=== PATIENT | male | born 1935 | race Caucasian/White ===

== ENCOUNTER 2016-12-16 11:00 | Outpatient (CLI) | payer MEDICARE, OTHER | END 2016-12-16 23:59 | DX: I10 Essential (primary) hypertension (principal); E78.5 Hyperlipidemia, unspecified ==

== ENCOUNTER 2017-01-28 16:15 | Outpatient (CLI) | payer MEDICARE, OTHER | END 2017-01-28 16:16 | disposition home or self-care (01) | DX: R31.0 Gross hematuria (principal) ==

== ENCOUNTER 2017-02-03 15:48 | Outpatient (CLI) | payer MEDICARE, OTHER ==
[2017-02-03] MEDS ORDERED: IOPAMIDOL-300 100 ML VIAL IVP ONE (17:40)
== END 2017-02-03 15:49 | disposition home or self-care (01) ==
DX: N32.89 Other specified disorders of bladder (principal); K80.20 Calculus of gallbladder without cholecystitis without obstruction; N28.89 Other specified disorders of kidney and ureter
CPT/HCPCS: 74178; Q9967

== ENCOUNTER 2017-06-25 10:26 | Outpatient (CLI) | payer MEDICARE, OTHER ==
[2017-06-25 13:28] LABS: BASOPHILS % (AUTO) 0.6 %; EOSINOPHILS # (AUTO) 0.2 10^3/uL (0.0-0.7); EOSINOPHILS % (AUTO) 3.5 %; HCT - HEMATOCRIT 39.6 % (42.0-52.0); HGB - HEMOGLOBIN 13.4 g/dL (14.0-18.0); LYMPHOCYTES # (AUTO) 0.6 10^3/uL (1.5-3.5); LYMPHOCYTES % (AUTO) 10.3 %; MEAN CORPUSCULAR HEMOGLOBIN 32.6 pg (27.0-31.0); MEAN CORPUSCULAR VOLUME 95.9 fL (80.0-94.0); MEAN PLATELET VOLUME 8.5 fL (7.4-11.4); MONOCYTES # (AUTO) 0.6 10^3/uL (0.0-1.0); MONOCYTES % (AUTO) 10.5 %; NEUTROPHILS # (AUTO) 4.3 10^3/uL (1.5-6.6); NEUTROPHILS % (AUTO) 75.1 %; RED BLOOD COUNT 4.13 10^6/uL (4.70-6.10); RED CELL DISTRIBUTION WIDTH 14.7 % (12.0-15.0); UNCORRECTED WHITE BLOOD COUNT 5.7 x10^3/uL; WHITE BLOOD COUNT 5.7 x10^3/uL (4.8-10.8)
[2017-06-25 13:36] LABS: ALBUMIN/GLOBULIN RATIO 1.7 (1.0-2.2); BILIRUBIN,TOTAL 0.6 mg/dL (0.2-1.0); BUN - BLOOD UREA NITROGEN 19 mg/dL (6-20); CALCIUM 8.8 mg/dL (8.5-10.3); CARBON DIOXIDE - CO2 29 mmol/L (21-32); CHLORIDE 104 mmol/L (101-111); CHOL/HDL RATIO 3.3 (<5.0); CHOLESTEROL 156 mg/dL; CREATININE 0.8 mg/dL (0.6-1.2); GFR - MDRD 93 (>89); GLUCOSE 116 mg/dL (70-100); HDL CHOLESTEROL 48 mg/dL; LDL/HDL RATIO 1.8 (<3.6); POTASSIUM 3.8 mmol/L (3.5-5.0); SODIUM 138 mmol/L (135-145); TRIGLYCERIDES 114 mg/dL; VLDL CHOLESTEROL 23 mg/dL
== END 2017-06-25 10:27 ==
LOC: LAB.WCP 10:26
PROVIDERS: ATTEND Family Medicine
DX: R53.83 Other fatigue (principal)
CPT/HCPCS: 36415; 80053; 80061; 84403; 84443; 85025

== ENCOUNTER 2017-08-08 12:49 | Emergency (ER) | payer MEDICARE, OTHER | END 2017-08-08 13:02 | disposition left against medical advice (07) | LOC: ED 12:49 | DX: Z53.21 Procedure and treatment not carried out due to patient leaving prior to being seen by health care provider (principal) ==

== ENCOUNTER 2017-08-08 15:57 | Emergency (ER) | payer MEDICARE, OTHER ==
[2017-08-08 16:03] VITALS: BP 117/66
--- NOTE | 2017-08-08 16:08 | ED Physician Documentation ---
PD HPI HEENT - Stated complaint Stated Complaint: OBJECT IN L EAR - Chief complaint Chief Complaint: Heent - History obtained from History obtained from: Patient - History of Present Illness Timing - onset: Today Timing - duration: Hours Timing - details: Abrupt onset Location: Left ear (he took out his hearing aid and the soft rubber cushion stayed stuck in canal, with it detaching from the spindle it is attached to. He is unable to get at it and take it out) Associated symptoms: No: Fever, Congestion, Swollen nodes, Facial swelling Similar symptoms before: Has not had sx before Recently seen: Not recently seen Review of Systems Constitutional: denies: Fever, Chills Ears: reports: Loss of hearing (feels blocked with the item in the left ear). denies: Ear pain Nose: denies: Rhinorrhea / runny nose, Congestion Throat: denies: Sore throat Respiratory: denies: Cough PD PAST MEDICAL HISTORY - Past Medical History Past Medical History: Yes Cardiovascular: Hypertension, High cholesterol GI: GERD HEENT: Chronic hearing loss (and has hearing aids. ) Psych: Post traumatic stress disorder Derm: Psoriasis - Past Surgical History Past Surgical History: Yes General: Appendectomy HEENT: Tonsil/Adenoidectomy - Present Medications Home Medications: Ambulatory Orders Medication Instructions Recorded Confirmed Hydrochlorothiazide 25 mg PO DAILY 11/05/14 04/27/15 Simvastatin 10 mg PO DAILY 11/05/14 04/27/15 Acetaminophen [Tylenol] 650 mg PO DAILY 04/27/15 04/27/15 Inhaler, Assist Devices [Space 1 each MC Q4HR #1 spacer 04/27/15 Chamber Plus] Methotrexate 6 tab PO 08/08/17 - Allergies Allergies/Adverse Reactions: Allergies Allergy/AdvReac Type Severity Reaction Status Date / Time Penicillins Allergy Unknown Verified 02/03/15 13:57 - Social History Does the pt smoke?: No Smoking Status: Never smoker Does the pt drink ETOH?: Yes Does the pt have substance abuse?: No - Immunizations Immunizations are current?: Yes - POLST Patient has POLST: No PD ED PE NORMAL - Vitals Vital signs reviewed: Yes - General General: Alert and oriented X 3, No acute distress, Well developed/nourished - HEENT HEENT: No: Ears normal (right is normal Left canal with rounded rubber earbud shaped item. It was grabbed easily with alligator forceps and removed. He was able to hear better out of the ear then. ) - Neck Neck: Supple, no meningeal sign, No adenopathy Results - Vitals Vitals: Vital Signs - 24 hr 08/08/17 16:00 Temperature 36.4 C L Heart Rate 96 Respiratory 16 Rate Blood Pressure 117/66 O2 Saturation 97 Oxygen O2 Source Room air Departure - Departure Disposition: 01 Home, Self Care Clinical Impression: Ear foreign body Qualifiers: Encounter type: initial encounter Laterality: left Qualified Code(s): T16.2XXA - Foreign body in left ear, initial encounter Condition: Stable Record reviewed to determine appropriate education?: Yes Instructions: ED Foreign Body Ear Canal Follow-Up: Reinaldo Bangura MD [Primary Care Provider] - Comments: No particular instructions. Follow-up with the hearing aid folks to see if the cup needs a different size or such. Discharge Date/Time: 08/08/17 16:41
== END 2017-08-08 16:41 | disposition home or self-care (01) ==
LOC: ED 15:57
DX: T16.2XXA Foreign body in left ear, initial encounter (principal); X58.XXXA Exposure to other specified factors, initial encounter; I10 Essential (primary) hypertension; E78.00 Pure hypercholesterolemia, unspecified; Z97.4 Presence of external hearing-aid
CPT/HCPCS: 69200; 99282; 99283

== ENCOUNTER 2017-09-02 23:04 | Emergency (ER) | payer MEDICARE, OTHER ==
[2017-09-02 23:12] VITALS: BP 163/75
[2017-09-02] MEDS ORDERED: AMOX/CLAV 875 MG/125 MG TABLET PO STA (23:57)
[2017-09-02] MEDS ORDERED: DEXAMETHASONE 10 MG/ML VIAL PO STA (23:57)
--- NOTE | 2017-09-03 | ED Physician Documentation ---
PD HPI HEENT - Stated complaint Stated Complaint: FACIAL SWELLING - Chief complaint Chief Complaint: Heent - History obtained from History obtained from: Patient, Family - History of Present Illness Timing - onset: Enter time (2199), Today Timing - duration: Minutes Timing - details: Gradual onset, Still present Location: Other (left parotid gland) Improves: Nothing Associated symptoms: Facial swelling. No: Fever, Congestion, Rhinorrhea, Trismus, Unable to swallow, Swollen nodes, Headache, Cough Similar symptoms before: Has not had sx before Recently seen: Not recently seen - Additional information Additional information: 82-year-old male was sitting at home today when he noticed a swelling in the left side of his face. He eventually went to check himself in the mirror and noted that the swelling was significant. he does not have much in the way of pain with this and since he has been here in the emergency department he feels the swelling is reduced slightly. Review of Systems Constitutional: denies: Fever, Chills, Myalgias, Fatigue Eyes: denies: Decreased vision Ears: denies: Ear pain Nose: denies: Rhinorrhea / runny nose, Congestion Throat: denies: Dental pain / toothache, Sore throat, Swollen tonsils Cardiac: denies: Chest pain / pressure, Palpitations Respiratory: denies: Dyspnea GI: denies: Abdominal Pain PD PAST MEDICAL HISTORY - Past Medical History Cardiovascular: Hypertension, High cholesterol GI: GERD HEENT: Chronic hearing loss Psych: Post traumatic stress disorder Derm: Psoriasis - Past Surgical History Past Surgical History: Yes General: Appendectomy HEENT: Tonsil/Adenoidectomy - Present Medications Home Medications: Ambulatory Orders Medication Instructions Recorded Confirmed Simvastatin 10 mg PO DAILY 11/05/14 09/02/17 hydroCHLOROthiazide 25 mg PO DAILY 11/05/14 09/02/17 [Hydrochlorothiazide] Acetaminophen [Tylenol] 650 mg PO DAILY 04/27/15 09/02/17 Methotrexate 6 tab PO OAW 08/08/17 09/02/17 Aspirin 1 tab ORAL DAILY 09/02/17 09/02/17 Amox/Clav 875/125 [Augmentin] 1 each PO Q12H #10 tablet 09/03/17 - Allergies Allergies/Adverse Reactions: Allergies Allergy/AdvReac Type Severity Reaction Status Date / Time Penicillins Allergy Unknown Verified 09/02/17 23:12 - Social History Does the pt smoke?: No Smoking Status: Never smoker Does the pt drink ETOH?: Yes ETOH Use: Wine Does the pt have substance abuse?: No - Immunizations Immunizations are current?: Yes - POLST Patient has POLST: No PD ED PE NORMAL - Vitals Vital signs reviewed: Yes (Hypertensive) - General General: No acute distress, Well developed/nourished - HEENT HEENT: Atraumatic, PERRL, EOMI, Other (There is swelling to the left parotid gland. There is inflammation at the opening of the parotid duct along the buccal mucosa on the left side. With milking of the gland there is secretions running freely. There is no significant pain over the parotid gland. The gland does appear to deflate over time.) - Neck Neck: Supple, no meningeal sign, No bony TTP - Respiratory Respiratory: No respiratory distress Results - Vitals Vitals: Vital Signs - 24 hr 09/02/17 23:09 Temperature 36.7 C Heart Rate 75 Respiratory 20 Rate Blood Pressure 163/75 H O2 Saturation 95 Oxygen O2 Source Room air PD MEDICAL DECISION MAKING - ED course Complexity details: considered differential, d/w patient, d/w family ED course: 82-year-old male with parotid gland swelling and now relieved obstruction of the parotid duct. He does have some swelling around the opening of the duct and he is given 10 mg of dexamethasone and 875 mg of Augmentin. I have asked him to take the antibiotic for 5 days and to follow-up with ENT if he does not have complete resolution of his symptoms. Departure - Departure Disposition: 01 Home, Self Care Clinical Impression: Parotid duct obstruction Condition: Stable Instructions: Stensen Duct Obstruction Tx Follow-Up: Reinaldo Bangura MD [Primary Care Provider] - [facility] [Provider Group] Prescriptions: Amox/Clav 875/125 [Augmentin] 1 each PO Q12H #10 tablet
[2017-09-03] MEDS ORDERED: AMOX/CLAV 875 MG/125 MG TABLET PO ONE (00:11)
[2017-09-03] MEDS ORDERED: DEXAMETHASONE 10 MG/ML VIAL ONE (00:12)
[2017-09-03] MEDS ORDERED: CHERRY SYRUP 10 ML UDC PO ONE (00:12)
== END 2017-09-03 00:14 | disposition home or self-care (01) ==
LOC: ED 23:04
DX: K11.8 Other diseases of salivary glands (principal); I10 Essential (primary) hypertension; E78.00 Pure hypercholesterolemia, unspecified; K21.9 Gastro-esophageal reflux disease without esophagitis; Z79.82 Long term (current) use of aspirin
CPT/HCPCS: 99283; A9270

== ENCOUNTER 2018-04-11 10:10 | Emergency (ER) | payer MEDICARE, OTHER ==
[2018-04-11 10:36] VITALS: BP 138/77
--- NOTE | 2018-04-11 11:22 | ED Physician Documentation ---
PD HPI HEENT - Stated complaint Stated Complaint: F/O IN EAR - Chief complaint Chief Complaint: Heent - History obtained from History obtained from: Patient - History of Present Illness Timing - onset: Today Timing - details: Abrupt onset Location: Right ear (he took out his hearing aid and the cup part that fits into canal broke off and was still in ear. He is unable to get at it at home.) Associated symptoms: No: Fever, Congestion Review of Systems Eyes: reports: Decreased vision (chronically) PD PAST MEDICAL HISTORY - Past Medical History Past Medical History: Yes Cardiovascular: Hypertension, High cholesterol GI: GERD HEENT: Chronic hearing loss Psych: Post traumatic stress disorder Derm: Psoriasis - Past Surgical History Past Surgical History: Yes General: Appendectomy HEENT: Tonsil/Adenoidectomy - Present Medications Home Medications: Ambulatory Orders Medication Instructions Recorded Confirmed Simvastatin 10 mg PO DAILY 11/05/14 04/11/18 hydroCHLOROthiazide 25 mg PO DAILY 11/05/14 04/11/18 [Hydrochlorothiazide] Acetaminophen [Tylenol] 650 mg PO DAILY 04/27/15 04/11/18 Methotrexate 6 tab PO OAW 08/08/17 04/11/18 Aspirin 1 tab ORAL DAILY 09/02/17 04/11/18 Amox/Clav 875/125 [Augmentin] 1 each PO Q12H #10 tablet 09/03/17 04/11/18 - Allergies Allergies/Adverse Reactions: Allergies Allergy/AdvReac Type Severity Reaction Status Date / Time cillins Allergy Itching Uncoded 04/11/18 10:51 - Social History Does the pt smoke?: No Smoking Status: Never smoker Does the pt drink ETOH?: Yes Does the pt have substance abuse?: No - Immunizations Immunizations are current?: Yes - POLST Patient has POLST: No PD ED PE NORMAL - Vitals Vital signs reviewed: Yes - General General: Alert and oriented X 3, No acute distress, Well developed/nourished - HEENT HEENT: Pharynx benign. No: Ears normal (left is good; right has part of hearing aid in it, easily visible. ) - Neuro Neuro: Alert and oriented X 3, No motor deficit, Normal speech Results - Vitals Vitals: Oxygen O2 Source Room air Procedures - FB removal FB location: Ear Removal method: Foreceps FB removal aftercare: No complications, Patient tolerated well, Removed successfully PD MEDICAL DECISION MAKING - ED course Complexity details: considered differential, d/w patient - Sepsis Event Vital Signs: Oxygen O2 Source Room air Departure - Departure Disposition: 01 Home, Self Care Clinical Impression: Ear foreign body Qualifiers: Encounter type: initial encounter Laterality: right Qualified Code(s): T16.1XXA - Foreign body in right ear, initial encounter Condition: Stable Record reviewed to determine appropriate education?: Yes Instructions: ED Foreign Body Ear Canal Comments: The ear canal looks normal after the hearing aid part is out. No signs of irritation or infection. Discharge Date/Time: 04/11/18 11:43
== END 2018-04-11 11:43 | disposition home or self-care (01) ==
LOC: ED 10:10
DX: T16.1XXA Foreign body in right ear, initial encounter (principal); I10 Essential (primary) hypertension; Z79.82 Long term (current) use of aspirin
CPT/HCPCS: 69200; 99282

== ENCOUNTER 2019-07-25 06:14 | Day surgery (SDC) | payer MEDICARE, OTHER ==
[2019-07-25] MEDS ORDERED: MIDAZOLAM 2 MG/2 ML VIAL IVP ONE (06:15)
[2019-07-25] MEDS ORDERED: fentaNYL 100 MCG/2 ML VIAL IVP ONE (06:15)
[2019-07-25] MEDS ORDERED: LACTATED RINGERS 1,000 ML IV ONE (06:34)
[2019-07-25 09:23] VITALS: BP 131/68
== END 2019-07-25 06:15 | disposition home or self-care (01) ==
LOC: SDS 06:14
PROVIDERS: ATTEND Internal Medicine Gastroenterology
PROC: 0DBL8ZZ Excision of Transverse Colon, Via Natural or Artificial Opening Endoscopic (ICD-10-PCS; principal; 2019-07-25 07:30)
DX: D12.3 Benign neoplasm of transverse colon (principal); K51.40 Inflammatory polyps of colon without complications; K57.30 Diverticulosis of large intestine without perforation or abscess without bleeding; I10 Essential (primary) hypertension; Z79.899 Other long term (current) drug therapy; Z79.82 Long term (current) use of aspirin; Z87.891 Personal history of nicotine dependence
CPT/HCPCS: 45380; 45385; J7120

== ENCOUNTER 2020-05-13 18:08 | Outpatient (CLI) | payer MEDICARE, OTHER | END 2020-05-13 23:59 | disposition critical access hospital (66) | LOC: EMS 18:08 | PROVIDERS: ATTEND Surgery | DX: R55 Syncope and collapse (principal); R42 Dizziness and giddiness | CPT/HCPCS: A0425; A0427 ==

== ENCOUNTER 2020-05-13 18:25 | Emergency (ER) | payer MEDICARE, OTHER ==
[2020-05-13] MEDS ORDERED: ONDANSETRON 4 MG/2 ML VIAL ONE (18:29)
[2020-05-13] MEDS ORDERED: SODIUM CHLORIDE 0.9% 1,000 ML IV STA ×2 (18:35→20:37)
[2020-05-13] MEDS ORDERED: ONDANSETRON 4 MG/2 ML VIAL IVP STA (18:38)
--- NOTE | 2020-05-13 18:41 | ED Physician Documentation ---
History of Present Illness - Stated complaint Stated Complaint: SYNCOPE - Chief complaint Chief Complaint: Cardiac - History obtained from History obtained from: Patient - History of Present Illness Timing: Today Pain level max: 0 Pain level now: 0 - Additonal information Additional information: 84-year-old male presents to the emergency department after working all day out in the sun in his garden when he felt lightheaded, dizzy and passed out. Had nausea and vomiting after the event. No head injury. Currently is feeling better after IV fluids with EMS. He states he has not eaten or drank anything since early this morning. No chest pain. No shortness of breath. Nausea resolved with Zofran. No cardiac history. Review of Systems Ten Systems: 10 systems reviewed and negative Constitutional: denies: Fever, Chills Cardiac: denies: Chest pain / pressure Respiratory: denies: Cough GI: denies: Vomiting, Diarrhea Skin: denies: Rash Musculoskeletal: denies: Neck pain, Back pain Neurologic: denies: Headache PD PAST MEDICAL HISTORY - Past Medical History Past Medical History: Yes Cardiovascular: Hypertension, High cholesterol GI: GERD HEENT: Chronic hearing loss Psych: Post traumatic stress disorder Derm: Psoriasis - Past Surgical History Past Surgical History: Yes General: Appendectomy HEENT: Tonsil/Adenoidectomy - Present Medications Home Medications: Ambulatory Orders Medication Instructions Recorded Confirmed Simvastatin 10 mg PO DAILY 11/05/14 07/25/19 hydroCHLOROthiazide 25 mg PO DAILY 11/05/14 07/25/19 [Hydrochlorothiazide] Acetaminophen [Tylenol] 650 mg PO DAILY 04/27/15 07/25/19 Methotrexate 6 tab PO OAW 08/08/17 07/25/19 Aspirin 1 tab ORAL DAILY 09/02/17 07/25/19 Finasteride 5 mg PO DAILY 07/25/19 07/25/19 Losartan Potassium 25 mg PO DAILY 07/25/19 07/25/19 Tamsulosin [Flomax] 0.4 mg PO DAILY 07/25/19 07/25/19 - Allergies Allergies/Adverse Reactions: Allergies Allergy/AdvReac Type Severity Reaction Status Date / Time lisinopril Allergy Unknown Verified 07/25/19 07:01 cillins Allergy Itching Uncoded 07/25/19 06:36 - Social History Does the pt smoke?: No Smoking Status: Never smoker Does the pt drink ETOH?: Yes Does the pt have substance abuse?: No - Immunizations Immunizations are current?: Yes - POLST Patient has POLST: No PD ED PE NORMAL - Vitals Vital signs reviewed: Yes - General General: Alert and oriented X 3, No acute distress, Well developed/nourished - HEENT HEENT: PERRL, Other (Dry lips) - Neck Neck: Supple, no meningeal sign - Cardiac Cardiac: RRR, No murmur, Strong equal pulses - Respiratory Respiratory: No respiratory distress, Clear bilaterally - Abdomen Abdomen: Soft, Non tender, Non distended - Derm Derm: Warm and dry - Extremities Extremities: No edema, No calf tenderness / cord - Neuro Neuro: Alert and oriented X 3 - Psych Psych: Normal mood, Normal affect Results - Vitals Vitals: Vital Signs - 24 hr 05/13/20 05/13/20 05/13/20 18:29 18:36 19:18 Temperature 36.9 C 36.5 C Heart Rate 91 66 72 Respiratory 20 16 11 L Rate Blood Pressure 143/69 H 136/57 H 142/66 H O2 Saturation 99 93 100 05/13/20 20:32 Temperature Heart Rate 71 Respiratory 14 Rate Blood Pressure 143/81 H O2 Saturation 100 Oxygen O2 Source Room air - EKG (time done) 1828 Rate: Rate (enter#) (66) Rhythm: NSR [place]: Normal Intervals: Prolonged [place], Prolonged QT QRS: Normal Ischemia: Normal ST segments Computer interpretation: Agree with computer - Labs Labs: Laboratory Tests 05/13/20 05/13/20 05/13/20 18:41 18:41 18:41 WBC 8.5 RBC 3.85 L Hgb 12.4 L Hct 37.6 L MCV 97.7 H MCH 32.2 H MCHC 33.0 RDW 14.0 Plt Count 126 L MPV 9.7 Neut # (Auto) 7.0 H Lymph # (Auto) 0.7 L [place] # (Auto) 0.6 Eos # (Auto) 0.1 Baso # (Auto) 0.0 Absolute Nucleated RBC 0.00 Nucleated RBC % 0.0 Sodium 135 Potassium 3.3 L Chloride 98 L Carbon Dioxide 25 Anion Gap 12.0 BUN 28 H Creatinine 1.1 Estimated GFR (MDRD) 64 L Glucose 154 H Calcium 8.3 L Total Bilirubin 0.9 AST 30 ALT 28 Alkaline Phosphatase 89 Troponin I High Sens 10.6 Total Protein 6.1 L Albumin 3.9 Globulin 2.2 Albumin/Globulin Ratio 1.8 Lipase 36 Urine Color Urine Clarity Urine pH Ur Specific [place] Urine Protein Urine Glucose (UA) Urine Ketones Urine Occult Blood Urine Nitrite Urine Bilirubin Urine Urobilinogen Ur Leukocyte Esterase Ur Microscopic Review Urine Culture Comments 05/13/20 20:25 WBC RBC Hgb Hct MCV MCH MCHC RDW Plt Count MPV Neut # (Auto) Lymph # (Auto) [place] # (Auto) Eos # (Auto) Baso # (Auto) Absolute Nucleated RBC Nucleated RBC % Sodium Potassium Chloride Carbon Dioxide Anion Gap BUN Creatinine Estimated GFR (MDRD) Glucose Calcium Total Bilirubin AST ALT Alkaline Phosphatase Troponin I High Sens Total Protein Albumin Globulin Albumin/Globulin Ratio Lipase Urine Color YELLOW Urine Clarity CLEAR Urine pH 5.0 Ur Specific [place] 1.025 Urine Protein NEGATIVE Urine Glucose (UA) NEGATIVE Urine Ketones 15 H Urine Occult Blood TRACE-INTA Urine Nitrite NEGATIVE Urine Bilirubin NEGATIVE Urine Urobilinogen 0.2 (NORMAL) Ur Leukocyte Esterase NEGATIVE Ur Microscopic Review NOT INDICATED Urine Culture Comments NOT INDICATED PD MEDICAL DECISION MAKING - ED course Complexity details: reviewed results, re-evaluated patient, considered differential, d/w patient, d/w family ED course: Patient with dehydration and syncope today. Does have a prolonged QT on EKG, he will follow-up with his doctor regarding this. Asymptomatic here. No arrhythmias on telemetry. Symptoms resolved with IV fluids. Tolerating p.o. without difficulty. Patient is well-appearing, nontoxic. Afebrile. Patient counseled regarding signs and symptoms for which I believe and urgent re- evaluation would be necessary. Patient with good understanding of and agreement to plan and is comfortable going home at this time This document was made in part using voice recognition software. While efforts are made to proofread this document, sound alike and grammatical errors may occur. Departure - Departure Disposition: 01 Home, Self Care Clinical Impression: Dehydration, Prolonged QT interval Syncope Qualifiers: Syncope type: unspecified Qualified Code(s): R55 - Syncope and collapse Condition: Good Instructions: ED Dehydration, ED Syncope Vasovagal Follow-Up: Reinaldo Bangura MD [Primary Care Provider] - Within 1 week Comments: Make sure to drink plenty of water at home. Return if you worsen. You need to remember to stop and eat and drink during the day.
[2020-05-13 18:49] LABS: BASOPHILS % (AUTO) 0.5 %; EOSINOPHILS # (AUTO) 0.1 10^3/uL (0.0-0.7); EOSINOPHILS % (AUTO) 1.2 %; HGB - HEMOGLOBIN 12.4 g/dL (14.0-18.0); LYMPHOCYTES # (AUTO) 0.7 10^3/uL (1.5-3.5); LYMPHOCYTES % (AUTO) 8.1 %; MEAN CORPUSCULAR HEMOGLOBIN 32.2 pg (27.0-31.0); MEAN CORPUSCULAR VOLUME 97.7 fL (80.0-94.0); MEAN PLATELET VOLUME 9.7 fL (7.4-11.4); MONOCYTES # (AUTO) 0.6 10^3/uL (0.0-1.0); MONOCYTES % (AUTO) 6.6 %; NEUTROPHILS % (AUTO) 82.9 %; PLT - PLATELET COUNT 126 10^3/uL (130-450); RED BLOOD COUNT 3.85 10^6/uL (4.70-6.10); WHITE BLOOD COUNT 8.5 x10^3/uL (4.8-10.8)
[2020-05-13 19:00] LABS: ALBUMIN 3.9 g/dL (3.2-5.5); ALBUMIN/GLOBULIN RATIO 1.8 (1.0-2.2); BILIRUBIN,TOTAL 0.9 mg/dL (0.2-1.0); CALCIUM 8.3 mg/dL (8.5-10.3); CREATININE 1.1 mg/dL (0.6-1.2); TOTAL PROTEIN 6.1 g/dL (6.7-8.2)
--- NOTE | 2020-05-13 19:11 | XRAY Report ---
PROCEDURE: Chest 1 View X-Ray INDICATIONS: Chest pain TECHNIQUE: One view of the chest was acquired. COMPARISON: Chest x-ray 04/26/2015 FINDINGS: Surgical changes and devices: Thoracolumbar fixation rods are noted. Lungs and pleura: No pleural effusions or pneumothorax. Lungs are clear. Mediastinum: Mediastinal contours appear normal. Heart size is enlarged. Bones and chest wall: No suspicious bony lesions. Overlying soft tissues appear unremarkable. IMPRESSION: No acute pulmonary process. Reviewed by: Mira Montoya MD on 05/13/2020 7:10 PM PDT Approved by: Mira Montoya MD on 05/13/2020 7:10 PM PDT Station ID: [id number]
[2020-05-13 20:34] VITALS: BP 143/81
[2020-05-13 20:34] LABS: BILIRUBIN,URINE NEGATIVE (NEGATIVE); GLUCOSE, URINE (UA) NEGATIVE (NEGATIVE); KETONES,URINE (UA) 15 mg/dL (NEGATIVE); LEUKOCYTE ESTERASE, URINE NEGATIVE (NEGATIVE); NITRITE,URINE NEGATIVE (NEGATIVE); OCCULT BLOOD,URINE TRACE-INTA (NEGATIVE); PROTEIN,URINE NEGATIVE (NEGATIVE); UROBILINOGEN,URINE 0.2 (NORMAL) E.U./dL (NORMAL)
[2020-05-13 20:36] LABS: CLARITY,URINE CLEAR (CLEAR)
== END 2020-05-13 21:30 | disposition home or self-care (01) ==
LOC: EDBD → ED 18:25
DX: E86.0 Dehydration (principal); R55 Syncope and collapse; I45.81 Long QT syndrome; I10 Essential (primary) hypertension; Z79.82 Long term (current) use of aspirin
CPT/HCPCS: 36415; 71045; 80053; 81001; 81003; 83690; 84484; 85025; 87086; 93005; 96361; 96374; 99284

== ENCOUNTER 2020-08-13 18:38 | Inpatient (IN) | payer MEDICARE, OTHER ==
--- NOTE | 2020-08-13 19:33 | ED Physician Documentation ---
History of Present Illness - Stated complaint Stated Complaint: FEVER/COUGH - Chief complaint Chief Complaint: Resp - History obtained from History obtained from: Patient, Family - Additonal information Additional information: 85-year-old gentleman is a couple of months out from a TURP. Had gross hematuria a few days ago, now has fever with nonproductive cough. Also sore throat. His is also sick with similar illness. Review of Systems Ten Systems: 10 systems reviewed and negative Constitutional: reports: Fever, Chills, Myalgias, Fatigue Nose: denies: Rhinorrhea / runny nose Throat: reports: Sore throat Respiratory: reports: Cough. denies: Dyspnea GI: denies: Abdominal Pain, Nausea, Vomiting, Constipation, Diarrhea : denies: Dysuria, Frequency PD PAST MEDICAL HISTORY - Past Medical History Cardiovascular: Hypertension, High cholesterol GI: GERD HEENT: Chronic hearing loss Psych: Post traumatic stress disorder Derm: Psoriasis - Past Surgical History Past Surgical History: Yes General: Appendectomy HEENT: Tonsil/Adenoidectomy - Present Medications Home Medications: Ambulatory Orders Medication Instructions Recorded Confirmed Simvastatin 10 mg PO DAILY 11/05/14 07/25/19 hydroCHLOROthiazide 25 mg PO DAILY 11/05/14 07/25/19 [Hydrochlorothiazide] Acetaminophen [Tylenol] 650 mg PO DAILY 04/27/15 07/25/19 Methotrexate 6 tab PO OAW 08/08/17 07/25/19 Aspirin 1 tab ORAL DAILY 09/02/17 07/25/19 Finasteride 5 mg PO DAILY 07/25/19 07/25/19 Losartan Potassium 25 mg PO DAILY 07/25/19 07/25/19 Tamsulosin [Flomax] 0.4 mg PO DAILY 07/25/19 07/25/19 - Allergies Allergies/Adverse Reactions: Allergies Allergy/AdvReac Type Severity Reaction Status Date / Time lisinopril Allergy Unknown Verified 08/13/20 19:08 cillins Allergy Itching Uncoded 08/13/20 19:08 - Social History Does the pt smoke?: No Smoking Status: Never smoker Does the pt drink ETOH?: Yes Does the pt have substance abuse?: No - Immunizations Immunizations are current?: Yes - POLST Patient has POLST: No PD ED PE NORMAL - Vitals Vital signs reviewed: Yes - General General: Alert and oriented X 3, No acute distress - HEENT HEENT: PERRL, EOMI - Neck Neck: Supple, no meningeal sign, No bony TTP - Cardiac Cardiac: RRR, No murmur - Respiratory Respiratory: No respiratory distress, Clear bilaterally - Abdomen Abdomen: Non tender - Back Back: No CVA TTP, No spinal TTP - Derm Derm: Normal color, Warm and dry, No rash - Extremities Extremities: No edema, No calf tenderness / cord - Neuro Neuro: Alert and oriented X 3, Normal speech Results - Vitals Vitals: Vital Signs - 24 hr 08/13/20 08/13/20 08/13/20 18:48 19:42 20:12 Temperature 38.1 C H Heart Rate 105 H 100 98 Respiratory 35 H 33 H 21 Rate Blood Pressure 149/80 H 132/90 H 136/53 H O2 Saturation 92 94 95 08/13/20 08/13/20 08/13/20 20:30 21:00 21:30 Temperature 37.7 C H Heart Rate 65 88 86 Respiratory 22 30 H 37 H Rate Blood Pressure 114/77 130/57 L 119/55 L O2 Saturation 99 94 Oxygen O2 Source Room air - Labs Labs: Laboratory Tests 08/13/20 08/13/20 08/13/20 19:40 19:40 19:40 WBC 12.7 H RBC 3.66 L Hgb 11.8 L Hct 35.4 L MCV 96.7 H MCH 32.2 H MCHC 33.3 RDW 13.7 Plt Count 169 MPV 9.1 Neut # (Auto) 10.3 H Lymph # (Auto) 0.6 L [place] # (Auto) 1.5 H Eos # (Auto) 0.0 Baso # (Auto) 0.1 Absolute Nucleated RBC 0.00 Nucleated RBC % 0.0 Sodium 134 L Potassium 3.3 L Chloride 96 L Carbon Dioxide 26 Anion Gap 12.0 BUN 31 H Creatinine 1.5 H Estimated GFR (MDRD) 45 L Glucose 148 H Lactic Acid 1.0 Calcium 8.4 L Total Bilirubin 0.6 AST 23 ALT 24 Alkaline Phosphatase 92 Total Protein 7.1 Albumin 3.4 Globulin 3.7 Albumin/Globulin Ratio 0.9 L Urine Color Urine Clarity Urine pH Ur Specific [place] Urine Protein Urine Glucose (UA) Urine Ketones Urine Occult Blood Urine Nitrite Urine Bilirubin Urine Urobilinogen Ur Leukocyte Esterase Urine RBC Urine WBC Ur Squamous Epith Cells Urine Bacteria Urine Culture Comments 08/13/20 21:20 WBC RBC Hgb Hct MCV MCH MCHC RDW Plt Count MPV Neut # (Auto) Lymph # (Auto) [place] # (Auto) Eos # (Auto) Baso # (Auto) Absolute Nucleated RBC Nucleated RBC % Sodium Potassium Chloride Carbon Dioxide Anion Gap BUN Creatinine Estimated GFR (MDRD) Glucose Lactic Acid Calcium Total Bilirubin AST ALT Alkaline Phosphatase Total Protein Albumin Globulin Albumin/Globulin Ratio Urine Color YELLOW Urine Clarity SL. CLOUDY Urine pH 5.0 Ur Specific [place] 1.025 Urine Protein 100 H Urine Glucose (UA) NEGATIVE Urine Ketones NEGATIVE Urine Occult Blood LARGE H Urine Nitrite POSITIVE H Urine Bilirubin NEGATIVE Urine Urobilinogen 0.2 (NORMAL) Ur Leukocyte Esterase MODERATE H Urine RBC 11-25 H Urine WBC >25 H Ur Squamous Epith Cells RARE Squamous Urine Bacteria Moderate H Urine Culture Comments INDICATED PD MEDICAL DECISION MAKING - ED course ED course: 85-year-old gentleman with history of TURP presents with fever, tachycardia, and tachypnea. His vital signs improved significantly with just the administration of Tylenol. Chest x-ray was clear. His is also sick with a similar illness so coronavirus test is pending, he certainly does have some respiratory complaints but also has evidence of UTI with positive urinalysis and a white count of 12. He is not in septic shock, time of onset for sepsis was at the time of source identification which was 2134 with the results of his urinalysis which were delayed because the patient initially wanted to urinate on his own but later required in and out catheterization. Review of prior records shows 1 urine culture on the chart that was 5 years old with pansensitive E. coli. He was administered Rocephin after blood cultures. Spoke with Dr. Lilly for admission at 9:44 PM. - Sepsis Event Current Stage of Sepsis: Sepsis (time of onset 2134 with results of UA) Possible source of Sepsis: Genitourinary Mental/Cognitive Status: Alert/Oriented X3, Normal for patient Reason for not giving 30ml/kg crystalloid fluids: Other (not in septic shock) Capillary refill: Less than 2 seconds Peripheral Pulse Strength: 0+ Absent Peripheral Pulse Location: Radial Bedside ultrasound performed: No Departure - Departure Disposition: 66 [facility] DC/Xfer Clinical Impression: Sepsis secondary to UTI Condition: Stable
[2020-08-13 19:52] LABS: BASOPHILS # (AUTO) 0.1 10^3/uL (0.0-0.1); BASOPHILS % (AUTO) 0.4 %; EOSINOPHILS % (AUTO) 0.3 %; HGB - HEMOGLOBIN 11.8 g/dL (14.0-18.0); LYMPHOCYTES # (AUTO) 0.6 10^3/uL (1.5-3.5); LYMPHOCYTES % (AUTO) 4.9 %; MEAN CORPUSCULAR HEMOGLOBIN 32.2 pg (27.0-31.0); MEAN CORPUSCULAR HGB CONC 33.3 g/dL (32.0-36.0); MEAN CORPUSCULAR VOLUME 96.7 fL (80.0-94.0); MEAN PLATELET VOLUME 9.1 fL (7.4-11.4); MONOCYTES # (AUTO) 1.5 10^3/uL (0.0-1.0); MONOCYTES % (AUTO) 11.6 %; NEUTROPHILS # (AUTO) 10.3 10^3/uL (1.5-6.6); NEUTROPHILS % (AUTO) 81.6 %; PLT - PLATELET COUNT 169 10^3/uL (130-450); RED BLOOD COUNT 3.66 10^6/uL (4.70-6.10); RED CELL DISTRIBUTION WIDTH 13.7 % (12.0-15.0); WHITE BLOOD COUNT 12.7 x10^3/uL (4.8-10.8)
[2020-08-13 20:04] LABS: ALBUMIN 3.4 g/dL (3.2-5.5); ALBUMIN/GLOBULIN RATIO 0.9 (1.0-2.2); BILIRUBIN,TOTAL 0.6 mg/dL (0.2-1.0); CALCIUM 8.4 mg/dL (8.5-10.3); CREATININE 1.5 mg/dL (0.6-1.2); TOTAL PROTEIN 7.1 g/dL (6.7-8.2)
--- NOTE | 2020-08-13 20:10 | XRAY Report ---
PROCEDURE: Chest 1 View X-Ray INDICATIONS: Cough TECHNIQUE: One view of the chest was acquired. COMPARISON: 05/13/2020 FINDINGS: Surgical changes and devices: None. Lungs and pleura: No pleural effusions or pneumothorax. Lungs are clear. Mediastinum: Mediastinal contours appear normal. Heart size is normal. Bones and chest wall: Thoracic fixation hardware noted. No suspicious bony lesions. Overlying soft tissues appear unremarkable. IMPRESSION: No acute cardiopulmonary process demonstrated radiographically. Reviewed by: Asim Meyer MD on 08/13/2020 8:09 PM PDT Approved by: Asim Meyer MD on 08/13/2020 8:09 PM PDT Station ID: [id number]
[2020-08-13] MEDS ORDERED: ACETAMINOPHEN 325 MG TABLET PO STA (20:18)
[2020-08-13 21:25] LABS: BILIRUBIN,URINE NEGATIVE (NEGATIVE); GLUCOSE, URINE (UA) NEGATIVE (NEGATIVE); KETONES,URINE (UA) NEGATIVE (NEGATIVE); LEUKOCYTE ESTERASE, URINE MODERATE (NEGATIVE); NITRITE,URINE POSITIVE (NEGATIVE); OCCULT BLOOD,URINE LARGE (NEGATIVE); PROTEIN,URINE 100 mg/dL (NEGATIVE); UROBILINOGEN,URINE 0.2 (NORMAL) E.U./dL (NORMAL)
[2020-08-13 21:32] LABS: CLARITY,URINE SL. CLOUDY (CLEAR)
[2020-08-13 21:33] LABS: BACTERIA,URINE Moderate /HPF (None Seen); SQUAMOUS EPITHELIAL CELL,UR RARE Squamous (<= Few)
[2020-08-13] MEDS ORDERED: cefTRIAXone 2 GM in SODIUM CHLORIDE 0.9% MINIBAG 100 ML IV STA (21:35)
[2020-08-13] MEDS ORDERED: SODIUM CHLORIDE 0.9% 1,000 ML IV STA (21:41)
[2020-08-13] MEDS ORDERED: ONDANSETRON 4 MG/2 ML VIAL IVP PRN (21:43)
[2020-08-13] MEDS ORDERED: SODIUM CHLORIDE FLUSH 0.9% 10 ML SYRINGE IVP PRN (21:43)
[2020-08-13] MEDS ORDERED: LACTATED RINGERS 1,500 ML IV ONE (21:46)
--- NOTE | 2020-08-13 21:46 | HISTORY & PHYSICAL EXAMINATION ---
Chief Complaint - Chief Complaint Chief Complaint: Fever History of Present Illness - Admitted From Admitted From:: [facility] - History Obtained From Records Reviewed: Yes History obtained from: Patient - History of Present Illness HPI Comment/Other: Patient is an 85-year-old male with history of frequent UTIs who presented to the ED with complaint of weakness and fever. This has been going on for the past 3 days. He reported a T-max of 103.1F. His temperatures have fluctuated between 103F and 101F. He finally came to the hospital today at the behest of his . In the ED he was found to be tachycardic with a heart rate as high as 105. He was also tachypneic and had a white blood cell count of 12.5. Urinalysis showed a urinary tract infection. Consequently the patient was started on IV antibiotics and presented for admission. At bedside he denies chest pain, dyspnea, abdominal pain, nausea or vomiting,. He reports he has had a chronic cough for years. His medical history is significant for BPH, hypertension, hyperlipidemia and psoriasis with arthritis. History - Past Medical History Cardiovascular: reports: Hypertension, High cholesterol Endocrine/Autoimmune: reports: Other (Psoariasis with arthritis) GI: reports: GERD HEENT: reports: Chronic hearing loss Psych: reports: Post traumatic stress disorder Derm: reports: Psoriasis MRSA Hx?: No - Past Surgical History General: reports: Appendectomy HEENT: reports: Tonsil/Adenoidectomy - Family & Social History Family History Comment/Other: Patient's mother at the age of 84 from pancreatic and liver cancer. His father at age 59 of multiple heart attacks. He also had prostate cancer. 1 brother had an acquired hemophilia after being treated for some type of adenoid cancer that was very rare. His 2 blood children are healthy except one has recently had skin cancer. Living arrangement: At home Living Situation: With spouse/s.o. Social History Notes: Patient smoked from the age of 17 until his mid 30s. 1 pack/day. 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 He quit in his 60s. Now only drinks a glass of wine or beer daily. He does not use any recreational substances. - POLST Patient has POLST: No POLST Status: Full Code Meds/Allgy - Home Medications Home Medications: Ambulatory Orders Medication Instructions Recorded Confirmed Simvastatin 10 mg PO DAILY 11/05/14 07/25/19 hydroCHLOROthiazide 25 mg PO DAILY 11/05/14 07/25/19 [Hydrochlorothiazide] Acetaminophen [Tylenol] 650 mg PO DAILY 04/27/15 07/25/19 Methotrexate 6 tab PO OAW 08/08/17 07/25/19 Aspirin 1 tab ORAL DAILY 09/02/17 07/25/19 Finasteride 5 mg PO DAILY 07/25/19 07/25/19 Losartan Potassium 25 mg PO DAILY 07/25/19 07/25/19 Tamsulosin [Flomax] 0.4 mg PO DAILY 07/25/19 07/25/19 - Allergies Allergies/Adverse Reactions: Allergies Allergy/AdvReac Type Severity Reaction Status Date / Time lisinopril Allergy Unknown Verified 08/13/20 19:08 Penicillins Allergy Itching Verified 08/13/20 22:32 Review of Systems - Constitutional Constitutional: reports: Fever - Eyes Eyes: denies: Pain, Dipolpia - Ears, Nose & Throat Ears, Nose & Throat: denies: Ear pain - Cardiovascular Cariovascular: reports: Palpitations. denies: Irregular heart rate, Chest pain, Edema, Lightheadedness, Syncope, Exertional dyspnea, Decr. exercise tolerance - Respiratory Respiratory: reports: Cough. denies: Sputum production, Wheezing, SOB at rest, SOB with exertion - Gastrointestinal Gastrointestinal: denies: Abdominal pain, Abdominal distention, Diarrhea, Nausea, Vomiting - Genitourinary Genitourinary: reports: Flank pain. denies: Dysuria, Frequency, Urgency, Hematuria, Incontinence - Musculoskeletal Musculoskeletal: denies: Muscle pain, Back pain, Muscle aches - Integumentary Integumentary: denies: Rash, Pruritis, Lesions, Dryness - Neurological Neurological: denies: General weakness, Focal weakness, Headache, Dizziness - Psychiatric Psychiatric: denies: Depression, Anxiety - Endocrine Endocrine: denies: Polyuria, Polydypsia - Hematologic/Lymphatic Hematologic/Lymphatic: denies: Anemia, Bruising, Petechiae Prior Level of Functionality: Patient is independent of activities of daily living Exam - Vital Signs Vital Signs: Vital Signs x48h Temp Pulse Resp BP Pulse Ox 08/13/20 21:30 86 37 H 119/55 L 08/13/20 21:00 37.7 C H 88 30 H 130/57 L 94 08/13/20 20:30 65 22 114/77 99 08/13/20 20:12 98 21 136/53 H 95 08/13/20 19:42 100 33 H 132/90 H 94 08/13/20 18:48 38.1 C H 105 H 35 H 149/80 H 92 - Physical Exam General Appearance: positive: No acute distress, Alert Eyes Bilateral: positive: PERRL, EOMI ENT: positive: No signs of dehydration Neck: positive: No JVD, Trachea midline Respiratory: positive: No respiratory distress, Breath sounds nml. negative: Wheezes, Rales, Rhonchi Cardiovascular: positive: Tachycardia Abdomen: positive: Non-tender, No organomegaly, Nml bowel sounds, No distention. negative: Guarding, Rebound Back: positive: Nml inspection Skin: positive: No rash, Warm, Dry Extremities: positive: Non-tender, Full ROM, Nml appearance, No pedal edema Neurologic/Psychiatric: positive: Oriented x3, Mood/affect nml Sepsis Event Note (H) - Evaluation Current Stage of Sepsis: Sepsis Possible source of Sepsis: positive: Genitourinary - Sepsis Criteria Sepsis Criteria: Recorded Heart Rate greater than 90 bpm, Recorded Respiratory Rate greater than 20, WBC count greater than 12,000 or less than 4000 Conclusion/Plan - Problem List (1) Sepsis secondary to UTI Conclusion/Plan: Mild. On Rocephin 1 g IV daily. IV hydration with normal saline at 125 mils per hour. Blood and urine cultures pending. We will hold patient's methotrexate due to septic state. Due to a cough, COVID-19 is being ruled out. Patient's chest x-ray was negative for any cardiopulmonary process. (2) Urinary tract infection Conclusion/Plan: On Rocephin 1 g IV daily. IV hydration with normal saline at 125 mils per hour. Blood and urine cultures pending. We will hold patient's methotrexate due to septic state. (3) Acute kidney injury Conclusion/Plan: Likely related to UTI. Anticipating improvement with treatment of infection. Patient also receiving IV hydration with normal saline. We will recheck labs in the morning. (4) Arthritis with psoriasis Conclusion/Plan: We will hold methotrexate due to septic state from UTI. Tylenol PRN for pain (5) Hypertension Conclusion/Plan: Patient is on losartan and hydrochlorothiazide at home. We will hold for now while actively hydrating patient for sepsis. (6) Hyperlipidemia Conclusion/Plan: On simvastatin 10 mg daily. Will order equivalent on formulary once verified. (7) BPH (benign prostatic hyperplasia) Conclusion/Plan: On finasteride and tamsulosin. Will continue. - Lab Results Fish Bones: 08/13/20 19:40 08/13/20 19:40 Core Measures - Anticipated LOS I expect patient to be DC'd or transferred within 96 hours.: Yes - DVT/VTE - Prophylaxis VTE/DVT Device ordered at admit?: Yes VTE/DVT Prophylaxis med ordered at admit?: Yes
[2020-08-13] MEDS ORDERED: cefTRIAXone 2 GM VIAL ONE (21:52)
[2020-08-13] MEDS ORDERED: POTASSIUM CHLORIDE 20 MEQ TABLET PO ONE (23:09)
[2020-08-14] MEDS: ACETAMINOPHEN 325 MG TABLET PO PRN ×4 (00:35→21:50)
[2020-08-14] MEDS: SODIUM CHLORIDE 0.9% 1,000 ML IV SCH ×3 (01:02→17:58)
[2020-08-14] MEDS: SODIUM CHLORIDE FLUSH 0.9% 10 ML SYRINGE IVP SCH ×4 (01:23→23:51)
[2020-08-14 05:54] LABS: BASOPHILS % (AUTO) 0.3 %; EOSINOPHILS % (AUTO) 0.4 %; HGB - HEMOGLOBIN 10.9 g/dL (14.0-18.0); LYMPHOCYTES # (AUTO) 0.6 10^3/uL (1.5-3.5); LYMPHOCYTES % (AUTO) 5.7 %; MEAN CORPUSCULAR HEMOGLOBIN 32.3 pg (27.0-31.0); MEAN CORPUSCULAR HGB CONC 32.8 g/dL (32.0-36.0); MEAN CORPUSCULAR VOLUME 98.5 fL (80.0-94.0); MEAN PLATELET VOLUME 9.3 fL (7.4-11.4); MONOCYTES # (AUTO) 1.4 10^3/uL (0.0-1.0); NEUTROPHILS # (AUTO) 8.3 10^3/uL (1.5-6.6); NEUTROPHILS % (AUTO) 79.8 %; PLT - PLATELET COUNT 149 10^3/uL (130-450); RED BLOOD COUNT 3.37 10^6/uL (4.70-6.10); RED CELL DISTRIBUTION WIDTH 13.8 % (12.0-15.0); WHITE BLOOD COUNT 10.4 x10^3/uL (4.8-10.8)
[2020-08-14 05:59] LABS: CALCIUM 7.8 mg/dL (8.5-10.3); CREATININE 1.2 mg/dL (0.6-1.2)
[2020-08-14] MEDS: PANTOPRAZOLE 40 MG TABLET PO SCH (06:00)
[2020-08-14] MEDS: ENOXAPARIN 40 MG/0.4 ML SYRINGE SUBQ SCH (08:34)
[2020-08-14] MEDS: polyethylene glycoL 3350 17 GM PACKET PO SCH (08:34)
[2020-08-14] MEDS ORDERED: cefTRIAXone 2 GM in SODIUM CHLORIDE 0.9% MINIBAG 100 ML IV SCH (09:00)
[2020-08-14] MEDS ORDERED: ACETAMINOPHEN 325 MG TABLET PO SCH (09:00)
[2020-08-14] MEDS ORDERED: TAMSULOSIN 0.4 MG CAPSULE PO SCH (09:00)
[2020-08-14] MEDS ORDERED: cefTRIAXone 1 GM in SODIUM CHLORIDE 0.9% MINIBAG 100 ML IV SCH ×2 (09:00→09:30)
--- NOTE | 2020-08-14 09:53 | XRAY Report ---
PROCEDURE: Chest 1 View X-Ray INDICATIONS: sob TECHNIQUE: One view of the chest was acquired. COMPARISON: Chest radiograph 08/13/2020 FINDINGS: Surgical changes and devices: Spinal fusion hardware is noted in the thoracic spine. Lungs and pleura: No pleural effusions or pneumothorax. Lungs are clear. Mediastinum: Mediastinal contours appear normal. Heart size is normal. Bones and chest wall: No suspicious bony lesions. Overlying soft tissues appear unremarkable. IMPRESSION: No acute cardiopulmonary abnormality is identified. There is no significant change when compared to t he radiographs from 08/13/2020. Reviewed by: Crispin Saavedra MD on 08/14/2020 9:51 AM PDT Approved by: Crispin Saaverda MD on 08/14/2020 9:51 AM PDT Station ID: [id number]
--- NOTE | 2020-08-14 10:31 | PHARMACY PROGRESS NOTE ---
- Best Possible Medication History Admit Date and Time: 08/13/20 2141 Processed by: Pharmacy Medication History completed: Yes Patient Interview: Completed Secondary Source(s): Physician records (PATIENT INTERVIEWED BY [employer] TESTER. PATIENT ABLE TO CONFIRM HOME MEDICATIONS. PATIENT REPORTS HE DOES NOT TAKE FLOMAX ANY LONGER. ), Pharmacy records, Insurance records As the person ultimately responsible for medication therapy, providers are able to order a medication from an existing home medication list in [facility] via the "Reconcile Routine" prior to Confirmation of that medication by customer support technician. Such practice is discouraged except when the physician, in their clinical judgment, deems that a medical need exists for a medication without regard to previous use.
[2020-08-14] MEDS: ASPIRIN EC 325 MG TABLET PO SCH (12:54)
[2020-08-14] MEDS: FINASTERIDE 5 MG TABLET PO SCH (12:54)
--- NOTE | 2020-08-14 13:50 | PROVIDER PROGRESS NOTE ---
Assessment/Plan - Problem List (1) Bacteremia Assessment/Plan: Patient's Both tubal blood culture show positive gram negative bacilli.Patient also has low degree fever in this morning. It is likely come from the urinary tract infection. Increase his Rocephin to 2 g daily. Continue intravenous IV fluids. Will repeat blood culture on tomorrow. COVID-19 is pending (2) Sepsis secondary to UTI Patient still had temperature 37.9 degrees, WBC is decreased. Patient has a bacteremia. We will continue intravenous IV fluids, continue Rocephin to groin daily. culture and sensitivities are Pending (3) Urinary tract infection Culture show negative bacilli, We will continue antibiotics Rocephin, will hold patient's methotrexate due to septic state. (4) Acute kidney injury Conclusion/Plan: Improved, creatinine 1.2 reduced from 1.5 at the time admission. 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 Tylenol PRN for pain (6) Hypertension Conclusion/Plan: Patient is on losartan and hydrochlorothiazide at home. We will hold for now while actively hydrating patient for sepsis. (7) Hyperlipidemia Conclusion/Plan: On simvastatin 10 mg daily. Will order equivalent on formulary once verified. (8) BPH (benign prostatic hyperplasia) Conclusion/Plan: On finasteride, Will continue. - Current Meds Current Meds: Current Medications Generic Name Dose Route Start Last Admin Trade Name Freq PRN Reason Stop Dose Admin Acetaminophen 650 mg 08/13/20 21:43 08/14/20 06:00 Tylenol PO 650 mg Q4HR PRN Administration Pain 1 to 4 Aspirin 325 mg 08/14/20 13:00 08/14/20 12:54 Ecotrin PO 325 mg DAILY DOMINIK Administration Enoxaparin Sodium 40 mg 08/14/20 09:00 08/14/20 08:34 Lovenox SUBQ 40 mg DAILY DOMINIK Administration Finasteride 5 mg 08/14/20 13:00 08/14/20 12:54 Proscar PO 5 mg DAILY DOMINIK Administration Sodium Chloride 1,000 mls @ 125 mls/hr 08/13/20 22:00 08/14/20 09:53 Normal Saline 0.9% IV 08/14/20 13:59 125 mls/hr .Q8H DOMINIK Administration Pantoprazole Sodium 40 mg 08/14/20 07:00 08/14/20 06:00 Protonix PO 40 mg QDAC DOMINIK Administration Polyethylene Glycol 17 gm 08/14/20 09:00 08/14/20 08:34 Miralax PO 17 gm DAILY DOMINIK Administration Sodium Chloride 10 ml 08/14/20 01:00 08/14/20 08:52 Normal Saline Flush 0.9% IVP 10 ml 0100,0900,1700 DOMINIK Administration - Lab Result Fish Bone Diagrams: 08/14/20 05:41 08/14/20 05:41 - Additional Planning My Orders: My Active Orders 08/14/20 08:39 Out of bed 3+ hours today [RC] TID 08/14/20 13:00 Aspirin EC [Ecotrin] 325 mg PO DAILY Finasteride [Proscar] 5 mg PO DAILY 08/14/20 17:00 Saccharomyces Boulardii [Florastor] 250 mg PO BIDWM 08/15/20 09:00 Oxybutynin [Ditropan] 5 mg PO DAILY cefTRIAXone [Rocephin] 2 gm Sodium Chloride 0.9% Minibag [Normal Saline 0.9% Minibag] 100 ml IV DAILY Subjective - Subjective Patient Reports: Feeling Better Objective Vital Signs: Vital Signs - 24 hr 08/13/20 08/13/20 08/13/20 18:48 19:42 20:12 Temperature 38.1 C H Heart Rate 105 H 100 98 Heart Rate [ Brachial] Respiratory 35 H 33 H 21 Rate Blood Pressure 149/80 H 132/90 H 136/53 H Blood Pressure [Left Brachial artery] Blood Pressure [Right Brachial artery] O2 Saturation 92 94 95 08/13/20 08/13/20 08/13/20 20:30 21:00 21:30 Temperature 37.7 C H Heart Rate 65 88 86 Heart Rate [ Brachial] Respiratory 22 30 H 37 H Rate Blood Pressure 114/77 130/57 L 119/55 L Blood Pressure [Left Brachial artery] Blood Pressure [Right Brachial artery] O2 Saturation 99 94 08/13/20 08/13/20 08/14/20 22:00 22:58 00:04 Temperature 37.4 C 37.1 C Heart Rate 82 Heart Rate [ 85 79 Brachial] Respiratory 27 H 22 Rate Blood Pressure 118/55 L Blood Pressure 150/55 H 116/67 [Left Brachial artery] Blood Pressure [Right Brachial artery] O2 Saturation 96 97 98 08/14/20 08/14/20 08/14/20 03:37 08:42 12:02 Temperature 37.4 C 37.9 C H 37.4 C Heart Rate Heart Rate [ 86 87 79 Brachial] Respiratory 22 20 22 Rate Blood Pressure Blood Pressure 138/60 H 134/60 H [Left Brachial artery] Blood Pressure 148/66 H [Right Brachial artery] O2 Saturation 100 94 94 08/14/20 12:59 Temperature 37.0 C Heart Rate Heart Rate [ Brachial] Respiratory Rate Blood Pressure Blood Pressure [Left Brachial artery] Blood Pressure [Right Brachial artery] O2 Saturation Oxygen O2 Source Room air I&O (Last 24 Hrs): Intake and Output Totals x24h 08/12/20 08/13/20 08/14/20 23:59 23:59 23:59 Intake Total 2600 1100 Output Total 350 1300 Balance 2250 -200 General: Alert, Oriented x3, No acute distress HEENT: Atraumatic Neck: Supple Lymphatic: no adenopathy Neuro: Alert, Non Focal, Oriented Times 3 Cardiovascular: Regular rate, Normal S1, Normal S2 Respiratory: Chest non-tender Abdomen: Normal bowel sounds, Soft, No tenderness Extremities: Normal pulses - Results Results: Laboratory Results WBC 10.4 x10^3/uL (4.8-10.8) 08/14/20 05:41 RBC 3.37 10^6/uL (4.70-6.10) L 08/14/20 05:41 Hgb 10.9 g/dL (14.0-18.0) L 08/14/20 05:41 Hct 33.2 % (42.0-52.0) L 08/14/20 05:41 MCV 98.5 fL (80.0-94.0) H 08/14/20 05:41 MCH 32.3 pg (27.0-31.0) H 08/14/20 05:41 MCHC 32.8 g/dL (32.0-36.0) 08/14/20 05:41 RDW 13.8 % (12.0-15.0) 08/14/20 05:41 Plt Count 149 10^3/uL (130-450) 08/14/20 05:41 MPV 9.3 fL (7.4-11.4) 08/14/20 05:41 Neut # (Auto) 8.3 10^3/uL (1.5-6.6) H 08/14/20 05:41 Lymph # (Auto) 0.6 10^3/uL (1.5-3.5) L 08/14/20 05:41 Bryan # (Auto) 1.4 10^3/uL (0.0-1.0) H 08/14/20 05:41 Eos # (Auto) 0.0 10^3/uL (0.0-0.7) 08/14/20 05:41 Baso # (Auto) 0.0 10^3/uL (0.0-0.1) 08/14/20 05:41 Absolute Nucleated RBC 0.00 x10^3/uL 08/14/20 05:41 Nucleated RBC % 0.0 /100WBC 08/14/20 05:41 Sodium 134 mmol/L (135-145) L 08/14/20 05:41 Potassium 3.5 mmol/L (3.5-5.0) 08/14/20 05:41 Chloride 100 mmol/L (101-111) L 08/14/20 05:41 Carbon Dioxide 24 mmol/L (21-32) 08/14/20 05:41 Anion Gap 10.0 (6-13) 08/14/20 05:41 BUN 27 mg/dL (6-20) H 08/14/20 05:41 Creatinine 1.2 mg/dL (0.6-1.2) 08/14/20 05:41 Estimated GFR (MDRD) 58 (>89) L 08/14/20 05:41 Glucose 127 mg/dL (70-100) H 08/14/20 05:41 Lactic Acid 1.0 mmol/L (0.5-2.2) 08/13/20 19:40 Calcium 7.8 mg/dL (8.5-10.3) L 08/14/20 05:41 Magnesium 2.0 mg/dL (1.7-2.8) 08/14/20 05:41 Total Bilirubin 0.6 mg/dL (0.2-1.0) 08/13/20 19:40 AST 23 IU/L (10-42) 08/13/20 19:40 ALT 24 IU/L (10-60) 08/13/20 19:40 Alkaline Phosphatase 92 IU/L (42-121) 08/13/20 19:40 Total Protein 7.1 g/dL (6.7-8.2) 08/13/20 19:40 Albumin 3.4 g/dL (3.2-5.5) 08/13/20 19:40 Globulin 3.7 g/dL (2.1-4.2) 08/13/20 19:40 Albumin/Globulin Ratio 0.9 (1.0-2.2) L 08/13/20 19:40 Urine Color YELLOW 08/13/20 21:20 Urine Clarity SL. CLOUDY (CLEAR) 08/13/20 21:20 Urine pH 5.0 PH (5.0-7.5) 08/13/20 21:20 Ur Specific Randolph 1.025 (1.002-1.030) 08/13/20 21:20 Urine Protein 100 mg/dL (NEGATIVE) H 08/13/20 21:20 Urine Glucose (UA) NEGATIVE mg/dL (NEGATIVE) 08/13/20 21:20 Urine Ketones NEGATIVE mg/dL (NEGATIVE) 08/13/20 21:20 Urine Occult Blood LARGE (NEGATIVE) H 08/13/20 21:20 Urine Nitrite POSITIVE (NEGATIVE) H 08/13/20 21:20 Urine Bilirubin NEGATIVE (NEGATIVE) 08/13/20 21:20 Urine Urobilinogen 0.2 (NORMAL) E.U./dL (NORMAL) 08/13/20 21:20 Ur Leukocyte Esterase MODERATE (NEGATIVE) H 08/13/20 21:20 Urine RBC 11-25 /HPF (0-5) H 08/13/20 21:20 Urine WBC >25 /HPF (0-3) H 08/13/20 21:20 Ur Squamous Epith Cells RARE Squamous (<= Few) 08/13/20 21:20 Urine Bacteria Moderate /HPF (None Seen) H 08/13/20 21:20 Urine Culture Comments INDICATED 08/13/20 21:20 - Procedures Procedures: Procedures EXCISION OF TRANSVERSE COLON, ENDO (07/25/19) Sepsis Event Note (H) - Evaluation Current Stage of Sepsis: Sepsis Possible source of Sepsis: positive: Genitourinary - Sepsis Criteria Sepsis Criteria: Recorded Heart Rate greater than 90 bpm, Recorded Respiratory Rate greater than 20, WBC count greater than 12,000 or less than 4000 ABX Reporting Has patient been on IV antibiotics over the past 48 hours?: Yes Current Medications - Current Medications Current Medications: Active Medications Acetaminophen (Tylenol) 650 mg PO Q4HR PRN PRN Reason: Pain 1 to 4 Last Admin: 08/14/20 06:00 Dose: 650 mg Documented by: Aspirin (Ecotrin) 325 mg PO DAILY [facility] Last Admin: 08/14/20 12:54 Dose: 325 mg Documented by: Enoxaparin Sodium (Lovenox) 40 mg SUBQ DAILY [facility] Last Admin: 08/14/20 08:34 Dose: 40 mg Documented by: Finasteride (Proscar) 5 mg PO DAILY [facility] Last Admin: 08/14/20 12:54 Dose: 5 mg Documented by: Ceftriaxone Sodium 2 gm/ (Sodium Chloride) 100 mls @ 200 mls/hr IV DAILY [facility] Oxybutynin Chloride (Ditropan) 5 mg PO DAILY [facility] Pantoprazole Sodium (Protonix) 40 mg PO QDAC [facility] Last Admin: 08/14/20 06:00 Dose: 40 mg Documented by: Polyethylene Glycol (Miralax) 17 gm PO DAILY [facility] Last Admin: 08/14/20 08:34 Dose: 17 gm Documented by: Saccharomyces Boulardii (Florastor) 250 mg PO BIDWM [facility] Sodium Chloride (Normal Saline Flush 0.9%) 10 ml IVP PRN PRN PRN Reason: NEEDED PER PROVIDER ORDERS Sodium Chloride (Normal Saline Flush 0.9%) 10 ml IVP 0100,0900,1700 [facility] Last Admin: 08/14/20 08:52 Dose: 10 ml Documented by: Simvastatin 10 mg PO QPM 11/05/14 hydroCHLOROthiazide [Hydrochlorothiazide] 25 mg PO DAILY 11/05/14 Acetaminophen [Tylenol] 650 mg PO DAILY PRN 04/27/15 Methotrexate 15 mg PO .QWED 08/08/17 Finasteride 5 mg PO DAILY 07/25/19 Losartan Potassium 25 mg PO DAILY 07/25/19 Aspirin EC [Ecotrin] 325 mg PO DAILY 08/14/20 Multivit-Min/Iron/Folic Acid/K [Multi-Day Plus Minerals Tablet] 1 tab PO DAILY 08/14/20 Oxybutynin Chloride [Ditropan Xl] 5 mg PO DAILY 08/14/20 Terbinafine [Lamisil] 250 mg PO DAILY 08/14/20 Vit A/Vit C/Vit E/Zinc/Copper [Preservision Areds Softgel] 1 cap PO BID 08/14/20
[2020-08-14] MEDS: SACCHAROMYCES BOULARDII 250 MG CAPSULE PO SCH (17:02)
[2020-08-14] MEDS: guaiFENesin 600 MG TABLET PO SCH ×2 (17:58→21:50)
[2020-08-14] MEDS ORDERED: MEROPENEM 1 GM in SODIUM CHLORIDE 0.9% MINIBAG 100 ML IV SCH (18:00)
[2020-08-15] MEDS: ACETAMINOPHEN 325 MG TABLET PO PRN ×3 (02:34→20:13)
[2020-08-15] MEDS: SODIUM CHLORIDE 0.9% 1,000 ML IV SCH (03:35)
[2020-08-15 05:50] LABS: MEAN CORPUSCULAR HGB CONC 32.4 g/dL (32.0-36.0); RED BLOOD COUNT 2.98 10^6/uL (4.70-6.10)
[2020-08-15 05:54] LABS: BASOPHILS % (AUTO) 0.4 %; EOSINOPHILS # (AUTO) 0.2 10^3/uL (0.0-0.7); HGB - HEMOGLOBIN 9.6 g/dL (14.0-18.0); LYMPHOCYTES # (AUTO) 0.9 10^3/uL (1.5-3.5); LYMPHOCYTES % (AUTO) 9.6 %; MEAN CORPUSCULAR HEMOGLOBIN 32.2 pg (27.0-31.0); MEAN CORPUSCULAR VOLUME 99.3 fL (80.0-94.0); MEAN PLATELET VOLUME 9.3 fL (7.4-11.4); MONOCYTES % (AUTO) 10.9 %; NEUTROPHILS # (AUTO) 6.8 10^3/uL (1.5-6.6); NEUTROPHILS % (AUTO) 76.1 %; PLT - PLATELET COUNT 140 10^3/uL (130-450); RED CELL DISTRIBUTION WIDTH 14.1 % (12.0-15.0)
[2020-08-15 06:00] LABS: CALCIUM 7.8 mg/dL (8.5-10.3); CREATININE 1.2 mg/dL (0.6-1.2); MAGNESIUM 2.2 mg/dL (1.7-2.8)
[2020-08-15] MEDS: PANTOPRAZOLE 40 MG TABLET PO SCH (06:50)
[2020-08-15 07:56] LABS: ABSOLUTE RETICS # AUTO 0.024 10^6/uL (0.020-0.110); RED BLOOD COUNT 2.94 10^6/uL (4.70-6.10)
[2020-08-15] MEDS ORDERED: POTASSIUM CHLORIDE 20 MEQ TABLET PO ONE (08:00)
[2020-08-15] MEDS: guaiFENesin 600 MG TABLET PO SCH ×2 (08:18→20:07)
[2020-08-15] MEDS: SODIUM CHLORIDE FLUSH 0.9% 10 ML SYRINGE IVP SCH ×2 (08:18→16:55)
[2020-08-15] MEDS: FINASTERIDE 5 MG TABLET PO SCH (08:18)
[2020-08-15] MEDS: SACCHAROMYCES BOULARDII 250 MG CAPSULE PO SCH ×2 (08:18→16:54)
[2020-08-15] MEDS: ENOXAPARIN 40 MG/0.4 ML SYRINGE SUBQ SCH ×2 (08:19→09:18)
[2020-08-15] MEDS: polyethylene glycoL 3350 17 GM PACKET PO SCH (08:19)
[2020-08-15] MEDS: OXYBUTYNIN 5MG TABLET PO SCH (08:19)
[2020-08-15] MEDS: ASPIRIN EC 325 MG TABLET PO SCH (08:19)
[2020-08-15 08:22] LABS: % IRON SATURATION 10 % (20-50); FERRITIN 139.3 ng/mL (23.9-336.2); IRON 21 ug/dL (45-182); TOTAL IRON BINDING CAPACITY 200 ug/dL (250-450); TRANSFERRIN 143 mg/dL (180-329)
[2020-08-15] MEDS ORDERED: cefTRIAXone 2 GM in SODIUM CHLORIDE 0.9% MINIBAG 100 ML IV SCH ×4 (09:00)
[2020-08-15] MEDS: FERROUS SULFATE 325 MG TABLET PO SCH (09:18)
--- NOTE | 2020-08-15 10:15 | PROVIDER PROGRESS NOTE ---
Assessment/Plan - Problem List (1) Bacteremia Assessment/Plan: 1014,Patient reported he feels much better.He has no fever from yesterday afternoon. 2 tubal blood culture show positive for negative bacilli. Sensitivity study is still pending. Urine culture show enterobactor Aerogenes Which sensitivity to Rocephin and Cipro. We will finish intravenous antibiotics today then switch to the p.o. antibiotics while waiting for Sensitivity study.Patient likely need 10-14 days antibiotics for bacteremia. Repeat blood culture on today. Patient's Both tubal blood culture show positive gram negative bacilli.Patient also has low degree fever in this morning. It is likely come from the urinary tract infection. Increase his Rocephin to 2 g daily. Continue intravenous IV fluids. Will repeat blood culture on tomorrow. COVID-19 is pending (2) Sepsis secondary to UTI 1014, resolved. Patient has no fever yesterday afternoon to today, WBC is normal, No tachycardia, And hemodynamic stable. Continue antibiotics, Continue intravenous IV fluids until tomorrow. Patient still had temperature 37.9 degrees, WBC is decreased. Patient has a bacteremia. We will continue intravenous IV fluids, continue Rocephin to groin daily. culture and sensitivities are Pending (3) Urinary tract infection 08/15, Urine culture show enterobactor Aerogenes Which sensitivity to Rocephin and Cipro.We will continue antibiotics Culture show negative bacilli, We will continue antibiotics Rocephin, will hold patient's methotrexate due to septic state. (4) Acute kidney injury Conclusion/Plan: 1014,Improved and stable, creatinine is 1.2. Continue intravenous IV fluids, and cleaner laboratory equipment Improved, creatinine 1.2 reduced from 1.5 at the time admission. Continue intravenous IV fluids, continue cleaner laboratory equipment (5) Arthritis with psoriasis Conclusion/Plan: We will hold methotrexate due to septic state from UTI. Tylenol PRN for pain (6) Hypertension Conclusion/Plan: Patient is on losartan and hydrochlorothiazide at home. We will hold for now while actively hydrating patient for sepsis. (7) Hyperlipidemia Conclusion/Plan: On simvastatin 10 mg daily. Will order equivalent on formulary once verified. (8) BPH (benign prostatic hyperplasia) Conclusion/Plan: On finasteride, Will continue. - Current Meds Current Meds: Current Medications Generic Name Dose Route Start Last Admin Trade Name Freq PRN Reason Stop Dose Admin Acetaminophen 650 mg 10/12/20 21:43 08/15/20 02:34 Tylenol PO 650 mg Q4HR PRN Administration Pain 1 to 4 Aspirin 325 mg 08/14/20 13:00 08/15/20 08:19 Ecotrin PO 325 mg DAILY DOMINIK Administration Enoxaparin Sodium 40 mg 08/14/20 09:00 08/15/20 09:18 Lovenox SUBQ 40 mg DAILY DOMINIK Administration Ferrous Sulfate 325 mg 08/15/20 09:00 08/15/20 09:18 Feosol PO 325 mg DAILYWM DOMINIK Administration Finasteride 5 mg 08/14/20 13:00 08/15/20 08:18 Proscar PO 5 mg DAILY DOMINIK Administration Guaifenesin 600 mg 08/14/20 17:39 08/15/20 08:18 Mucinex PO 600 mg BID DOMINIK Administration Sodium Chloride 1,000 mls @ 100 mls/hr 08/14/20 18:00 08/15/20 08:46 Normal Saline 0.9% IV 100 mls/hr .Q10H DOMINIK Infusion Oxybutynin Chloride 5 mg 08/15/20 09:00 08/15/20 08:19 Ditropan PO 5 mg DAILY DOMINIK Administration Pantoprazole Sodium 40 mg 08/14/20 07:00 08/15/20 06:50 Protonix PO 40 mg QDAC DOMINIK Administration Polyethylene Glycol 17 gm 08/14/20 09:00 08/15/20 08:19 Miralax PO Not Given DAILY DOMINIK Saccharomyces Boulardii 250 mg 08/14/20 17:00 08/15/20 08:18 Florastor PO 250 mg BIDWM DOMINIK Administration Sodium Chloride 10 ml 08/14/20 01:00 08/15/20 08:18 Normal Saline Flush 0.9% IVP 10 ml 0100,0900,1700 DOMINIK Administration - Lab Result Fish Bone Diagrams: 08/15/20 05:40 08/15/20 05:40 - Additional Planning My Orders: My Active Orders 08/14/20 13:00 Aspirin EC [Ecotrin] 325 mg PO DAILY Finasteride [Proscar] 5 mg PO DAILY 08/14/20 17:00 Saccharomyces Boulardii [Florastor] 250 mg PO BIDWM 08/14/20 17:39 guaiFENesin [Mucinex] 600 mg PO BID 08/14/20 18:00 Sodium Chloride 0.9% [Normal Saline 0.9%] 1,000 ml IV 100 mls/hr 08/15/20 09:00 Ferrous Sulfate [Feosol] 325 mg PO DAILYWM Oxybutynin [Ditropan] 5 mg PO DAILY 08/15/20 21:00 Ciprofloxacin [Cipro] 500 mg PO BID Subjective - Subjective Patient Reports: Feeling Better Objective Vital Signs: Vital Signs - 24 hr 08/14/20 08/14/20 08/14/20 12:02 12:59 16:35 Temperature 37.4 C 37.0 C 38.9 C H Heart Rate [ 79 86 Brachial] Respiratory 22 24 Rate Blood Pressure 134/60 H 131/58 H [Left Brachial artery] Blood Pressure [Right Brachial artery] O2 Saturation 94 94 08/14/20 08/14/20 08/14/20 17:13 21:36 23:43 Temperature 37.9 C H 36.8 C 36.5 C Heart Rate [ 78 69 Brachial] Respiratory 20 16 Rate Blood Pressure 118/51 L [Left Brachial artery] Blood Pressure 101/50 L [Right Brachial artery] O2 Saturation 96 96 08/15/20 08/15/20 03:38 08:14 Temperature 36.4 C L 36.9 C Heart Rate [ 61 77 Brachial] Respiratory 18 19 Rate Blood Pressure 110/56 L 145/61 H [Left Brachial artery] Blood Pressure [Right Brachial artery] O2 Saturation 96 96 Oxygen O2 Source Room air I&O (Last 24 Hrs): Intake and Output Totals x24h 08/13/20 08/14/20 08/15/20 23:59 23:59 23:59 Intake Total 2600 2410 1650.000 Output Total 350 1700 325 Balance 2250 710 1325.000 General: Alert, Oriented x3, No acute distress HEENT: Atraumatic Neck: Supple Lymphatic: no adenopathy Neuro: Alert, Non Focal, Oriented Times 3 Cardiovascular: Regular rate, Normal S1, Normal S2 Respiratory: Chest non-tender, No respiratory distress, Breath sounds nml Abdomen: Normal bowel sounds, Soft, No tenderness Extremities: Normal pulses - Results Results: Laboratory Results WBC 9.0 x10^3/uL (4.8-10.8) 08/15/20 05:40 RBC 2.94 10^6/uL (4.70-6.10) L 08/15/20 05:40 RBC 2.98 10^6/uL (4.70-6.10) L 08/15/20 05:40 Hgb 9.6 g/dL (14.0-18.0) L 08/15/20 05:40 Hct 29.6 % (42.0-52.0) L 08/15/20 05:40 MCV 99.3 fL (80.0-94.0) H 08/15/20 05:40 MCH 32.2 pg (27.0-31.0) H 08/15/20 05:40 MCHC 32.4 g/dL (32.0-36.0) 08/15/20 05:40 RDW 14.1 % (12.0-15.0) 08/15/20 05:40 Plt Count 140 10^3/uL (130-450) 08/15/20 05:40 MPV 9.3 fL (7.4-11.4) 08/15/20 05:40 Reticulocyte % (Auto) 0.83 % (0.5-2.3) 08/15/20 05:40 Neut # (Auto) 6.8 10^3/uL (1.5-6.6) H 08/15/20 05:40 Lymph # (Auto) 0.9 10^3/uL (1.5-3.5) L 08/15/20 05:40 [place] # (Auto) 1.0 10^3/uL (0.0-1.0) 08/15/20 05:40 Eos # (Auto) 0.2 10^3/uL (0.0-0.7) 08/15/20 05:40 Baso # (Auto) 0.0 10^3/uL (0.0-0.1) 08/15/20 05:40 Absolute Nucleated RBC 0.00 x10^3/uL 08/15/20 05:40 Nucleated RBC % 0.0 /100WBC 08/15/20 05:40 Absolute Retic 0.024 10^6/uL (0.020-0.110) 08/15/20 05:40 Sodium 137 mmol/L (135-145) 08/15/20 05:40 Potassium 3.2 mmol/L (3.5-5.0) L 08/15/20 05:40 Chloride 105 mmol/L (101-111) 08/15/20 05:40 Carbon Dioxide 25 mmol/L (21-32) 08/15/20 05:40 Anion Gap 7.0 (6-13) 08/15/20 05:40 BUN 29 mg/dL (6-20) H 08/15/20 05:40 Creatinine 1.2 mg/dL (0.6-1.2) 08/15/20 05:40 Estimated GFR (MDRD) 58 (>89) L 08/15/20 05:40 Glucose 103 mg/dL (70-100) H 08/15/20 05:40 Lactic Acid 1.0 mmol/L (0.5-2.2) 08/13/20 19:40 Calcium 7.8 mg/dL (8.5-10.3) L 08/15/20 05:40 Magnesium 2.2 mg/dL (1.7-2.8) 08/15/20 05:40 Iron 21 ug/dL (45-182) L 08/15/20 05:40 TIBC 200 ug/dL (250-450) L 08/15/20 05:40 % Saturation 10 % (20-50) L 08/15/20 05:40 Transferrin 143 mg/dL (180-329) L 08/15/20 05:40 Ferritin 139.3 ng/mL (23.9-336.2) 08/15/20 05:40 Total Bilirubin 0.6 mg/dL (0.2-1.0) 08/13/20 19:40 AST 23 IU/L (10-42) 08/13/20 19:40 ALT 24 IU/L (10-60) 08/13/20 19:40 Alkaline Phosphatase 92 IU/L (42-121) 08/13/20 19:40 Lactate Dehydrogenase 141 IU/L (91-225) 08/15/20 05:40 Total Protein 7.1 g/dL (6.7-8.2) 08/13/20 19:40 Albumin 3.4 g/dL (3.2-5.5) 08/13/20 19:40 Globulin 3.7 g/dL (2.1-4.2) 08/13/20 19:40 Albumin/Globulin Ratio 0.9 (1.0-2.2) L 08/13/20 19:40 Vitamin B12 361 pg/mL (180-914) 08/15/20 05:40 Urine Color YELLOW 08/13/20 21:20 Urine Clarity SL. CLOUDY (CLEAR) 08/13/20 21:20 Urine pH 5.0 PH (5.0-7.5) 08/13/20 21:20 Ur Specific [place] 1.025 (1.002-1.030) 08/13/20 21:20 Urine Protein 100 mg/dL (NEGATIVE) H 08/13/20 21:20 Urine Glucose (UA) NEGATIVE mg/dL (NEGATIVE) 08/13/20 21:20 Urine Ketones NEGATIVE mg/dL (NEGATIVE) 08/13/20 21:20 Urine Occult Blood LARGE (NEGATIVE) H 08/13/20 21:20 Urine Nitrite POSITIVE (NEGATIVE) H 08/13/20 21:20 Urine Bilirubin NEGATIVE (NEGATIVE) 08/13/20 21:20 Urine Urobilinogen 0.2 (NORMAL) E.U./dL (NORMAL) 08/13/20 21:20 Ur Leukocyte Esterase MODERATE (NEGATIVE) H 08/13/20 21:20 Urine RBC 11-25 /HPF (0-5) H 08/13/20 21:20 Urine WBC >25 /HPF (0-3) H 08/13/20 21:20 Ur Squamous Epith Cells RARE Squamous (<= Few) 08/13/20 21:20 Urine Bacteria Moderate /HPF (None Seen) H 08/13/20 21:20 Urine Culture Comments INDICATED 08/13/20 21:20 - Procedures Procedures: Procedures EXCISION OF TRANSVERSE COLON, ENDO (07/25/19) Sepsis Event Note (H) - Evaluation Current Stage of Sepsis: Sepsis Possible source of Sepsis: positive: Genitourinary - Sepsis Criteria Sepsis Criteria: Recorded Heart Rate greater than 90 bpm, Recorded Respiratory Rate greater than 20, WBC count greater than 12,000 or less than 4000 ABX Reporting Has patient been on IV antibiotics over the past 48 hours?: Yes Current Medications - Current Medications Current Medications: Active Medications Acetaminophen (Tylenol) 650 mg PO Q4HR PRN PRN Reason: Pain 1 to 4 Last Admin: 08/15/20 02:34 Dose: 650 mg Documented by: Aspirin (Ecotrin) 325 mg PO DAILY [facility] Last Admin: 08/15/20 08:19 Dose: 325 mg Documented by: Ciprofloxacin (Cipro) 500 mg PO BID [facility] Stop: 08/20/20 17:59 Enoxaparin Sodium (Lovenox) 40 mg SUBQ DAILY [facility] Last Admin: 08/15/20 09:18 Dose: 40 mg Documented by: Ferrous Sulfate (Feosol) 325 mg PO DAILYWM [facility] Last Admin: 08/15/20 09:18 Dose: 325 mg Documented by: Finasteride (Proscar) 5 mg PO DAILY [facility] Last Admin: 08/15/20 08:18 Dose: 5 mg Documented by: Guaifenesin (Mucinex) 600 mg PO BID [facility] Last Admin: 08/15/20 08:18 Dose: 600 mg Documented by: Sodium Chloride (Normal Saline 0.9%) 1,000 mls @ 100 mls/hr IV .Q10H [facility] Stop: 08/15/20 13:59 Last Infusion: 08/15/20 08:46 Dose: 100 mls/hr Documented by: Oxybutynin Chloride (Ditropan) 5 mg PO DAILY [facility] Last Admin: 08/15/20 08:19 Dose: 5 mg Documented by: Pantoprazole Sodium (Protonix) 40 mg PO QDAC [facility] Last Admin: 08/15/20 06:50 Dose: 40 mg Documented by: Polyethylene Glycol (Miralax) 17 gm PO DAILY [facility] Last Admin: 08/15/20 08:19 Dose: Not Given Documented by: Saccharomyces Boulardii (Florastor) 250 mg PO BIDWM [facility] Last Admin: 08/15/20 08:18 Dose: 250 mg Documented by: Sodium Chloride (Normal Saline Flush 0.9%) 10 ml IVP PRN PRN PRN Reason: NEEDED PER PROVIDER ORDERS Sodium Chloride (Normal Saline Flush 0.9%) 10 ml IVP 0100,0900,1700 [facility] Last Admin: 08/15/20 08:18 Dose: 10 ml Documented by: Simvastatin 10 mg PO QPM 11/05/14 hydroCHLOROthiazide [Hydrochlorothiazide] 25 mg PO DAILY 11/05/14 Acetaminophen [Tylenol] 650 mg PO DAILY PRN 04/27/15 Methotrexate 15 mg PO .QWED 08/08/17 Finasteride 5 mg PO DAILY 09/23/19 Losartan Potassium 25 mg PO DAILY 07/25/19 Aspirin EC [Ecotrin] 325 mg PO DAILY 08/14/20 Multivit-Min/Iron/Folic Acid/K [Multi-Day Plus Minerals Tablet] 1 tab PO DAILY 08/14/20 Oxybutynin Chloride [Ditropan Xl] 5 mg PO DAILY 08/14/20 Terbinafine [Lamisil] 250 mg PO DAILY 08/14/20 Vit A/Vit C/Vit E/Zinc/Copper [Preservision Areds Softgel] 1 cap PO BID 08/14/20
[2020-08-15] MEDS: LORATADINE 10 MG TABLET PO SCH (12:04)
[2020-08-15] MEDS ORDERED: CIPROFLOXACIN 250 MG TABLET PO SCH (18:00)
[2020-08-15] MEDS: ALBUTEROL NEB 2.5 MG/3 ML INH PRN (18:03)
[2020-08-15] MEDS: CIPROFLOXACIN 250 MG TABLET PO SCH (18:25)
[2020-08-15] MEDS ORDERED: FAMOTIDINE 20 MG TABLET PO SCH (21:00)
[2020-08-16] MEDS: ACETAMINOPHEN 325 MG TABLET PO PRN ×2 (02:14→08:41)
[2020-08-16] MEDS: SODIUM CHLORIDE FLUSH 0.9% 10 ML SYRINGE IVP SCH ×3 (02:19→16:50)
[2020-08-16 05:20] LABS: BASOPHILS % (AUTO) 0.3 %; EOSINOPHILS # (AUTO) 0.2 10^3/uL (0.0-0.7); EOSINOPHILS % (AUTO) 1.6 %; HGB - HEMOGLOBIN 9.8 g/dL (14.0-18.0); LYMPHOCYTES # (AUTO) 0.9 10^3/uL (1.5-3.5); LYMPHOCYTES % (AUTO) 7.3 %; MEAN CORPUSCULAR HEMOGLOBIN 32.1 pg (27.0-31.0); MEAN CORPUSCULAR HGB CONC 32.6 g/dL (32.0-36.0); MEAN CORPUSCULAR VOLUME 98.7 fL (80.0-94.0); MEAN PLATELET VOLUME 9.6 fL (7.4-11.4); MONOCYTES # (AUTO) 1.2 10^3/uL (0.0-1.0); MONOCYTES % (AUTO) 10.4 %; NEUTROPHILS # (AUTO) 9.3 10^3/uL (1.5-6.6); NEUTROPHILS % (AUTO) 79.2 %; PLT - PLATELET COUNT 179 10^3/uL (130-450); RED BLOOD COUNT 3.05 10^6/uL (4.70-6.10); RED CELL DISTRIBUTION WIDTH 14.4 % (12.0-15.0); WHITE BLOOD COUNT 11.7 x10^3/uL (4.8-10.8)
[2020-08-16 05:31] LABS: CALCIUM 8.1 mg/dL (8.5-10.3); CREATININE 1.1 mg/dL (0.6-1.2)
[2020-08-16] MEDS: CIPROFLOXACIN 250 MG TABLET PO SCH (08:40)
[2020-08-16] MEDS: FINASTERIDE 5 MG TABLET PO SCH (08:40)
[2020-08-16] MEDS: polyethylene glycoL 3350 17 GM PACKET PO SCH ×2 (08:41→08:56)
[2020-08-16] MEDS: FERROUS SULFATE 325 MG TABLET PO SCH (08:42)
[2020-08-16] MEDS: OXYBUTYNIN 5MG TABLET PO SCH (08:42)
[2020-08-16] MEDS: LORATADINE 10 MG TABLET PO SCH (08:42)
[2020-08-16] MEDS: guaiFENesin 600 MG TABLET PO SCH ×2 (08:42→21:01)
[2020-08-16] MEDS: FAMOTIDINE 20 MG TABLET PO SCH (08:42)
[2020-08-16] MEDS: ASPIRIN EC 325 MG TABLET PO SCH (08:43)
[2020-08-16] MEDS: SACCHAROMYCES BOULARDII 250 MG CAPSULE PO SCH ×2 (08:43→16:49)
[2020-08-16] MEDS: ENOXAPARIN 40 MG/0.4 ML SYRINGE SUBQ SCH (08:43)
[2020-08-16] MEDS ORDERED: cefTRIAXone 2 GM in SODIUM CHLORIDE 0.9% MINIBAG 100 ML IV SCH (09:00)
--- NOTE | 2020-08-16 11:40 | PROVIDER PROGRESS NOTE ---
Assessment/Plan - Problem List (1) Shortness of breath Assessment/Plan: Patient present very shortness of breath in the morning when assessed patient. Patient denies history of asthma or COPD. Patient did report he lost 30% of his lung capacity He served in the , He also report chronic cough. Patient has quite stable oxygen saturation on room air now, Expiration mild wheezing bilaterally. Patient had elevated d-dimer, We will order CTA of the chest to rule out PE, will followup the test. We will continue albuterol treatment, add Pulmicort. (2) Bacteremia Assessment/Plan: 10-15Blood culture show enterobacter positive, Sensitivity to the Cipro. Patient has no fever from yesterday to today. But the patient had elevated temperature 37.8 on yesterday afternoon. Today patient had a slight elevated WBC as well. We will continue antibiotics, we will check CRP. Repeated blood culture is pending. 1014,Patient reported he feels much better.He has no fever from yesterday afternoon. 2 tubal blood culture show positive for negative bacilli. Sensitivity study is still pending. Urine culture show enterobactor Aerogenes Which sensitivity to Rocephin and Cipro. We will finish intravenous antibiotics today then switch to the p.o. antibiotics while waiting for Sensitivity study.Patient likely need 10-14 days antibiotics for bacteremia. Repeat blood culture on today. Patient's Both tubal blood culture show positive gram negative bacilli.Patient also has low degree fever in this morning. It is likely come from the urinary tract infection. Increase his Rocephin to 2 g daily. Continue intravenous IV fluids. Will repeat blood culture on tomorrow. COVID-19 is pending (3) Sepsis secondary to UTI 1015, Patient had a slightly elevated WBC on today, patient had a slightly elevated temperature 37.8 on yesterday, But patient has no fever from yesterday afternoon on today. Repeat blood culture is pending. Will continue antibiotics, We will follow-up chest imaging study. 1014, resolved. Patient has no fever yesterday afternoon to today, WBC is normal, No tachycardia, And hemodynamic stable. Continue antibiotics, Continue intravenous IV fluids until tomorrow. Patient still had temperature 37.9 degrees, WBC is decreased. Patient has a bacteremia. We will continue intravenous IV fluids, continue Rocephin to groin daily. culture and sensitivities are Pending (4) Urinary tract infection 1015, will continue antibiotics Cipro 08/15, Urine culture show enterobactor Aerogenes Which sensitivity to Rocephin and Cipro.We will continue antibiotics Culture show negative bacilli, We will continue antibiotics Rocephin, will hold patient's methotrexate due to septic state. (5) Acute kidney injury Conclusion/Plan: 1014,Improved and stable, creatinine is 1.2. 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 Tylenol PRN for pain (7) Hypertension Conclusion/Plan: Patient is on losartan and hydrochlorothiazide at home. We will hold for now while actively hydrating patient for sepsis. (8) Hyperlipidemia Conclusion/Plan: On simvastatin 10 mg daily. Will order equivalent on formulary once verified. (9) BPH (benign prostatic hyperplasia) Conclusion/Plan: On finasteride, Will continue. - Current Meds Current Meds: Current Medications Generic Name Dose Route Start Last Admin Trade Name Freq PRN Reason Stop Dose Admin Acetaminophen 650 mg 08/13/20 21:43 08/16/20 08:41 Tylenol PO 650 mg Q4HR PRN Administration Pain 1 to 4 Albuterol 2.5 mg 08/15/20 17:41 08/15/20 18:03 INH 2.5 mg RTQ4H PRN Administration Wheezing Aspirin 325 mg 08/14/20 13:00 08/16/20 08:43 Ecotrin PO 325 mg DAILY DOMINIK Administration Ciprofloxacin 500 mg 08/15/20 19:00 08/16/20 08:40 Cipro PO 500 mg BID DOMINIK Administration Enoxaparin Sodium 40 mg 08/14/20 09:00 08/16/20 08:43 Lovenox SUBQ 40 mg DAILY DOMINIK Administration Famotidine 20 mg 08/16/20 09:00 08/16/20 08:42 Pepcid PO 20 mg DAILY DOMINIK Administration Ferrous Sulfate 325 mg 08/15/20 09:00 08/16/20 08:42 Feosol PO 325 mg DAILYWM DOMINIK Administration Finasteride 5 mg 08/14/20 13:00 08/16/20 08:40 Proscar PO 5 mg DAILY DOMINIK Administration Guaifenesin 600 mg 08/14/20 17:39 08/16/20 08:42 Mucinex PO 600 mg BID DOMINIK Administration Loratadine 10 mg 08/15/20 12:00 08/16/20 08:42 Claritin PO 10 mg DAILY DOMINIK Administration Oxybutynin Chloride 5 mg 08/15/20 09:00 08/16/20 08:42 Ditropan PO 5 mg DAILY DOMINIK Administration Polyethylene Glycol 17 gm 08/14/20 09:00 08/16/20 08:56 Miralax PO Not Given DAILY DOMINIK Saccharomyces Boulardii 250 mg 08/14/20 17:00 08/16/20 08:43 Florastor PO 250 mg BIDWM DOMINIK Administration Sodium Chloride 10 ml 08/14/20 01:00 08/16/20 02:19 Normal Saline Flush 0.9% IVP 10 ml 0100,0900,1700 DOMINIK Administration - Lab Result Fish Bone Diagrams: 08/16/20 04:23 08/16/20 04:23 - Additional Planning My Orders: My Active Orders 08/15/20 11:20 Blood Culture [CULTURE, BLOOD #1] [RM] Urgent 08/15/20 11:38 Blood Culture [CULTURE, BLOOD #2] [RM] Urgent 08/15/20 12:00 Loratadine [Claritin] 10 mg PO DAILY 08/15/20 19:00 Ciprofloxacin [Cipro] 500 mg PO BID 08/16/20 09:00 Famotidine [Pepcid] 20 mg PO DAILY 08/16/20 11:00 Losartan [Cozaar] 50 mg PO DAILY hydroCHLOROthiazide [Hydrodiuril] 25 mg PO DAILY 08/16/20 Lunch Regular Diet [DIET] 08/16/20 11:22 Nebulizer/MDI Tx. [RC] QID Resp Teach Nebulizer/MDI [RC] .ONCE 08/16/20 11:23 ANGIO CHEST W/WO [CT] Stat 08/16/20 19:00 Budesonide [Pulmicort] 0.5 mg INH RTBID 08/17/20 05:00 CRP - C-REACTIVE PROTEIN [CHEM] DAILYLAB 08/18/20 05:00 CRP - C-REACTIVE PROTEIN [CHEM] DAILYLAB 08/19/20 05:00 CRP - C-REACTIVE PROTEIN [CHEM] DAILYLAB 08/20/20 05:00 CRP - C-REACTIVE PROTEIN [CHEM] DAILYLAB Subjective - Subjective Patient Reports: Shortness of Breath Objective Vital Signs: Vital Signs - 24 hr 08/15/20 08/15/20 08/15/20 11:40 14:12 16:07 Temperature 37.6 C H 37.3 C 37.8 C H Heart Rate Heart Rate [ 75 85 Brachial] Respiratory 20 18 Rate Blood Pressure 128/71 [Left Brachial artery] Blood Pressure 168/72 H [Right Brachial artery] O2 Saturation 95 92 08/15/20 08/15/20 08/15/20 17:35 17:41 20:33 Temperature 37.8 C H 37.3 C Heart Rate 85 85 Heart Rate [ 85 Brachial] Respiratory 22 22 18 Rate Blood Pressure [Left Brachial artery] Blood Pressure 161/67 H [Right Brachial artery] O2 Saturation 94 95 08/15/20 08/16/20 08/16/20 21:00 00:00 02:11 Temperature 37.2 C 37.3 C Heart Rate 85 Heart Rate [ 85 Brachial] Respiratory 18 20 Rate Blood Pressure 140/68 H [Left Brachial artery] Blood Pressure [Right Brachial artery] O2 Saturation 91 L 95 08/16/20 08/16/20 08/16/20 05:00 07:36 09:15 Temperature 37.1 C 37.4 C Heart Rate 72 Heart Rate [ 78 78 Brachial] Respiratory 18 19 16 Rate Blood Pressure 156/72 H [Left Brachial artery] Blood Pressure 162/82 H [Right Brachial artery] O2 Saturation 94 95 Oxygen O2 Source Room air I&O (Last 24 Hrs): Intake and Output Totals x24h 08/14/20 08/15/20 08/16/20 23:59 23:59 23:59 Intake Total 2410 3071.667 240 Output Total 1700 975 525 Balance 710 2096.667 -285 General: Alert, Oriented x3, Mild distress HEENT: Atraumatic Neck: Supple Lymphatic: no adenopathy Neuro: Alert, Non Focal, Oriented Times 3 Cardiovascular: Regular rate, Normal S1, Normal S2 Respiratory: Chest non-tender Abdomen: Normal bowel sounds, Soft, No tenderness Extremities: Normal pulses - Results Results: Laboratory Results WBC 11.7 x10^3/uL (4.8-10.8) H 08/16/20 04:23 RBC 3.05 10^6/uL (4.70-6.10) L 08/16/20 04:23 Hgb 9.8 g/dL (14.0-18.0) L 08/16/20 04:23 Hct 30.1 % (42.0-52.0) L 08/16/20 04:23 MCV 98.7 fL (80.0-94.0) H 08/16/20 04:23 MCH 32.1 pg (27.0-31.0) H 08/16/20 04:23 MCHC 32.6 g/dL (32.0-36.0) 08/16/20 04:23 RDW 14.4 % (12.0-15.0) 08/16/20 04:23 Plt Count 179 10^3/uL (130-450) 08/16/20 04:23 MPV 9.6 fL (7.4-11.4) 08/16/20 04:23 Reticulocyte % (Auto) 0.83 % (0.5-2.3) 08/15/20 05:40 Neut # (Auto) 9.3 10^3/uL (1.5-6.6) H 08/16/20 04:23 Lymph # (Auto) 0.9 10^3/uL (1.5-3.5) L 08/16/20 04:23 [place] # (Auto) 1.2 10^3/uL (0.0-1.0) H 08/16/20 04:23 Eos # (Auto) 0.2 10^3/uL (0.0-0.7) 08/16/20 04:23 Baso # (Auto) 0.0 10^3/uL (0.0-0.1) 08/16/20 04:23 Absolute Nucleated RBC 0.00 x10^3/uL 08/16/20 04:23 Nucleated RBC % 0.0 /100WBC 08/16/20 04:23 Absolute Retic 0.024 10^6/uL (0.020-0.110) 08/15/20 05:40 D-Dimer 524.0 ng/mL (200.0-255.0) H 08/16/20 10:44 Sodium 139 mmol/L (135-145) 08/16/20 04:23 Potassium 3.8 mmol/L (3.5-5.0) 08/16/20 04:23 Chloride 106 mmol/L (101-111) 08/16/20 04:23 Carbon Dioxide 23 mmol/L (21-32) 08/16/20 04:23 Anion Gap 10.0 (6-13) 08/16/20 04:23 BUN 19 mg/dL (6-20) 08/16/20 04:23 Creatinine 1.1 mg/dL (0.6-1.2) 08/16/20 04:23 Estimated GFR (MDRD) 64 (>89) L 08/16/20 04:23 Glucose 123 mg/dL (70-100) H 08/16/20 04:23 Lactic Acid 1.0 mmol/L (0.5-2.2) 08/13/20 19:40 Calcium 8.1 mg/dL (8.5-10.3) L 08/16/20 04:23 Magnesium 2.2 mg/dL (1.7-2.8) 08/15/20 05:40 Iron 21 ug/dL (45-182) L 08/15/20 05:40 TIBC 200 ug/dL (250-450) L 08/15/20 05:40 % Saturation 10 % (20-50) L 08/15/20 05:40 Transferrin 143 mg/dL (180-329) L 08/15/20 05:40 Ferritin 139.3 ng/mL (23.9-336.2) 08/15/20 05:40 Total Bilirubin 0.6 mg/dL (0.2-1.0) 08/13/20 19:40 AST 23 IU/L (10-42) 08/13/20 19:40 ALT 24 IU/L (10-60) 08/13/20 19:40 Alkaline Phosphatase 92 IU/L (42-121) 08/13/20 19:40 Lactate Dehydrogenase 141 IU/L (91-225) 08/15/20 05:40 C-Reactive Protein 11.7 mg/dL (0-1.0) H 08/16/20 04:23 Total Protein 7.1 g/dL (6.7-8.2) 08/13/20 19:40 Albumin 3.4 g/dL (3.2-5.5) 08/13/20 19:40 Globulin 3.7 g/dL (2.1-4.2) 08/13/20 19:40 Albumin/Globulin Ratio 0.9 (1.0-2.2) L 08/13/20 19:40 Vitamin B12 361 pg/mL (180-914) 08/15/20 05:40 Urine Color YELLOW 08/13/20 21:20 Urine Clarity SL. CLOUDY (CLEAR) 08/13/20 21:20 Urine pH 5.0 PH (5.0-7.5) 08/13/20 21:20 Ur Specific [place] 1.025 (1.002-1.030) 08/13/20 21:20 Urine Protein 100 mg/dL (NEGATIVE) H 08/13/20 21:20 Urine Glucose (UA) NEGATIVE mg/dL (NEGATIVE) 08/13/20 21:20 Urine Ketones NEGATIVE mg/dL (NEGATIVE) 08/13/20 21:20 Urine Occult Blood LARGE (NEGATIVE) H 08/13/20 21:20 Urine Nitrite POSITIVE (NEGATIVE) H 08/13/20 21:20 Urine Bilirubin NEGATIVE (NEGATIVE) 08/13/20 21:20 Urine Urobilinogen 0.2 (NORMAL) E.U./dL (NORMAL) 08/13/20 21:20 Ur Leukocyte Esterase MODERATE (NEGATIVE) H 08/13/20 21:20 Urine RBC 11-25 /HPF (0-5) H 08/13/20 21:20 Urine WBC >25 /HPF (0-3) H 08/13/20 21:20 Ur Squamous Epith Cells RARE Squamous (<= Few) 08/13/20 21:20 Urine Bacteria Moderate /HPF (None Seen) H 08/13/20 21:20 Urine Culture Comments INDICATED 08/13/20 21:20 Coronavirus (PCR) NEGATIVE 08/13/20 19:45 - Procedures Procedures: Procedures EXCISION OF TRANSVERSE COLON, ENDO (07/25/19) Sepsis Event Note (H) - Evaluation Current Stage of Sepsis: Sepsis Possible source of Sepsis: positive: Genitourinary - Sepsis Criteria Sepsis Criteria: Recorded Heart Rate greater than 90 bpm, Recorded Respiratory Rate greater than 20, WBC count greater than 12,000 or less than 4000 ABX Reporting Has patient been on IV antibiotics over the past 48 hours?: Yes Current Medications - Current Medications Current Medications: Active Medications Acetaminophen (Tylenol) 650 mg PO Q4HR PRN PRN Reason: Pain 1 to 4 Last Admin: 08/16/20 08:41 Dose: 650 mg Documented by: Albuterol () 2.5 mg INH RTQ4H PRN PRN Reason: Wheezing Last Admin: 08/15/20 18:03 Dose: 2.5 mg Documented by: Aspirin (Ecotrin) 325 mg PO DAILY [facility] Last Admin: 08/16/20 08:43 Dose: 325 mg Documented by: Budesonide (Pulmicort) 0.5 mg INH RTBID [facility] Ciprofloxacin (Cipro) 500 mg PO BID [facility] Last Admin: 08/16/20 08:40 Dose: 500 mg Documented by: Enoxaparin Sodium (Lovenox) 40 mg SUBQ DAILY [facility] Last Admin: 08/16/20 08:43 Dose: 40 mg Documented by: Famotidine (Pepcid) 20 mg PO DAILY [facility] Last Admin: 08/16/20 08:42 Dose: 20 mg Documented by: Ferrous Sulfate (Feosol) 325 mg PO DAILYWM [facility] Last Admin: 08/16/20 08:42 Dose: 325 mg Documented by: Finasteride (Proscar) 5 mg PO DAILY [facility] Last Admin: 08/16/20 08:40 Dose: 5 mg Documented by: Guaifenesin (Mucinex) 600 mg PO BID [facility] Last Admin: 08/16/20 08:42 Dose: 600 mg Documented by: Hydrochlorothiazide (Hydrodiuril) 25 mg PO DAILY [facility] Loratadine (Claritin) 10 mg PO DAILY [facility] Last Admin: 08/16/20 08:42 Dose: 10 mg Documented by: Losartan Potassium (Cozaar) 50 mg PO DAILY [facility] Oxybutynin Chloride (Ditropan) 5 mg PO DAILY [facility] Last Admin: 08/16/20 08:42 Dose: 5 mg Documented by: Polyethylene Glycol (Miralax) 17 gm PO DAILY [facility] Last Admin: 08/16/20 08:56 Dose: Not Given Documented by: Saccharomyces Boulardii (Florastor) 250 mg PO BIDWM [facility] Last Admin: 08/16/20 08:43 Dose: 250 mg Documented by: Sodium Chloride (Normal Saline Flush 0.9%) 10 ml IVP PRN PRN PRN Reason: NEEDED PER PROVIDER ORDERS Sodium Chloride (Normal Saline Flush 0.9%) 10 ml IVP 0100,0900,1700 DOMINIK Last Admin: 08/16/20 02:19 Dose: 10 ml Documented by: Simvastatin 10 mg PO QPM 11/05/14 hydroCHLOROthiazide [Hydrochlorothiazide] 25 mg PO DAILY 11/05/14 Acetaminophen [Tylenol] 650 mg PO DAILY PRN 04/27/15 Methotrexate 15 mg PO .QWED 08/08/17 Finasteride 5 mg PO DAILY 07/25/19 Losartan Potassium 25 mg PO DAILY 07/25/19 Aspirin EC [Ecotrin] 325 mg PO DAILY 08/14/20 Multivit-Min/Iron/Folic Acid/K [Multi-Day Plus Minerals Tablet] 1 tab PO DAILY 08/14/20 Oxybutynin Chloride [Ditropan Xl] 5 mg PO DAILY 08/14/20 Terbinafine [Lamisil] 250 mg PO DAILY 08/14/20 Vit A/Vit C/Vit E/Zinc/Copper [Preservision Areds Softgel] 1 cap PO BID 08/14/20
[2020-08-16] MEDS: hydroCHLOROthiazide 25 MG TABLET PO SCH (11:51)
[2020-08-16] MEDS: LOSARTAN 50 MG TABLET PO SCH (11:51)
[2020-08-16] MEDS ORDERED: IOVERSOL 320 100 ML VIAL IVP ONE ×2 (11:53→17:09)
[2020-08-16] MEDS ORDERED: predniSONE 10 MG TABLET PO SCH (12:00)
[2020-08-16] MEDS ORDERED: predniSONE 20 MG TABLET PO SCH (12:30)
--- NOTE | 2020-08-16 13:09 | CT Report ---
PROCEDURE: ANGIO CHEST W/WO INDICATIONS: shortness of breath CONTRAST: IV CONTRAST: Optiray 320 ml: 80 PO CONTRAST: *NO PO CONTRAST TECHNIQUE: After the administration of intravenous contrast, 2 mm thick sections acquired from the pulmonary api luis to the posterior costophrenic angles. 3-dimensional maximum intensity projection (MIP) coronal a nd sagittal reformats were then acquired through the thorax. For radiation dose reduction, the follow ing was used: automated exposure control, adjustment of mA and/or kV according to patient size. COMPARISON: Chest x-ray 08/14/2020 FINDINGS: Image quality: Excellent. Pulmonary arteries: Pulmonary arteries are normal in size, and demonstrate no intraluminal filling d efects to suggest central pulmonary embolism. Lungs and pleura: Mild bilateral pleural effusions. Scattered area of opacity is noted within the rig ht upper lobe. Mediastinum: Heart size is mildly prominent with pericardial effusion measuring 9 mm in greatest AP dimension. No mediastinal or hilar adenopathy. Thoracic aorta is normal in caliber and enhancement. Esophagus is normal in caliber, without hiatal hernia. Bones and chest wall: No suspicious bony lesions. Ribs and thoracic spine appear intact throughout. The thyroid is normal. No axillary or supraclavicular adenopathy. Abdomen: Left renal cysts as well as nonobstructing left renal cyst is noted. Thickening of the adre nal glands is noted bilaterally, unchanged. Otherwise, visualized upper abdominal solid organs appear normal in the early arterial phase of enhancement. IMPRESSION: 1. Mild bilateral effusions with patchy right upper lobe opacity. This could represent developing are a of airspace disease such as pneumonia versus focal atelectasis and/or edema. 2. Cardiomegaly with pericardial effusion. Reviewed by: Mira Montoya MD on 08/16/2020 1:08 PM PDT Approved by: Mira Montoya MD on 08/16/2020 1:08 PM PDT Station ID: [id number]
[2020-08-16] MEDS ORDERED: FUROSEMIDE 20 MG/2 ML VIAL IVP SCH (15:39)
[2020-08-16] MEDS: ALBUTEROL NEB 2.5 MG/3 ML INH PRN ×2 (16:27→19:29)
[2020-08-16] MEDS: levoFLOXacin 250 MG TABLET PO SCH (16:49)
[2020-08-16] MEDS: BUDESONIDE 0.5 MG/2 ML NEB INH SCH (19:29)
[2020-08-17] MEDS: SODIUM CHLORIDE FLUSH 0.9% 10 ML SYRINGE IVP SCH ×2 (03:12→12:34)
[2020-08-17] MEDS: ACETAMINOPHEN 325 MG TABLET PO PRN (03:16)
[2020-08-17 05:53] LABS: BASOPHILS % (AUTO) 0.2 %; EOSINOPHILS % (AUTO) 0.2 %; HGB - HEMOGLOBIN 9.3 g/dL (14.0-18.0); LYMPHOCYTES # (AUTO) 0.5 10^3/uL (1.5-3.5); LYMPHOCYTES % (AUTO) 5.5 %; MEAN CORPUSCULAR HEMOGLOBIN 31.8 pg (27.0-31.0); MEAN CORPUSCULAR HGB CONC 32.6 g/dL (32.0-36.0); MEAN CORPUSCULAR VOLUME 97.6 fL (80.0-94.0); MEAN PLATELET VOLUME 9.1 fL (7.4-11.4); MONOCYTES # (AUTO) 0.7 10^3/uL (0.0-1.0); MONOCYTES % (AUTO) 7.2 %; NEUTROPHILS # (AUTO) 7.7 10^3/uL (1.5-6.6); NEUTROPHILS % (AUTO) 84.2 %; PLT - PLATELET COUNT 192 10^3/uL (130-450); RED BLOOD COUNT 2.92 10^6/uL (4.70-6.10); RED CELL DISTRIBUTION WIDTH 14.2 % (12.0-15.0); WHITE BLOOD COUNT 9.1 x10^3/uL (4.8-10.8)
[2020-08-17 06:10] LABS: CALCIUM 8.5 mg/dL (8.5-10.3); CREATININE 1.2 mg/dL (0.6-1.2); CRP - C-REACTIVE PROTEIN 11.9 mg/dL (0-1.0)
[2020-08-17] MEDS: ALBUTEROL NEB 2.5 MG/3 ML INH PRN ×2 (07:31→13:39)
[2020-08-17] MEDS: BUDESONIDE 0.5 MG/2 ML NEB INH SCH (07:32)
[2020-08-17] MEDS: SACCHAROMYCES BOULARDII 250 MG CAPSULE PO SCH (08:34)
[2020-08-17] MEDS: FERROUS SULFATE 325 MG TABLET PO SCH (08:34)
[2020-08-17 11:48] VITALS: BP 136/61
[2020-08-17] MEDS: guaiFENesin 600 MG TABLET PO SCH (12:21)
[2020-08-17] MEDS: hydroCHLOROthiazide 25 MG TABLET PO SCH (12:21)
[2020-08-17] MEDS: FAMOTIDINE 20 MG TABLET PO SCH (12:24)
[2020-08-17] MEDS: LOSARTAN 50 MG TABLET PO SCH (12:25)
[2020-08-17] MEDS: ASPIRIN EC 325 MG TABLET PO SCH (12:27)
[2020-08-17] MEDS: OXYBUTYNIN 5MG TABLET PO SCH (12:28)
[2020-08-17] MEDS: levoFLOXacin 250 MG TABLET PO SCH (12:30)
[2020-08-17] MEDS: LORATADINE 10 MG TABLET PO SCH (12:32)
[2020-08-17] MEDS: ENOXAPARIN 40 MG/0.4 ML SYRINGE SUBQ SCH (12:32)
[2020-08-17] MEDS: FINASTERIDE 5 MG TABLET PO SCH (12:33)
[2020-08-17] MEDS: polyethylene glycoL 3350 17 GM PACKET PO SCH (12:34)
--- NOTE | 2020-08-17 14:03 | Discharge Plan ---
Discharge Plan Problem Reviewed?: Yes Disposition: Home, Self Care Condition: Stable Prescriptions: Ferrous Sulfate [Feosol] 325 mg PO DAILYWM #30 tablet Saccharomyces Boulardii [Florastor] 250 mg PO DAILY #10 capsule levoFLOXacin [Levaquin] 500 mg PO DAILY #20 tablet Albuterol Sulfate [Proair Hfa Inhaler] 1 - 2 puffs INH Q4H PRN #1 inhaler PRN Reason: Shortness Of Air/Wheezing Diet: Regular Activity Restrictions: Activity as Tolerated Shower Restrictions: No (fall precaution, caregiver closely monitor) Instruction Topics: Levofloxacin tablets, Albuterol inhalation aerosol, UTI, ED Bacteremia Rule Out [facility] Health Concerns: bacteremia/UTI Plan of Treatment: You were found to have UTI and bacteremia. You have been treated with antibiotics. Repeated blood culture reveals negative for bacteremia. PT/OT evaluated and treated for pt. You walked 200 feet without need of supplement of oxygen. A Walker is prescribed for assistance for you to walk, advise you keep active and exercise safely, keep hydration. Antibiotics is prescribed for you to finish the treatment course. Care Goals: stabilization and improvement of your medical conditions Assessment: discussed the care plan with you, you understood. Additional Instructions or Follow Up instructions: You may followup with your PCP in one to weeks,. should your symptoms return or worsen, you may present ER or call 911 for help. Follow-Up Care: Outpatient Rehab - PT No Smoking: If you smoke, Please STOP! Call for help. Follow-up with: Reinaldo Bangura MD [Primary Care Provider] -
--- NOTE | 2020-08-17 14:33 | DISCHARGE SUMMARY ---
Discharge Summary Admit Date: 08/13/20 Discharge Date: 08/17/20 Discharging Provider: [place] Primary Care Provider: Dr. Bangura Condition at Discharge: Stable Discharge Disposition: 01 Home, Self Care Discharge Facility Name: home - DIAGNOSES Discharge Diagnoses with Status of Each Condition: (1) Sepsis secondary to UTI resolved. Patient present sepsis at the admission with fever, elevated WBC, tachycardia, and tachypnea.After treatment patient has no fever, WBC normal, no tachycardia or tachypnea. pt is prescribed antibiotics Levaquin to finish the treatment course. (2) Bacteremia Resolved. Repeated blood culture is negative for bacteremia. Patient was found to have enterobacter bacteremia, likely from UTI. pt is prescribed antibiotics Levaquin to finish the treatment course. (3) Urinary tract infection Patient was found to have urinary tract infection with enterobacter. pt is prescribed antibiotics Levaquin to finish the treatment course. (4)chronic cough Stable,Patient has 92-94% oxygen sats on room air. Patient walked 200 feet without supplemental oxygen with PT. Proair HFA is prescribed for pt as needed. (5) Acute kidney injury resolved. (6) Arthritis with psoriasis stable, resume home meds (7) Hypertension stable (8) Hyperlipidemia stable (9) BPH (benign prostatic hyperplasia) stable, resume home meds (10)iron Deficiency anemia stable, Patient hemoglobin 9.3. Patient is prescribed iron pill (11)weakness improved. Patient walked 200 feet without supplemental oxygen with PT. pt is prescribed a Walker. out-PT is recommended for pt. - HPI History of Present Illness: refer Dr. Lilly's HPI on 08/13/2020 Patient is an 85-year-old male with history of frequent UTIs who presented to the ED with complaint of weakness and fever. This has been going on for the past 3 days. He reported a T-max of 103.1F. His temperatures have fluctuated between 103F and 101F. He finally came to the hospital today at the behest of his . In the ED he was found to be tachycardic with a heart rate as high as 105. He was also tachypneic and had a white blood cell count of 12.5. Urinalysis showed a urinary tract infection. Consequently the patient was started on IV antibiotics and presented for admission. At bedside he denies chest pain, dyspnea, abdominal pain, nausea or vomiting,. He reports he has had a chronic cough for years. His medical history is significant for BPH, hypertension, hyperlipidemia and psoriasis with arthritis. - HOSPITAL COURSE Hospital Course: Patient was admitted for weakness and fever. Patient was found to have UTI and bacteremia, sepsis, and ERIC. Patient was treated antibiotics And intravenous IV fluids. Repeated blood culture after the treated showed his bacteremia was resolved. After treatment, Patient has no fever, normal WBC, tachycardia and tachypnea were resolved. PT and OT evaluated and treated patient for patient. A Walker is prescription for patient, And recommend outpatient PT. Antibiotics Levaquin was prescribed for patient to finish the treatment course. - ALLERGIES Allergies/Adverse Reactions: Allergies Allergy/AdvReac Type Severity Reaction Status Date / Time lisinopril Allergy Unknown Verified 08/13/20 19:08 Penicillins Allergy Itching Verified 08/13/20 22:32 - MEDICATIONS Home Medications: Ambulatory Orders Medication Instructions Recorded Confirmed Simvastatin 10 mg PO QPM 11/05/14 08/14/20 hydroCHLOROthiazide 25 mg PO DAILY 11/05/14 08/14/20 [Hydrochlorothiazide] Acetaminophen [Tylenol] 650 mg PO DAILY PRN 04/27/15 08/14/20 Methotrexate 15 mg PO .QWED 08/08/17 08/14/20 Finasteride 5 mg PO DAILY 07/25/19 08/14/20 Losartan Potassium 25 mg PO DAILY 07/25/19 08/14/20 Aspirin EC [Ecotrin] 325 mg PO DAILY 08/14/20 08/14/20 Multivit-Min/Iron/Folic Acid/K 1 tab PO DAILY 08/14/20 08/14/20 [Multi-Day Plus Minerals Tablet] Oxybutynin Chloride [Ditropan Xl] 5 mg PO DAILY 08/14/20 08/14/20 Terbinafine [Lamisil] 250 mg PO DAILY 08/14/20 08/15/20 Vit A/Vit C/Vit E/Zinc/Copper 1 cap PO BID 08/14/20 08/14/20 [Preservision Areds Softgel] Albuterol Sulfate [Proair Hfa 1 - 2 puffs INH Q4H PRN #1 inhaler 08/17/20 Inhaler] Ferrous Sulfate [Feosol] 325 mg PO DAILYWM #30 tablet 08/17/20 Saccharomyces Boulardii [Florastor] 250 mg PO DAILY #10 capsule 08/17/20 levoFLOXacin [Levaquin] 500 mg PO DAILY #20 tablet 08/17/20 - PHYSICAL EXAM AT DISCHARGE General Appearance: positive: No acute distress, Alert. negative: Lethargic Eyes Bilateral: positive: Normal inspection, PERRL, No lid inflammation ENT: positive: ENT inspection nml, No signs of dehydration. negative: Purulent nasal drainage Neck: positive: Nml inspection, Thyroid nml, Trachea midline. negative: Thyromegaly, Tracheal deviation Respiratory: positive: Chest non-tender, No respiratory distress. negative: Wheezes, Rales Cardiovascular: positive: Regular rate & rhythm, No murmur. negative: Tachycardia, Bradycardia, Systolic murmur, Diastolic murmur Peripheral Pulses: positive: 2+ Abdomen: positive: Non-tender, Nml bowel sounds, No distention. negative: Ten derness, Guarding, Rebound Back: positive: Nml inspection. negative: CVA tenderness (R), CVA tenderness (L) Skin: positive: Color nml, No rash, Warm, Dry. negative: Cyanosis, Diaphoresis, Pallor Extremities: positive: Non-tender, Full ROM, Nml appearance. negative: Calf tenderness Neurologic/Psychiatric: positive: Oriented x3, Motor nml, Sensation nml, Mood/affect nml. negative: Weakness, Sensory loss, Facial droop, Slurred/abnml speech, Depressed mood/affect - LABS Result Diagrams: 08/17/20 05:45 08/17/20 05:45 - SEPSIS Current Stage of Sepsis: Sepsis Possible source of Sepsis: Genitourinary Sepsis Criteria: Recorded Heart Rate greater than 90 bpm, Recorded Respiratory Rate greater than 20, WBC count greater than 12,000 or less than 4000 - FOLLOW UP Follow Up: You were found to have UTI and bacteremia. You have been treated with antibiotics. Repeated blood culture reveals negative for bacteremia. PT/OT evaluated and treated for pt. You walked 200 feet without need of supplement of oxygen. A Walker is prescribed for assistance for you to walk, advise you keep active and exercise safely, keep hydration. Antibiotics is prescribed for you to finish the treatment course. You may followup with your PCP in one to weeks,. should your symptoms return or worsen, you may present ER or call 911 for help. - TIME SPENT Time Spent in Discharge (Minutes): 30
== END 2020-08-17 14:50 | disposition home or self-care (01) | DRG 872 ==
LOC: ED 18:38 → MS2 21:43
PROVIDERS: ADMIT Internal Medicine; ATTEND Nurse Practitioner Gerontology
DX: A41.9 Sepsis, unspecified organism (principal); A41.89 Other specified sepsis; N39.0 Urinary tract infection, site not specified; E78.00 Pure hypercholesterolemia, unspecified; N17.9 Acute kidney failure, unspecified; R65.20 Severe sepsis without septic shock; L40.50 Arthropathic psoriasis, unspecified; I10 Essential (primary) hypertension; E78.5 Hyperlipidemia, unspecified; N40.0 Benign prostatic hyperplasia without lower urinary tract symptoms; D50.9 Iron deficiency anemia, unspecified; R05 Cough; K21.9 Gastro-esophageal reflux disease without esophagitis; Z74.09 Other reduced mobility; H91.90 Unspecified hearing loss, unspecified ear; F43.10 Post-traumatic stress disorder, unspecified; Z20.828 Contact with and (suspected) exposure to other viral communicable diseases; Z79.82 Long term (current) use of aspirin; Z79.899 Other long term (current) drug therapy; Z87.891 Personal history of nicotine dependence
CPT/HCPCS: 36415; 71045; 71275; 80048; 80053; 81001; 82607; 82728; 83540; 83605; 83615; 83735; 84466; 85025; 85045; 85379; 86140; 87040; 87077; 87086; 87181; 93005; 93306; 94640; 97116; 97161; 97165; 99284; 99285; A9270; J1650; J7120; J7512; J7626; Q9967; U0004

== ENCOUNTER 2020-08-22 13:25 | Emergency (ER) | payer MEDICARE, OTHER ==
--- NOTE | 2020-08-22 14:05 | ED Physician Documentation ---
PD HPI LOWER EXT INJURY - Stated complaint Stated Complaint: L TOE PX - Chief complaint Chief Complaint: Ext Problem - History obtained from History obtained from: Patient - Additional information Additional information: 85-year-old gentleman has fungal infection of his toenails with increasing discoloration over the last month or so. No pain. He is currently on Levaquin for UTI. Review of Systems Constitutional: reports: Reviewed and negative Eyes: reports: Reviewed and negative Ears: reports: Reviewed and negative Nose: reports: Reviewed and negative PD PAST MEDICAL HISTORY - Past Medical History Cardiovascular: Hypertension, High cholesterol Respiratory: Pneumonia Neuro: None Endocrine/Autoimmune: Other GI: GERD : Benign prostate hypertrophy, Incontinence, Kidney stones HEENT: Chronic hearing loss Psych: Post traumatic stress disorder Musculoskeletal: None Derm: Psoriasis - Past Surgical History Past Surgical History: Yes General: Appendectomy HEENT: Tonsil/Adenoidectomy - Present Medications Home Medications: Ambulatory Orders Medication Instructions Recorded Confirmed Simvastatin 10 mg PO QPM 11/05/14 08/14/20 hydroCHLOROthiazide 25 mg PO DAILY 11/05/14 08/14/20 [Hydrochlorothiazide] Acetaminophen [Tylenol] 650 mg PO DAILY PRN 04/27/15 08/14/20 Methotrexate 15 mg PO .QWED 08/08/17 08/14/20 Finasteride 5 mg PO DAILY 07/25/19 08/14/20 Losartan Potassium 25 mg PO DAILY 07/25/19 08/14/20 Aspirin EC [Ecotrin] 325 mg PO DAILY 08/14/20 08/14/20 Multivit-Min/Iron/Folic Acid/K 1 tab PO DAILY 08/14/20 08/14/20 [Multi-Day Plus Minerals Tablet] Oxybutynin Chloride [Ditropan Xl] 5 mg PO DAILY 08/14/20 08/14/20 Terbinafine [Lamisil] 250 mg PO DAILY 08/14/20 08/15/20 Vit A/Vit C/Vit E/Zinc/Copper 1 cap PO BID 08/14/20 08/14/20 [Preservision Areds Softgel] Albuterol Sulfate [Proair Hfa 1 - 2 puffs INH Q4H PRN #1 inhaler 08/17/20 Inhaler] Ferrous Sulfate [Feosol] 325 mg PO DAILYWM #30 tablet 08/17/20 Saccharomyces Boulardii [Florastor] 250 mg PO DAILY #10 capsule 08/17/20 levoFLOXacin [Levaquin] 500 mg PO DAILY #20 tablet 08/17/20 Terbinafine [Lamisil] 250 mg PO DAILY #90 tablet 08/22/20 - Allergies Allergies/Adverse Reactions: Allergies Allergy/AdvReac Type Severity Reaction Status Date / Time lisinopril Allergy Unknown Verified 08/22/20 13:42 Penicillins Allergy Itching Verified 08/22/20 13:42 - Social History Does the pt smoke?: No Smoking Status: Never smoker Does the pt drink ETOH?: Yes Does the pt have substance abuse?: No - Immunizations Immunizations are current?: Yes - POLST Patient has POLST: No POLST Status: Full Code PD ED PE NORMAL - Vitals Vital signs reviewed: Yes - General General: Alert and oriented X 3, No acute distress - Extremities Extremities: Other (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 The left second toe has infected onychomycosis with some purulent drainage under the nailbed and mild cellulitis.) - Neuro Neuro: Alert and oriented X 3, Normal speech Results - Vitals Vitals: Vital Signs - 24 hr 08/22/20 13:33 Temperature 36.4 C L Heart Rate 83 Respiratory 14 Rate Blood Pressure 144/73 H O2 Saturation 95 Oxygen O2 Source Room air Procedures - General procedure General procedure: Left first and second toenails were debrided using a rongeur, down to clean bleeding base. There was some purulent drainage into the nailbed and on the lateral side of the second toe which was cultured. He has bounding pedal pulses and excellent cap refill. 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 The area was debrided during exam, he is already on levofloxacin. We will start terbinafine and arrange for him to follow-up with me in a few days for recheck. Departure - Departure Disposition: 01 Home, Self Care Clinical Impression: Toe infection, Onychomycosis Condition: Good Record reviewed to determine appropriate education?: Yes Instructions: ED Nail Infec Fungal Prescriptions: Terbinafine [Lamisil] 250 mg PO DAILY #90 tablet Comments: Return and see me on Thursday after 12 PM for recheck. Sooner if worse. We are performing a wound culture, the results should be done in 48-72 hours. If antibiotic change is necessary we will call you. Return if worse in the meantime, especially if you develop increased pain, fevers, cannot keep down the medication.
[2020-08-22 14:16] VITALS: BP 140/79
== END 2020-08-22 14:13 | disposition home or self-care (01) ==
LOC: ED 13:25
DX: B35.1 Tinea unguium (principal); L08.9 Local infection of the skin and subcutaneous tissue, unspecified; I10 Essential (primary) hypertension
CPT/HCPCS: 11720; 87070; 87205; 99283

== ENCOUNTER 2020-08-25 12:02 | Emergency (ER) | payer MEDICARE, OTHER ==
[2020-08-25 12:21] VITALS: BP 149/65
--- NOTE | 2020-08-25 12:36 | ED Physician Documentation ---
PD HPI SKIN - Stated complaint Stated Complaint: TOE INFECTION/FOLLOW UP - Chief complaint Chief Complaint: Wound - History obtained from History obtained from: Patient - Additional information Additional information: 85-year-old gentleman returns as directed for scheduled wound check. He has an infection of the tip of the left second toe. He is on Levaquin. The nail and tissue was debrided a few days ago. He denies any pain or fevers. He is also on terbinafine. Review of Systems Constitutional: reports: Reviewed and negative Eyes: reports: Reviewed and negative Ears: reports: Reviewed and negative PD PAST MEDICAL HISTORY - Past Medical History Cardiovascular: Hypertension, High cholesterol Respiratory: Pneumonia Neuro: None Endocrine/Autoimmune: Other GI: GERD : Benign prostate hypertrophy, Incontinence, Kidney stones HEENT: Chronic hearing loss Psych: Post traumatic stress disorder Musculoskeletal: None Derm: Psoriasis - Past Surgical History Past Surgical History: Yes General: Appendectomy HEENT: Tonsil/Adenoidectomy - Present Medications Home Medications: Ambulatory Orders Medication Instructions Recorded Confirmed Simvastatin 10 mg PO QPM 11/05/14 08/14/20 hydroCHLOROthiazide 25 mg PO DAILY 11/05/14 08/14/20 [Hydrochlorothiazide] Acetaminophen [Tylenol] 650 mg PO DAILY PRN 04/27/15 08/14/20 Methotrexate 15 mg PO .QWED 08/08/17 08/14/20 Finasteride 5 mg PO DAILY 07/25/19 08/14/20 Losartan Potassium 25 mg PO DAILY 07/25/19 08/14/20 Aspirin EC [Ecotrin] 325 mg PO DAILY 08/14/20 08/14/20 Multivit-Min/Iron/Folic Acid/K 1 tab PO DAILY 08/14/20 08/14/20 [Multi-Day Plus Minerals Tablet] Oxybutynin Chloride [Ditropan Xl] 5 mg PO DAILY 08/14/20 08/14/20 Terbinafine [Lamisil] 250 mg PO DAILY 08/14/20 08/15/20 Vit A/Vit C/Vit E/Zinc/Copper 1 cap PO BID 08/14/20 08/14/20 [Preservision Areds Softgel] Albuterol Sulfate [Proair Hfa 1 - 2 puffs INH Q4H PRN #1 inhaler 08/17/20 Inhaler] Ferrous Sulfate [Feosol] 325 mg PO DAILYWM #30 tablet 08/17/20 Saccharomyces Boulardii [Florastor] 250 mg PO DAILY #10 capsule 08/17/20 levoFLOXacin [Levaquin] 500 mg PO DAILY #20 tablet 08/17/20 Terbinafine [Lamisil] 250 mg PO DAILY #90 tablet 08/22/20 - Allergies Allergies/Adverse Reactions: Allergies Allergy/AdvReac Type Severity Reaction Status Date / Time lisinopril Allergy Unknown Verified 08/25/20 12:21 Penicillins Allergy Itching Verified 08/25/20 12:21 - Social History Does the pt smoke?: No Smoking Status: Never smoker Does the pt drink ETOH?: Yes Does the pt have substance abuse?: No - Immunizations Immunizations are current?: Yes - POLST Patient has POLST: No POLST Status: Full Code PD ED PE NORMAL - Vitals Vital signs reviewed: Yes - General General: Alert and oriented X 3, No acute distress - Extremities Extremities: Other (Generally stable to improving appearance of ulcer of the tip of the left second toe with mild cellulitis of the toe only. No active drainage.) - Neuro Neuro: Alert and oriented X 3, Normal speech Results - Vitals Vitals: Vital Signs - 24 hr 08/25/20 12:19 Temperature 36.7 C Heart Rate 86 Respiratory 16 Rate Blood Pressure 149/65 H O2 Saturation 97 Oxygen O2 Source Room air Departure - Departure Disposition: 01 Home, Self Care Clinical Impression: Visit for wound check Condition: Good Record reviewed to determine appropriate education?: Yes Instructions: ED Infec Skin Cellulitis Comments: I think it is generally looking better, continue your antibiotics and terbinafine. Okay to wash with soap and water. Return if worsening. 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
== END 2020-08-25 12:47 | disposition home or self-care (01) ==
LOC: ED 12:02
DX: L03.032 Cellulitis of left toe (principal); L97.529 Non-pressure chronic ulcer of other part of left foot with unspecified severity; I10 Essential (primary) hypertension; Z79.82 Long term (current) use of aspirin
CPT/HCPCS: 99281

== ENCOUNTER 2020-08-29 07:00 | Outpatient (CLI) | payer MEDICARE, OTHER | END 2020-08-29 23:59 | disposition home or self-care (01) | LOC: LAB.R 07:00 | PROVIDERS: ATTEND Family Medicine | DX: L97.529 Non-pressure chronic ulcer of other part of left foot with unspecified severity (principal) | CPT/HCPCS: 87070; 87205 ==

== ENCOUNTER 2021-05-27 08:00 | Outpatient (CLI) | payer MEDICARE, OTHER ==
[2021-05-27 12:24] LABS: BASOPHILS % (AUTO) 0.5 %; EOSINOPHILS # (AUTO) 0.3 10^3/uL (0.0-0.7); EOSINOPHILS % (AUTO) 3.5 %; HCT - HEMATOCRIT 39.9 % (42.0-52.0); LYMPHOCYTES # (AUTO) 0.8 10^3/uL (1.5-3.5); LYMPHOCYTES % (AUTO) 8.7 %; MEAN CORPUSCULAR HEMOGLOBIN 32.3 pg (27.0-31.0); MEAN CORPUSCULAR HGB CONC 32.6 g/dL (32.0-36.0); MEAN CORPUSCULAR VOLUME 99.3 fL (80.0-94.0); MEAN PLATELET VOLUME 10.4 fL (7.4-11.4); MONOCYTES # (AUTO) 0.8 10^3/uL (0.0-1.0); MONOCYTES % (AUTO) 8.6 %; NEUTROPHILS # (AUTO) 6.8 10^3/uL (1.5-6.6); NEUTROPHILS % (AUTO) 78.1 %; PLT - PLATELET COUNT 163 10^3/uL (130-450); RED BLOOD COUNT 4.02 10^6/uL (4.70-6.10); RED CELL DISTRIBUTION WIDTH 13.6 % (12.0-15.0); WHITE BLOOD COUNT 8.8 x10^3/uL (4.8-10.8)
[2021-05-27 13:11] LABS: % IRON SATURATION 17 % (20-50); ALBUMIN 4.3 g/dL (3.2-5.5); ALBUMIN/GLOBULIN RATIO 1.6 (1.0-2.2); ALKALINE PHOSPHATASE 91 IU/L (42-121); ALT ALANINE AMINOTRANSFERASE 28 IU/L (10-60); AST ASPARTATE AMINOTRANSFERASE 32 IU/L (10-42); BILIRUBIN,TOTAL 0.6 mg/dL (0.2-1.0); BUN - BLOOD UREA NITROGEN 22 mg/dL (6-20); CALCIUM 9.2 mg/dL (8.5-10.3); CARBON DIOXIDE - CO2 29 mmol/L (21-32); CHLORIDE 102 mmol/L (101-111); CHOL/HDL RATIO 4.5 (<5.0); CHOLESTEROL 210 mg/dL; GFR - MDRD 71 (>89); GLUCOSE 114 mg/dL (70-100); HDL CHOLESTEROL 47 mg/dL; IRON 58 ug/dL (45-182); LDL CHOLESTEROL,CALCULATED 119 mg/dL; LDL/HDL RATIO 2.5 (<3.6); POTASSIUM 3.8 mmol/L (3.5-5.0); SODIUM 140 mmol/L (135-145); TOTAL IRON BINDING CAPACITY 350 ug/dL (250-450); TRANSFERRIN 250 mg/dL (180-329); TRIGLYCERIDES 219 mg/dL; VLDL CHOLESTEROL 44 mg/dL
== END 2021-05-27 23:59 | disposition home or self-care (01) ==
LOC: LAB.WCP 08:00
PROVIDERS: ATTEND Family Medicine
DX: D50.9 Iron deficiency anemia, unspecified (principal); E78.5 Hyperlipidemia, unspecified
CPT/HCPCS: 36415; 80053; 80061; 82728; 83540; 83721; 84466; 85025

== ENCOUNTER 2021-09-04 12:19 | Outpatient (CLI) | payer MEDICARE, OTHER ==
[2021-09-04 17:45] LABS: BASOPHILS % (AUTO) 0.7 %; EOSINOPHILS # (AUTO) 0.3 10^3/uL (0.0-0.7); EOSINOPHILS % (AUTO) 5.6 %; HCT - HEMATOCRIT 40.3 % (42.0-52.0); LYMPHOCYTES # (AUTO) 0.7 10^3/uL (1.5-3.5); LYMPHOCYTES % (AUTO) 11.9 %; MEAN CORPUSCULAR HEMOGLOBIN 32.3 pg (27.0-31.0); MEAN CORPUSCULAR HGB CONC 32.3 g/dL (32.0-36.0); MEAN PLATELET VOLUME 10.7 fL (7.4-11.4); MONOCYTES # (AUTO) 0.6 10^3/uL (0.0-1.0); MONOCYTES % (AUTO) 10.5 %; NEUTROPHILS # (AUTO) 4.3 10^3/uL (1.5-6.6); NEUTROPHILS % (AUTO) 70.6 %; PLT - PLATELET COUNT 171 10^3/uL (130-450); RED BLOOD COUNT 4.03 10^6/uL (4.70-6.10); RED CELL DISTRIBUTION WIDTH 14.2 % (12.0-15.0); WHITE BLOOD COUNT 6.1 x10^3/uL (4.8-10.8)
[2021-09-04 18:50] LABS: % IRON SATURATION 25 % (20-50); IRON 94 ug/dL (45-182); TOTAL IRON BINDING CAPACITY 384 ug/dL (250-450); TRANSFERRIN 274 mg/dL (180-329)
== END 2021-09-04 23:59 | disposition home or self-care (01) ==
LOC: LAB.WCP 12:19
PROVIDERS: ATTEND Family Medicine
DX: D50.9 Iron deficiency anemia, unspecified (principal)
CPT/HCPCS: 36415; 82728; 83540; 84466; 85025

== ENCOUNTER 2021-09-12 15:58 | Outpatient (CLI) | payer MEDICARE, OTHER ==
--- NOTE | 2021-09-13 10:54 | XRAY Report ---
PROCEDURE: Lumbar Spine 2 View INDICATIONS: SPINAL FUSION TECHNIQUE: 3 views of the lumbar spine were acquired. COMPARISON: None. FINDINGS: Bones: 5 [id number] vertebrae are present. There is normal bony alignment. Partial visualizat ion of lower thoracic spine fusion. No vertebral body compression fractures. No suspicious bony lesi ons. There is degenerative disc disease, moderate at 3-L4, L4-L5 and L5-S1, mild at other levels. An terior osteophytes are present lumbar spine. There is moderate facet arthropathy at L3-L4, L4-L5 and L5-S1. Soft tissues: Overlying bowel gas pattern is normal. Vascular calcifications consistent with atheros clerosis. IMPRESSION: Degenerative disc and facet disease in lumbar spine. Reviewed by: Demetrio Diaz MD on 09/13/2021 10:53 AM PST Approved by: Demetrio Diaz MD on 09/13/2021 10:53 AM [facility] Station ID: [id number]
== END 2021-09-12 15:59 | disposition home or self-care (01) ==
LOC: DI.N 15:58
PROVIDERS: ATTEND Family Medicine
DX: M51.36 Other intervertebral disc degeneration, lumbar region (principal); M51.37 Other intervertebral disc degeneration, lumbosacral region; M47.816 Spondylosis without myelopathy or radiculopathy, lumbar region; M47.817 Spondylosis without myelopathy or radiculopathy, lumbosacral region

== ENCOUNTER 2021-12-04 11:50 | Emergency (ER) | payer MEDICARE, OTHER ==
[2021-12-04 12:07] LABS: BASOPHILS % (AUTO) 0.5 %; EOSINOPHILS # (AUTO) 0.3 10^3/uL (0.0-0.7); EOSINOPHILS % (AUTO) 3.2 %; HCT - HEMATOCRIT 39.1 % (42.0-52.0); LYMPHOCYTES # (AUTO) 0.8 10^3/uL (1.5-3.5); LYMPHOCYTES % (AUTO) 9.3 %; MEAN CORPUSCULAR HEMOGLOBIN 32.6 pg (27.0-31.0); MEAN CORPUSCULAR HGB CONC 33.2 g/dL (32.0-36.0); MEAN PLATELET VOLUME 9.7 fL (7.4-11.4); MONOCYTES % (AUTO) 11.9 %; NEUTROPHILS # (AUTO) 6.3 10^3/uL (1.5-6.6); NEUTROPHILS % (AUTO) 74.5 %; PLT - PLATELET COUNT 157 10^3/uL (130-450); RED BLOOD COUNT 3.99 10^6/uL (4.70-6.10); RED CELL DISTRIBUTION WIDTH 13.9 % (12.0-15.0); WHITE BLOOD COUNT 8.5 x10^3/uL (4.8-10.8)
[2021-12-04 12:14] VITALS: BP 144/80
[2021-12-04 12:20] LABS: ALBUMIN 4.2 g/dL (3.2-5.5); ALBUMIN/GLOBULIN RATIO 1.4 (1.0-2.2); BILIRUBIN,TOTAL 0.8 mg/dL (0.2-1.0); CALCIUM 8.9 mg/dL (8.5-10.3); CREATININE 1.2 mg/dL (0.6-1.2); POTASSIUM 3.4 mmol/L (3.5-5.0); TOTAL PROTEIN 7.2 g/dL (6.7-8.2)
--- NOTE | 2021-12-04 12:31 | ED Physician Documentation ---
History of Present Illness - Stated complaint Stated Complaint: SYMPTOMS OF DIVERTICULITIS - Chief complaint Chief Complaint: Abd Pain - Additonal information Additional information: 86-year-old male presents the emergency department for evaluation of 2 days focal left lower quadrant abdominal pain. Reports a history of sigmoid diverticulosis. No history of perforation or rupture. Patient reports a normal bowel movement this morning without blood or urine. However given the persistent tenderness which has ranged up to an 8 out of 10 he presented to a local walk-in clinic. There Dr. Smith felt he had a peritoneal on exam and thus referred him to the ER. No fevers, no vomiting. No chest pain or shortness of air. Patient did take a 325 aspirin this morning which he reports is a daily routine for him. Review of Systems Constitutional: denies: Fever, Chills Nose: reports: Reviewed and negative Throat: reports: Reviewed and negative Cardiac: reports: Reviewed and negative Respiratory: reports: Reviewed and negative GI: reports: Abdominal Pain. denies: Nausea, Vomiting : reports: Reviewed and negative Skin: reports: Reviewed and negative Musculoskeletal: reports: Reviewed and negative PD PAST MEDICAL HISTORY - Past Medical History Cardiovascular: Hypertension, High cholesterol Respiratory: Pneumonia Neuro: None Endocrine/Autoimmune: Other GI: GERD : Benign prostate hypertrophy, Incontinence, Kidney stones HEENT: Chronic hearing loss Psych: Post traumatic stress disorder Musculoskeletal: None Derm: Psoriasis - Past Surgical History Past Surgical History: Yes General: Appendectomy HEENT: Tonsil/Adenoidectomy - Present Medications Home Medications: Ambulatory Orders Medication Instructions Recorded Confirmed Simvastatin 10 mg PO QPM 11/05/14 08/14/20 hydroCHLOROthiazide 25 mg PO DAILY 11/05/14 08/14/20 [Hydrochlorothiazide] Acetaminophen [Tylenol] 650 mg PO DAILY PRN 04/27/15 08/14/20 Methotrexate [Methotrexate Sodium] 15 mg PO .QWED 08/08/17 08/14/20 Finasteride 5 mg PO DAILY 07/25/19 08/14/20 Losartan Potassium 25 mg PO DAILY 07/25/19 08/14/20 Aspirin EC [Ecotrin] 325 mg PO DAILY 08/14/20 08/14/20 Multivit-Min/Iron/Folic Acid/K 1 tab PO DAILY 08/14/20 08/14/20 [Multi-Day Plus Minerals Tablet] Oxybutynin Chloride [Ditropan Xl] 5 mg PO DAILY 08/14/20 08/14/20 Terbinafine [Lamisil] 250 mg PO DAILY 08/14/20 08/15/20 Vit A/Vit C/Vit E/Zinc/Copper 1 cap PO BID 08/14/20 08/14/20 [Preservision Areds Softgel] Albuterol Sulfate [Proair Hfa 1 - 2 puffs INH Q4H PRN #1 inhaler 08/17/20 Inhaler] Ferrous Sulfate [Feosol] 325 mg PO DAILYWM #30 tablet 08/17/20 Saccharomyces Boulardii [Florastor] 250 mg PO DAILY #10 capsule 08/17/20 levoFLOXacin [Levaquin] 500 mg PO DAILY #20 tablet 08/17/20 Terbinafine [Lamisil] 250 mg PO DAILY #90 tablet 08/22/20 oxyCODONE [Roxicodone] 5 mg PO BID #5 tablet 12/04/21 - Allergies Allergies/Adverse Reactions: Allergies Allergy/AdvReac Type Severity Reaction Status Date / Time lisinopril Allergy Unknown Verified 12/04/21 12:08 Penicillins Allergy Itching Verified 12/04/21 12:08 - Social History Does the pt smoke?: No Smoking Status: Never smoker Does the pt drink ETOH?: Yes Does the pt have substance abuse?: No - Immunizations Immunizations are current?: Yes - POLST Patient has POLST: No POLST Status: Full Code PD ED PE NORMAL - General General: Alert and oriented X 3, No acute distress - HEENT HEENT: PERRL - Neck Neck: Supple, no meningeal sign, No adenopathy - Cardiac Cardiac: RRR, No murmur - Respiratory Respiratory: No respiratory distress - Abdomen Abdomen: Normal bowel sounds, Soft. No: Non tender (Mildly distended abdomen. 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 Eye Opening: Spontaneous Motor: Obeys Commands Verbal: Oriented GCS Score: 15 - Psych Psych: Normal mood Results - Vitals Vitals: Vital Signs - 24 hr 12/04/21 12:08 Temperature 36.7 C Heart Rate 88 Respiratory 18 Rate Blood Pressure 144/80 H O2 Saturation 96 Oxygen O2 Source Room air - Labs Labs: Laboratory Tests 12/04/21 12/04/21 12:03 12:03 WBC 8.5 RBC 3.99 L Hgb 13.0 L Hct 39.1 L MCV 98.0 H MCH 32.6 H MCHC 33.2 RDW 13.9 Plt Count 157 MPV 9.7 Neut # (Auto) 6.3 Lymph # (Auto) 0.8 L Bland # (Auto) 1.0 Eos # (Auto) 0.3 Baso # (Auto) 0.0 Absolute Nucleated RBC 0.00 Nucleated RBC % 0.0 Sodium 136 Potassium 3.4 L Chloride 98 L Carbon Dioxide 27 Anion Gap 11.0 BUN 23 H Creatinine 1.2 Estimated GFR (MDRD) 58 L Glucose 106 H Calcium 8.9 Total Bilirubin 0.8 AST 30 ALT 28 Alkaline Phosphatase 97 Total Protein 7.2 Albumin 4.2 Globulin 3.0 Albumin/Globulin Ratio 1.4 Lipase 37 - Rads (name of study) CT abd Radiology: Final report received (No acute abnormality is identified. No diverticulitis. No free fluid. Nonobstructing kidney stones. Gallstones. Small mildly complicated right renal cyst is unchanged in size compared to 2017.) PD MEDICAL DECISION MAKING - ED course Complexity details: reviewed results, re-evaluated patient, considered differential, d/w patient ED course: 86-year-old male presents emergency department for evaluation of 2 days left lower quadrant abdominal pain. He is quite tender on exam. He does have a history of sigmoid diverticulosis but no history of-itis. Screening labs were unrevealing. No significant leukocytosis or electrolyte derangement. We did proceed to do a CT of the abdomen that showed diverticulosis but no findings of- itis or inflammation. He does have a seen nonobstructing kidney stones. The cause of the left lower quadrant abdominal pain is not clear. Pt denied any dysuria urgency or frequency. No findings of obstruction on CT. He is requesting a limited amountI discussed with the patient the possibility that was simply too soon to see diverticulitis on CAT scan of oxycodone for pain control at home which I feel is reasonable. He would like to defer any antibiotics until we can confirm actual infection/inflammation thus if his symptoms or not markedly improved in 24 to 48 hours, he develops fevers or has bloody stools then he will return immediately to the ER. I am prescribing a short course of short-acting opioid pain medication for this patient. 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 I have discussed that the opioids are for short term therapy only, and will not be refilled from the ED. Departure - Departure Disposition: 01 Home, Self Care Clinical Impression: Left lower quadrant abdominal pain Condition: Stable Record reviewed to determine appropriate education?: Yes Follow-Up: Chuckie Bone DO [Primary Care Provider] - Prescriptions: oxyCODONE [Roxicodone] 5 mg PO BID #5 tablet Comments: Gee you were seen in the emergency department today for 2 days of left lower quadrant abdominal pain. We were concerned that you could have diverticulitis or inflammation of the lower colon/intestine. Your screening labs today did not show any worrisome findings. The CT scan of your abdomen also did not show diverticulitis. We do see the sigmoid di verticula but again this did not appear inflamed. Sometimes patients present to the emergency department too soon before the CT can show obvious findings. At this time we would like to discharge you home. We are prescribing a limited amount of oxycodone for severe pain only. If you find that despite this you are having worsening pain, develop any fevers, have black or bloody stools then you are to return immediately to the ER for a second evaluation. It is okay to continue the Tylenol or ibuprofen at home that you have been taking. I am prescribing a short course of narcotic pain medication for you. These are potentially dangerous and addictive medications that should be used carefully. These medications may constipate you. Take an kpka-mxh-fqtfzqe stool softener (docusate) twice daily with plenty of water while taking these medications. If you go 24 hours without a bowel movement, take atrh-byo-qryceje miralax, per package instructions. Do not drink or drive while taking these medications. If you received narcotic or sedating medications while in the emergency department, do not drive for 24 hours. Store this medication in a safe, secure place and out of reach of children. It is a violation of federal law to give or sell this medication to another person or to use in a manner other than prescribed. The ED will not refill narcotic prescriptions, including prescriptions lost or stolen. To dispose of unwanted medications: 1. [facility] at [address] in [place] has a medication drop box. They accept prescription medications (in pill form) Thursday through Thursday 9:00 a.m. to 5:00 p.m. 2. The [facility] accepts prescription medications (in pill form only) for disposal year round. Call for more information. 3. Contact the [facility] for the next [facility] sponsored prescription drug collection event. , [phone], or [phone]; Note that many narcotic pain relievers also contain Tylenol/acetaminophen. Please ensure that your total dose of acetaminophen from all sources does not exceed 3 g (3000 mg) per day.
[2021-12-04] MEDS ORDERED: IOVERSOL 320 100 ML VIAL IVP ONE (13:07)
--- NOTE | 2021-12-04 13:51 | CT Report ---
PROCEDURE: Abdomen/Pelvis W INDICATIONS: LLQ abd pain; ? Diverticulitis CONTRAST: IV CONTRAST: Optiray 320 ml: 100 PO CONTRAST: *NO PO CONTRAST TECHNIQUE: After the administration of intravenous contrast, 5 mm thick sections acquired from the diaphragms to the symphysis. 5 mm thick coronal and sagittal reformats were acquired. For radiation dose reducti on, the following was used: automated exposure control, adjustment of mA and/or kV according to nova ent size. COMPARISON: CT IVP 02/03/2017. FINDINGS: Image quality: Excellent. ABDOMEN: Lung bases: Minimal bibasilar atelectasis. No pleural effusion. Heart size is normal. Trace pericardi al fluid. Solid organs: Liver and spleen are normal in size and enhancement. Gallbladder is not significantly distended. No pericholecystic fluid. Small gallstones. Biliary system is non dilated. Pancreas enh ances normally. Thickening of the left adrenal gland is unchanged compared to 2017. No hydronephrosis . There are several nonobstructing kidney stones bilaterally. Several simple renal cysts bilaterally are similar to before. There are a few cortical hypodensities which are too small to further characte rize. Right mid/inferior posterior exophytic cyst measuring 28 Hounsfield units and 0.7 cm, (3/35). N o enhancement demonstrated on the prior CT. This likely represents a corticated cyst. Peritoneum and bowel: No diverticulitis. No small bowel obstruction. Small duodenal diverticulum is suspected. The appendix is not seen. No free fluid or air. Nodes and vessels: No retroperitoneal or mesenteric adenopathy by size criteria. No aortic aneurysm. Normal ectasia. Moderate calcified plaque. Miscellaneous: Tiny umbilical hernia. PELVIS: Genitourinary: Bladder wall thickness is normal. No stones. Miscellaneous: No inguinal hernias or adenopathy. Bones: No suspicious bony lesions. No vertebral body compression fractures. Lower thoracic spine fi xation partially visualized. Right femur intramedullary cristhian and screw fixation. 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 IMPRESSION: No acute abnormality is identified. No diverticulitis. No free fluid. Nonobstructing kidney stones. Gallstones. Small mildly complicated right renal cyst is unchanged in s ize compared to 2017. Reviewed by: Miguel Angel Orta MD on 12/04/2021 1:50 PM PST Approved by: Miguel Angel Orta MD on 12/04/2021 1:50 PM [facility] Station ID: [id number]
[2021-12-04] MEDS: IOVERSOL 320 100 ML VIAL IVP ONE (17:27)
== END 2021-12-04 15:14 | disposition home or self-care (01) ==
LOC: ED 11:50
DX: R10.32 Left lower quadrant pain (principal); K57.30 Diverticulosis of large intestine without perforation or abscess without bleeding; K80.20 Calculus of gallbladder without cholecystitis without obstruction; N20.0 Calculus of kidney; N28.1 Cyst of kidney, acquired; I10 Essential (primary) hypertension; Z79.82 Long term (current) use of aspirin
CPT/HCPCS: 36415; 74177; 80053; 83690; 85025; 99282; 99284; Q9967

== ENCOUNTER 2022-03-10 11:27 | Outpatient (CLI) | payer MEDICARE, OTHER ==
[2022-03-10 17:50] LABS: BASOPHILS # (AUTO) 0.1 10^3/uL (0.0-0.1); BASOPHILS % (AUTO) 0.7 %; EOSINOPHILS # (AUTO) 0.2 10^3/uL (0.0-0.7); EOSINOPHILS % (AUTO) 2.9 %; HCT - HEMATOCRIT 35.4 % (42.0-52.0); HGB - HEMOGLOBIN 11.6 g/dL (14.0-18.0); LYMPHOCYTES # (AUTO) 0.8 10^3/uL (1.5-3.5); LYMPHOCYTES % (AUTO) 11.7 %; MEAN CORPUSCULAR HGB CONC 32.8 g/dL (32.0-36.0); MEAN CORPUSCULAR VOLUME 97.5 fL (80.0-94.0); MEAN PLATELET VOLUME 10.4 fL (7.4-11.4); MONOCYTES # (AUTO) 0.7 10^3/uL (0.0-1.0); MONOCYTES % (AUTO) 10.5 %; NEUTROPHILS % (AUTO) 73.8 %; PLT - PLATELET COUNT 181 10^3/uL (130-450); RED BLOOD COUNT 3.63 10^6/uL (4.70-6.10); RED CELL DISTRIBUTION WIDTH 14.6 % (12.0-15.0); WHITE BLOOD COUNT 6.8 x10^3/uL (4.8-10.8)
[2022-03-10 18:31] LABS: % IRON SATURATION 10 % (20-50); ALBUMIN/GLOBULIN RATIO 1.4 (1.0-2.2); ALKALINE PHOSPHATASE 90 IU/L (42-121); ALT ALANINE AMINOTRANSFERASE 26 IU/L (10-60); AST ASPARTATE AMINOTRANSFERASE 29 IU/L (10-42); BILIRUBIN,TOTAL 0.4 mg/dL (0.2-1.0); BUN - BLOOD UREA NITROGEN 24 mg/dL (6-20); CALCIUM 9.1 mg/dL (8.5-10.3); CARBON DIOXIDE - CO2 28 mmol/L (21-32); CHLORIDE 101 mmol/L (101-111); CHOL/HDL RATIO 3.2 (<5.0); CHOLESTEROL 159 mg/dL; CREATININE 1.1 mg/dL (0.6-1.2); GFR - MDRD 64 (>89); GLUCOSE 111 mg/dL (70-100); HDL CHOLESTEROL 49 mg/dL; IRON 41 ug/dL (45-182); LDL CHOLESTEROL,CALCULATED 91 mg/dL; LDL/HDL RATIO 1.9 (<3.6); POTASSIUM 3.6 mmol/L (3.5-5.0); SODIUM 140 mmol/L (135-145); TOTAL IRON BINDING CAPACITY 391 ug/dL (250-450); TOTAL PROTEIN 6.8 g/dL (6.7-8.2); TRANSFERRIN 279 mg/dL (180-329); TRIGLYCERIDES 93 mg/dL; VLDL CHOLESTEROL 19 mg/dL
[2022-03-10 20:22] LABS: ESTIMATED AVERAGE GLUCOSE 117 mg/dL (70-100); HEMOGLOBIN A1c% 5.7 % (4.27-6.07)
== END 2022-03-10 11:28 | disposition home or self-care (01) ==
LOC: LAB.N 11:27
PROVIDERS: ATTEND Family Medicine
DX: R73.01 Impaired fasting glucose (principal); E78.5 Hyperlipidemia, unspecified; D50.9 Iron deficiency anemia, unspecified
CPT/HCPCS: 36415; 80053; 80061; 82728; 83036; 83540; 83721; 84466; 85025

== ENCOUNTER 2022-03-20 09:35 | Outpatient (CLI) | payer MEDICARE, OTHER | END 2022-03-20 09:36 | disposition home or self-care (01) | LOC: RT 09:35 | PROVIDERS: ATTEND Family Medicine | DX: J84.10 Pulmonary fibrosis, unspecified (principal); Z79.899 Other long term (current) drug therapy | CPT/HCPCS: 94010; 94729 ==

== ENCOUNTER 2022-05-03 13:43 | Emergency (ER) | payer MEDICARE, OTHER ==
[2022-05-03] MEDS ORDERED: SODIUM CHLORIDE 0.9% 1,000 ML IV STA (14:15)
[2022-05-03] MEDS ORDERED: HYDROmorphone 1 MG/ML CARPUJECT IVP STA (14:15)
[2022-05-03] MEDS ORDERED: ONDANSETRON 4 MG/2 ML VIAL IVP STA (14:15)
--- NOTE | 2022-05-03 14:17 | ED Physician Documentation ---
History of Present Illness - Stated complaint Stated Complaint: ABD PX - Chief complaint Chief Complaint: Abd Pain - Additonal information Additional information: 86-year-old male presents emergency department for evaluation of acute left low er quadrant abdominal pain that began this AM. Reports 2 days of constipation. Has been told in the past he has diverticulosis. He denies any recent bloody bowel movements. No fevers. No vomiting. Last colonoscopy in 2019 showed polyps as well as diverticulosis. Patient has past medical history most significant for hypertension, hyperlipidemia and psoriasis. He is on methotrexate for control of such. Also takes 325 of aspirin daily. Review of Systems Constitutional: denies: Fever, Chills Nose: reports: Reviewed and negative Throat: reports: Reviewed and negative Cardiac: reports: Reviewed and negative GI: reports: Abdominal Pain, Nausea. denies: Vomiting, Diarrhea, Hematemesis, Bloody / black stool : reports: Reviewed and negative Skin: reports: Reviewed and negative PD PAST MEDICAL HISTORY - Past Medical History Cardiovascular: Hypertension, High cholesterol Respiratory: Pneumonia Neuro: None Endocrine/Autoimmune: Other GI: GERD : Benign prostate hypertrophy, Incontinence, Kidney stones HEENT: Chronic hearing loss Psych: Post traumatic stress disorder Musculoskeletal: None Derm: Psoriasis - Past Surgical History Past Surgical History: Yes General: Appendectomy HEENT: Tonsil/Adenoidectomy - Present Medications Home Medications: Ambulatory Orders Medication Instructions Recorded Confirmed Simvastatin 10 mg PO QPM 11/05/14 05/03/22 hydroCHLOROthiazide 25 mg PO DAILY 11/05/14 05/03/22 [Hydrochlorothiazide] Acetaminophen [Tylenol] 650 mg PO DAILY PRN 04/27/15 05/03/22 Methotrexate [Methotrexate Sodium] 15 mg PO .QWED 08/08/17 05/03/22 Losartan Potassium 25 mg PO DAILY 07/25/19 05/03/22 Aspirin EC [Ecotrin] 325 mg PO DAILY 08/14/20 05/03/22 Multivit-Min/Iron/Folic Acid/K 1 tab PO DAILY 08/14/20 05/03/22 [Multi-Day Plus Minerals Tablet] Vit A/Vit C/Vit E/Zinc/Copper 1 cap PO BID 08/14/20 05/03/22 [Preservision Areds Softgel] Terbinafine [Lamisil] 250 mg PO DAILY #90 tablet 08/22/20 05/03/22 Cefpodoxime Proxetil [Vantin] 100 mg PO Q12H #14 tablet 05/03/22 Tamsulosin HCl [Flomax] 0.4 mg PO DAILY #30 cap 05/03/22 oxyCODONE [Roxicodone] 5 mg PO BID PRN 10 Days #20 tablet 05/03/22 - Allergies Allergies/Adverse Reactions: Allergies Allergy/AdvReac Type Severity Reaction Status Date / Time lisinopril Allergy Unknown Verified 05/03/22 13:46 Penicillins Allergy Itching Verified 05/03/22 13:46 - Social History Does the pt smoke?: No Smoking Status: Never smoker Does the pt drink ETOH?: Yes Does the pt have substance abuse?: No - Immunizations Immunizations are current?: Yes - POLST Patient has POLST: No POLST Status: Full Code PD ED PE NORMAL - General General: Alert and oriented X 3. No: No acute distress (Appears to be uncomfortable) - HEENT HEENT: Atraumatic, Moist mucous membranes - Neck Neck: Supple, no meningeal sign, No adenopathy - Cardiac Cardiac: RRR, No murmur - Respiratory Respiratory: No respiratory distress - Abdomen Abdomen: Normal bowel sounds, Soft. No: Non tender (Focal tenderness left lower quadrant without guarding or rebound.) - Back Back: No CVA TTP, No spinal TTP - Derm Derm: Normal color, Warm and dry - Extremities Extremities: No deformity - Neuro Neuro: Alert and oriented X 3, feed in worker 2-12 intact Eye Opening: Spontaneous Motor: Obeys Commands Verbal: Oriented GCS Score: 15 Results - Vitals Vitals: Vital Signs - 24 hr 05/03/22 05/03/22 05/03/22 13:46 14:52 16:13 Temperature 36.7 C Heart Rate 95 92 91 Respiratory 18 16 16 Rate Blood Pressure 139/67 H 127/76 146/73 H O2 Saturation 96 90 L 93 Oxygen O2 Source Room air - Labs Labs: Laboratory Tests 05/03/22 05/03/22 05/03/22 14:50 14:50 16:00 WBC 13.8 H RBC 3.61 L Hgb 11.0 L Hct 34.5 L MCV 95.6 H MCH 30.5 MCHC 31.9 L RDW 15.3 H Plt Count 269 MPV 9.8 Neut # (Auto) 12.1 H Lymph # (Auto) 0.6 L [place] # (Auto) 0.8 Eos # (Auto) 0.1 Baso # (Auto) 0.1 Absolute Nucleated RBC 0.00 Nucleated RBC % 0.0 Sodium 139 Potassium 4.0 Chloride 99 L Carbon Dioxide 29 Anion Gap 11.0 BUN 25 H Creatinine 1.2 Estimated GFR (MDRD) 58 L Glucose 125 H Calcium 9.4 Total Bilirubin 0.3 AST 27 ALT 25 Alkaline Phosphatase 96 Total Protein 7.2 Albumin 3.7 Globulin 3.5 Albumin/Globulin Ratio 1.1 Lipase 44 Urine Color DARK YELLOW Urine Clarity HAZY Urine pH 5.0 Ur Specific [place] >=1.030 H Urine Protein 30 H Urine Glucose (UA) NEGATIVE Urine Ketones NEGATIVE Urine Occult Blood LARGE H Urine Nitrite NEGATIVE Urine Bilirubin NEGATIVE Urine Urobilinogen 0.2 (NORMAL) Ur Leukocyte Esterase NEGATIVE Urine RBC TNTC H Urine WBC 0-3 Ur Squamous Epith Cells FEW Squamous Urine Bacteria Many H Urine Casts 6-10 Fine Granular Ur Microscopic Review INDICATED Urine Culture Comments NOT INDICATED - Rads (name of study) CT abd Radiology: Final report received (Obstructing 5 mm left distal ureter stone with mild left [place] ureter nephrosis. Bibasilar atelectasis) PD MEDICAL DECISION MAKING - ED course Complexity details: reviewed old records, reviewed results, re-evaluated patient, considered differential, d/w patient, d/w payroll consultant (Willam) ED course: 86-year-old male presents to the emergency department for sudden onset left lower quadrant abdominal pain. He does have a remote history of renal colic. Has been seen by Dr. Brown at [facility]. Screening labs show a mild leukocytosis white count of 13,000. BUN is 25 creatinine is 1.2. An In-N-Out catheterization shows a UA with moderate bacteria but no secondary findings of infection or inflammation such as LE or nitrites. Subsequent CT imaging of the abdomen did show left distal ureter 5 mm obstructing stone with mild hydro ureter and hydronephrosis. The UA findings were discussed with Dr. Watts urologist on-call at [facility]. He would agree with the initial [place] of Flomax as well as antibiotics. Reassuring patient has preserved renal function and no stranding on CT scan. Patient will be started on Vantin close follow-up with Dr. Brown. If symptoms are worsening over the weekend patient develops fevers or vomiting they will present to [facility] emergency department. Patient and were updated of plan. I am prescribing a short course of short-acting opioid pain medication for this patient. 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 I have discussed that the opioids are for short term therapy only, and will not be refilled from the ED. Departure - Departure Disposition: 01 Home, Self Care Clinical Impression: Left ureteral calculus, Hydroureter, left, Bacteria in urine Hydronephrosis Qualifiers: Hydronephrosis type: with ureteral calculous obstruction Qualified Code(s): N13.2 - Hydronephrosis with renal and ureteral calculous obstruction Condition: Stable Record reviewed to determine appropriate education?: Yes Instructions: ED Stone Renal W Colic Follow-Up: Shandra Brown MD [Physician No Access] - Prescriptions: Tamsulosin HCl [Flomax] 0.4 mg PO DAILY #30 cap oxyCODONE [Roxicodone] 5 mg PO BID PRN 10 Days #20 tablet PRN Reason: Pain Cefpodoxime Proxetil [Vantin] 100 mg PO Q12H #14 tablet Comments: Butch you are seen today in the emergency department for pain in the left lower quadrant of your abdomen. The CT of your Abdomen did show that you have a left ureter stone that is causing some mild swelling into your kidney. This is 5 mm and could past though in order to help that I am starting on medication called Flomax. There is also some bacteria in your urine but we are starting you on some antibiotics. However the CT scan does not suggest that you have infection around your ureters or kidney. It is important that you discuss this ED visit with your urologist. I would like you to Return immediately to the emergency department should you develop fevers, have uncontrolled vomiting pain or are unable to urinate. I am sending a limited prescription for oxycodone to the pharmacy. In general you can take Tylenol for pain. Use the oxycodone cautiously it can make you dizzy unsafe to drive or walk. I am prescribing a short course of narcotic pain medication for you. These are potentially dangerous and addictive medications that should be used carefully. These medications may constipate you. Take an pgud-cqj-rmrxzvk stool softener (docusate) twice daily with plenty of water while taking these medications. If you go 24 hours without a bowel movement, take iwsv-clb-rkubeur miralax, per package instructions. Do not drink or drive while taking these medications. If you received narcotic or sedating medications while in the emergency department, do not drive for 24 hours. Store this medication in a safe, secure place and out of reach of children. It is a violation of federal law to give or sell this medication to another person or to use in a manner other than prescribed. The ED will not refill narcotic prescriptions, including prescriptions lost or stolen. To dispose of unwanted medications: 1. [facility] [address] in [place] has a medication drop box. They accept prescription medications (in pill form) Thursday through Thursday 9:00 a.m. to 5:00 p.m. 2. The [facility] Police Department accepts prescription medications (in pill form only) for disposal year round. Call for more information. 3. Contact the [facility] for the next [facility] sponsored prescription drug collection event. , [phone], or [phone]; Note that many narcotic pain relievers also contain Tylenol/acetaminophen. Please ensure that your total dose of acetaminophen from all sources does not exceed 3 g (3000 mg) per day.
[2022-05-03 14:58] LABS: BASOPHILS # (AUTO) 0.1 10^3/uL (0.0-0.1); BASOPHILS % (AUTO) 0.5 %; EOSINOPHILS # (AUTO) 0.1 10^3/uL (0.0-0.7); EOSINOPHILS % (AUTO) 0.7 %; HCT - HEMATOCRIT 34.5 % (42.0-52.0); LYMPHOCYTES # (AUTO) 0.6 10^3/uL (1.5-3.5); LYMPHOCYTES % (AUTO) 4.4 %; MEAN CORPUSCULAR HEMOGLOBIN 30.5 pg (27.0-31.0); MEAN CORPUSCULAR HGB CONC 31.9 g/dL (32.0-36.0); MEAN CORPUSCULAR VOLUME 95.6 fL (80.0-94.0); MEAN PLATELET VOLUME 9.8 fL (7.4-11.4); MONOCYTES # (AUTO) 0.8 10^3/uL (0.0-1.0); MONOCYTES % (AUTO) 5.7 %; NEUTROPHILS # (AUTO) 12.1 10^3/uL (1.5-6.6); PLT - PLATELET COUNT 269 10^3/uL (130-450); RED BLOOD COUNT 3.61 10^6/uL (4.70-6.10); RED CELL DISTRIBUTION WIDTH 15.3 % (12.0-15.0); WHITE BLOOD COUNT 13.8 x10^3/uL (4.8-10.8)
--- NOTE | 2022-05-03 15:03 | CT Report ---
PROCEDURE: Abdomen/Pelvis WO INDICATIONS: LLQ and pain; ? divertic TECHNIQUE: Noncontrast 5 mm thick sections acquired from the diaphragms to the symphysis. 5 mm coronal and sagi ttal reformats were then performed. For radiation dose reduction, the following was used: automated exposure control, adjustment of mA and/or kV according to patient size. COMPARISON: 12/04/2021 FINDINGS: Image quality: Excellent. ABDOMEN: Lung bases: There is bibasilar atelectasis. Heart size is normal. Solid organs: Liver and spleen are normal in size. Gallbladder demonstrates punctate calcifications . Pancreas is normal in contours. No adrenal nodules. There are several bilateral nonobstructing ki dney stones, the largest in the left lower renal pelvis measuring 1.6 x 1.0 cm. There is a 5 mm stone in the left distal ureter with mild hydroureteronephrosis on the left. Peritoneum and bowel: Unenhanced bowel loops demonstrate normal wall thickness and caliber. No free fluid or air. Nodes and vessels: No retroperitoneal or mesenteric adenopathy by size criteria. Aorta and inferior vena cava are normal in caliber. Miscellaneous: No ventral hernias. PELVIS: Genitourinary: Bladder wall thickness is normal. Miscellaneous: No inguinal hernias or adenopathy. Bones: No suspicious bony lesions. No vertebral body compression fractures. IMPRESSION: 1. Obstructing 5 mm left distal ureteral stone with mild left hydroureteronephrosis. 2. Bibasilar atelectasis. Reviewed by: Darrion Duran on 05/03/2022 2:02 PM VANDANA Approved by: Darrion Duran on 05/03/2022 2:02 PM [facility] Station ID: [id number]
[2022-05-03 15:09] LABS: ALBUMIN 3.7 g/dL (3.2-5.5); ALBUMIN/GLOBULIN RATIO 1.1 (1.0-2.2); BILIRUBIN,TOTAL 0.3 mg/dL (0.2-1.0); CALCIUM 9.4 mg/dL (8.5-10.3); CREATININE 1.2 mg/dL (0.6-1.2); TOTAL PROTEIN 7.2 g/dL (6.7-8.2)
[2022-05-03 16:07] LABS: BILIRUBIN,URINE NEGATIVE (NEGATIVE); GLUCOSE, URINE (UA) NEGATIVE (NEGATIVE); KETONES,URINE (UA) NEGATIVE (NEGATIVE); LEUKOCYTE ESTERASE, URINE NEGATIVE (NEGATIVE); NITRITE,URINE NEGATIVE (NEGATIVE); OCCULT BLOOD,URINE LARGE (NEGATIVE); PROTEIN,URINE 30 mg/dL (NEGATIVE); UROBILINOGEN,URINE 0.2 (NORMAL) E.U./dL (NORMAL)
[2022-05-03 16:10] LABS: CLARITY,URINE HAZY (CLEAR)
[2022-05-03 16:14] VITALS: BP 146/73
[2022-05-03 16:19] LABS: RBC,URINE TNTC /HPF (0-5); WBC,URINE 0-3 /HPF (0-3)
[2022-05-03 16:20] LABS: BACTERIA,URINE Many /HPF (None Seen); CASTS, URINE 6-10 Fine Granular /LPF; SQUAMOUS EPITHELIAL CELL,UR FEW Squamous (<= Few)
[2022-05-03] MEDS ORDERED: cefTRIAXone 1 GM VIAL IVP STA (16:24)
== END 2022-05-03 17:06 | disposition home or self-care (01) ==
LOC: ED 13:43
DX: N13.2 Hydronephrosis with renal and ureteral calculous obstruction (principal); I10 Essential (primary) hypertension
CPT/HCPCS: 36415; 74176; 80053; 81001; 83690; 85025; 96374; 96375; 99283; 99284; J1170; 81003; 87086

== ENCOUNTER 2022-09-12 10:15 | Outpatient (CLI) | payer MEDICARE, OTHER ==
[2022-09-12 18:33] LABS: BASOPHILS % (AUTO) 0.8 %; EOSINOPHILS # (AUTO) 0.2 10^3/uL (0.0-0.7); EOSINOPHILS % (AUTO) 3.6 %; HCT - HEMATOCRIT 34.9 % (42.0-52.0); HGB - HEMOGLOBIN 10.7 g/dL (14.0-18.0); LYMPHOCYTES # (AUTO) 0.7 10^3/uL (1.5-3.5); LYMPHOCYTES % (AUTO) 13.3 %; MEAN CORPUSCULAR HEMOGLOBIN 28.5 pg (27.0-31.0); MEAN CORPUSCULAR HGB CONC 30.7 g/dL (32.0-36.0); MEAN CORPUSCULAR VOLUME 93.1 fL (80.0-94.0); MEAN PLATELET VOLUME 10.7 fL (7.4-11.4); MONOCYTES # (AUTO) 0.5 10^3/uL (0.0-1.0); MONOCYTES % (AUTO) 10.6 %; NEUTROPHILS # (AUTO) 3.6 10^3/uL (1.5-6.6); NEUTROPHILS % (AUTO) 71.3 %; PLT - PLATELET COUNT 204 10^3/uL (130-450); RED BLOOD COUNT 3.75 10^6/uL (4.70-6.10); RED CELL DISTRIBUTION WIDTH 17.2 % (12.0-15.0)
[2022-09-12 18:45] LABS: ALBUMIN 3.8 g/dL (3.2-5.5); ALBUMIN/GLOBULIN RATIO 1.3 (1.0-2.2); ALKALINE PHOSPHATASE 90 IU/L (42-121); ALT ALANINE AMINOTRANSFERASE 26 IU/L (10-60); AST ASPARTATE AMINOTRANSFERASE 29 IU/L (10-42); BILIRUBIN,TOTAL 0.5 mg/dL (0.2-1.0); BUN - BLOOD UREA NITROGEN 28 mg/dL (6-20); CALCIUM 8.6 mg/dL (8.5-10.3); CARBON DIOXIDE - CO2 28 mmol/L (21-32); CHLORIDE 100 mmol/L (101-111); CHOL/HDL RATIO 3.6 (<5.0); CHOLESTEROL 187 mg/dL; GFR - MDRD 71 (>89); GLUCOSE 109 mg/dL (70-100); HDL CHOLESTEROL 52 mg/dL; LDL CHOLESTEROL,CALCULATED 108 mg/dL; LDL/HDL RATIO 2.1 (<3.6); SODIUM 137 mmol/L (135-145); TOTAL PROTEIN 6.8 g/dL (6.7-8.2); TRIGLYCERIDES 133 mg/dL; VLDL CHOLESTEROL 27 mg/dL
[2022-09-12 18:49] LABS: CREATININE,URINE 162.7 mg/dL; MICROALBUM/CREATININE RATIO,UR 67.6 ug/mg (<30.0)
[2022-09-12 18:51] LABS: THYROID STIMULATING HORMONE 0.84 uIU/mL (0.34-5.60)
[2022-09-12 21:30] LABS: ESTIMATED AVERAGE GLUCOSE 131 mg/dL (70-100); HEMOGLOBIN A1c% 6.2 % (4.27-6.07)
== END 2022-09-12 10:16 | disposition home or self-care (01) ==
LOC: LAB.N 10:15
PROVIDERS: ATTEND Internal Medicine
DX: I10 Essential (primary) hypertension (principal); E78.5 Hyperlipidemia, unspecified; R73.01 Impaired fasting glucose; Z13.29 Encounter for screening for other suspected endocrine disorder
CPT/HCPCS: 36415; 80053; 80061; 82043; 82570; 83036; 83721; 84443; 85025

== ENCOUNTER 2022-10-12 07:00 | Outpatient (CLI) | payer MEDICARE, OTHER ==
[2022-10-13 12:09] LABS: FECAL OCCULT BLOOD (FIT) NEGATIVE (NEGATIVE)
== END 2022-10-12 23:59 | disposition home or self-care (01) ==
LOC: LAB.R 07:00
PROVIDERS: ATTEND Internal Medicine
DX: D50.9 Iron deficiency anemia, unspecified (principal)
CPT/HCPCS: 82274

== ENCOUNTER 2023-06-02 08:05 | Outpatient (CLI) | payer MEDICARE, OTHER ==
[2023-06-02 12:29] LABS: ALBUMIN 4.3 g/dL (3.2-5.5); ALBUMIN/GLOBULIN RATIO 1.6 (1.0-2.2); BILIRUBIN,TOTAL 0.4 mg/dL (0.2-1.0); CALCIUM 9.2 mg/dL (8.5-10.3); CREATININE 1.1 mg/dL (0.6-1.3); POTASSIUM 3.7 mmol/L (3.5-4.5)
[2023-06-02 12:33] LABS: ESTIMATED AVERAGE GLUCOSE 126 mg/dL (70-100)
== END 2023-06-02 08:06 | disposition home or self-care (01) ==
LOC: LAB.N 08:05
PROVIDERS: ATTEND Internal Medicine
DX: R73.01 Impaired fasting glucose (principal)
CPT/HCPCS: 36415; 80053; 83036

== ENCOUNTER 2023-10-05 07:19 | Outpatient (CLI) | payer MEDICARE, OTHER ==
[2023-10-05 11:49] LABS: BASOPHILS # (AUTO) 0.1 10^3/uL (0.0-0.1); BASOPHILS % (AUTO) 0.8 %; EOSINOPHILS # (AUTO) 0.2 10^3/uL (0.0-0.7); EOSINOPHILS % (AUTO) 3.6 %; HCT - HEMATOCRIT 34.9 % (42.0-52.0); HGB - HEMOGLOBIN 11.3 g/dL (14.0-18.0); LYMPHOCYTES # (AUTO) 0.7 10^3/uL (1.5-3.5); LYMPHOCYTES % (AUTO) 11.7 %; MEAN CORPUSCULAR HEMOGLOBIN 33.1 pg (27.0-31.0); MEAN CORPUSCULAR HGB CONC 32.4 g/dL (32.0-36.0); MEAN CORPUSCULAR VOLUME 102.3 fL (80.0-94.0); MEAN PLATELET VOLUME 10.6 fL (7.4-11.4); MONOCYTES # (AUTO) 0.4 10^3/uL (0.0-1.0); MONOCYTES % (AUTO) 7.1 %; NEUTROPHILS # (AUTO) 4.5 10^3/uL (1.5-6.6); NEUTROPHILS % (AUTO) 76.3 %; PLT - PLATELET COUNT 161 10^3/uL (130-450); RED BLOOD COUNT 3.41 10^6/uL (4.70-6.10); RED CELL DISTRIBUTION WIDTH 14.4 % (12.0-15.0); WHITE BLOOD COUNT 5.9 x10^3/uL (4.8-10.8)
[2023-10-05 12:12] LABS: MICROALBUM/CREATININE RATIO,UR 121.3 ug/mg (<30.0); MICROALBUMIN,URINE 22.2 mg/dL
[2023-10-05 12:47] LABS: ALBUMIN 4.3 g/dL (3.2-5.5); ALBUMIN/GLOBULIN RATIO 2.3 (1.0-2.2); ALKALINE PHOSPHATASE 100 IU/L (42-121); ALT ALANINE AMINOTRANSFERASE 22 IU/L (10-60); AST ASPARTATE AMINOTRANSFERASE 22 IU/L (10-42); BILIRUBIN,TOTAL 0.4 mg/dL (0.2-1.0); BUN - BLOOD UREA NITROGEN 28 mg/dL (6-20); CALCIUM 9.1 mg/dL (8.5-10.3); CARBON DIOXIDE - CO2 31 mmol/L (21-32); CHLORIDE 103 mmol/L (101-111); CHOL/HDL RATIO 3.3 (<5.0); CHOLESTEROL 160 mg/dL; CREATININE 1.2 mg/dL (0.6-1.3); GFR - MDRD 57 (>89); GLUCOSE 116 mg/dL (74-104); HDL CHOLESTEROL 48 mg/dL; LDL CHOLESTEROL,CALCULATED 84 mg/dL; LDL/HDL RATIO 1.8 (<3.6); POTASSIUM 3.9 mmol/L (3.5-4.5); SODIUM 140 mmol/L (135-145); TOTAL PROTEIN 6.2 g/dL (6.4-8.9); TRIGLYCERIDES 138 mg/dL (48-352); VLDL CHOLESTEROL 28 mg/dL
[2023-10-05 13:02] LABS: ESTIMATED AVERAGE GLUCOSE 97 mg/dL (70-100)
== END 2023-10-05 07:20 | disposition home or self-care (01) ==
LOC: LAB.N 07:19
PROVIDERS: ATTEND Internal Medicine
DX: L40.9 Psoriasis, unspecified (principal); E78.5 Hyperlipidemia, unspecified; R73.01 Impaired fasting glucose
CPT/HCPCS: 36415; 80053; 80061; 82043; 82570; 83036; 83721; 85025

== ENCOUNTER 2023-11-29 08:37 | Outpatient (CLI) | payer MEDICARE, OTHER | END 2023-11-29 23:59 | disposition critical access hospital (66) | LOC: EMS 08:37 | DX: R07.9 Chest pain, unspecified (principal) | CPT/HCPCS: A0425; A0429 ==

== ENCOUNTER 2023-11-29 08:53 | Emergency (ER) | payer MEDICARE, OTHER ==
[2023-11-29 09:11] VITALS: BP 198/81
--- NOTE | 2023-11-29 09:23 | XRAY Report ---
PROCEDURE: Chest 1V INDICATIONS: Chest pain TECHNIQUE: One view of the chest was acquired. COMPARISON: 08/14/2020 FINDINGS: Surgical changes and devices: Thoracic fixation hardware is seen. Lungs and pleura: There is blunting of left costophrenic angle. No pneumothorax is seen. No focal in filtrates are seen. Low lung volumes can be seen, causing a crowded appearance to the lung markings . Mediastinum: Mediastinal contours appear normal. Heart size is normal. Bones and chest wall: No suspicious bony lesions. Age-appropriate degenerative changes are seen. Overlying soft tissues appear unremarkable. IMPRESSION: Small left-sided pleural effusion. Low lung volumes. Postoperative and degenerative changes are seen. Reviewed by: Roman Mcdaniels MD on 11/29/2023 8:22 AM [facility] Approved by: Roman Mcdaniels MD on 11/29/2023 8:22 AM [facility] Station ID: [id number]
[2023-11-29 09:31] VITALS: O2SAT 98
[2023-11-29 09:47] LABS: BASOPHILS % (AUTO) 0.5 %; EOSINOPHILS # (AUTO) 0.3 10^3/uL (0.0-0.7); EOSINOPHILS % (AUTO) 4.2 %; HCT - HEMATOCRIT 37.1 % (42.0-52.0); HGB - HEMOGLOBIN 11.7 g/dL (14.0-18.0); LYMPHOCYTES # (AUTO) 0.6 10^3/uL (1.5-3.5); LYMPHOCYTES % (AUTO) 9.6 %; MEAN CORPUSCULAR HEMOGLOBIN 31.2 pg (27.0-31.0); MEAN CORPUSCULAR HGB CONC 31.5 g/dL (32.0-36.0); MEAN CORPUSCULAR VOLUME 98.9 fL (80.0-94.0); MONOCYTES # (AUTO) 0.6 10^3/uL (0.0-1.0); MONOCYTES % (AUTO) 8.6 %; NEUTROPHILS % (AUTO) 76.8 %; PLT - PLATELET COUNT 154 10^3/uL (130-450); RED BLOOD COUNT 3.75 10^6/uL (4.70-6.10); WHITE BLOOD COUNT 6.5 x10^3/uL (4.8-10.8)
[2023-11-29 10:00] LABS: ALBUMIN 4.1 g/dL (3.2-5.5); ALBUMIN/GLOBULIN RATIO 1.6 (1.0-2.2); BILIRUBIN,TOTAL 0.3 mg/dL (0.2-1.0); CALCIUM 9.1 mg/dL (8.5-10.3); POTASSIUM 3.9 mmol/L (3.5-4.5); TOTAL PROTEIN 6.6 g/dL (6.4-8.9)
[2023-11-29 10:11] LABS: TROPONIN I HIGH SENSITIVITY 17.2 ng/L (2.3-19.7)
[2023-11-29] MEDS ORDERED: LOSARTAN 50 MG TABLET PO STA (10:20)
--- NOTE | 2023-11-29 10:20 | ED Physician Documentation ---
PD HPI CHEST PAIN - Stated complaint Stated Complaint: CP - Chief complaint Chief Complaint: Cardiac - History obtained from History obtained from: Patient - Additional information Additional information: The patient comes to the emergency department chief complaint of right-sided chest pain that started around 6:00 this morning. He states that it is involving the nickel size area just to the right of his sternal border, and that for the most part, it is about a 1 or 2 out of 10 in intensity. He states that every minute initially, he would get a couple of stabs of pain in the same area, lasting about 5 seconds each. The patient states that pain comes on randomly when he gets the stabs and nothing makes it better or worse. He states that he took aspirin around 0730 and that over the past hour, he has not had any further stabbing pain in his discomfort has been sitting right at about a 1. The patient denies any cough or shortness of breath. No other associated symptoms like nausea or diaphoresis. No lightheadedness. No swelling in his lower extremities or calf pain. He states that he had COVID around [place] time and over the last few weeks, he is just felt generally weak. He has not been falling but states he just has not had a lot of energy. He also states that while normally he would drink about 8 cups of water per day, he has probably been drinking 2/day in recent weeks. No fevers or chills. No other symptoms of illness. No history of coronary artery disease but does have a history of hypertension and hyperlipidemia. He is also on methotrexate. No other comp laints at this time. PD PAST MEDICAL HISTORY - Past Medical History Cardiovascular: Hypertension, High cholesterol Respiratory: Pneumonia, Other Neuro: None Endocrine/Autoimmune: None, Other GI: GERD : Benign prostate hypertrophy, Incontinence, Kidney stones HEENT: Chronic hearing loss Psych: Post traumatic stress disorder Musculoskeletal: None Derm: Psoriasis - Past Surgical History Past Surgical History: Yes General: Appendectomy Ortho: Spine surgery HEENT: Tonsil/Adenoidectomy - Present Medications Home Medications: Ambulatory Orders Medication Instructions Recorded Confirmed Simvastatin 10 mg PO QPM 11/05/14 11/29/23 Acetaminophen [Tylenol] 650 mg PO DAILY PRN 04/27/15 11/29/23 Methotrexate [Methotrexate Sodium] 12.5 mg PO .QWED 08/08/17 11/29/23 Losartan Potassium 25 mg PO DAILY 07/25/19 11/29/23 Aspirin EC [Ecotrin] 325 mg PO DAILY 08/14/20 11/29/23 Multivit-Min/Iron/Folic Acid/K 1 tab PO DAILY 08/14/20 11/29/23 [Multi-Day Plus Minerals Tablet] Vit A/Vit C/Vit E/Zinc/Copper 1 cap PO BID 08/14/20 11/29/23 [Preservision Areds Softgel] Terbinafine [Lamisil] 250 mg PO DAILY #90 tablet 08/22/20 11/29/23 Tamsulosin HCl [Flomax] 0.4 mg PO DAILY #30 cap 05/03/22 11/29/23 Ferrous Sulfate [Feosol] 325 mg PO DAILY 11/29/23 11/29/23 Magnesium Oxide [Mag Ox] 400 mg PO DAILY 11/29/23 11/29/23 - Allergies Allergies/Adverse Reactions: Allergies Allergy/AdvReac Type Severity Reaction Status Date / Time lisinopril Allergy Unknown Verified 11/29/23 09:00 Penicillins Allergy Itching Verified 11/29/23 09:00 - Social History Does the pt smoke?: No Smoking Status: Former smoker Does the pt drink ETOH?: Yes Does the pt have substance abuse?: No - Immunizations Immunizations are current?: Yes - POLST Patient has POLST: No POLST Status: Full Code PD ED PE NORMAL - Vitals Vital signs reviewed: Yes - General General: Alert and oriented X 3, No acute distress, Well developed/nourished - HEENT HEENT: Atraumatic, PERRL, EOMI, Moist mucous membranes - Neck Neck: Supple, no meningeal sign - Cardiac Cardiac: RRR, No murmur - Respiratory Respiratory: No respiratory distress, Clear bilaterally - Abdomen Abdomen: Soft, Non tender, Non distended - Derm Derm: Normal color, Warm and dry, No rash - Extremities Extremities: No deformity, No edema, No calf tenderness / cord - Neuro Neuro: Alert and oriented X 3, Other (Grossly intact) - Psych Psych: Normal mood, Normal affect - Free text exam Free text exam: No chest wall tenderness Results - Vitals Vitals: Oxygen O2 Source Room air - EKG (time done) 0916 EKG releavant findings:: EKG personally interpreted by author of this note. Relevant findings are: Rate: Rate (enter#) (66) Rhythm: NSR [place]: Normal Intervals: Prolonged [place] QRS: Normal Ischemia: Normal ST segments Compare to prior EKG: Old EKG unavailable Computer interpretation: Agree with computer - Labs Labs: Laboratory Tests 11/29/23 11/29/23 11/29/23 09:42 09:42 11:38 WBC 6.5 RBC 3.75 L Hgb 11.7 L Hct 37.1 L MCV 98.9 H MCH 31.2 H MCHC 31.5 L RDW 14.0 Plt Count 154 MPV 10.0 Neut # (Auto) 5.0 Lymph # (Auto) 0.6 L [place] # (Auto) 0.6 Eos # (Auto) 0.3 Baso # (Auto) 0.0 Absolute Nucleated RBC 0.00 Nucleated RBC % 0.0 Sodium 141 Potassium 3.9 Chloride 106 Carbon Dioxide 29 Anion Gap 6.0 BUN 21 H Creatinine 1.0 Estimated GFR (MDRD) 71 L Glucose 109 H Calcium 9.1 Total Bilirubin 0.3 AST 18 ALT 15 Alkaline Phosphatase 94 Troponin I High Sens 17.2 15.1 Total Protein 6.6 Albumin 4.1 Globulin 2.5 Albumin/Globulin Ratio 1.6 Lipase 205 H PD Medical Decision Making - ED course Complexity details: reviewed old records, reviewed results, re-evaluated patient, considered differential, d/w patient, d/w family ED course: The patient overall looked quite good, but given his age and risk factors, I did work him up for his chest pain. He was worked up with labs, EKG, and chest x- ray, and given a liter of 0.9 normal saline. His blood pressure was also a bit high in the ED, so I gave him a dose of his normal losartan. The pt was well- appearing in the ED, and work-up was unremarkable. I felt he was stable for d/c home. We have discussed home management of sx, as well as the usual indications for return. Departure - Departure Disposition: Home, Self Care Clinical Impression: Chest pain Qualifiers: Chest pain type: unspecified Qualified Code(s): R07.9 - Chest pain, unspecified Condition: Stable Instructions: ED Chest Pain Atypical Unkn Cause Comments: Your pain is very focused and additionally, is on the right side of your chest. The factors above, along with your EKG and cardiac enzymes being reassuring, make the likelihood of a cardiac source of pain unlikely. There is no evidence of heart attack today. Is important that you follow-up with your primary doctor for further concerns. This could very well be pleurisy, and inflammation of the lining of the chest cavity that commonly follows viral illness. This is usually self-limited and goes away on its own. As far as the feeling of generalized weakness and just being rundown that you have experienced since being sick with COVID a few weeks ago, this may be left over from that and is expected to ultimately go away on its own. We have hydrated you today and it is important that you get 8 to 10 cups of water every day to stay adequately hydrated. Dehydration can certainly amplify feelings of fatigue or weakness, as well. Please schedule the next available appointment with your primary doctor to follow-up on concerns from today's visit. Forms: PCP List Discharge Date/Time: 11/29/23 13:04
[2023-11-29] MEDS ORDERED: SODIUM CHLORIDE 0.9% 1,000 ML IV STA (10:42)
== END 2023-11-29 13:04 | disposition home or self-care (01) ==
LOC: EDUNIT# → ED 08:53
DX: R07.9 Chest pain, unspecified (principal); I10 Essential (primary) hypertension; E78.00 Pure hypercholesterolemia, unspecified; Z87.891 Personal history of nicotine dependence
CPT/HCPCS: 36415; 71045; 80053; 83690; 84484; 85025; 93005; 99283; 99284; A9270

== ENCOUNTER 2023-12-13 12:01 | Outpatient (CLI) | payer MEDICARE | END 2023-12-13 12:02 | disposition critical access hospital (66) | LOC: EMS 12:01 | DX: R55 Syncope and collapse (principal); R53.1 Weakness; R53.83 Other fatigue | CPT/HCPCS: A0425; A0427 ==

== ENCOUNTER 2023-12-13 12:21 | Emergency (ER) | payer MEDICARE ==
--- NOTE | 2023-12-13 12:28 | ED Physician Documentation ---
PD HPI SYNCOPE - Stated complaint Stated Complaint: SYNCOPE - History obtained from History obtained from: Patient, EMS - Additional information Additional information: 88-year-old gent with history of hypertension, hyperlipidemia, multiple orthopedic surgeries and a chronic lung condition was in his usual state of health in christianity today when he passed out. He says he had no premonition that he was going to pass out and just woke up with people around him. Paramedics report that he may have been pulseless per bystanders and CPR was given for a couple of minutes and an AED on scene advised and no shock. He then awoke and at this point just feels tired. Denies chest pain or trouble breathing even in light of the CPR. PD PAST MEDICAL HISTORY - Past Medical History Cardiovascular: Hypertension, High cholesterol Respiratory: Pneumonia, Other Neuro: None Endocrine/Autoimmune: None, Other GI: GERD : Benign prostate hypertrophy, Incontinence, Kidney stones HEENT: Chronic hearing loss Psych: Post traumatic stress disorder Musculoskeletal: None Derm: Psoriasis - Past Surgical History Past Surgical History: Yes General: Appendectomy Ortho: Spine surgery HEENT: Tonsil/Adenoidectomy - Present Medications Home Medications: Ambulatory Orders Medication Instructions Recorded Confirmed Simvastatin 10 mg PO QPM 11/05/14 11/29/23 Acetaminophen [Tylenol] 650 mg PO DAILY PRN 04/27/15 11/29/23 Methotrexate [Methotrexate Sodium] 12.5 mg PO .QWED 08/08/17 11/29/23 Losartan Potassium 25 mg PO DAILY 07/25/19 11/29/23 Aspirin EC [Ecotrin] 325 mg PO DAILY 08/14/20 11/29/23 Multivit-Min/Iron/Folic Acid/K 1 tab PO DAILY 08/14/20 11/29/23 [Multi-Day Plus Minerals Tablet] Vit A/Vit C/Vit E/Zinc/Copper 1 cap PO BID 08/14/20 11/29/23 [Preservision Areds Softgel] Terbinafine [Lamisil] 250 mg PO DAILY #90 tablet 08/22/20 11/29/23 Tamsulosin HCl [Flomax] 0.4 mg PO DAILY #30 cap 05/03/22 11/29/23 Ferrous Sulfate [Feosol] 325 mg PO DAILY 11/29/23 11/29/23 Magnesium Oxide [Mag Ox] 400 mg PO DAILY 11/29/23 11/29/23 - Allergies Allergies/Adverse Reactions: Allergies Allergy/AdvReac Type Severity Reaction Status Date / Time lisinopril Allergy Unknown Verified 11/29/23 09:00 Penicillins Allergy Itching Verified 11/29/23 09:00 - Social History Does the pt smoke?: No Smoking Status: Former smoker Does the pt drink ETOH?: Yes Does the pt have substance abuse?: No - Immunizations Immunizations are current?: Yes - POLST Patient has POLST: No POLST Status: Full Code PD ED PE NORMAL - Vitals Vital signs reviewed: Yes - General General: Alert and oriented X 3, No acute distress - HEENT HEENT: PERRL, EOMI - Neck Neck: Supple, no meningeal sign, No bony TTP - Cardiac Cardiac: RRR, No murmur - Respiratory Respiratory: No respiratory distress, Clear bilaterally - Abdomen Abdomen: Non tender - Derm Derm: Normal color, Warm and dry - Extremities Extremities: No edema, No calf tenderness / cord - Neuro Neuro: Alert and oriented X 3, Normal speech Results - Vitals Vitals: Vital Signs - 24 hr 12/13/23 12/13/23 12/13/23 12:25 12:35 14:01 Temperature 35.9 C L Heart Rate 59 L Heart Rate [ 75 Sitting] Heart Rate [ 80 Standing] Heart Rate [ 72 Supine] Respiratory 23 Rate Blood Pressure 134/66 H Blood Pressure 171/76 H [Sitting] Blood Pressure 164/76 H [Standing] Blood Pressure 165/76 H [Supine] O2 Saturation 86 L 95 If not protocol 1 : Oxygen Flow, liters/minute 12/13/23 12/13/23 14:35 16:00 Temperature Heart Rate 78 80 Heart Rate [ Sitting] Heart Rate [ Standing] Heart Rate [ Supine] Respiratory 14 24 Rate Blood Pressure 161/84 H 150/74 H Blood Pressure [Sitting] Blood Pressure [Standing] Blood Pressure [Supine] O2 Saturation 98 99 If not protocol 1 1 : Oxygen Flow, liters/minute Oxygen O2 Source Nasal cannula Oxygen Flow Rate 1 - EKG (time done) 1319 EKG releavant findings:: EKG personally interpreted by author of this note. Relevant findings are: Rate: Rate (enter#) (74) Rhythm: NSR [place]: Normal Intervals: Prolonged [place], Prolonged QT (borderline qtc 496) QRS: Normal Ischemia: Normal ST segments 1525 EKG releavant findings:: EKG personally interpreted by author of this note. Relevant findings are: Rate: Rate (enter#) (79) Rhythm: NSR Intervals: Prolonged [place], Prolonged QT QRS: Normal Ischemia: Normal ST segments - Labs Labs: Laboratory Tests 12/13/23 12/13/23 12/13/23 12:45 12:45 15:28 WBC 6.3 RBC 3.30 L Hgb 10.3 L Hct 32.7 L MCV 99.1 H MCH 31.2 H MCHC 31.5 L RDW 14.6 Plt Count 154 MPV 10.0 Neut # (Auto) 4.8 Lymph # (Auto) 0.7 L [place] # (Auto) 0.6 Eos # (Auto) 0.2 Baso # (Auto) 0.0 Absolute Nucleated RBC 0.00 Nucleated RBC % 0.0 Sodium 138 Potassium 3.5 Chloride 105 Carbon Dioxide 29 Anion Gap 4.0 L BUN 26 H Creatinine 1.0 Estimated GFR (MDRD) 71 L Glucose 126 H Calcium 8.3 L Magnesium 2.0 Total Bilirubin 0.3 AST 17 ALT 15 Alkaline Phosphatase 84 Troponin I High Sens 11.1 15.7 B-Natriuretic Peptide Total Protein 5.5 L Albumin 3.6 Globulin 1.9 L Albumin/Globulin Ratio 1.9 12/13/23 15:28 WBC RBC Hgb Hct MCV MCH MCHC RDW Plt Count MPV Neut # (Auto) Lymph # (Auto) [place] # (Auto) Eos # (Auto) Baso # (Auto) Absolute Nucleated RBC Nucleated RBC % Sodium Potassium Chloride Carbon Dioxide Anion Gap BUN Creatinine Estimated GFR (MDRD) Glucose Calcium Magnesium Total Bilirubin AST ALT Alkaline Phosphatase Troponin I High Sens B-Natriuretic Peptide 62 Total Protein Albumin Globulin Albumin/Globulin Ratio - Rads (name of study) 1v cxr Relevant Findings:: Final report received, EMP independent interpretation of test PD Medical Decision Making - ED course ED course: 88-year-old gentleman presents with syncope. He is at high risk given age and nonnormal EKG. Also there was no premonition. Workup in the emergency department was notable for CBC with fairly stable macrocytic anemia, CMP with mild chronic prerenal azotemia, mild hypocalcemia, chest x-ray showing left pleural effusion. He was hypoxic for the triage nurse and required just a bit of supplemental oxygen which of course raises the specter of possibly painless PE and went over for an angiogram to look for that. Orthostatic vital signs were done and negative without significant orthostasis. He did have his antihypertensive increased a week ago, but he is not hypotensive so that is less likely the cause. On the [place] syncope risk score he scores 4 points. [place] syncope he scores "not" low risk He scores 3 points on the EGSYS score Given the above I think it would best if he was observed on cardiac telemetry overnight and call to the hospitalist for admission at [address]. [address] Elaine for observation at 3:20 PM and recommends we consider transfer as we do not have echo for the next [address] Lyndsay Jay at [facility], agrees with transfer, defers To hospitalist for admission. Would like the potassium supplemented at 3.5. He was having some more chest pressure while in the department here, presumably from of the CPR but repeat EKG and troponin were ordered. EKG done at 1525 hrs. was without significant change compared to the first. Excepted by Dr. Sangita Ramirez to [facility] at 1620. While reviewing the chart during presentation she asked if he had had a prior echo. 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 Departure - Departure Disposition: 02 Transfer Acute Care Hosp Clinical Impression: Syncope, Prolonged QT interval Condition: Stable Forms: PCP List
[2023-12-13 12:51] LABS: BASOPHILS % (AUTO) 0.5 %; EOSINOPHILS # (AUTO) 0.2 10^3/uL (0.0-0.7); EOSINOPHILS % (AUTO) 2.4 %; HCT - HEMATOCRIT 32.7 % (42.0-52.0); HGB - HEMOGLOBIN 10.3 g/dL (14.0-18.0); LYMPHOCYTES # (AUTO) 0.7 10^3/uL (1.5-3.5); LYMPHOCYTES % (AUTO) 10.5 %; MEAN CORPUSCULAR HEMOGLOBIN 31.2 pg (27.0-31.0); MEAN CORPUSCULAR HGB CONC 31.5 g/dL (32.0-36.0); MEAN CORPUSCULAR VOLUME 99.1 fL (80.0-94.0); MONOCYTES # (AUTO) 0.6 10^3/uL (0.0-1.0); NEUTROPHILS # (AUTO) 4.8 10^3/uL (1.5-6.6); PLT - PLATELET COUNT 154 10^3/uL (130-450); RED CELL DISTRIBUTION WIDTH 14.6 % (12.0-15.0); WHITE BLOOD COUNT 6.3 x10^3/uL (4.8-10.8)
[2023-12-13 13:05] LABS: ALBUMIN 3.6 g/dL (3.2-5.5); ALBUMIN/GLOBULIN RATIO 1.9 (1.0-2.2); BILIRUBIN,TOTAL 0.3 mg/dL (0.2-1.0); CALCIUM 8.3 mg/dL (8.5-10.3); POTASSIUM 3.5 mmol/L (3.5-4.5); TOTAL PROTEIN 5.5 g/dL (6.4-8.9)
[2023-12-13 13:11] LABS: TROPONIN I HIGH SENSITIVITY 11.1 ng/L (2.3-19.7)
[2023-12-13] MEDS ORDERED: iohexoL-300 100 ML VIAL ONE (13:29)
--- NOTE | 2023-12-13 13:45 | XRAY Report ---
PROCEDURE: Chest 1V INDICATIONS: syncope TECHNIQUE: One view of the chest was acquired. COMPARISON: None FINDINGS: Surgical changes and devices: [Thoracic cristhian and screw instrumentation. Lungs and pleura: Moderate left pleural effusion. Right lung and pleural space clear Mediastinum: Mediastinal contours appear normal. Heart size is normal. Bones and chest wall: No suspicious bony lesions. Overlying soft tissues appear unremarkable. IMPRESSION: Moderate left pleural effusion. No pneumothorax Reviewed by: Marcin Amin MD on 12/13/2023 12:43 PM [facility] Approved by: Marcin Amin MD on 12/13/2023 12:43 PM [facility] Station ID: [id number]
[2023-12-13] MEDS: iohexoL-300 100 ML VIAL IVP ONE (14:01)
--- NOTE | 2023-12-13 14:49 | CT Report ---
PROCEDURE: Angio Chest INDICATIONS: syncope hypoxemia TECHNIQUE: Helical axial CT of the chest was obtained during the angiographic phase of an intravenou s contrast injection. Multiplanar and MIP reformats utilized. Radiation dose reduction was achieved u tilizing automated exposure control or adjustment of mA and/or kV according to patient size. COMPARISON: None FINDINGS: Vasculature: No evidence of pulmonary embolism, aortic dissection or aneurysm. Lungs and pleura: Moderate left pleural effusion associated compressive atelectasis present. Right luther ng clear. Small right pleural effusion Mediastinum: Heart size is normal. No pericardial effusion. No large vessel abnormality. No mediastin al adenopathy by size criteria. Chest wall and lower neck: Thyroid is unremarkable. No axillary or supraclavicular adenopathy by size . Bones: No aggressive osseous abnormality. Lower thoracic spine posterior cristhian and screw instrumentatio n with lateral fusion Upper Abdomen: Simple left renal 5.5 cm cyst IMPRESSION: No pulmonary embolism, aortic dissection or aneurysm Moderate left pleural effusion Reviewed by: Marcin Amin MD on 12/13/2023 1:48 PM [facility] Approved by: Marcin Amin MD on 12/13/2023 1:48 PM [facility] Station ID: [id number]
[2023-12-13] MEDS: POTASSIUM BICARB 25 MEQ TABLET PO STA (16:12)
[2023-12-13] MEDS: POTASSIUM CHLOR 10 MEQ/100 ML 10 MEQ/100 ML BAG IV STA (16:13)
[2023-12-13 16:28] VITALS: BP 150/74; O2SAT 99
== END 2023-12-13 18:05 | disposition short-term general hospital (02) ==
LOC: ED 12:21
DX: R55 Syncope and collapse (principal); R94.31 Abnormal electrocardiogram [ECG] [EKG]; R09.02 Hypoxemia; R07.89 Other chest pain; I10 Essential (primary) hypertension; Z87.891 Personal history of nicotine dependence
CPT/HCPCS: 36415; 71045; 71275; 80053; 83735; 83880; 84484; 85025; 93005; 99285; A9270; Q9967

== ENCOUNTER 2023-12-13 18:02 | Outpatient (CLI) | payer MEDICARE | END 2023-12-13 18:03 | disposition short-term general hospital (02) | LOC: EMS 18:02 | PROVIDERS: ATTEND Emergency Medicine | DX: R55 Syncope and collapse (principal) | CPT/HCPCS: A0425; A0428 ==

== ENCOUNTER 2023-12-18 10:30 | Outpatient (CLI) | payer MEDICARE ==
[2023-12-18 18:14] LABS: BASOPHILS % (AUTO) 0.5 %; EOSINOPHILS # (AUTO) 0.3 10^3/uL (0.0-0.7); EOSINOPHILS % (AUTO) 4.2 %; HCT - HEMATOCRIT 37.9 % (42.0-52.0); HGB - HEMOGLOBIN 11.7 g/dL (14.0-18.0); LYMPHOCYTES # (AUTO) 0.5 10^3/uL (1.5-3.5); LYMPHOCYTES % (AUTO) 8.7 %; MEAN CORPUSCULAR HGB CONC 30.9 g/dL (32.0-36.0); MEAN CORPUSCULAR VOLUME 100.3 fL (80.0-94.0); MEAN PLATELET VOLUME 10.8 fL (7.4-11.4); MONOCYTES # (AUTO) 0.8 10^3/uL (0.0-1.0); NEUTROPHILS # (AUTO) 4.4 10^3/uL (1.5-6.6); NEUTROPHILS % (AUTO) 73.3 %; PLT - PLATELET COUNT 202 10^3/uL (130-450); RED BLOOD COUNT 3.78 10^6/uL (4.70-6.10); RED CELL DISTRIBUTION WIDTH 14.6 % (12.0-15.0)
[2023-12-18 18:37] LABS: ALBUMIN 4.2 g/dL (3.2-5.5); ALBUMIN/GLOBULIN RATIO 1.6 (1.0-2.2); BILIRUBIN,TOTAL 0.3 mg/dL (0.2-1.0); CALCIUM 9.3 mg/dL (8.5-10.3); CREATININE 0.9 mg/dL (0.6-1.3); POTASSIUM 4.4 mmol/L (3.5-4.5); TOTAL PROTEIN 6.8 g/dL (6.4-8.9)
[2023-12-18 19:04] LABS: THYROID STIMULATING HORMONE 2.92 uIU/mL (0.34-5.60)
[2023-12-18 19:07] LABS: FERRITIN 28.6 ng/mL (23.9-336.2)
== END 2023-12-18 10:45 | disposition home or self-care (01) ==
LOC: LAB.N 10:30
PROVIDERS: ATTEND Family Medicine
DX: R07.9 Chest pain, unspecified (principal); R55 Syncope and collapse; D63.8 Anemia in other chronic diseases classified elsewhere
CPT/HCPCS: 36415; 80053; 82728; 83540; 84443; 84466; 85025

== ENCOUNTER 2024-01-09 15:25 | Outpatient (CLI) | payer MEDICARE | END 2024-01-09 15:26 | disposition critical access hospital (66) | LOC: EMS 15:25 | DX: R42 Dizziness and giddiness (principal); R11.2 Nausea with vomiting, unspecified; R40.4 Transient alteration of awareness | CPT/HCPCS: A0425; A0429 ==

== ENCOUNTER 2024-01-09 15:42 | Inpatient (IN) | payer MEDICARE ==
[2024-01-09 16:15] LABS: BASOPHILS % (AUTO) 0.3 %; EOSINOPHILS # (AUTO) 0.2 10^3/uL (0.0-0.7); EOSINOPHILS % (AUTO) 1.8 %; HCT - HEMATOCRIT 28.2 % (42.0-52.0); HGB - HEMOGLOBIN 9.2 g/dL (14.0-18.0); LYMPHOCYTES # (AUTO) 0.5 10^3/uL (1.5-3.5); MEAN CORPUSCULAR HEMOGLOBIN 31.6 pg (27.0-31.0); MEAN CORPUSCULAR HGB CONC 32.6 g/dL (32.0-36.0); MEAN CORPUSCULAR VOLUME 96.9 fL (80.0-94.0); MEAN PLATELET VOLUME 9.8 fL (7.4-11.4); MONOCYTES # (AUTO) 0.4 10^3/uL (0.0-1.0); MONOCYTES % (AUTO) 4.9 %; NEUTROPHILS # (AUTO) 7.9 10^3/uL (1.5-6.6); NEUTROPHILS % (AUTO) 87.6 %; PLT - PLATELET COUNT 182 10^3/uL (130-450); RED BLOOD COUNT 2.91 10^6/uL (4.70-6.10); RED CELL DISTRIBUTION WIDTH 14.9 % (12.0-15.0)
[2024-01-09 16:24] LABS: INR 1.1 (0.8-1.2); PT - PROTHROMBIN TIME 11.8 secs (9.9-12.6)
--- NOTE | 2024-01-09 16:27 | ED Physician Documentation ---
History of Present Illness - Stated complaint Stated Complaint: DIZZY/SYNCOPE - Chief complaint Chief Complaint: Neuro - Additonal information Additional information: Patient 88-year-old male presenting the emergency department with syncope and convulsive episode. Past medical significant for hypertension, dyslipidemia, multiple orthopedic surgeries. Additionally she is seen at this facility 12/13 for a somewhat similar presentation. At that time he had syncopized at [facility], bystander CPR was initiated he was initially evaluated at this facility before transfer to [facility]. Today at home family reports that he was otherwise doing well however they found him sitting in his recliner. He stated that he felt "dizzy" and then had approximately 1 minute tonic-clonic seizure activity. Family reports that he wa s "mumbling" for several minutes after the event but it is unclear from their history that they are able to provide how long this can continued. They deny any history of seizure disorder. Currently the patient reports feeling tired. Denies any headache, chest pain, shortness of breath, abdominal pain. Review of Systems Constitutional: denies: Fever Eyes: denies: Loss of vision Ears: denies: Loss of hearing Nose: denies: Rhinorrhea / runny nose Throat: denies: Dental pain / toothache Cardiac: denies: Chest pain / pressure Respiratory: denies: Dyspnea GI: denies: Abdominal Pain : denies: Dysuria Skin: denies: Rash Musculoskeletal: denies: Neck pain Neurologic: reports: Seizure. denies: Generalized weakness PD PAST MEDICAL HISTORY - Past Medical History Cardiovascular: Hypertension, High cholesterol Respiratory: Pneumonia, Other Neuro: None Endocrine/Autoimmune: None, Other GI: GERD : Benign prostate hypertrophy, Incontinence, Kidney stones HEENT: Chronic hearing loss Psych: Post traumatic stress disorder Musculoskeletal: None Derm: Psoriasis - Past Surgical History Past Surgical History: Yes General: Appendectomy Ortho: Spine surgery HEENT: Tonsil/Adenoidectomy - Present Medications Home Medications: Ambulatory Orders Medication Instructions Recorded Confirmed Simvastatin 10 mg PO QPM 11/05/14 01/09/24 Acetaminophen [Tylenol] 650 mg PO DAILY PRN 04/27/15 01/09/24 Methotrexate [Methotrexate Sodium] 12.5 mg PO .QWED 08/08/17 01/09/24 Losartan Potassium 25 mg PO DAILY 07/25/19 01/09/24 Aspirin EC [Ecotrin] 325 mg PO DAILY 08/14/20 01/09/24 Multivit-Min/Iron/Folic Acid/K 1 tab PO DAILY 08/14/20 01/09/24 [Multi-Day Plus Minerals Tablet] Vit A/Vit C/Vit E/Zinc/Copper 1 cap PO BID 08/14/20 01/09/24 [Preservision Areds Softgel] Terbinafine [Lamisil] 250 mg PO DAILY #90 tablet 08/22/20 01/09/24 Tamsulosin HCl [Flomax] 0.4 mg PO DAILY #30 cap 05/03/22 01/09/24 Ferrous Sulfate [Feosol] 325 mg PO DAILY 11/29/23 01/09/24 Magnesium Oxide [Mag Ox] 400 mg PO DAILY 11/29/23 01/09/24 - Allergies Allergies/Adverse Reactions: Allergies Allergy/AdvReac Type Severity Reaction Status Date / Time lisinopril Allergy Unknown Verified 01/09/24 17:09 Penicillins Allergy Itching Verified 01/09/24 17:09 - Social History Does the pt smoke?: No Smoking Status: Never smoker Does the pt drink ETOH?: Yes Does the pt have substance abuse?: No - Immunizations Immunizations are current?: Yes - POLST Patient has POLST: No POLST Status: Full Code PD ED PE NORMAL - General General: Alert and oriented X 3, No acute distress, Well developed/nourished, Other - HEENT HEENT: Atraumatic, PERRL, EOMI, Ears normal, Moist mucous membranes, Pharynx benign, Dentition benign - Neck Neck: Supple, no meningeal sign - Cardiac Cardiac: No murmur, No gallop, Strong equal pulses - Respiratory Respiratory: No respiratory distress, Clear bilaterally - Abdomen Abdomen: Normal bowel sounds - Male Male : Deferred - Rectal Rectal: Deferred - Derm Derm: Normal color - Extremities Extremities: No deformity - Neuro Neuro: Alert and oriented X 3, 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 Relevant findings are: Sinus rhythm with rate 67 bpm. Normal axis. IL interval prolonged at 227 ms. Normal QRS and QTc intervals. No ST segment elevations or T wave inversions. Overall low voltage study. - Labs Labs: Laboratory Tests 01/09/24 01/09/24 01/09/24 16:09 16:09 16:09 WBC 9.0 RBC 2.91 L Hgb 9.2 L Hct 28.2 L MCV 96.9 H MCH 31.6 H MCHC 32.6 RDW 14.9 Plt Count 182 MPV 9.8 Neut # (Auto) 7.9 H Lymph # (Auto) 0.5 L [place] # (Auto) 0.4 Eos # (Auto) 0.2 Baso # (Auto) 0.0 Absolute Nucleated RBC 0.00 Nucleated RBC % 0.0 PT 11.8 INR 1.1 Sodium 140 Potassium 3.7 Chloride 105 Carbon Dioxide 27 Anion Gap 8.0 BUN 31 H Creatinine 1.1 Estimated GFR (MDRD) 63 L Glucose 115 H Calcium 8.9 Magnesium 1.9 Total Bilirubin 0.3 AST 18 ALT 18 Alkaline Phosphatase 105 Troponin I High Sens 14.2 Total Protein 5.9 L Albumin 3.7 Globulin 2.2 Albumin/Globulin Ratio 1.7 Lipase 21 PD Medical Decision Making - ED course Complexity details: reviewed results, re-evaluated patient, considered differential, d/w patient, d/w family, d/w [employer] consultant ED course: Patient is an 88-year-old male who presents to the emergency department after acute loss of consciousness. Per family report he had an episode of dizziness followed by approximate 1 minute of shaking behavior that family reported "looked like a seizure". This ended however and patient returned to baseline mentation within only a few minutes with no reported prolonged period of confusion or postictal. On arrival to the emergency department he endorsed for feeling generally tired. His chart review was significant for a recent hospitalization 12/13/2023 for similar event in which he lost consciousness or possibly went into cardiac arrest with bystander CPR performed. He was transferred from our facility to [facility] on this occasion and underwent echocardiogram. He subsequently underwent a diode patch monitoring which family reported that they dropped off yesterday for evaluation. Today his EKG is nonacute. He is troponin is negative. He does have a low-leve l anemia but this is not significantly changed from his baseline. I did obtain a head CT which was similarly negative. He was monitored on telemetry for several hours and no indication of acute cardiac ischemia or dysrhythmia. His care was discussed with Dr. Yang, cardiology at [facility]. With Dr. Yang reviewed his recent echocardiogram which did not show structural heart abnormalities. The results of the Diopatch however unfortunately are unavailable at this time. as they will need to be processed. At this time the recommendation of cardiology is to have the patient monitor on telemetry for approximately [address] Yang did inform me that they would reach out to Dr. Quesada, the patient's varnish mixer to inform them of the event. There are no further recommendations at this time. I did attempt to discuss this with our hospitalist physician at approximately 1808 hrs. however they declined to review the admission at that time stating that they do not take admissions after 1800 hrs. Given that the next telemetry hospital service is not available until 1900 hrs. I will be signing the patient out to the oncoming physician with expected disposition to be hospitalization for further evaluation and treatment. Departure - Departure Disposition: ED Place in Observation Clinical Impression: Syncope Condition: Stable Forms: PCP List
[2024-01-09 16:33] LABS: ALBUMIN 3.7 g/dL (3.2-5.5); ALBUMIN/GLOBULIN RATIO 1.7 (1.0-2.2); BILIRUBIN,TOTAL 0.3 mg/dL (0.2-1.0); CALCIUM 8.9 mg/dL (8.5-10.3); CREATININE 1.1 mg/dL (0.6-1.3); MAGNESIUM 1.9 mg/dL (1.7-2.3); POTASSIUM 3.7 mmol/L (3.5-4.5); TOTAL PROTEIN 5.9 g/dL (6.4-8.9)
[2024-01-09 16:35] LABS: TROPONIN I HIGH SENSITIVITY 14.2 ng/L (2.3-19.7)
--- NOTE | 2024-01-09 17:41 | CT Report ---
PROCEDURE: Head WO INDICATIONS: syncope, seizure like activity TECHNIQUE: Noncontrast 4.5 mm thick angled axial sections acquired from the foramen magnum to the vertex. For r adiation dose reduction, the following was used: automated exposure control, adjustment of mA and/or kV according to patient size. COMPARISON: None. FINDINGS: Image quality: Excellent. CSF spaces: Basal cisterns are patent. A broad arachnoid cyst can be seen involving the posterior as pect of the posterior fossa. Ventricles are normal in size and shape. Brain: No midline shift. No intracranial masses or hemorrhage. Whitaker-white matter interface is norm al. Skull and face: Calvarium and visualized facial bones are intact, without suspicious lesions. Sinuses: Mild mucosal thickening can be seen involving the posterior aspect of the ethmoid air cells . Visualized sinuses and mastoids are otherwise clear. IMPRESSION: No imaging explanation is found for the patient's presenting symptoms. Additional findings: Focal ethmoid sinus disease Broad posterior fossa arachnoid cyst Reviewed by: Roman Mcdaniels MD on 01/09/2024 4:39 PM [facility] Approved by: Roman Mcdaniels MD on 01/09/2024 4:39 PM [facility] Station ID: [id number]
[2024-01-09] MEDS: iohexoL-300 100 ML VIAL IVP ONE (18:29)
--- NOTE | 2024-01-09 20:33 | ED Physician Documentation ---
ED Addendum - Addendum Addendum: 01/09/24 20:31 Patient is an 88-year-old male signed out to me by Dr. Dyer, please see his not for full H&P on this patient. Briefly he is a 89-year-old male with a history of hypertension, interstitial lung disease. He had an episode of syncope in December 2023 that led to bystander CPR. Unclear if he actually lost pulses or not. He was sent to [facility] had a negative workup there. He was placed on a patch to monitor for arrhythmias, this was sent back via mail yesterday. He had another syncopal event today. 1 minute loss of consciousness. No postictal state. Has chronic anemia. No significant findings on EKG or head CT. Otherwise labs do not show any significant abnormalities. Orthostatic vital signs were negative. Dr. Yang, cardiology at [facility] recommends observation in the hospital on telemetry for 24 hours. I discussed the case with the nighttime hospitalist who accepts. This document was made in part using voice recognition software. While efforts are made to proofread this document, sound alike and grammatical errors may occur. Departure - Departure Disposition: ED Place in Observation Clinical Impression: Syncope Condition: Stable Forms: PCP List
[2024-01-09] MEDS ORDERED: SODIUM CHLORIDE FLUSH 0.9% 10 ML SYRINGE IVP PRN (20:57)
--- NOTE | 2024-01-09 21:25 | HISTORY & PHYSICAL EXAMINATION ---
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 Patient grew up in [place] and now is retired on [place], lives with his , has been healthy most of his life except for few surgeries and some lung disease, mild hyperlipidemia, present today with calling 911 this am, he had an hour of dizziness and then sitting in chair lost consciousn ess for less than 30 second. no b/b incontinence had similar episode while in [place] last month but at that time he passed out with no prodomal symptoms bystander gave CPR not sure if pulse ever lost, ended up seeing Dr Yang at [facility],. had monitor placed which he mailed back yesterday. feels little dehydrated but no other evidence of concerns like infection. chest pain,he did throw up x 2 times today prior to passing out is allergic to pcn and similar products. When seen by me looking good AOA x 3 no active complaints requesting water and food, we discussed code status and he want everything done unless in a vegetative state with no recovery expected then he should be allowed to go back to his creator History - Past Medical History Cardiovascular: reports: Hypertension, High cholesterol Respiratory: reports: Pneumonia, Other Neuro: reports: None Endocrine/Autoimmune: reports: None, Other GI: reports: GERD : reports: Benign prostate hypertrophy, Incontinence, Kidney stones HEENT: reports: Chronic hearing loss Psych: reports: Post traumatic stress disorder Musculoskeletal: reports: None Derm: reports: Psoriasis MRSA Hx?: No - Past Surgical History General: reports: Appendectomy Ortho: reports: Spine surgery HEENT: reports: Tonsil/Adenoidectomy - Family & Social History Family History Comment/Other: Patient's mother at the age of 84 from pancreatic and liver cancer. His father at age 59 of multiple heart attacks. He also had prostate cancer. 1 brother had an acquired hemophilia after being treated for some type of adenoid cancer that was very rare. His 2 blood children are healthy except one has recently had skin cancer. Living Situation: With spouse/s.o. Social History Notes: Patient smoked from the age of 17 until his mid 30s. 1 pack/day. 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 He quit in his 60s. Now only drinks a glass of wine or beer daily. He does not use any recreational substances. - POLST Patient has POLST: No POLST Status: Full Code Meds/Allgy - Home Medications Home Medications: Ambulatory Orders Medication Instructions Recorded Confirmed Simvastatin 10 mg PO QPM 11/05/14 01/09/24 Acetaminophen [Tylenol] 650 mg PO DAILY PRN 04/27/15 01/09/24 Methotrexate [Methotrexate Sodium] 12.5 mg PO .QWED 08/08/17 01/09/24 Losartan Potassium 25 mg PO DAILY 07/25/19 01/09/24 Aspirin EC [Ecotrin] 325 mg PO DAILY 08/14/20 01/09/24 Multivit-Min/Iron/Folic Acid/K 1 tab PO DAILY 08/14/20 01/09/24 [Multi-Day Plus Minerals Tablet] Vit A/Vit C/Vit E/Zinc/Copper 1 cap PO BID 08/14/20 01/09/24 [Preservision Areds Softgel] Terbinafine [Lamisil] 250 mg PO DAILY #90 tablet 08/22/20 01/09/24 Tamsulosin HCl [Flomax] 0.4 mg PO DAILY #30 cap 05/03/22 01/09/24 Ferrous Sulfate [Feosol] 325 mg PO DAILY 11/29/23 01/09/24 Magnesium Oxide [Mag Ox] 400 mg PO DAILY 11/29/23 01/09/24 - Allergies Allergies/Adverse Reactions: Allergies Allergy/AdvReac Type Severity Reaction Status Date / Time lisinopril Allergy Unknown Verified 01/09/24 17:09 Penicillins Allergy Itching Verified 01/09/24 17:09 Review of Systems - Other Findings Other Findings: 14 sytem review done and negative Prior Level of Functionality: Independent with ADL's Exam - Vital Signs Vital Signs: Vital Signs x48h Temp Pulse Pulse Pulse Pulse Resp BP 01/09/24 21:00 98 16 154/83 H 01/09/24 18:54 75 16 133/73 H 01/09/24 18:00 84 89 78 01/09/24 15:45 36.3 C L 70 12 113/53 L BP BP BP Pulse Ox 01/09/24 21:00 98 01/09/24 18:54 100 01/09/24 18:00 145/72 H 139/70 H 131/66 H 01/09/24 15:45 91 L - Physical Exam General Appearance: positive: No acute distress, Alert Eyes Bilateral: positive: Normal inspection, PERRL ENT: positive: ENT inspection nml, Pharynx nml Neck: positive: Nml inspection, Thyroid nml Cardiovascular: positive: Regular rate & rhythm Abdomen: positive: Non-tender, No organomegaly Skin: positive: Color nml Extremities: positive: Non-tender Neurologic/Psychiatric: positive: Oriented x3, CN's nml (2-12) Sepsis Event Note (H) - Evaluation Current Stage of Sepsis: Ruled out Conclusion/Plan - Problem List (1) Syncope Conclusion/Plan: Admit to observation IVF avoid nephrotoxins telemetry follow up with cards recently had echo and lifescreenign everything negative as per patient I feel his BP normally has been 170's at home today in ER 113 may need to consider changing losartan DVt prophylaxis Full code - Lab Results Fish Bones: 01/09/24 16:09 01/09/24 16:09 - EKG Results EKG Interpreted Independently: Yes EKG Comparison: Unchanged from prior EKG
[2024-01-09] MEDS: SODIUM CHLORIDE 0.9% 1,000 ML IV SCH (21:58)
[2024-01-09] MEDS: ATORVASTATIN 10 MG TABLET PO STA (21:58)
[2024-01-09] MEDS: ONDANSETRON 4 MG/2 ML VIAL IVP PRN (22:05)
[2024-01-09] MEDS: SODIUM CHLORIDE FLUSH 0.9% 10 ML SYRINGE IVP SCH (23:31)
[2024-01-10] MEDS: ACETAMINOPHEN 325 MG TABLET PO PRN (00:26)
--- NOTE | 2024-01-10 08:40 | PROVIDER PROGRESS NOTE ---
Assessment/Plan - Problem List (1) Syncope Assessment/Plan: Recurrent syncope episode, etiology unknown Cardiac versus neurogenic versus OrthostaticVersus vasovagal CT head negative Check carotid artery Check echo Continue telemetry Orthostatic vital signs (2) Anemia Qualifiers: Anemia type: unspecified type Qualified Code(s): D64.9 - Anemia, unspecified Assessment/Plan: Hemoglobin hemoglobin 9 Anemia workup including iron panel, B12 folate, reticulocyte count Patient has 20 pounds of weight loss in the past 3-month, also reports patient abdomen girth increased Check FOBT CT abdomen chest with contrast to check if any occult malignancy Check PSA (3) Shortness of breath Assessment/Plan: Shortness breath, dyspnea on exertion, worsening in the past 3-month, noted at rest now Anemia can contribute to shortness breath, workup on cardiac obtaining echo Patient reports he followed cardiology, had echo done in the 3-month ago, although he does not know the report He had Holter monitor, which was mailed back to his doctor's office on the day before admission Continue telemetry Echo PT OT (4) Weight loss Assessment/Plan: Per patient that patient lost 20 pounds forThe past 3-month along with increased abdominal girth With anemia, occult malignancy need to be ruled out CT chest abdomen pelvis ordered FOBT - Current Meds Current Meds: Current Medications Generic Name Dose Route Start Last Admin Trade Name Freq PRN Reason Stop Dose Admin Acetaminophen 650 mg 01/09/24 20:57 01/10/24 00:26 Acetaminophen 325 Mg Tablet PO 650 mg Q4HR PRN Administration Pain 1 to 4, or Fever Sodium Chloride 1,000 mls @ 100 mls/hr 01/09/24 21:00 01/09/24 21:58 Normal Saline 0.9% IV 100 mls/hr .Q10H DOMINIK Administration Ondansetron HCl 4 mg 01/09/24 20:57 01/09/24 22:05 Ondansetron 4 Mg/2 Ml Vial IVP 4 mg Q6HR PRN Administration Nausea / Vomiting Sodium Chloride 10 ml 01/10/24 01:00 01/09/24 23:31 Sodium Chloride Flush 0.9% 10 Ml Syringe IVP Not Given 0100,0900,1700 DOMINIK - Lab Result Fish Bone Diagrams: 01/10/24 09:53 01/10/24 09:53 - EKG Results EKG Interpreted Independently: Yes EKG Comparison: Other (Sinus tachycardia) - Additional Planning Condition/Complexity: Improved Plan Discussed with:: Patient Time Spent: 31-60 minutes Additional Planning Notes: Patient is not medically stable for discharge, changed his observation status to inpatient care Workup on syncope and anemia Subjective - Subjective Patient Reports: Other (Admitted after a syncope episode, he had an hour of dizziness and then sitting in chair lost consciousness for less than 30 second. Similiar episode last month at [facility], follows Dr Yang at [facility]. He had Holter monitor placed which he mailed back the day before admission) Objective Vital Signs: Vital Signs - 24 hr 01/09/24 01/09/24 01/09/24 15:45 18:00 18:54 Temperature 36.3 C L Heart Rate 70 75 Heart Rate [ Brachial] Heart Rate [ 84 Sitting] Heart Rate [ 89 Standing] Heart Rate [ 78 Supine] Respiratory 12 16 Rate Blood Pressure 113/53 L 133/73 H Blood Pressure [Right Brachial artery] Blood Pressure 145/72 H [Sitting] Blood Pressure 139/70 H [Standing] Blood Pressure 131/66 H [Supine] O2 Saturation 91 L 100 01/09/24 01/09/24 01/10/24 21:00 21:40 00:03 Temperature 37.2 C 38.1 C H Heart Rate 98 Heart Rate [ 111 H 111 H Brachial] Heart Rate [ Sitting] Heart Rate [ Standing] Heart Rate [ Supine] Respiratory 16 22 18 Rate Blood Pressure 154/83 H Blood Pressure 126/83 H 147/75 H [Right Brachial artery] Blood Pressure [Sitting] Blood Pressure [Standing] Blood Pressure [Supine] O2 Saturation 98 95 94 01/10/24 01/10/24 01/10/24 01:33 04:23 07:42 Temperature 37.6 C 37.5 C 37.5 C Heart Rate Heart Rate [ 106 H 98 Brachial] Heart Rate [ Sitting] Heart Rate [ Standing] Heart Rate [ Supine] Respiratory 20 18 Rate Blood Pressure Blood Pressure 104/53 L 120/63 [Right Brachial artery] Blood Pressure [Sitting] Blood Pressure [Standing] Blood Pressure [Supine] O2 Saturation 94 94 Oxygen O2 Source Room air I&O (Last 24 Hrs): Intake and Output Totals x24h 01/08/24 01/09/24 01/11/24 23:59 23:59 00:59 Intake Total 490 Output Total 475 Balance 15 General: Alert, Oriented x3 HEENT: PERRLA, EOMI Neck: Supple, No JVD Neuro: Alert, Non Focal, CN 2-12 Grossly Intact Cardiovascular: Other (Skipped beats) Respiratory: No respiratory distress Abdomen: Soft, No tenderness Extremities: No clubbing, No edema - Results Results: Laboratory Results WBC 9.0 x10^3/uL (4.8-10.8) 01/09/24 16:09 RBC 2.91 10^6/uL (4.70-6.10) L 01/09/24 16:09 Hgb 9.2 g/dL (14.0-18.0) L 01/09/24 16:09 Hct 28.2 % (42.0-52.0) L 01/09/24 16:09 MCV 96.9 fL (80.0-94.0) H 01/09/24 16:09 MCH 31.6 pg (27.0-31.0) H 01/09/24 16:09 MCHC 32.6 g/dL (32.0-36.0) 01/09/24 16:09 RDW 14.9 % (12.0-15.0) 01/09/24 16:09 Plt Count 182 10^3/uL (130-450) 01/09/24 16:09 MPV 9.8 fL (7.4-11.4) 01/09/24 16:09 Neut # (Auto) 7.9 10^3/uL (1.5-6.6) H 01/09/24 16:09 Lymph # (Auto) 0.5 10^3/uL (1.5-3.5) L 01/09/24 16:09 [place] # (Auto) 0.4 10^3/uL (0.0-1.0) 01/09/24 16:09 Eos # (Auto) 0.2 10^3/uL (0.0-0.7) 01/09/24 16:09 Baso # (Auto) 0.0 10^3/uL (0.0-0.1) 01/09/24 16:09 Absolute Nucleated RBC 0.00 x10^3/uL 01/09/24 16:09 Nucleated RBC % 0.0 /100WBC 01/09/24 16:09 PT 11.8 secs (9.9-12.6) 01/09/24 16:09 INR 1.1 (0.8-1.2) 01/09/24 16:09 Sodium 140 mmol/L (135-145) 01/09/24 16:09 Potassium 3.7 mmol/L (3.5-4.5) 01/09/24 16:09 Chloride 105 mmol/L (101-111) 01/09/24 16:09 Carbon Dioxide 27 mmol/L (21-32) 01/09/24 16:09 Anion Gap 8.0 (6-13) 01/09/24 16:09 BUN 31 mg/dL (6-20) H 01/09/24 16:09 Creatinine 1.1 mg/dL (0.6-1.3) 01/09/24 16:09 Estimated GFR (MDRD) 63 (>89) L 01/09/24 16:09 Glucose 115 mg/dL (74-104) H 01/09/24 16:09 Calcium 8.9 mg/dL (8.5-10.3) 01/09/24 16:09 Magnesium 1.9 mg/dL (1.7-2.3) 01/09/24 16:09 Total Bilirubin 0.3 mg/dL (0.2-1.0) 01/09/24 16:09 AST 18 IU/L (10-42) 01/09/24 16:09 ALT 18 IU/L (10-60) 01/09/24 16:09 Alkaline Phosphatase 105 IU/L (42-121) 01/09/24 16:09 Troponin I High Sens 14.2 ng/L (2.3-19.7) 01/09/24 16:09 Total Protein 5.9 g/dL (6.4-8.9) L 01/09/24 16:09 Albumin 3.7 g/dL (3.2-5.5) 01/09/24 16:09 Globulin 2.2 g/dL (2.1-4.2) 01/09/24 16:09 Albumin/Globulin Ratio 1.7 (1.0-2.2) 01/09/24 16:09 Lipase 21 U/L (11-82) 01/09/24 16:09 - Procedures Procedures: Procedures EXCISION OF TRANSVERSE COLON, ENDO (07/25/19) Sepsis Event Note (H) - Evaluation Current Stage of Sepsis: Ruled out ABX Reporting Has patient been on IV antibiotics over the past 48 hours?: No Current Medications - Current Medications Current Medications: Active Medications Acetaminophen (Acetaminophen 325 Mg Tablet) 650 mg PO Q4HR PRN PRN Reason: Pain 1 to 4, or Fever Last Admin: 01/10/24 17:30 Dose: 650 mg Aspirin (Aspirin Ec 81 Mg Tablet) 81 mg PO DAILY [facility] Last Admin: 01/10/24 08:58 Dose: 81 mg Sodium Chloride (Normal Saline 0.9%) 1,000 mls @ 100 mls/hr IV .Q10H [facility] Last Infusion: 01/10/24 17:58 Dose: 0 mls/hr Ondansetron HCl (Ondansetron 4 Mg/2 Ml Vial) 4 mg IVP Q6HR PRN PRN Reason: Nausea / Vomiting Last Admin: 01/09/24 22:05 Dose: 4 mg Sodium Chloride (Sodium Chloride Flush 0.9% 10 Ml Syringe) 10 ml IVP PRN PRN PRN Reason: NEEDED PER PROVIDER ORDERS Sodium Chloride (Sodium Chloride Flush 0.9% 10 Ml Syringe) 10 ml IVP 0100,0900,1700 [facility] Last Admin: 01/10/24 15:31 Dose: Not Given Simvastatin 10 mg PO QPM 11/05/14 Acetaminophen [Tylenol] 650 mg PO DAILY PRN 04/27/15 Aspirin EC [Ecotrin] 325 mg PO DAILY 08/14/20 Multivit-Min/Iron/Folic Acid/K [Multi-Day Plus Minerals Tablet] 1 tab PO DAILY 08/14/20 Vit A/Vit C/Vit E/Zinc/Copper [Preservision Areds Softgel] 1 cap PO BID 08/14/20 Ferrous Sulfate [Feosol] 325 mg PO DAILY 11/29/23 Magnesium Oxide [Mag Ox] 400 mg PO DAILY 11/29/23 Losartan/Hydrochlorothiazide [Hyzaar 100-25 Tablet] 1 tab PO DAILY 01/10/24 Methotrexate [Methotrexate Sodium] 15 mg PO FR 01/10/24 Tamsulosin [Flomax] 0.8 mg PO QPM 01/10/24
[2024-01-10] MEDS: ASPIRIN EC 81 MG TABLET PO SCH (08:58)
[2024-01-10 10:07] LABS: ABSOLUTE RETICS # AUTO 0.036 10^6/uL (0.020-0.110); RED BLOOD COUNT 2.87 10^6/uL (4.70-6.10); RETICULOCYTE COUNT % (AUTO) 1.24 % (0.5-2.3)
[2024-01-10 10:10] LABS: BASOPHILS % (AUTO) 0.2 %; EOSINOPHILS # (AUTO) 0.1 10^3/uL (0.0-0.7); EOSINOPHILS % (AUTO) 0.4 %; HCT - HEMATOCRIT 27.9 % (42.0-52.0); LYMPHOCYTES # (AUTO) 0.4 10^3/uL (1.5-3.5); LYMPHOCYTES % (AUTO) 3.5 %; MEAN CORPUSCULAR HEMOGLOBIN 31.3 pg (27.0-31.0); MEAN CORPUSCULAR HGB CONC 32.3 g/dL (32.0-36.0); MEAN CORPUSCULAR VOLUME 96.9 fL (80.0-94.0); MEAN PLATELET VOLUME 9.7 fL (7.4-11.4); MONOCYTES # (AUTO) 0.6 10^3/uL (0.0-1.0); MONOCYTES % (AUTO) 5.5 %; NEUTROPHILS % (AUTO) 89.8 %; PLT - PLATELET COUNT 172 10^3/uL (130-450); RED BLOOD COUNT 2.88 10^6/uL (4.70-6.10); WHITE BLOOD COUNT 11.1 x10^3/uL (4.8-10.8)
[2024-01-10 10:40] LABS: ALBUMIN 3.4 g/dL (3.2-5.5); ALBUMIN/GLOBULIN RATIO 1.5 (1.0-2.2); BILIRUBIN,TOTAL 0.4 mg/dL (0.2-1.0); CALCIUM 8.3 mg/dL (8.5-10.3); CREATININE 1.1 mg/dL (0.6-1.3); POTASSIUM 3.5 mmol/L (3.5-4.5); TOTAL PROTEIN 5.6 g/dL (6.4-8.9)
[2024-01-10 12:05] LABS: BILIRUBIN,URINE NEGATIVE (NEGATIVE); GLUCOSE, URINE (UA) NEGATIVE (NEGATIVE); KETONES,URINE (UA) NEGATIVE (NEGATIVE); LEUKOCYTE ESTERASE, URINE NEGATIVE (NEGATIVE); NITRITE,URINE NEGATIVE (NEGATIVE); OCCULT BLOOD,URINE NEGATIVE (NEGATIVE); PH,URINE 5.5 PH (5.0-7.5); PROTEIN,URINE NEGATIVE (NEGATIVE); UROBILINOGEN,URINE 0.2 (NORMAL) E.U./dL (NORMAL)
[2024-01-10 12:08] LABS: CLARITY,URINE CLEAR (CLEAR)
[2024-01-10 12:15] LABS: BACTERIA,URINE Rare /HPF (None Seen); RBC,URINE 3 /HPF (0-5); SQUAMOUS EPITHELIAL CELL,UR FEW Squamous (<= Few)
--- NOTE | 2024-01-10 12:45 | PHARMACY PROGRESS NOTE ---
- Best Possible Medication History Admit Date and Time: 01/10/24 1013 Processed by: Nursing Medications reviewed in ED?: Yes Medication History completed: Yes Secondary Source(s): Physician records, Insurance records As the person ultimately responsible for medication therapy, providers are able to order a medication from an existing home medication list in [facility] via the "Reconcile Routine" prior to Confirmation of that medication by lab support tech. Such practice is discouraged except when the physician, in their clinical judgment, deems that a medical need exists for a medication without regard to previous use.
[2024-01-10 15:45] LABS: B. PARAPERTUSSIS- RESP PCR PAN NOT DETECTED; B. PERTUSSIS- RESP PCR PANEL NOT DETECTED; C. PNEUMONIAE- RESP PCR PANEL NOT DETECTED; CORONAVIRUS 229E-RESP PCR NOT DETECTED; CORONAVIRUS HKU1-RESP PCR NOT DETECTED; CORONAVIRUS NL63-RESP PCR NOT DETECTED; CORONAVIRUS OC43-RESP PCR NOT DETECTED; HUMAN METAPNEUMOVIRUS NOT DETECTED; INFLUENZA A- RESP PCR PANEL NOT DETECTED; INFLUENZA B - RESP PCR PANEL NOT DETECTED; M. PNEUMONIAE- RESP PCR PANEL NOT DETECTED; PARAINFLUENZA VIRUS 1 NOT DETECTED; PARAINFLUENZA VIRUS 2 NOT DETECTED; PARAINFLUENZA VIRUS 3 NOT DETECTED; PARAINFLUENZA VIRUS 4 NOT DETECTED; RHINOVIRUS/ENTEROVIRUS NOT DETECTED; RSV- RESP PCR PANEL NOT DETECTED; SARS-CoV-2 -RESP PCR PANEL NOT DETECTED
[2024-01-10] MEDS ORDERED: iohexoL-300 100 ML VIAL ONE (17:49)
--- NOTE | 2024-01-10 18:29 | CT Report ---
PROCEDURE: Abdomen/Pelvis W INDICATIONS: Weight lose 20lbs, increased abdominal girth CONTRAST: 100ml omni 300 TECHNIQUE: After the administration of intravenous contrast, a CT scan of the abdomen and pelvis was performed. Images were recorded and evaluated at appropriate window settings. Reformats: coronal and sagittal. F or radiation dose reduction, the following was used: automated exposure control, adjustment of mA and /or kV according to patient size. COMPARISON: 05/03/2022 FINDINGS: Image quality: There is artifact associated with the metallic hardware. Lower chest: There is a small left-sided pleural effusion and a trace right-sided pleural effusion. T here is a small pericardial effusion. Liver: No solid mass. Gallbladder and biliary tree: Layering gallstones are seen. No additional CT findings of cholecystiti s are seen. Spleen: No splenomegaly. Pancreas: No pancreatic ductal dilation. Adrenals: No adrenal nodule. Kidneys and ureters: No hydronephrosis. No renal cystic lesion which requires follow up. No solid mas s. The previously seen distal left ureteral stone has resolved. Stomach, bowel and peritoneum: No bowel distension. No pathologic free fluid. Lymph nodes: No central or retroperitoneal adenopathy. Vessels: No infrarenal aortic aneurysm. PELVIS Reproductive organs: Unremarkable. Bladder: No abnormal wall thickening, accounting for underdistention. Pelvic lymph nodes: No pelvic adenopathy by size criteria. Bones: No aggressive osseous abnormality. Lower thoracic spine postoperative change is seen. Focal L4 -L5 degenerative change is seen. Proximal right femur hardware is present. Other: A mild fat-containing periumbilical hernia is seen. IMPRESSION: Bilateral pleural effusions are seen, left larger than right. There is a small pericardial effusion. No masses are identified. Negative for ascites. Additional findings: Lower thoracic spine postoperative hardware Layering gallstones Mild fat-containing periumbilical hernia Focal L4-L5 degenerative change Right proximal femur hardware Reviewed by: Roman Mcdaniels MD on 01/10/2024 5:27 PM VANDANA Approved by: Roman Mcdaniels MD on 01/10/2024 5:27 PM VANDANA Station ID: [id number]
--- NOTE | 2024-01-10 18:46 | CT Report ---
PROCEDURE: Chest W INDICATIONS: Shortness of breath, Weight loss, unknown etiology CONTRAST: 100ml omni 300 TECHNIQUE: After the administration of intravenous contrast, a CT scan of the chest was performed. Images were recorded and evaluated at appropriate window settings. Reformats: axial MIP of the chest, coronal and sagittal. For radiation dose reduction, the following was used: automated exposure control, adjustme nt of mA and/or kV according to patient size. COMPARISON: 12/13/2023. Correlation is made with the accompanying imaging. FINDINGS: Image quality: There is artifact associated with the metallic hardware. Chest wall and lower neck: No thyroid nodule which requires sonographic follow up. No axillary or sup raclavicular adenopathy by size. There is a likely sebaceous cyst seen involving the left upper chest laterally, as on series 2 image 29, measuring 1.6 cm. Lungs and pleura: Small bilateral pleural effusions are seen, left larger than right. Overlying atele ctasis can be seen. No pneumothorax is seen. No suspicious infiltrates are seen. No suspicious pulmon yanet nodules are seen. Mediastinum: Heart size is normal. There is a small pericardial effusion. No large vessel abnormality . No mediastinal adenopathy by size criteria. Bones: No aggressive osseous abnormality. Thoracic spine fixation hardware can be seen, without compl ication observed. There is associated streak artifact. Upper Abdomen: Unremarkable. IMPRESSION: Bilateral pleural effusions are seen, left larger than right. Small pericardial effusion. Additional findings: Likely left upper chest sebaceous cyst Thoracic spine fixation hardware Reviewed by: Roman Mcdaniels MD on 01/10/2024 5:45 PM AKDT Approved by: Roman Mcdaniels MD on 01/10/2024 5:45 PM AKDT Station ID: [id number]
--- NOTE | 2024-01-10 20:51 | Ultrasound Report ---
PROCEDURE: Carotid Doppler Complete INDICATIONS: syncope TECHNIQUE: Color and pulse Doppler interrogation was performed of both carotid systems, with image documentation and velocity measurements. COMPARISON: CTA chest dated December 13, 2023. FINDINGS: Right side: Brachial blood pressure: 104 mm Hg. Common carotid artery peak systolic velocity: 82 cm/sec. Internal carotid artery peak systolic velocity: 83 cm/sec. Internal carotid artery end diastolic velocity: 19 cm/sec. External carotid artery peak systolic velocity: 121 cm/sec. ICA/CCA peak systolic ratio: 1 . Whitaker scale imaging description: Mild atherosclerotic plaque. Percent internal carotid artery stenosis: Less than 50 percent stenosis. Vertebral artery: Not visualized. Left side: Brachial blood pressure: 110 mm Hg. Common carotid artery peak systolic velocity: 80 cm/sec. Internal carotid artery peak systolic velocity: 103 cm/sec. Internal carotid artery end diastolic velocity: 21 cm/sec. External carotid artery peak systolic velocity: 113 cm/sec. ICA/CCA peak systolic ratio: 1.1 . Whitaker scale imaging description: Mild atherosclerotic plaque. Percent internal carotid artery stenosis: Less than 50 percent stenosis. Vertebral artery: Flow direction is antegrade. IMPRESSION: 1. In the right internal carotid artery, there is less than 50 percent stenosis based on peak systoli c velocity criteria. 2. In the left internal carotid artery, there is less than 50 percent stenosis based on peak systolic velocity criteria. 3. Right vertebral artery is not visualized. The proximal segment appears patent on CTA chest dated F [id number]. 4. Antegrade blood flow within the left vertebral artery. The estimate of stenosis included in the report of the imaging study was calculated using the [facility]-end orsed standards of carotid artery stenosis. Reviewed by: Raul Hernandez MD on 01/10/2024 8:49 PM PDT Approved by: Raul Hernandez MD on 01/10/2024 8:49 PM PDT Station ID: [id number]
[2024-01-11 06:41] LABS: BASOPHILS % (AUTO) 0.5 %; EOSINOPHILS # (AUTO) 0.3 10^3/uL (0.0-0.7); EOSINOPHILS % (AUTO) 3.8 %; HCT - HEMATOCRIT 28.5 % (42.0-52.0); HGB - HEMOGLOBIN 8.9 g/dL (14.0-18.0); LYMPHOCYTES # (AUTO) 0.6 10^3/uL (1.5-3.5); LYMPHOCYTES % (AUTO) 7.2 %; MEAN CORPUSCULAR HEMOGLOBIN 30.7 pg (27.0-31.0); MEAN CORPUSCULAR HGB CONC 31.2 g/dL (32.0-36.0); MEAN CORPUSCULAR VOLUME 98.3 fL (80.0-94.0); MEAN PLATELET VOLUME 10.6 fL (7.4-11.4); MONOCYTES # (AUTO) 0.7 10^3/uL (0.0-1.0); MONOCYTES % (AUTO) 8.5 %; NEUTROPHILS # (AUTO) 6.7 10^3/uL (1.5-6.6); NEUTROPHILS % (AUTO) 79.6 %; PLT - PLATELET COUNT 163 10^3/uL (130-450); RED CELL DISTRIBUTION WIDTH 15.2 % (12.0-15.0); WHITE BLOOD COUNT 8.5 x10^3/uL (4.8-10.8)
[2024-01-11 06:55] LABS: BUN - BLOOD UREA NITROGEN 21 mg/dL (6-20); CALCIUM 8.4 mg/dL (8.5-10.3); CARBON DIOXIDE - CO2 27 mmol/L (21-32); CHLORIDE 105 mmol/L (101-111); CHOL/HDL RATIO 3.1 (<5.0); CHOLESTEROL 141 mg/dL; CREATININE 0.9 mg/dL (0.6-1.3); GFR - MDRD 80 (>89); GLUCOSE 98 mg/dL (74-104); HDL CHOLESTEROL 46 mg/dL; LDL CHOLESTEROL,CALCULATED 76 mg/dL; LDL/HDL RATIO 1.7 (<3.6); POTASSIUM 3.4 mmol/L (3.5-4.5); SODIUM 138 mmol/L (135-145); TRIGLYCERIDES 95 mg/dL (48-352); VLDL CHOLESTEROL 19 mg/dL
[2024-01-11] MEDS: POTASSIUM CHLORIDE 20 MEQ TABLET PO SCH (08:28)
[2024-01-11 09:09] LABS: ESTIMATED AVERAGE GLUCOSE 108 mg/dL (70-100); HEMOGLOBIN A1c% 5.4 % (4.27-6.07)
[2024-01-11] MEDS: IRON DEXTRAN 200 MG in SODIUM CHLORIDE 0.9% 100ML 100 ML IV ONE (09:24)
[2024-01-11] MEDS: oxyCODONE 5 MG TABLET PO PRN (10:56)
--- NOTE | 2024-01-11 12:41 | ADVANCE CARE PLANNING NOTE ---
Advance Care Planning - Planning Encounter Date: 01/11/24 Time: 12:00 Purpose: Discuss with patient and his regarding patient medical condition, and CODE STATUS and advanced care plan Parties in Attendance: Patient and , they have been over 20 years Decisional Capacity of the Patient: Patient has capacity for medical decision making - Diagnosis for Encounter (1) Syncope Summary: Syncope ruled out carotid stenos, ruled out stroke, ruled out vasovagal, less likely cardiogenic. It can be related to orthostatic hypotension (2) Anemia Qualifiers: Anemia type: iron deficiency Summary: With reported weight loss of 20 pounds in 3 months, further workup including CT test and PSA test IV iron was given CT chest, abdomen and pelvis performed no sign of occult malignancy, PSA minimal elevated, appears to be consistent with BPH (3) Shortness of breath Summary: Multifactorial, anemia and advanced age may be the main role (4) Weight loss Summary: No sign of occult malignancy - Encounter Subjective/Patient's Story: Patient and the measured over 20 years, both have children and grandchildren and great-grandchildren. Patient would like to continue driving, will patient is very concerned about his safety. also reports the first syncope episode sounds like cardiac arrest, also has some suspicious shaking and jerking seizure-like activities. Does not feel comfortable for him driving. Discussed with patient regarding his safety and safety on the road, recommend patient avoid driving in the next 6-month, then evaluate by his PCP Objective/Medical Story: With recurrent syncope and generalized weakness shortness of breath, patient is recommended to continue with PT OT as tolerated, avoid strenuous activity. Follow-up with cardiology to review his Holter monitor reports and optimize cardiac function. Goals of Care: Continue full treatment Plan: Full code Excepted does not want to be in vegetative status Code Status: Attempt Resuscitation Time spent on advance care plannin min
--- NOTE | 2024-01-11 14:10 | Discharge Plan ---
Discharge Plan Problem Reviewed?: Yes Disposition: Home Health Service Condition: Stable Prescriptions: oxyCODONE [Roxicodone] 5 mg PO Q4HR PRN 7 Days #5 tab PRN Reason: Moderate Pain (Level 4-6) Potassium Chloride [K-Dur] 20 meq PO BID 3 Days #6 tab Diet: Regular Activity Restrictions: Activity as Tolerated Shower Restrictions: No Driving Restrictions: Yes (Does not recommend driving for your safty) Weight Bearing: Full Weight Instruction Topics: Oxycodone tablets or capsules, ED Hypotension Orthostatic Health Concerns: Your syncope work up: ruled out stroke, ruled out severe carotid stenosis, No occult malignancy on CT chest/abdomen, pelvis. You do not have arrthymia on Telemetry, you does have orthostatic hypotension. You are advised to keep your SBP 120-160 range, your may want to check your blood pressure often before you take your Bp meds, if it is lower than 120, you may want to hold a dose. Please follow up with your PCP, make an appointment with cardiology. Plan of Treatment: Continue home PT/OT Take oxycodone only when your pain is >7/10, follow PCP for further management of your chronic pain. Care Goals: maintain indepented ADLs Assessment: You are medically stable for discharge from hospital Additional Instructions or Follow Up instructions: You can take midodrine if you have lightheaded when getting up, and your SBP<100 Follow-Up Care: Home Health - PT, Home Health - OT No Smoking: If you smoke, Please STOP! Call for help.
--- NOTE | 2024-01-11 14:23 | DISCHARGE SUMMARY ---
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 Was admitted 01/09/2024 with calling 9 1 1 in the morning since he had an hour of dizziness and then sitting in the chair lost consciousness for less than 30 seconds, no incontinent. Patient had a similar episode well in worship last month but at that time he passed out with no prodromal symptoms, bystander gave see MS, not sure if pulse is ever lost, ended up seeing Dr. Yang at, had Holter monitor placed which he mailed back the day before admission. He feels little dehydrated but no other evidence of concerns like infection, chest pain. He did vomited twice before passing out. - HOSPITAL COURSE Hospital Course: During hospital stay patient had syncope workup including carotic artery ultrasound Doppler, head CT, echocardiogram and telemetry. Ruled out stroke, carotid stenosis, no evidence of cardiogenic syncope at this point. However orthostatic hypotension noted, even though patient was not reported dizziness or lightheaded while standing up. Anemia anemia workup showed low iron level 11, patient was given 1 dose of IV iron. Recommend patient continue iron supplement at home. Patient report 20 pounds of weight loss in the past 3-month, CT chest abdomen and pelvis performed no sign of malignancy reported. PSA 2.9 which is consistent with BPH. PT OT eval recommend patient home with home health. Patient is recommended for cardiology follow-up - ALLERGIES Allergies/Adverse Reactions: Allergies Allergy/AdvReac Type Severity Reaction Status Date / Time lisinopril Allergy Unknown Verified 01/09/24 17:09 Penicillins Allergy Itching Verified 01/09/24 17:09 - MEDICATIONS Home Medications: Ambulatory Orders Medication Instructions Recorded Confirmed Simvastatin 10 mg PO QPM 11/05/14 01/09/24 Acetaminophen [Tylenol] 650 mg PO DAILY PRN 04/27/15 01/09/24 Aspirin EC [Ecotrin] 325 mg PO DAILY 08/14/20 01/09/24 Multivit-Min/Iron/Folic Acid/K 1 tab PO DAILY 08/14/20 01/09/24 [Multi-Day Plus Minerals Tablet] Vit A/Vit C/Vit E/Zinc/Copper 1 cap PO BID 08/14/20 01/09/24 [Preservision Areds Softgel] Terbinafine [Lamisil] 250 mg PO DAILY #90 tablet 08/22/20 01/09/24 Ferrous Sulfate [Feosol] 325 mg PO DAILY 11/29/23 01/09/24 Magnesium Oxide [Mag Ox] 400 mg PO DAILY 11/29/23 01/09/24 Losartan/Hydrochlorothiazide 1 tab PO DAILY 01/10/24 01/10/24 [Hyzaar 100-25 Tablet] Methotrexate [Methotrexate Sodium] 15 mg PO FR 01/10/24 01/10/24 Tamsulosin [Flomax] 0.8 mg PO QPM 01/10/24 01/10/24 Midodrine [ProAmatine] 2.5 mg PO DAILY PRN 14 Days #14 01/11/24 tablet Potassium Chloride [K-Dur] 20 meq PO BID 3 Days #6 tab 01/11/24 oxyCODONE [Roxicodone] 5 mg PO Q4HR PRN 7 Days #5 tab 01/11/24 - PHYSICAL EXAM AT DISCHARGE General Appearance: positive: No acute distress, Alert Eyes Bilateral: positive: PERRL, EOMI ENT: positive: ENT inspection nml Neck: positive: Nml inspection Respiratory: positive: Chest non-tender, No respiratory distress Cardiovascular: positive: Regular rate & rhythm Peripheral Pulses: positive: 2+ Abdomen: positive: Non-tender Skin: positive: Color nml, Warm, Dry Extremities: positive: Non-tender, Full ROM, No pedal edema - LABS Result Diagrams: 01/11/24 05:54 01/11/24 05:54 - SEPSIS Current Stage of Sepsis: Ruled out - TIME SPENT Time Spent in Discharge (Minutes): 60
[2024-01-11 17:11] VITALS: BP 153/70; O2SAT 95
== END 2024-01-11 14:58 | disposition home health service (06) | DRG 312 ==
LOC: EDSEX → EDUNIT# → EDBD → ED 15:42 → UNDOADMOB 20:57 → MS2 20:57 → OBSVTOIN 01-10 10:13
PROVIDERS: ADMIT Internal Medicine; ATTEND Internal Medicine
DX: R55 Syncope and collapse (principal); R42 Dizziness and giddiness; R56.9 Unspecified convulsions; D64.9 Anemia, unspecified; R63.4 Abnormal weight loss; Z11.2 Encounter for screening for other bacterial diseases; Z11.52 Encounter for screening for COVID-19; Z11.59 Encounter for screening for other viral diseases; I95.1 Orthostatic hypotension; E61.1 Iron deficiency; E78.00 Pure hypercholesterolemia, unspecified; I10 Essential (primary) hypertension; N40.1 Benign prostatic hyperplasia with lower urinary tract symptoms; N39.498 Other specified urinary incontinence; H54.7 Unspecified visual loss; I35.1 Nonrheumatic aortic (valve) insufficiency; R06.00 Dyspnea, unspecified; R06.02 Shortness of breath; Z79.82 Long term (current) use of aspirin; Z79.899 Other long term (current) drug therapy; Z80.0 Family history of malignant neoplasm of digestive organs; Z80.8 Family history of malignant neoplasm of other organs or systems; Z82.49 Family history of ischemic heart disease and other diseases of the circulatory system; Z87.891 Personal history of nicotine dependence; Z88.0 Allergy status to penicillin; Z88.8 Allergy status to other drugs, medicaments and biological substances; Z90.49 Acquired absence of other specified parts of digestive tract
CPT/HCPCS: 36415; 70450; 71260; 74177; 80048; 80053; 80061; 81001; 82607; 82746; 83036; 83540; 83690; 83735; 84466; 84484; 85025; 85045; 85610; 86140; 87633; 93005; 93307; 93880; 96374; 97162; 97166; 99285; A9270; G0103; G0378; J1750; Q9967; 82272; 83721; 84153

== ENCOUNTER 2024-01-23 21:28 | Outpatient (CLI) | payer MEDICARE | END 2024-01-23 23:59 | disposition short-term general hospital (02) | LOC: EMS 21:28 | DX: R55 Syncope and collapse (principal); R11.10 Vomiting, unspecified; R19.7 Diarrhea, unspecified; R53.83 Other fatigue; R26.9 Unspecified abnormalities of gait and mobility | CPT/HCPCS: A0425; A0427; A0888 ==

== ENCOUNTER 2024-02-12 11:17 | Outpatient (CLI) | payer MEDICARE ==
[2024-02-12 11:30] LABS: FECAL OCCULT BLOOD (FIT) POSITIVE (NEGATIVE)
== END 2024-02-12 11:18 | disposition home or self-care (01) ==
LOC: LAB.R 11:17
PROVIDERS: ATTEND Physician Assistant Medical
DX: D50.9 Iron deficiency anemia, unspecified (principal)
CPT/HCPCS: 82274

== ENCOUNTER 2024-02-18 16:21 | Outpatient (CLI) | payer MEDICARE ==
[2024-02-18 19:49] LABS: BASOPHILS % (AUTO) 0.5 %; EOSINOPHILS # (AUTO) 0.2 10^3/uL (0.0-0.7); EOSINOPHILS % (AUTO) 2.7 %; HCT - HEMATOCRIT 34.1 % (42.0-52.0); HGB - HEMOGLOBIN 10.3 g/dL (14.0-18.0); LYMPHOCYTES # (AUTO) 0.6 10^3/uL (1.5-3.5); LYMPHOCYTES % (AUTO) 7.5 %; MEAN CORPUSCULAR HEMOGLOBIN 29.8 pg (27.0-31.0); MEAN CORPUSCULAR HGB CONC 30.2 g/dL (32.0-36.0); MEAN CORPUSCULAR VOLUME 98.6 fL (80.0-94.0); MEAN PLATELET VOLUME 10.9 fL (7.4-11.4); MONOCYTES # (AUTO) 0.9 10^3/uL (0.0-1.0); MONOCYTES % (AUTO) 12.7 %; NEUTROPHILS # (AUTO) 5.7 10^3/uL (1.5-6.6); NEUTROPHILS % (AUTO) 76.3 %; PLT - PLATELET COUNT 177 10^3/uL (130-450); RED BLOOD COUNT 3.46 10^6/uL (4.70-6.10); RED CELL DISTRIBUTION WIDTH 15.5 % (12.0-15.0); WHITE BLOOD COUNT 7.4 x10^3/uL (4.8-10.8)
[2024-02-18 20:10] LABS: ALBUMIN 3.8 g/dL (3.2-5.5); ALBUMIN/GLOBULIN RATIO 1.4 (1.0-2.2); BILIRUBIN,TOTAL 0.2 mg/dL (0.2-1.0); CALCIUM 9.1 mg/dL (8.5-10.3); CREATININE 0.9 mg/dL (0.6-1.3); POTASSIUM 4.2 mmol/L (3.5-4.5); TOTAL PROTEIN 6.6 g/dL (6.4-8.9)
== END 2024-02-18 16:22 | disposition home or self-care (01) ==
LOC: LAB.N 16:21
PROVIDERS: ATTEND Physician Assistant Medical
DX: I10 Essential (primary) hypertension (principal); D50.9 Iron deficiency anemia, unspecified
CPT/HCPCS: 36415; 80053; 82728; 83540; 84466; 85025

== ENCOUNTER 2024-03-14 09:55 | Outpatient (CLI) | payer MEDICARE, OTHER ==
[2024-03-14 10:20] LABS: BASOPHILS # (AUTO) 0.1 10^3/uL (0.0-0.1); BASOPHILS % (AUTO) 0.7 %; EOSINOPHILS # (AUTO) 0.2 10^3/uL (0.0-0.7); EOSINOPHILS % (AUTO) 1.9 %; HCT - HEMATOCRIT 34.2 % (42.0-52.0); HGB - HEMOGLOBIN 10.4 g/dL (14.0-18.0); LYMPHOCYTES # (AUTO) 0.6 10^3/uL (1.5-3.5); LYMPHOCYTES % (AUTO) 7.5 %; MEAN CORPUSCULAR HEMOGLOBIN 30.4 pg (27.0-31.0); MEAN CORPUSCULAR HGB CONC 30.4 g/dL (32.0-36.0); MEAN PLATELET VOLUME 9.1 fL (7.4-11.4); MONOCYTES # (AUTO) 0.8 10^3/uL (0.0-1.0); MONOCYTES % (AUTO) 8.8 %; NEUTROPHILS # (AUTO) 6.9 10^3/uL (1.5-6.6); NEUTROPHILS % (AUTO) 80.6 %; PLT - PLATELET COUNT 217 10^3/uL (130-450); RED BLOOD COUNT 3.42 10^6/uL (4.70-6.10); RED CELL DISTRIBUTION WIDTH 15.5 % (12.0-15.0); WHITE BLOOD COUNT 8.6 x10^3/uL (4.8-10.8)
[2024-03-14 10:38] LABS: ALBUMIN/GLOBULIN RATIO 1.2 (1.0-2.2); BILIRUBIN,TOTAL 0.3 mg/dL (0.2-1.0); CALCIUM 9.8 mg/dL (8.5-10.3); POTASSIUM 4.5 mmol/L (3.5-4.5); TOTAL PROTEIN 7.3 g/dL (6.4-8.9)
[2024-03-14 10:46] LABS: ESTIMATED AVERAGE GLUCOSE 85 mg/dL (70-100); HEMOGLOBIN A1c% 4.6 % (4.27-6.07)
[2024-03-14 10:58] LABS: FERRITIN 191.2 ng/mL (23.9-336.2)
--- NOTE | 2024-03-14 21:12 | XRAY Report ---
PROCEDURE: Chest 2V INDICATIONS: SHORTNESS OF BREATH TECHNIQUE: 2 views of the chest were acquired. COMPARISON: CT of chest dated 01/10/2024. Chest radiograph dated 12/13/2023.. FINDINGS: Surgical changes and devices: Spine fixation hardware is again seen. External pacing device is also noted. Lungs and pleura: There is moderate left pleural effusion with atelectasis of left lower lobe. Right basilar atelectasis is seen. No pneumothorax. Mediastinum: Mediastinal contours appear normal. Heart size is normal. Bones and chest wall: No suspicious bony lesions. Overlying soft tissues appear unremarkable. IMPRESSION: Moderate left pleural effusion and trace right pleural effusion increased compared to previous study. No pneumothorax. Underlying bibasilar infiltrates cannot be excluded. Reviewed by: Weston Cheema MD on 03/14/2024 9:10 PM PDT Approved by: Weston Cheema MD on 03/14/2024 9:10 PM PDT Station ID: [id number]
== END 2024-03-14 09:56 | disposition home or self-care (01) ==
LOC: LAB 09:55
PROVIDERS: ATTEND Internal Medicine
DX: I10 Essential (primary) hypertension (principal); D50.9 Iron deficiency anemia, unspecified; R73.01 Impaired fasting glucose; J90 Pleural effusion, not elsewhere classified
CPT/HCPCS: 36415; 80053; 82607; 82728; 83036; 83540; 84466; 85025

== ENCOUNTER 2024-03-16 20:50 | Outpatient (CLI) | payer MEDICARE | END 2024-03-16 23:59 | disposition critical access hospital (66) | LOC: EMS 20:50 | DX: R07.89 Other chest pain (principal); R10.11 Right upper quadrant pain; R06.00 Dyspnea, unspecified; R60.0 Localized edema; R14.0 Abdominal distension (gaseous) | CPT/HCPCS: A0425; A0429 ==

== ENCOUNTER 2024-03-16 21:06 | Inpatient (IN) | payer MEDICARE ==
[2024-03-16] MEDS: MORPHINE 2 MG/ML CARPUJECT IVP STA (21:31)
[2024-03-16] MEDS: ONDANSETRON 4 MG/2 ML VIAL IVP STA (21:31)
[2024-03-16 21:46] LABS: BASOPHILS # (AUTO) 0.1 10^3/uL (0.0-0.1); BASOPHILS % (AUTO) 0.5 %; EOSINOPHILS # (AUTO) 0.2 10^3/uL (0.0-0.7); EOSINOPHILS % (AUTO) 1.4 %; HCT - HEMATOCRIT 25.5 % (42.0-52.0); HGB - HEMOGLOBIN 7.9 g/dL (14.0-18.0); LYMPHOCYTES # (AUTO) 0.7 10^3/uL (1.5-3.5); MEAN CORPUSCULAR HEMOGLOBIN 31.3 pg (27.0-31.0); MEAN CORPUSCULAR VOLUME 101.2 fL (80.0-94.0); MEAN PLATELET VOLUME 9.7 fL (7.4-11.4); MONOCYTES % (AUTO) 6.9 %; NEUTROPHILS # (AUTO) 12.4 10^3/uL (1.5-6.6); NEUTROPHILS % (AUTO) 85.5 %; PLT - PLATELET COUNT 231 10^3/uL (130-450); RED BLOOD COUNT 2.52 10^6/uL (4.70-6.10); RED CELL DISTRIBUTION WIDTH 15.9 % (12.0-15.0); WHITE BLOOD COUNT 14.5 x10^3/uL (4.8-10.8)
[2024-03-16 21:49] LABS: INR 1.1 (0.8-1.2); PT - PROTHROMBIN TIME 12.1 secs (9.9-12.6)
[2024-03-16] MEDS ORDERED: iohexoL-300 100 ML VIAL ONE (21:49)
[2024-03-16] MEDS: HYDROmorphone 1 MG/ML CARPUJECT IVP STA ×2 (21:55→22:39)
[2024-03-16 22:01] LABS: ALBUMIN 3.6 g/dL (3.2-5.5); ALBUMIN/GLOBULIN RATIO 1.2 (1.0-2.2); BILIRUBIN,TOTAL 0.2 mg/dL (0.2-1.0); CALCIUM 8.9 mg/dL (8.5-10.3); CREATININE 1.1 mg/dL (0.6-1.3); POTASSIUM 4.3 mmol/L (3.5-4.5); TOTAL PROTEIN 6.6 g/dL (6.4-8.9)
[2024-03-16 22:03] LABS: TROPONIN I HIGH SENSITIVITY 13.2 ng/L (2.3-19.7)
[2024-03-16] MEDS: iohexoL-300 100 ML VIAL IVP ONE (22:38)
--- NOTE | 2024-03-16 23:07 | XRAY Report ---
PROCEDURE: Chest 1V INDICATIONS: R sided CP TECHNIQUE: One view of the chest was acquired. COMPARISON: CXR 03/14/2024. FINDINGS: Surgical changes and devices: The lumbar spine hardware. Cardiac monitoring device.. Lungs and pleura: Bilateral pleural effusions, left greater than right. Prominent pulmonary vasculat ure markings. No pneumothorax. Mediastinum: Mediastinal contours appear unchanged. Heart size is prominent. Bones and chest wall: No suspicious bony lesions. Overlying soft tissues appear unremarkable. IMPRESSION: Bilateral pleural effusions. Suspect fluid overload/CHF. Reviewed by: Miguel Angel Orta MD on 03/16/2024 11:06 PM PDT Approved by: Miguel Angel Orta MD on 03/16/2024 11:06 PM PDT Station ID: [id number]
--- NOTE | 2024-03-16 23:23 | CT Report ---
PROCEDURE: Angio Abdomen/Pelvis INDICATIONS: CP to abdomen CONTRAST: Omni 300, 100mls TECHNIQUE: After the administration of intravenous contrast, 2.5 mm thick sections acquired from the diaphragm t o the symphysis. 10 mm maximum-intensity projection (MIP) reformats were then acquired. For radiati on dose reduction, the following was used: automated exposure control, adjustment of mA and/or kV ac cording to patient size. COMPARISON: CT abdomen pelvis 01/10/2024. CT abdomen pelvis without contrast 05/03/2022. CT abdomen pel vis with contrast 02/08/2015. FINDINGS: Image quality: Excellent. Aorta: Minimal ectasia of the infrarenal abdominal aorta. No dissection. Moderate calcified plaque. Mesenteric arteries: Celiac trunk, superior and inferior mesenteric arteries appear patent. Right pelvic arteries: No aneurysm. External iliac artery is patent. Internal iliac artery demonstra chelsea a short segment dissection or atherosclerotic plaque plaque, (/), unchanged. Left pelvic arteries: No aneurysm. No dissection. Extravascular soft tissues: Bilateral pleural effusions. Please see separately dictated same day CT c hest angiogram. Liver and spleen are normal in size and enhancement. Gallbladder demonstrates small layering gallsto dmitry.. Biliary system is non dilated. Pancreas enhances normally. Thickening of the left adrenal gla nd is unchanged. Kidneys are normal in size and enhancement, without hydronephrosis. Bilateral nonob structing kidney stones appear unchanged. Bilateral renal cysts are unchanged since 2021. Non opacified bowel loops are normal in wall thickness and caliber. No free fluid or air. No retrop eritoneal or mesenteric adenopathy. Tiny umbilical hernia. No suspicious bony lesions. No vertebral body compression fractures. Right hip intramedullary cristhian w ith screw fixation. Prior fracture. Lower thoracic spine hardware. IMPRESSION: 1. No aortic dissection. No aneurysm. 2. Right internal iliac artery short segment dissection or atherosclerotic plaque is unchanged. Reviewed by: Miguel Angel Orta MD on 03/16/2024 11:22 PM PDT Approved by: Miguel Angel Orta MD on 03/16/2024 11:22 PM PDT Station ID: [id number]
--- NOTE | 2024-03-16 23:30 | CT Report ---
PROCEDURE: Angio Chest INDICATIONS: R sided CP into abdomen CONTRAST: Omni 300, 100mls TECHNIQUE: After the administration of intravenous contrast, 2 mm axial images were acquired from the pulmonary apices to the posterior costophrenic angles during the arterial phase. In addition, 1 mm lung kernel and 5 mm soft tissue kernel reconstructions were performed. 3-dimensional coronal oblique maximum int ensity projection (MIP) reformats, 8 mm axial MIP, and 5 mm coronal and sagittal MPR reformats were t hen performed through the thorax. For radiation dose reduction, the following was used: automated exp osure control, adjustment of mA and/or kV according to patient size. COMPARISON: CT chest with contrast 01/10/2024. FINDINGS: Image quality: Excellent. Large vessels: No filling defects within the opacified pulmonary arteries, accounting for motion and contrast timing. No evidence of acute aortic syndrome. No aortic dissection. Ascending aorta measures 3.1 cm, (4/58). Lungs and pleura: Moderate right and large left pleural effusions. Increase. No pneumothorax. Depende nt atelectasis. Central airways are clear. Mediastinum: Heart size is normal. Aortic valve calcified plaque. Trace pericardial fluid. No large v essel abnormality. No mediastinal adenopathy by size criteria. Chest wall and lower neck: Thyroid is unremarkable. No axillary or supraclavicular adenopathy by size . Left axillary subcutaneous nodule measuring 1.9 cm, (14/155), unchanged. Most likely a sebaceous cy st. Bones: No aggressive osseous abnormality. T7-T11 pedicle screw fixation. Bridging vertebral body oste ophytes or syndesmophytes consistent with DISH. Upper Abdomen: Please see separately dictated same day CT abdomen and pelvis.. IMPRESSION: 1. No aortic dissection. No pulmonary embolism. 2. Large left and moderate right pleural effusions are increased. Reviewed by: Miguel Angel Orta MD on 03/16/2024 11:29 PM PDT Approved by: Miguel Angel Orta MD on 03/16/2024 11:29 PM PDT Station ID: [id number]
[2024-03-17] MEDS: PANTOPRAZOLE 40 MG VIAL IV STA (00:15)
[2024-03-17] MEDS: oxyCODONE 5 MG TABLET PO STA (00:25)
--- NOTE | 2024-03-17 00:32 | ED Physician Documentation ---
History of Present Illness - Stated complaint Stated Complaint: CP, RUQ, BLOODY STOOLS - Chief complaint Chief Complaint: Cardiac - History obtained from History obtained from: Patient, EMS - Additonal information Additional information: Patient is an 88-year-old male with history of hypertension, syncope, chronic anemia presenting for evaluation of right-sided chest pain that started this evening and radiates to the shoulder. Patient states that he has been having this pain on and off for the past 4 days but that it worsened tonight. Patient states the pain is sharp. Nothing makes the pain better or worse. The pain was shooting to the upper abdomen. Patient dates he has been having episodes of chest pain intermittently for the past few months. When he was hospitalized here in December she was given a prescription for oxycodone. He states that he tries not to use the oxycodone if he does not need to and tries to manage his symptoms with acetaminophen as it does not seem that the oxycodone helps any better than the acetaminophen does. No fever, cough, difficulty breathing, nausea, vomiting or diarrhea. Patient has recently been evaluated for anemia and reports taking iron as well as receiving iron infusions. Denies bloody stools. Does take a baby aspirin but no blood thinners.Was also recently told about fluid in the left lung And is awaiting to schedule a thoracentesis. Has a lso been recently evaluated for episodes of syncope. Review of Systems Constitutional: denies: Fever Cardiac: reports: Chest pain / pressure Respiratory: denies: Dyspnea GI: denies: Abdominal Pain, Vomiting Musculoskeletal: denies: Back pain PD PAST MEDICAL HISTORY - Past Medical History Cardiovascular: Hypertension, High cholesterol Respiratory: Pneumonia, Other Neuro: None Endocrine/Autoimmune: None, Other GI: GERD : Benign prostate hypertrophy, Incontinence, Kidney stones HEENT: Chronic hearing loss Psych: Post traumatic stress disorder Musculoskeletal: None Derm: Psoriasis - Past Surgical History Past Surgical History: Yes General: Appendectomy Ortho: Spine surgery HEENT: Tonsil/Adenoidectomy - Present Medications Home Medications: Ambulatory Orders Medication Instructions Recorded Confirmed Simvastatin 10 mg PO QPM 11/05/14 03/16/24 Acetaminophen [Tylenol] 650 mg PO DAILY PRN 04/27/15 03/16/24 Aspirin EC [Ecotrin] 325 mg PO DAILY 08/14/20 03/16/24 Multivit-Min/Iron/Folic Acid/K 1 tab PO DAILY 08/14/20 03/16/24 [Multi-Day Plus Minerals Tablet] Vit A/Vit C/Vit E/Zinc/Copper 1 cap PO BID 08/14/20 03/16/24 [Preservision Areds Softgel] Ferrous Sulfate [Feosol] 325 mg PO DAILY 11/29/23 03/16/24 Magnesium Oxide [Mag Ox] 400 mg PO DAILY 11/29/23 03/16/24 oxyCODONE [Roxicodone] 5 mg PO Q4HR PRN 7 Days #5 tab 01/11/24 03/16/24 - Allergies Allergies/Adverse Reactions: Allergies Allergy/AdvReac Type Severity Reaction Status Date / Time lisinopril Allergy Unknown Verified 03/16/24 21:14 Penicillins Allergy Itching Verified 03/16/24 21:14 - Social History Does the pt smoke?: No Smoking Status: Never smoker Does the pt drink ETOH?: Yes Does the pt have substance abuse?: No - Immunizations Immunizations are current?: Yes - POLST Patient has POLST: No POLST Status: Full Code PD ED PE NORMAL - General General: Alert and oriented X 3, Well developed/nourished, Other (Mild distress holding chest) - HEENT HEENT: Atraumatic, Moist mucous membranes, Pharynx benign - Neck Neck: Supple, no meningeal sign - Cardiac Cardiac: RRR, Strong equal pulses - Respiratory Respiratory: No respiratory distress, Other (Diminished at the bases) - Abdomen Abdomen: Normal bowel sounds, Soft, Non tender, Other (Distended but patient states that this is his normal abdominal size) - Rectal Rectal: Other (Chaperoned by Anabella, black stools (patient is on iron), sent for Hemoccult testing) - Derm Derm: Warm and dry - Extremities Extremities: No calf tenderness / cord - Neuro Neuro: Alert and oriented X 3, No motor deficit, Normal speech Results - Vitals Vitals: Vital Signs - 24 hr 03/16/24 03/16/24 03/17/24 21:15 23:25 00:49 Temperature 36.6 C Heart Rate 94 106 H 108 H Respiratory 22 16 Rate Blood Pressure 155/77 H 153/77 H 175/79 H O2 Saturation 95 95 96 If not protocol 3 : Oxygen Flow, liters/minute 03/17/24 03/17/24 02:57 04:00 Temperature Heart Rate 100 107 H Respiratory 18 18 Rate Blood Pressure 114/68 126/78 O2 Saturation 96 95 If not protocol 2 2 : Oxygen Flow, liters/minute Oxygen O2 Source Nasal cannula - EKG (time done) 2109 EKG releavant findings:: EKG personally interpreted by author of this note. Relevant findings are: Rate 92, normal sinus rhythm, no STEMI, QTc 456 - Labs Labs: Microbiology 03/16/24 22:27 Occult Blood - Final Stool Laboratory Tests 03/16/24 03/16/24 03/16/24 21:37 21:37 21:37 WBC 14.5 H RBC 2.52 L Hgb 7.9 L Hct 25.5 L MCV 101.2 H MCH 31.3 H MCHC 31.0 L RDW 15.9 H Plt Count 231 MPV 9.7 Neut # (Auto) 12.4 H Lymph # (Auto) 0.7 L [place] # (Auto) 1.0 Eos # (Auto) 0.2 Baso # (Auto) 0.1 Absolute Nucleated RBC 0.00 Nucleated RBC % 0.0 PT 12.1 INR 1.1 Sodium 137 Potassium 4.3 Chloride 105 Carbon Dioxide 26 Anion Gap 6.0 BUN 41 H Creatinine 1.1 Estimated GFR (MDRD) 63 L Glucose 117 H Calcium 8.9 Total Bilirubin 0.2 AST 12 ALT 11 Alkaline Phosphatase 121 Troponin I High Sens 13.2 B-Natriuretic Peptide Total Protein 6.6 Albumin 3.6 Globulin 3.0 Albumin/Globulin Ratio 1.2 Lipase 03/16/24 03/17/24 03/17/24 21:37 00:44 00:44 WBC RBC Hgb 7.8 L Hct 26.1 L MCV MCH MCHC RDW Plt Count MPV Neut # (Auto) Lymph # (Auto) [place] # (Auto) Eos # (Auto) Baso # (Auto) Absolute Nucleated RBC Nucleated RBC % PT INR Sodium Potassium Chloride Carbon Dioxide Anion Gap BUN Creatinine Estimated GFR (MDRD) Glucose Calcium Total Bilirubin AST ALT Alkaline Phosphatase Troponin I High Sens 12.8 B-Natriuretic Peptide 30 Total Protein Albumin Globulin Albumin/Globulin Ratio Lipase PD Medical Decision Making - ED course Complexity details: reviewed results, re-evaluated patient, d/w patient ED course: Patient is an 88-year-old male presenting for evaluation of right-sided chest pain that has been on and off for the past several days but worsening tonight. It radiates towards the collarbone. Nothing makes it better or worse. EKG is reviewed and without signs of acute ischemia. CBC, chemistry, troponin, BNP were reviewed. Labs are significant for worsening anemia with a hemoglobin of 7.9. Labs that were done as an outpatient from 2 days ago demonstrated hemoglobin of 10.4. Patient did require repeated doses of IV narcotics for pain control. He does have abdominal distention but states that this is normal for him. CT angio of the chest abdomen pelvis was ordered as a dissection protocol. There is no signs of dissection. There are bilateral pleural effusions, left greater than right. Patient quickly required oxygen after initial presentation. Given the drop in his hemoglobin I did perform a rectal exam and there is black stool. However the patient is on iron pills. This was heme positive. I did discuss the case with Dr. Ruiz, on-call general surgery. He recommends starting the patient on a proton pump inhibitor.If the patient is on NSAIDs or aspirin would recommend holding that if able. Would recommend rechecking the hemoglobin. If stable then would have patient continue on a PPI and can schedule for an upper endoscopy as an outpatient.If there is worsening anemia then would request medicine to consult him and he would plan to take the patient for an EGD. 3-hour hemoglobin and troponin were obtained and without significant change.Patient has not had any bowel movements here. Patient Still requiring oxygen even when awoken and encouraged to take some deep breaths.Patient may benefit from IR thoracentesis For diagnostic and therapeutic purposes as well as further evaluation of his sudden drop in hemoglobin. Delay in admission as there were no beds available on [facility]. After some time a bed did become available.Discussed with admitting hospitalist, Dr. Garcia who will place admission orders. Departure - Departure Disposition: 66 [facility] DC/Xfer Clinical Impression: Chest pain, Pleural effusion, Heme + stool, Acute on chronic anemia Discharge Date/Time: 03/17/24 05:01
[2024-03-17 00:47] LABS: HCT - HEMATOCRIT 26.1 % (42.0-52.0); HGB - HEMOGLOBIN 7.8 g/dL (14.0-18.0)
[2024-03-17] MEDS: HYDROmorphone 0.5 MG/0.5 ML SYRINGE IVP STA (01:36)
[2024-03-17] MEDS ORDERED: ONDANSETRON 4 MG/2 ML VIAL IVP PRN (04:01)
[2024-03-17] MEDS ORDERED: MORPHINE 10 MG/ML VIAL IVP PRN (04:22)
--- NOTE | 2024-03-17 04:22 | HISTORY & PHYSICAL EXAMINATION ---
Chief Complaint - Chief Complaint Chief Complaint: sob, fatigue, dark stools History of Present Illness - History of Present Illness HPI Comment/Other: pt with worsening R sided chest pain over the past week. he does report some occasional sob but is otherwise able to function, until today, when the pain became so bad that he came to hospital. denies any known trauma. no fevers or chills. he has been prescribed oxycodone but was trying to avoid taking it and tried to manage his symptoms with tylenol only. reports dark colored stools but feels this is because of his iron supplementation. he has been developing fluid in his lungs and is waiting for outpatient thoracentesis to be done. takes asa daily but no other blood thinners. no falls. no ams. denies brbpr. no hematuria. History - Past Medical History Cardiovascular: reports: Hypertension, High cholesterol Respiratory: reports: Pneumonia, Other Neuro: reports: None Endocrine/Autoimmune: reports: None, Other GI: reports: GERD : reports: Benign prostate hypertrophy, Incontinence, Kidney stones HEENT: reports: Chronic hearing loss Psych: reports: Post traumatic stress disorder Musculoskeletal: reports: None Derm: reports: Psoriasis MRSA Hx?: No - Past Surgical History General: reports: Appendectomy Ortho: reports: Spine surgery HEENT: reports: Tonsil/Adenoidectomy - Family & Social History Family History Comment/Other: Patient's mother at the age of 84 from pancreatic and liver cancer. His father at age 59 of multiple heart attacks. He also had prostate cancer. 1 brother had an acquired hemophilia after being treated for some type of adenoid cancer that was very rare. His 2 blood children are healthy except one has recently had skin cancer. Living Situation: With spouse/s.o. Social History Notes: Patient smoked from the age of 17 until his mid 30s. 1 pack/day. 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 He quit in his 60s. Now only drinks a glass of wine or beer daily. He does not use any recreational substances. - POLST Patient has POLST: No POLST Status: Full Code Meds/Allgy - Home Medications Home Medications: Ambulatory Orders Medication Instructions Recorded Confirmed Simvastatin 10 mg PO QPM 11/05/14 03/16/24 Acetaminophen [Tylenol] 650 mg PO DAILY PRN 04/27/15 03/16/24 Aspirin EC [Ecotrin] 325 mg PO DAILY 08/14/20 03/16/24 Multivit-Min/Iron/Folic Acid/K 1 tab PO DAILY 08/14/20 03/16/24 [Multi-Day Plus Minerals Tablet] Vit A/Vit C/Vit E/Zinc/Copper 1 cap PO BID 08/14/20 03/16/24 [Preservision Areds Softgel] Ferrous Sulfate [Feosol] 325 mg PO DAILY 11/29/23 03/16/24 Magnesium Oxide [Mag Ox] 400 mg PO DAILY 11/29/23 03/16/24 oxyCODONE [Roxicodone] 5 mg PO Q4HR PRN 7 Days #5 tab 01/11/24 03/16/24 - Allergies Allergies/Adverse Reactions: Allergies Allergy/AdvReac Type Severity Reaction Status Date / Time lisinopril Allergy Unknown Verified 03/16/24 21:14 Penicillins Allergy Itching Verified 03/16/24 21:14 Review of Systems - Other Findings Other Findings: 14 pt review done with positives per hpi; all others reviewed as negative Exam - Vital Signs Vital Signs: Vital Signs x48h Temp Pulse Resp BP Pulse Ox O2 Flow Rate 03/17/24 02:57 100 18 114/68 96 2 03/17/24 00:49 108 H 175/79 H 96 03/16/24 23:25 106 H 16 153/77 H 95 3 03/16/24 21:15 36.6 C 94 22 155/77 H 95 - Physical Exam Comments/Other: gen - aaox3, uncomfortable (pain) but cooperative with questions heent - eom, nc/at heart - per ed charting lungs - per ed charting abd - distended msk - no acute trauma noted Conclusion/Plan - Lab Results Fish Bones: 03/17/24 00:44 03/16/24 21:37 - Other Other Results/Comments: pt with - - acute, hypoxemic resp failure in setting of pleural effusions + blood loss on O2 via NC CTA chest NEG for PE or dissection will need thoracentesis (below) - pleural effusions uncertain etiology contributory to above IR consulted for thoracentesis - chest wall pain trop negative d/t effusions tylenol, oxycodone, morphine - acute, blood loss anemia likely contributory to resp failure (above) on top of iron deficiency anemia gi blood loss --> stool POS heme hgb >7, but continue trending gen surg on case on ppi, continue iron, mvi, vitamin c - uremia pre-renal, blood loss gfr wnl at this time f/u labs, h/h, replete electrolytes further orders per clinical course
[2024-03-17] MEDS: MORPHINE 2 MG/ML CARPUJECT IVP PRN (05:04)
[2024-03-17 05:30] LABS: BASOPHILS # (AUTO) 0.1 10^3/uL (0.0-0.1); BASOPHILS % (AUTO) 0.4 %; EOSINOPHILS % (AUTO) 0.1 %; HCT - HEMATOCRIT 26.4 % (42.0-52.0); HGB - HEMOGLOBIN 7.9 g/dL (14.0-18.0); LYMPHOCYTES % (AUTO) 6.4 %; MEAN CORPUSCULAR HEMOGLOBIN 30.5 pg (27.0-31.0); MEAN CORPUSCULAR HGB CONC 29.9 g/dL (32.0-36.0); MEAN CORPUSCULAR VOLUME 101.9 fL (80.0-94.0); MEAN PLATELET VOLUME 10.2 fL (7.4-11.4); MONOCYTES # (AUTO) 1.3 10^3/uL (0.0-1.0); MONOCYTES % (AUTO) 8.2 %; NEUTROPHILS # (AUTO) 13.6 10^3/uL (1.5-6.6); NEUTROPHILS % (AUTO) 84.3 %; PLT - PLATELET COUNT 256 10^3/uL (130-450); RED BLOOD COUNT 2.59 10^6/uL (4.70-6.10); WHITE BLOOD COUNT 16.2 x10^3/uL (4.8-10.8)
[2024-03-17 05:51] LABS: ALBUMIN 3.8 g/dL (3.2-5.5); ALBUMIN/GLOBULIN RATIO 1.2 (1.0-2.2); BILIRUBIN,TOTAL 0.2 mg/dL (0.2-1.0); CALCIUM 9.1 mg/dL (8.5-10.3); CREATININE 1.1 mg/dL (0.6-1.3); MAGNESIUM 2.1 mg/dL (1.7-2.3); POTASSIUM 5.2 mmol/L (3.5-4.5); TOTAL PROTEIN 6.9 g/dL (6.4-8.9)
[2024-03-17 05:52] LABS: CHOL/HDL RATIO 2.9 (<5.0); CHOLESTEROL 142 mg/dL; HDL CHOLESTEROL 49 mg/dL; LDL CHOLESTEROL,CALCULATED 80 mg/dL; LDL/HDL RATIO 1.6 (<3.6); TRIGLYCERIDES 64 mg/dL (48-352); VLDL CHOLESTEROL 13 mg/dL
[2024-03-17 06:05] LABS: THYROID STIMULATING HORMONE 1.61 uIU/mL (0.34-5.60)
--- NOTE | 2024-03-17 07:59 | PROVIDER PROGRESS NOTE ---
Subjective - Prog Note Date Prog Note Date: 03/17/24 Prog Note Time: 13:00 - Subjective Pt reports feeling: Worse (Worsened Hb to 6.7, needs blood transfusion) Subjective: pt with worsening R sided chest pain over the past week, with intermittent sob, worsened for one day, which promoted his ER visit. He also reports dark colored stools might from his iron supplementation. he has been developing fluid in his lungs and is waiting for outpatient thoracentesis to be done. He takes Asiprin daily Current Medications - Current Medications Current Medications: Active Medications Acetaminophen (Acetaminophen 325 Mg Tablet) 650 mg PO Q6H PRN PRN Reason: Pain 1 to 4, or Fever Ascorbic Acid (Ascorbic Acid 500 Mg Tablet) 500 mg PO DAILY [facility] Last Admin: 03/17/24 08:30 Dose: 500 mg Atorvastatin Calcium (Atorvastatin 10 Mg Tablet) 5 mg PO QPM [facility] Ferrous Sulfate (Ferrous Sulfate 325 Mg Tablet) 325 mg PO DAILY [facility] Last Admin: 03/17/24 08:30 Dose: 325 mg Ketorolac Tromethamine (Ketorolac 30 Mg/Ml Vial) 30 mg IVP Q6HR [facility] Stop: 03/19/24 08:59 Last Admin: 03/17/24 11:42 Dose: 30 mg Lactobacillus Rhamnosus (Lactobacillus Rhamnosus Gg Capsule) 1 cap PO DAILY [facility] Last Admin: 03/17/24 08:30 Dose: 1 cap Magnesium Oxide (Magnesium Oxide 400 Mg Tablet) 400 mg PO DAILY [facility] Last Admin: 03/17/24 08:30 Dose: 400 mg Morphine Sulfate (Morphine 2 Mg/Ml Carpuject) 1 mg IVP Q2HR PRN PRN Reason: Severe Pain (Level 7-10) Last Admin: 03/17/24 08:29 Dose: 1 mg Multivitamins/Minerals (Multivitamin W/Minerals Tablet) 1 tab PO DAILYWM [facility] Last Admin: 03/17/24 08:30 Dose: 1 tab Ondansetron HCl (Ondansetron 4 Mg/2 Ml Vial) 4 mg IVP Q6HR PRN PRN Reason: Nausea / Vomiting Oxycodone HCl (Oxycodone 5 Mg Tablet) 5 mg PO Q4HR PRN PRN Reason: Moderate Pain (Level 4-6) Last Admin: 03/17/24 11:42 Dose: 5 mg Pantoprazole Sodium (Pantoprazole 40 Mg Vial) 40 mg IVP BID [facility] Last Admin: 03/17/24 08:58 Dose: Not Given Sodium Chloride (Sodium Chloride Flush 0.9% 10 Ml Syringe) 10 ml IVP PRN PRN PRN Reason: NEEDED PER PROVIDER ORDERS Sodium Chloride (Sodium Chloride Flush 0.9% 10 Ml Syringe) 10 ml IVP 0100,0900,1700 [facility] Last Admin: 03/17/24 08:29 Dose: 10 ml Simvastatin 10 mg PO QPM 11/05/14 Acetaminophen [Tylenol] 650 mg PO DAILY PRN 04/27/15 Aspirin EC [Ecotrin] 325 mg PO DAILY 08/14/20 Multivit-Min/Iron/Folic Acid/K [Multi-Day Plus Minerals Tablet] 1 tab PO DAILY 08/14/20 Vit A/Vit C/Vit E/Zinc/Copper [Preservision Areds Softgel] 1 cap PO BID 08/14/20 Ferrous Sulfate [Feosol] 325 mg PO DAILY 11/29/23 Magnesium Oxide [Mag Ox] 400 mg PO DAILY 11/29/23 Objective - Vital Signs/Intake & Output Reviewed Vital Signs: Yes Vital Signs: Vital Signs Temp Pulse Pulse Resp BP BP Pulse Ox 03/17/24 05:00 36.9 C 102 H 17 120/64 93 03/17/24 04:00 107 H 18 126/78 95 O2 Flow Rate 03/17/24 05:00 2 03/17/24 04:00 2 Intake & Output: Intake & Output 03/14/24 03/15/24 03/16/24 03/17/24 23:59 23:59 23:59 23:59 Output Total 250 Balance -250 - Objective General Appearance: positive: Moderate distress (due to pain and dyspnea) Eyes Bilateral: positive: PERRL, EOMI ENT: positive: ENT inspection nml Neck: positive: Nml inspection Respiratory: positive: Other (right side tenderness, severe, worsen with deep breath, cough and palpation. distant lung sound on right) Cardiovascular: positive: Regular rate & rhythm Abdomen: positive: Non-tender Skin: positive: Dry. negative: Diaphoresis Extremities: positive: No pedal edema Neurologic/Psychiatric: positive: Oriented x3, CN's nml (2-12) - Lab Results Fish Bones: 03/17/24 12:12 03/17/24 05:05 Other Labs: Lab Results x24hrs 03/17/24 03/17/24 03/17/24 Range/Units 05:05 05:05 05:05 WBC 16.2 H (4.8-10.8) x10^3/uL RBC 2.59 L (4.70-6.10) 10^6/uL Hgb 7.9 L (14.0-18.0) g/dL Hct 26.4 L (42.0-52.0) % MCV 101.9 H (80.0-94.0) fL MCH 30.5 (27.0-31.0) pg MCHC 29.9 L (32.0-36.0) g/dL RDW 16.0 H (12.0-15.0) % Plt Count 256 (130-450) 10^3/uL MPV 10.2 (7.4-11.4) fL Neut # (Auto) 13.6 H (1.5-6.6) 10^3/uL Lymph # (Auto) 1.0 L (1.5-3.5) 10^3/uL [place] # (Auto) 1.3 H (0.0-1.0) 10^3/uL Eos # (Auto) 0.0 (0.0-0.7) 10^3/uL Baso # (Auto) 0.1 (0.0-0.1) 10^3/uL Absolute Nucleated RBC 0.00 x10^3/uL Nucleated RBC % 0.0 /100WBC PT (9.9-12.6) secs INR (0.8-1.2) Sodium 138 (135-145) mmol/L Potassium 5.2 H (3.5-4.5) mmol/L Chloride 105 (101-111) mmol/L Carbon Dioxide 27 (21-32) mmol/L Anion Gap 6.0 (6-13) BUN 42 H (6-20) mg/dL Creatinine 1.1 (0.6-1.3) mg/dL Estimated GFR (MDRD) 63 L (>89) Glucose 153 H (74-104) mg/dL Calcium 9.1 (8.5-10.3) mg/dL Magnesium 2.1 (1.7-2.3) mg/dL Total Bilirubin 0.2 (0.2-1.0) mg/dL AST 11 (10-42) IU/L ALT 11 (10-60) IU/L Alkaline Phosphatase 120 (42-121) IU/L Troponin I High Sens (2.3-19.7) ng/L B-Natriuretic Peptide (5-100) pg/mL Total Protein 6.9 (6.4-8.9) g/dL Albumin 3.8 (3.2-5.5) g/dL Globulin 3.1 (2.1-4.2) g/dL Albumin/Globulin Ratio 1.2 (1.0-2.2) Triglycerides 64 (48-352) mg/dL Cholesterol 142 ( - 200) mg/dL LDL Cholesterol, Calc 80 ( - 129) mg/dL VLDL Cholesterol 13 mg/dL HDL Cholesterol 49 L (60 - ) mg/dL LDL/HDL Ratio 1.6 (<3.6) Cholesterol/HDL Ratio 2.9 (<5.0) Lipase (11-82) U/L TSH 1.61 (0.34-5.60) uIU/mL 03/17/24 03/17/24 03/16/24 Range/Units 00:44 00:44 21:37 WBC (4.8-10.8) x10^3/uL RBC (4.70-6.10) 10^6/uL Hgb 7.8 L (14.0-18.0) g/dL Hct 26.1 L (42.0-52.0) % MCV (80.0-94.0) fL MCH (27.0-31.0) pg MCHC (32.0-36.0) g/dL RDW (12.0-15.0) % Plt Count (130-450) 10^3/uL MPV (7.4-11.4) fL Neut # (Auto) (1.5-6.6) 10^3/uL Lymph # (Auto) (1.5-3.5) 10^3/uL [place] # (Auto) (0.0-1.0) 10^3/uL Eos # (Auto) (0.0-0.7) 10^3/uL Baso # (Auto) (0.0-0.1) 10^3/uL Absolute Nucleated RBC x10^3/uL Nucleated RBC % /100WBC PT (9.9-12.6) secs INR (0.8-1.2) Sodium (135-145) mmol/L Potassium (3.5-4.5) mmol/L Chloride (101-111) mmol/L Carbon Dioxide (21-32) mmol/L Anion Gap (6-13) BUN (6-20) mg/dL Creatinine (0.6-1.3) mg/dL Estimated GFR (MDRD) (>89) Glucose (74-104) mg/dL Calcium (8.5-10.3) mg/dL Magnesium (1.7-2.3) mg/dL Total Bilirubin (0.2-1.0) mg/dL AST (10-42) IU/L ALT (10-60) IU/L Alkaline Phosphatase (42-121) IU/L Troponin I High Sens 12.8 (2.3-19.7) ng/L B-Natriuretic Peptide 30 (5-100) pg/mL Total Protein (6.4-8.9) g/dL Albumin (3.2-5.5) g/dL Globulin (2.1-4.2) g/dL Albumin/Globulin Ratio (1.0-2.2) Triglycerides (48-352) mg/dL Cholesterol ( - 200) mg/dL LDL Cholesterol, Calc ( - 129) mg/dL VLDL Cholesterol mg/dL HDL Cholesterol (60 - ) mg/dL LDL/HDL Ratio (<3.6) Cholesterol/HDL Ratio (<5.0) Lipase (11-82) U/L TSH (0.34-5.60) uIU/mL 03/16/24 03/16/24 03/16/24 Range/Units 21:37 21:37 21:37 WBC 14.5 H (4.8-10.8) x10^3/uL RBC 2.52 L (4.70-6.10) 10^6/uL Hgb 7.9 L (14.0-18.0) g/dL Hct 25.5 L (42.0-52.0) % MCV 101.2 H (80.0-94.0) fL MCH 31.3 H (27.0-31.0) pg MCHC 31.0 L (32.0-36.0) g/dL RDW 15.9 H (12.0-15.0) % Plt Count 231 (130-450) 10^3/uL MPV 9.7 (7.4-11.4) fL Neut # (Auto) 12.4 H (1.5-6.6) 10^3/uL Lymph # (Auto) 0.7 L (1.5-3.5) 10^3/uL [place] # (Auto) 1.0 (0.0-1.0) 10^3/uL Eos # (Auto) 0.2 (0.0-0.7) 10^3/uL Baso # (Auto) 0.1 (0.0-0.1) 10^3/uL Absolute Nucleated RBC 0.00 x10^3/uL Nucleated RBC % 0.0 /100WBC PT 12.1 (9.9-12.6) secs INR 1.1 (0.8-1.2) Sodium 137 (135-145) mmol/L Potassium 4.3 (3.5-4.5) mmol/L Chloride 105 (101-111) mmol/L Carbon Dioxide 26 (21-32) mmol/L Anion Gap 6.0 (6-13) BUN 41 H (6-20) mg/dL Creatinine 1.1 (0.6-1.3) mg/dL Estimated GFR (MDRD) 63 L (>89) Glucose 117 H (74-104) mg/dL Calcium 8.9 (8.5-10.3) mg/dL Magnesium (1.7-2.3) mg/dL Total Bilirubin 0.2 (0.2-1.0) mg/dL AST 12 (10-42) IU/L ALT 11 (10-60) IU/L Alkaline Phosphatase 121 (42-121) IU/L Troponin I High Sens 13.2 (2.3-19.7) ng/L B-Natriuretic Peptide (5-100) pg/mL Total Protein 6.6 (6.4-8.9) g/dL Albumin 3.6 (3.2-5.5) g/dL Globulin 3.0 (2.1-4.2) g/dL Albumin/Globulin Ratio 1.2 (1.0-2.2) Triglycerides (48-352) mg/dL Cholesterol ( - 200) mg/dL LDL Cholesterol, Calc ( - 129) mg/dL VLDL Cholesterol mg/dL HDL Cholesterol (60 - ) mg/dL LDL/HDL Ratio (<3.6) Cholesterol/HDL Ratio (<5.0) Lipase 24 (11-82) U/L TSH (0.34-5.60) uIU/mL - Diagnostic Imaging Diagnostic Imaging Results: positive: Final report reviewed Sepsis Event Note (H) - Evaluation Current Stage of Sepsis: Ruled out Assessment/Plan - Problem List (1) Acute on chronic anemia Impression: Hb 11.7-->8.9-->10.4-->7.9-->6.7 FOBT pos likely GI blood lose vs pleural blood lose Not stable for EGD -give 2 untis of PRBC -Thorocentisis merry -NPO, give iv protonix 40mg bid (2) Pleural effusion Impression: bilateral pleural effusion, with respiratory failure -weight lose reported by patient 8lbs over a months, 20lbs over a year. Hx of smoking -thorocentisis merry, check cell differential, gram stain, cytology, LDH, protein -pain managment -supportive care (3) Chest pain Impression: pleuratic pain, less likely cardaic reson -continue Tele -pain meds Qualifiers: Chest pain type: chest pain on breathing Qualified Code(s): R07.1 - Chest pain on breathing; R07.81 - Pleurodynia (4) Respiratory failure with hypoxia Impression: likely due to bilateral pleural effusion and acute anemia -correct the causes -oxygen treatment Qualifiers: Chronicity: acute Qualified Code(s): J96.01 - Acute respiratory failure with hypoxia
[2024-03-17] MEDS ORDERED: MULTIVITAMIN W/MINERALS TABLET PO SCH (08:00)
[2024-03-17 08:09] LABS: HCT - HEMATOCRIT 25.4 % (42.0-52.0); HGB - HEMOGLOBIN 7.6 g/dL (14.0-18.0)
[2024-03-17] MEDS: PANTOPRAZOLE 40 MG VIAL IVP SCH ×2 (08:29→08:58)
[2024-03-17] MEDS: SODIUM CHLORIDE FLUSH 0.9% 10 ML SYRINGE IVP SCH (08:29)
[2024-03-17] MEDS: ASCORBIC ACID 500 MG TABLET PO SCH (08:30)
[2024-03-17] MEDS: MAGNESIUM OXIDE 400 MG TABLET PO SCH (08:30)
[2024-03-17] MEDS: LACTOBACILLUS RHAMNOSUS GG CAPSULE PO SCH (08:30)
[2024-03-17] MEDS: MULTIVITAMIN W/MINERALS TABLET PO SCH (08:30)
[2024-03-17] MEDS: FERROUS SULFATE 325 MG TABLET PO SCH (08:30)
[2024-03-17] MEDS ORDERED: ZINC PO SCH (09:00)
[2024-03-17] MEDS ORDERED: VIT A PO SCH (09:00)
[2024-03-17] MEDS ORDERED: MULTIVIT MIN PO SCH (09:00)
[2024-03-17] MEDS ORDERED: [UNRECOGNIZED DRUG - OTHER] PO SCH (09:00)
[2024-03-17] MEDS ORDERED: FOLIC ACID PO SCH (09:00)
[2024-03-17] MEDS ORDERED: COPPER PO SCH (09:00)
[2024-03-17] MEDS ORDERED: IRON PO SCH (09:00)
[2024-03-17] MEDS ORDERED: [UNRECOGNIZED DRUG - OTHER] PO SCH (09:00)
[2024-03-17] MEDS ORDERED: VIT C PO SCH (09:00)
[2024-03-17] MEDS ORDERED: VIT E PO SCH (09:00)
[2024-03-17] MEDS: SODIUM ZIRCONIUM CYCLOSILICATE 5 GM PACKET PO ONE (09:05)
[2024-03-17] MEDS: KETOROLAC 30 MG/ML VIAL IVP SCH (09:05)
[2024-03-17 10:59] LABS: ESTIMATED AVERAGE GLUCOSE 88 mg/dL (70-100); HEMOGLOBIN A1c% 4.7 % (4.27-6.07)
[2024-03-17] MEDS: oxyCODONE 5 MG TABLET PO PRN (11:42)
[2024-03-17 12:29] LABS: HCT - HEMATOCRIT 22.2 % (42.0-52.0)
[2024-03-17 12:32] LABS: HGB - HEMOGLOBIN 6.7 g/dL (14.0-18.0)
--- NOTE | 2024-03-17 13:38 | ADVANCE CARE PLANNING NOTE ---
Advance Care Planning - Planning Encounter Date: 03/17/24 Time: 13:00 Purpose: Goal of care, code status Parties in Attendance: Patient, charge account identification clerk and hospitalist - Diagnosis for Encounter (1) Acute on chronic anemia Summary: worsening (2) Pleural effusion Summary: moderate to large amount of fluid, further work up for etiology, pending fluid analysis (3) Chest pain Qualifiers: Chest pain type: chest pain on breathing Qualified Code(s): R07.1 - Chest pain on breathing; R07.81 - Pleurodynia Summary: severe, pleural like pain (4) Respiratory failure with hypoxia Qualifiers: Chronicity: acute Qualified Code(s): J96.01 - Acute respiratory failure with hypoxia Summary: in need of Oxygen treatment - Encounter Subjective/Patient's Story: patient has been in different hospitals in the past 6 months since October, then December, still does not know a confirmed diagnosis he feels very weak and a lot of pain, can not sit up even for 30 min, very miserable Objective/Medical Story: Overall deconditioning, lives with elderly , has four children, and grandchildren Goals of Care: Getting better, resume baseline function Plan: Full code, would like to have any possible life prolong treatments Code Status: Attempt Resuscitation Time spent on advance care plannin min
--- NOTE | 2024-03-17 16:18 | PHARMACY PROGRESS NOTE ---
- Best Possible Medication History Admit Date and Time: 03/17/24 0401 Processed by: Pharmacy Medications reviewed in ED?: Yes Medication History completed: Yes Patient Interview: Completed Secondary Source(s): Insurance records (NO LONGER TAKING: TAMSULOSIN, METHOTREXATE, MIDODRINE PER PATIENT) As the person ultimately responsible for medication therapy, providers are able to order a medication from an existing home medication list in [facility] via the "Reconcile Routine" prior to Confirmation of that medication by office support clerk. Such practice is discouraged except when the physician, in their clinical judgment, deems that a medical need exists for a medication without regard to previous use.
[2024-03-17] MEDS: ATORVASTATIN 10 MG TABLET PO SCH (20:07)
[2024-03-17] MEDS: ACETAMINOPHEN 325 MG TABLET PO PRN (20:07)
[2024-03-17] MEDS ORDERED: SIMVASTATIN 20 MG PO SCH (21:00)
[2024-03-17 22:21] LABS: HGB - HEMOGLOBIN 9.7 g/dL (14.0-18.0)
[2024-03-18 04:42] LABS: BASOPHILS % (AUTO) 0.2 %; EOSINOPHILS # (AUTO) 0.1 10^3/uL (0.0-0.7); EOSINOPHILS % (AUTO) 0.9 %; HCT - HEMATOCRIT 32.9 % (42.0-52.0); HGB - HEMOGLOBIN 10.4 g/dL (14.0-18.0); LYMPHOCYTES # (AUTO) 0.4 10^3/uL (1.5-3.5); LYMPHOCYTES % (AUTO) 2.8 %; MEAN CORPUSCULAR HEMOGLOBIN 30.8 pg (27.0-31.0); MEAN CORPUSCULAR HGB CONC 31.6 g/dL (32.0-36.0); MEAN CORPUSCULAR VOLUME 97.3 fL (80.0-94.0); MEAN PLATELET VOLUME 9.8 fL (7.4-11.4); MONOCYTES # (AUTO) 1.1 10^3/uL (0.0-1.0); MONOCYTES % (AUTO) 7.7 %; NEUTROPHILS # (AUTO) 12.9 10^3/uL (1.5-6.6); NEUTROPHILS % (AUTO) 87.9 %; PLT - PLATELET COUNT 186 10^3/uL (130-450); RED BLOOD COUNT 3.38 10^6/uL (4.70-6.10); RED CELL DISTRIBUTION WIDTH 17.4 % (12.0-15.0); WHITE BLOOD COUNT 14.6 x10^3/uL (4.8-10.8)
[2024-03-18 04:50] LABS: CALCIUM 8.7 mg/dL (8.5-10.3); CREATININE 1.4 mg/dL (0.6-1.3); POTASSIUM 4.4 mmol/L (3.5-4.5)
--- NOTE | 2024-03-18 07:34 | PROVIDER PROGRESS NOTE ---
Subjective - Prog Note Date Prog Note Date: 03/18/24 Prog Note Time: 15:00 - Subjective Pt reports feeling: Improved Subjective: patient reports some improvement after the blood transfusion and paracentisis. He feels hungry would like to try some food Current Medications - Current Medications Current Medications: Active Medications Acetaminophen (Acetaminophen 325 Mg Tablet) 650 mg PO Q6H PRN PRN Reason: Pain 1 to 4, or Fever Last Admin: 03/18/24 15:06 Dose: 650 mg Albuterol (Albuterol Neb 2.5 Mg/3 Ml) 2.5 mg INH RTQ4H PRN PRN Reason: Wheezing Ascorbic Acid (Ascorbic Acid 500 Mg Tablet) 500 mg PO DAILY [facility] Last Admin: 03/18/24 08:30 Dose: 500 mg Atorvastatin Calcium (Atorvastatin 10 Mg Tablet) 5 mg PO QPM [facility] Last Admin: 03/17/24 20:07 Dose: 5 mg Ferrous Sulfate (Ferrous Sulfate 325 Mg Tablet) 325 mg PO DAILY [facility] Last Admin: 03/18/24 08:31 Dose: 325 mg Hydromorphone HCl (Hydromorphone 2 Mg/Ml Vial) 2 mg IVP Q2H PRN PRN Reason: Severe Pain (Level 7-10) Ipratropium [place] (Ipratropium 0.2 Mg/Ml Neb) 0.5 mg INH RTQ6H [facility] Last Admin: 03/18/24 13:01 Dose: 0.5 mg Ketorolac Tromethamine (Ketorolac 30 Mg/Ml Vial) 30 mg IVP Q6HR [facility] Stop: 03/19/24 08:59 Last Admin: 03/18/24 12:01 Dose: 30 mg Lactobacillus Rhamnosus (Lactobacillus Rhamnosus Gg Capsule) 1 cap PO DAILY [facility] Last Admin: 03/18/24 08:31 Dose: 1 cap Magnesium Oxide (Magnesium Oxide 400 Mg Tablet) 400 mg PO DAILY [facility] Last Admin: 03/18/24 08:31 Dose: 400 mg Multivitamins/Minerals (Multivitamin W/Minerals Tablet) 1 tab PO DAILYWM [facility] Last Admin: 03/18/24 08:30 Dose: 1 tab Ondansetron HCl (Ondansetron 4 Mg/2 Ml Vial) 4 mg IVP Q6HR PRN PRN Reason: Nausea / Vomiting Oxycodone HCl (Oxycodone 5 Mg Tablet) 5 mg PO Q4HR PRN PRN Reason: Moderate Pain (Level 4-6) Last Admin: 03/18/24 08:30 Dose: 5 mg Pantoprazole Sodium (Pantoprazole 40 Mg Vial) 40 mg IVP BID [facility] Last Admin: 03/18/24 08:31 Dose: 40 mg Sodium Chloride (Sodium Chloride Flush 0.9% 10 Ml Syringe) 10 ml IVP PRN PRN PRN Reason: NEEDED PER PROVIDER ORDERS Last Admin: 03/18/24 08:31 Dose: 10 ml Sodium Chloride (Sodium Chloride Flush 0.9% 10 Ml Syringe) 10 ml IVP 0100,0900,1700 [facility] Last Admin: 03/18/24 08:31 Dose: 20 ml Simvastatin 10 mg PO QPM 11/05/14 Acetaminophen [Tylenol] 650 mg PO Q8H PRN 04/27/15 Multivit-Min/Iron/Folic Acid/K [Multi-Day Plus Minerals Tablet] 1 tab PO DAILY 08/14/20 Vit A/Vit C/Vit E/Zinc/Copper [Preservision Areds Softgel] 1 cap PO BID 08/14/20 Ferrous Sulfate [Feosol] 325 mg PO DAILY 11/29/23 Magnesium Oxide [Mag Ox] 400 mg PO DAILY 11/29/23 Albuterol Sulfate [Proair Respiclick] 2 puffs INH Q6H PRN 03/17/24 Aspirin Chewable [[place] Aspirin] 81 mg PO DAILY 03/17/24 Losartan/Hydrochlorothiazide [Hyzaar 100-25 Tablet] 1 tab PO DAILY 03/17/24 Spironolactone [Aldactone] 25 mg PO DAILY 03/17/24 Tiotropium [place] [Spiriva Respimat] 1 inh INH DAILY 03/17/24 Torsemide 10 mg PO DAILY 03/17/24 Objective - Vital Signs/Intake & Output Reviewed Vital Signs: Yes Vital Signs: Vital Signs Temp Pulse Resp BP Pulse Ox O2 Flow Rate 03/18/24 04:00 37.2 C 90 20 128/75 96 2.5 Intake & Output: Intake & Output 03/15/24 03/16/24 03/17/24 03/18/24 23:59 23:59 23:59 23:59 Intake Total 1290 1100 Output Total 830 250 Balance 460 850 - Objective General Appearance: positive: Mild distress (mild respiratory distress) Eyes Bilateral: positive: PERRL, EOMI ENT: positive: ENT inspection nml, Other Neck: positive: No JVD Respiratory: positive: Other (coarse breath sounds, both lung sounds with Rhonchi. Right side pleural chest pain appears having some improvement) Cardiovascular: positive: Regular rate & rhythm Abdomen: positive: Non-tender Skin: positive: Pallor Extremities: positive: No pedal edema Neurologic/Psychiatric: positive: Oriented x3, CN's nml (2-12) - Lab Results Fish Bones: 03/18/24 11:55 03/18/24 04:28 Other Labs: Lab Results x24hrs 03/18/24 03/18/24 03/17/24 Range/Units 04:28 04:28 22:11 WBC 14.6 H (4.8-10.8) x10^3/uL RBC 3.38 L (4.70-6.10) 10^6/uL Hgb 10.4 L 9.7 L (14.0-18.0) g/dL Hct 32.9 L 31.0 L (42.0-52.0) % MCV 97.3 H (80.0-94.0) fL MCH 30.8 (27.0-31.0) pg MCHC 31.6 L (32.0-36.0) g/dL RDW 17.4 H (12.0-15.0) % Plt Count 186 (130-450) 10^3/uL MPV 9.8 (7.4-11.4) fL Neut # (Auto) 12.9 H (1.5-6.6) 10^3/uL Lymph # (Auto) 0.4 L (1.5-3.5) 10^3/uL [place] # (Auto) 1.1 H (0.0-1.0) 10^3/uL Eos # (Auto) 0.1 (0.0-0.7) 10^3/uL Baso # (Auto) 0.0 (0.0-0.1) 10^3/uL Absolute Nucleated RBC 0.00 x10^3/uL Nucleated RBC % 0.0 /100WBC Sodium 136 (135-145) mmol/L Potassium 4.4 (3.5-4.5) mmol/L Chloride 103 (101-111) mmol/L Carbon Dioxide 26 (21-32) mmol/L Anion Gap 7.0 (6-13) BUN 41 H (6-20) mg/dL Creatinine 1.4 H (0.6-1.3) mg/dL Estimated GFR (MDRD) 48 L (>89) Glucose 126 H (74-104) mg/dL Estimat Average Glucose (70-100) mg/dL Hemoglobin A1c % (4.27-6.07) % Calcium 8.7 (8.5-10.3) mg/dL Lactate Dehydrogenase (140-271) IU/L C-Reactive Protein (<0.5) mg/dL Blood Type Antibody Screen Crossmatch IS Only 03/17/24 03/17/24 03/17/24 Range/Units 13:45 12:12 08:04 WBC (4.8-10.8) x10^3/uL RBC (4.70-6.10) 10^6/uL Hgb 6.7 L* (14.0-18.0) g/dL Hct 22.2 L (42.0-52.0) % MCV (80.0-94.0) fL MCH (27.0-31.0) pg MCHC (32.0-36.0) g/dL RDW (12.0-15.0) % Plt Count (130-450) 10^3/uL MPV (7.4-11.4) fL Neut # (Auto) (1.5-6.6) 10^3/uL Lymph # (Auto) (1.5-3.5) 10^3/uL [place] # (Auto) (0.0-1.0) 10^3/uL Eos # (Auto) (0.0-0.7) 10^3/uL Baso # (Auto) (0.0-0.1) 10^3/uL Absolute Nucleated RBC x10^3/uL Nucleated RBC % /100WBC Sodium (135-145) mmol/L Potassium (3.5-4.5) mmol/L Chloride (101-111) mmol/L Carbon Dioxide (21-32) mmol/L Anion Gap (6-13) BUN (6-20) mg/dL Creatinine (0.6-1.3) mg/dL Estimated GFR (MDRD) (>89) Glucose (74-104) mg/dL Estimat Average Glucose (70-100) mg/dL Hemoglobin A1c % (4.27-6.07) % Calcium (8.5-10.3) mg/dL Lactate Dehydrogenase (140-271) IU/L C-Reactive Protein 5.3 H (<0.5) mg/dL Blood Type O POSITIVE Antibody Screen NEGATIVE Crossmatch IS Only See Detail 03/17/24 03/17/24 03/17/24 Range/Units 08:04 08:04 05:05 WBC (4.8-10.8) x10^3/uL RBC (4.70-6.10) 10^6/uL Hgb 7.6 L (14.0-18.0) g/dL Hct 25.4 L (42.0-52.0) % MCV (80.0-94.0) fL MCH (27.0-31.0) pg MCHC (32.0-36.0) g/dL RDW (12.0-15.0) % Plt Count (130-450) 10^3/uL MPV (7.4-11.4) fL Neut # (Auto) (1.5-6.6) 10^3/uL Lymph # (Auto) (1.5-3.5) 10^3/uL [place] # (Auto) (0.0-1.0) 10^3/uL Eos # (Auto) (0.0-0.7) 10^3/uL Baso # (Auto) (0.0-0.1) 10^3/uL Absolute Nucleated RBC x10^3/uL Nucleated RBC % /100WBC Sodium (135-145) mmol/L Potassium (3.5-4.5) mmol/L Chloride (101-111) mmol/L Carbon Dioxide (21-32) mmol/L Anion Gap (6-13) BUN (6-20) mg/dL Creatinine (0.6-1.3) mg/dL Estimated GFR (MDRD) (>89) Glucose (74-104) mg/dL Estimat Average Glucose 88 (70-100) mg/dL Hemoglobin A1c % 4.7 (4.27-6.07) % Calcium (8.5-10.3) mg/dL Lactate Dehydrogenase 98 L (140-271) IU/L C-Reactive Protein (<0.5) mg/dL Blood Type Antibody Screen Crossmatch IS Only - Diagnostic Imaging Diagnostic Imaging Results: positive: Final report reviewed Sepsis Event Note (H) - Evaluation Current Stage of Sepsis: Ruled out Assessment/Plan - Problem List (1) Acute on chronic anemia Impression: Improved after blood transfusion Hb 6.7-->10.4 continue monitoring, trend H&H -give clear liquid diet -observe sign of GI bleed -not stable for EGD or invasive GI work up -continue protonix 40mg bid iv (2) Pleural effusion Impression: s/p thorocentisis, 1L cloudy yellow fluid drained CXR: no complications, still has pleural fluid on both sides Await for fluid test reports (3) Chest pain Qualifiers: Chest pain type: chest pain on breathing Qualified Code(s): R07.1 - Chest pain on breathing; R07.81 - Pleurodynia (4) Respiratory failure with hypoxia Impression: Multifactorial: pleural effusion and acute anemia, overall deconditioning slightly improved, Dyspnea improved, RR 30s-->20s, on oxygen via nasal cannula -await for pleural effusion fluid test report -continue nebulizer treatment, oxygen treatment -correct anemia Qualifiers: Chronicity: acute Qualified Code(s): J96.01 - Acute respiratory failure with hypoxia (5) Acute kidney injury Impression: Cr 1.1-->1.4 strict I & O gentle iv fluid 500cc today, with concerns of bilateral pleural effusion monitoring renal function
[2024-03-18] MEDS: SODIUM CHLORIDE FLUSH 0.9% 10 ML SYRINGE IVP PRN (08:31)
[2024-03-18 12:11] LABS: HCT - HEMATOCRIT 31.8 % (42.0-52.0); HGB - HEMOGLOBIN 10.1 g/dL (14.0-18.0)
[2024-03-18] MEDS: IPRATROPIUM 0.2 MG/ML NEB INH SCH (13:01)
--- NOTE | 2024-03-18 14:54 | XRAY Report ---
PROCEDURE: Post Thoracentesis 1V CXR INDICATIONS: thorocentisis TECHNIQUE: One view of the chest was acquired. COMPARISON: Chest x-ray 01/15/2024, CT chest 01/15/2024 FINDINGS: Surgical changes and devices: Cervical fixation rods as well as cine loop recorder are unchanged. Lungs and pleura: Interval increased right effusion with interval decreased left effusion. Patchy zhang perimposed opacities remain present although slightly less so on the left and slightly more prominent on the right. Mediastinum: Mediastinal contours appear normal. Heart size is normal. Bones and chest wall: No suspicious bony lesions. Overlying soft tissues appear unremarkable. IMPRESSION: Persistent appearance of bilateral pleural effusions and superimposed opacities with mixed interval i mprovement/progression compared to prior exam as above. Reviewed by: Mira Montoya MD on 03/18/2024 2:52 PM PDT Approved by: Mira Montoya MD on 03/18/2024 2:52 PM PDT Station ID: [id number]
[2024-03-18 16:10] LABS: CC,BF RBC 5000 /mm^3; CC,BF WBC 742 /mm^3
[2024-03-18 16:11] LABS: BF CLARITY HAZY; BF COLOR YELLOW; BF SOURCE PLEURAL; LYMPHOCYTES %,BODY FLUID 54 %; MACROPHAGES %,BODY FLUID 35 %; MESOTHELIAL %, BF 4 %; NEUTROPHILS %, BF 7 %
--- NOTE | 2024-03-18 16:30 | Ultrasound Report ---
PROCEDURE: Thoracentesis Puncture INDICATIONS: pleural effusions, sob, chest pain (chest wall) TECHNIQUE: The indications, alternatives, benefits, risks, and complications of the procedure were explained to the patient. Written informed consent was obtained and placed in the chart. The chest was examined sonographically, and an appropriate site was chosen for thoracentesis. The skin was prepared and devante ped in the usual sterile fashion, and 1% lidocaine was infiltrated from the skin down through the ple ural surface. A 19-gauge catheter-covered needle was then introduced into the pleural space, the cat heter was advanced and the needle was withdrawn, and thereafter pleural fluid was aspirated. The cat heter was then removed and a dressing was applied. COMPARISON: None. Correlation made to angiogram chest 03/16/2024 FINDINGS: Access site: Left posterior hemithorax. Needle: One-Step centesis catheter with introducer needle. Fluid volume and description: 1 L edita Fluid sent for diagnostic testing: Yes Medications: 1% lidocaine for local anaesthesia. Complications: None; post-procedural chest radiograph is pending to assess for pneumothorax. IMPRESSION: Successful ultrasound-guided thoracentesis. Reviewed by: Yin Modi MD on 03/18/2024 4:29 PM PDT Approved by: Yin Modi MD on 03/18/2024 4:29 PM PDT Station ID: [id number]
[2024-03-19] MEDS: HYDROmorphone 2 MG/ML VIAL IVP PRN (04:38)
[2024-03-19 05:44] LABS: BASOPHILS # (AUTO) 0.1 10^3/uL (0.0-0.1); BASOPHILS % (AUTO) 0.3 %; EOSINOPHILS # (AUTO) 0.2 10^3/uL (0.0-0.7); EOSINOPHILS % (AUTO) 1.2 %; LYMPHOCYTES # (AUTO) 0.5 10^3/uL (1.5-3.5); LYMPHOCYTES % (AUTO) 2.6 %; MEAN CORPUSCULAR HEMOGLOBIN 30.1 pg (27.0-31.0); MEAN CORPUSCULAR HGB CONC 31.4 g/dL (32.0-36.0); MEAN CORPUSCULAR VOLUME 95.6 fL (80.0-94.0); MEAN PLATELET VOLUME 9.9 fL (7.4-11.4); MONOCYTES # (AUTO) 1.5 10^3/uL (0.0-1.0); MONOCYTES % (AUTO) 8.1 %; NEUTROPHILS # (AUTO) 15.5 10^3/uL (1.5-6.6); NEUTROPHILS % (AUTO) 87.2 %; PLT - PLATELET COUNT 231 10^3/uL (130-450); RED BLOOD COUNT 3.66 10^6/uL (4.70-6.10); RED CELL DISTRIBUTION WIDTH 15.9 % (12.0-15.0); WHITE BLOOD COUNT 17.8 x10^3/uL (4.8-10.8)
[2024-03-19 05:57] LABS: CALCIUM 8.8 mg/dL (8.5-10.3); CREATININE 1.3 mg/dL (0.6-1.3); POTASSIUM 5.1 mmol/L (3.5-4.5)
[2024-03-19 06:11] LABS: pH BODY FLUID 7.6 (Not Estab.)
[2024-03-19 07:09] LABS: PROTEIN BODY FLUID 4.6 g/dL (.)
--- NOTE | 2024-03-19 08:19 | XRAY Report ---
PROCEDURE: Chest 1V INDICATIONS: Worsening dyspnea, recent thoracentesis TECHNIQUE: One view of the chest was acquired. COMPARISON: 03/16/2024, 03/14/[address] or angiogram of the chest dated 03/16/2024. FINDINGS: Surgical changes and devices: Post fusion changes are noted in thoracic spine. External pacing devic e is also seen. Lungs and pleura: There is interval improvement in left lung aeration with decreased amount of left- sided pleural effusion. Small left pleural effusion with left basilar infiltrate/atelectasis is seen. There is interval increase in the amount of right-sided pleural effusion with atelectasis of right l hailey. No pneumothorax. Mediastinum: Mediastinal contours appear normal. Heart size is enlarged. Bones and chest wall: No suspicious bony lesions. Overlying soft tissues appear unremarkable. IMPRESSION: 1. Interval worsening of right lung aeration with significant increase in right-sided pleural effusio n with right lung atelectasis. 2. Small residual left pleural effusion with left basilar infiltrate/ectasis. 3. No pneumothorax. Reviewed by: Weston Pepper MD on 03/19/2024 8:18 AM PDT Approved by: Weston Pepper MD on 03/19/2024 8:18 AM PDT Station ID: [id number]
[2024-03-19] MEDS: cefTRIAXone 2 GM in SODIUM CHLORIDE 0.9% MINIBAG 100 ML IV SCH (13:03)
[2024-03-19] MEDS: FUROSEMIDE 20 MG/2 ML VIAL IVP SCH (13:03)
[2024-03-19] MEDS: AZITHROMYCIN INJ 500 MG in SODIUM CHLORIDE 0.9% 250 ML IV SCH (13:47)
--- NOTE | 2024-03-19 14:22 | PROVIDER PROGRESS NOTE ---
Subjective - Prog Note Date Prog Note Date: 03/19/24 Prog Note Time: 14:20 - Subjective Subjective: Overnight the patient had worsening hypoxia, requiring up to 12 L nasal cannula. He also had increased work of breathing and his white blood cell count was noted to be elevated today though he was afebrile. He denies having any chest pain during my evaluation though he does report feeling some shortness of breath. Denies peripheral edema, calf tenderness, nausea, vomiting, diarrhea. Underwent left-sided thoracentesis yesterday with 1 L of fluid removed. Current Medications - Current Medications Current Medications: Current Medications Generic Name Dose Route Start Last Admin Trade Name Freq PRN Reason Stop Dose Admin Acetaminophen 650 mg 03/17/24 04:01 03/18/24 21:48 Acetaminophen 325 Mg Tablet PO 650 mg Q6H PRN Administration Pain 1 to 4, or Fever Ascorbic Acid 500 mg 03/17/24 09:00 03/19/24 07:50 Ascorbic Acid 500 Mg Tablet PO 500 mg DAILY DOMINIK Administration Atorvastatin Calcium 5 mg 03/17/24 21:00 03/18/24 21:48 Atorvastatin 10 Mg Tablet PO 5 mg QPM DOMINIK Administration Ferrous Sulfate 325 mg 03/17/24 09:00 03/19/24 07:50 Ferrous Sulfate 325 Mg Tablet PO 325 mg DAILY DOMINIK Administration Furosemide 20 mg 03/19/24 13:00 03/19/24 13:03 Furosemide 20 Mg/2 Ml Vial IVP 20 mg DAILY DOMINIK Administration Hydromorphone HCl 2 mg 03/18/24 07:29 03/19/24 14:17 Hydromorphone 2 Mg/Ml Vial IVP 2 mg Q2H PRN Administration Severe Pain (Level 7-10) Ceftriaxone Sodium 2 gm/ 100 mls @ 200 mls/hr 03/19/24 13:00 03/19/24 13:47 Sodium Chloride IV 03/23/24 09:29 Infused DAILY DOMINIK Infusion Azithromycin 500 mg/ Sodium 250 mls @ 250 mls/hr 03/19/24 13:00 03/19/24 13:47 Chloride IV 03/21/24 09:59 250 mls/hr DAILY DOMINIK Administration Ipratropium [place] 0.5 mg 03/18/24 13:00 03/19/24 13:18 Ipratropium 0.2 Mg/Ml Neb INH 0.5 mg RTQ6H DOMINIK Administration Lactobacillus Rhamnosus 1 cap 03/17/24 09:00 03/19/24 07:50 Lactobacillus Rhamnosus Gg Capsule PO 1 cap DAILY DOMINIK Administration Magnesium Oxide 400 mg 03/17/24 09:00 03/19/24 07:50 Magnesium Oxide 400 Mg Tablet PO 400 mg DAILY DOMINIK Administration Multivitamins/Minerals 1 tab 03/17/24 08:00 03/19/24 07:50 Multivitamin W/Minerals Tablet PO 1 tab DAILYWM DOMINIK Administration Oxycodone HCl 5 mg 03/17/24 04:00 03/18/24 08:30 Oxycodone 5 Mg Tablet PO 5 mg Q4HR PRN Administration Moderate Pain (Level 4-6) Pantoprazole Sodium 40 mg 03/17/24 09:00 03/19/24 07:50 Pantoprazole 40 Mg Vial IVP 40 mg BID DOMINIK Administration Sodium Chloride 10 ml 03/17/24 04:01 03/19/24 13:06 Sodium Chloride Flush 0.9% 10 Ml Syringe IVP 10 ml PRN PRN Administration NEEDED PER PROVIDER ORDERS Sodium Chloride 10 ml 03/17/24 09:00 03/19/24 14:18 Sodium Chloride Flush 0.9% 10 Ml Syringe IVP 10 ml 0100,0900,1700 DOMINIK Administration Objective - Vital Signs/Intake & Output Reviewed Vital Signs: Yes Vital Signs: Vital Signs x48h Temp Pulse Pulse Pulse Resp BP BP 03/19/24 14:00 36.5 C 100 30 H 128/67 03/19/24 13:18 104 H 22 03/19/24 12:25 37.3 C 108 H 24 155/77 H 03/19/24 09:20 24 03/19/24 09:15 24 03/19/24 07:43 112 H 18 03/19/24 07:24 36.9 C 117 H 116 H 16 140/86 H Pulse Ox O2 Flow Rate 03/19/24 14:00 92 4 03/19/24 13:18 4 03/19/24 12:25 93 4 03/19/24 09:20 93 4 03/19/24 09:15 80 L 03/19/24 07:43 4 03/19/24 07:24 92 5 Intake & Output: Intake & Output 03/16/24 03/17/24 03/18/24 03/19/24 23:59 23:59 23:59 23:59 Intake Total 1290 3300 740 Output Total 830 1350 825 Balance 460 1950 -85 - Objective General Appearance: positive: Alert, Moderate distress (Breathing around 20/min and using accessory muscles) Eyes Bilateral: positive: Normal inspection, PERRL, EOMI ENT: positive: ENT inspection nml Neck: positive: Nml inspection, Thyroid nml Respiratory: positive: Other (He is in mild to moderate respiratory distress using accessory muscles. Diminished air movement on the right with bronchial breath sounds noted on the right. Left chest with inspiratory crackles in the lower lobe posteriorly. No wheezing or rhonchi noted.) Cardiovascular: positive: Tachycardia, JVD present (Mild JVD noted at 30 degree inclination), Systolic murmur (2/6 systolic murmur at RUSB and LLSB) Peripheral Pulses: 1+ Dorsalis pedis (R), 1+ Dorsalis pedis (L) Abdomen: positive: Non-tender, No organomegaly, Nml bowel sounds, No distention Skin: positive: No rash, Warm, Dry, Pallor Extremities: positive: Non-tender, Full ROM, Nml appearance, No pedal edema Neurologic/Psychiatric: positive: Oriented x3, CN's nml (2-12), Motor nml - Lab Results Fish Bones: 03/19/24 05:16 03/19/24 14:14 Other Labs: Lab Results x24hrs 03/19/24 03/19/24 03/19/24 Range/Units 12:45 07:58 07:58 WBC (4.8-10.8) x10^3/uL RBC (4.70-6.10) 10^6/uL Hgb (14.0-18.0) g/dL Hct (42.0-52.0) % MCV (80.0-94.0) fL MCH (27.0-31.0) pg MCHC (32.0-36.0) g/dL RDW (12.0-15.0) % Plt Count (130-450) 10^3/uL MPV (7.4-11.4) fL Neut # (Auto) (1.5-6.6) 10^3/uL Lymph # (Auto) (1.5-3.5) 10^3/uL [place] # (Auto) (0.0-1.0) 10^3/uL Eos # (Auto) (0.0-0.7) 10^3/uL Baso # (Auto) (0.0-0.1) 10^3/uL Absolute Nucleated RBC x10^3/uL Nucleated RBC % /100WBC Sodium (135-145) mmol/L Potassium (3.5-4.5) mmol/L Chloride (101-111) mmol/L Carbon Dioxide (21-32) mmol/L Anion Gap (6-13) BUN (6-20) mg/dL Creatinine (0.6-1.3) mg/dL Estimated GFR (MDRD) (>89) Glucose (74-104) mg/dL Calcium (8.5-10.3) mg/dL Troponin I High Sens 27.1 H* (2.3-19.7) ng/L B-Natriuretic Peptide 147 H (5-100) pg/mL Fluid Source Fluid Color Fluid Clarity Fluid pH (Not Estab.) Fluid WBC /mm^3 Fluid RBC /mm^3 Fluid Neutrophils % % Fluid Lymphocytes % % Fluid Macrophages % % Fld Mesothelial Cell % % Fluid Total Protein (.) g/dL Fluid LDH (.) IU/L Nasal Screen MRSA (PCR) (NEGATIVE) SARS-CoV-2 (PCR) NOT DETECTED 03/19/24 03/19/24 03/18/24 Range/Units 05:16 05:16 14:35 WBC 17.8 H (4.8-10.8) x10^3/uL RBC 3.66 L (4.70-6.10) 10^6/uL Hgb 11.0 L (14.0-18.0) g/dL Hct 35.0 L (42.0-52.0) % MCV 95.6 H (80.0-94.0) fL MCH 30.1 (27.0-31.0) pg MCHC 31.4 L (32.0-36.0) g/dL RDW 15.9 H (12.0-15.0) % Plt Count 231 (130-450) 10^3/uL MPV 9.9 (7.4-11.4) fL Neut # (Auto) 15.5 H (1.5-6.6) 10^3/uL Lymph # (Auto) 0.5 L (1.5-3.5) 10^3/uL [place] # (Auto) 1.5 H (0.0-1.0) 10^3/uL Eos # (Auto) 0.2 (0.0-0.7) 10^3/uL Baso # (Auto) 0.1 (0.0-0.1) 10^3/uL Absolute Nucleated RBC 0.00 x10^3/uL Nucleated RBC % 0.0 /100WBC Sodium 133 L (135-145) mmol/L Potassium 5.1 H (3.5-4.5) mmol/L Chloride 101 (101-111) mmol/L Carbon Dioxide 23 (21-32) mmol/L Anion Gap 9.0 (6-13) BUN 40 H (6-20) mg/dL Creatinine 1.3 (0.6-1.3) mg/dL Estimated GFR (MDRD) 52 L (>89) Glucose 136 H (74-104) mg/dL Calcium 8.8 (8.5-10.3) mg/dL Troponin I High Sens (2.3-19.7) ng/L B-Natriuretic Peptide (5-100) pg/mL Fluid Source Fluid Color Fluid Clarity Fluid pH 7.6 (Not Estab.) Fluid WBC /mm^3 Fluid RBC /mm^3 Fluid Neutrophils % % Fluid Lymphocytes % % Fluid Macrophages % % Fld Mesothelial Cell % % Fluid Total Protein 4.6 (.) g/dL Fluid LDH 111 (.) IU/L Nasal Screen MRSA (PCR) (NEGATIVE) SARS-CoV-2 (PCR) 03/18/24 03/18/24 Range/Units 14:35 11:55 WBC (4.8-10.8) x10^3/uL RBC (4.70-6.10) 10^6/uL Hgb (14.0-18.0) g/dL Hct (42.0-52.0) % MCV (80.0-94.0) fL MCH (27.0-31.0) pg MCHC (32.0-36.0) g/dL RDW (12.0-15.0) % Plt Count (130-450) 10^3/uL MPV (7.4-11.4) fL Neut # (Auto) (1.5-6.6) 10^3/uL Lymph # (Auto) (1.5-3.5) 10^3/uL [place] # (Auto) (0.0-1.0) 10^3/uL Eos # (Auto) (0.0-0.7) 10^3/uL Baso # (Auto) (0.0-0.1) 10^3/uL Absolute Nucleated RBC x10^3/uL Nucleated RBC % /100WBC Sodium (135-145) mmol/L Potassium (3.5-4.5) mmol/L Chloride (101-111) mmol/L Carbon Dioxide (21-32) mmol/L Anion Gap (6-13) BUN (6-20) mg/dL Creatinine (0.6-1.3) mg/dL Estimated GFR (MDRD) (>89) Glucose (74-104) mg/dL Calcium (8.5-10.3) mg/dL Troponin I High Sens (2.3-19.7) ng/L B-Natriuretic Peptide (5-100) pg/mL Fluid Source PLEURAL Fluid Color YELLOW Fluid Clarity HAZY Fluid pH (Not Estab.) Fluid WBC 742 /mm^3 Fluid RBC 5000 /mm^3 Fluid Neutrophils % 7 % Fluid Lymphocytes % 54 % Fluid Macrophages % 35 % Fld Mesothelial Cell % 4 % Fluid Total Protein (.) g/dL Fluid LDH (.) IU/L Nasal Screen MRSA (PCR) NEGATIVE (NEGATIVE) SARS-CoV-2 (PCR) - Diagnostic Imaging Diagnostic Imaging Results: positive: Final report reviewed, Read independently (Per my read on chest x-ray this morning: increasing right sided pleural effusion. Left pleural effusion mostly resolved, no pneumothorax. Bilateral opacities noted, worse on left (new).) ABX Reporting Has patient been on IV antibiotics over the past 48 hours?: No Sepsis Event Note (H) - Evaluation Current Stage of Sepsis: Ruled out Assessment/Plan - Problem List (1) Respiratory failure with hypoxia Impression: Is worsening overnight is likely due to a combination of pneumonia as well as worsening right pleural effusion. -Treat his pneumonia and pleural effusions as noted below. -Continue supplemental oxygen and maintain saturations greater than 90% -Obtain EKG, BMP, troponin. Qualifiers: Chronicity: acute Qualified Code(s): J96.01 - Acute respiratory failure with hypoxia (2) Bilateral pleural effusion Impression: Unclear etiology though could be CHF related. Preliminary fluid studies on the left pleural fluid shows fluid protein 4.6 and fluid LDH 111. -S/p thoracentesis on 03/18/2024 with 1 L removed from the left chest. -His chest x-ray today shows increased right pleural effusion, thus will likely need right-sided thoracentesis. -Start IV Lasix 40 mg twice daily -If no improvement, can consider right thoracentesis (3) Acute on chronic anemia Impression: Currently has a macrocytic anemia and he presented with a hemoglobin of 6.7. He underwent PRBC transfusion with improvement in his hemoglobin. No evidence of GI bleeding while hospitalized thus far. -Continue IV Protonix 40 mg twice daily -Not stable for EGD at this time, can refer as outpatient -Check iron studies, TSH, B12, folate and fecal occult blood test. -Daily CBC for now (4) Chest pain Impression: Appears to be consistent with pleurodynia from his pleural effusions and p neumonia. -EKG shows no evidence of pericarditis -Repeat chest x-ray today showed no evidence of pneumothorax or other complication -CTA chest on presentation was negative for pulmonary embolism -Slight elevation in troponin this morning to 27 is likely due to demand ischemia from his hypoxia. Will repeat troponin this afternoon and trend if still increasing. Qualifiers: Chest pain type: chest pain on breathing Qualified Code(s): R07.1 - Chest pain on breathing; R07.81 - Pleurodynia (5) Community acquired pneumonia Impression: His repeat chest x-ray this morning appeared to have bilateral hazy opacities consistent with pneumonia. He has been afebrile but has had an increase in white blood cell count. -Will check blood cultures and sputum cultures along with COVID test. -Start IV ceftriaxone and azithromycin. (6) Acute kidney injury Impression: He had evidence of mild acute kidney injury on presentation with a baseline creatinine 1.9 and his presenting creatinine was 1.4. -Creatinine has improved after receiving gentle IV fluids and PRBC transfusion on admission. -Given that he appears to have excess fluid at this time we will be diuresing as noted above. -Avoid unnecessary nephrotoxins and monitor creatinine closely while diuresing.
[2024-03-19 14:31] LABS: MAGNESIUM 2.1 mg/dL (1.7-2.3); POTASSIUM 4.8 mmol/L (3.5-4.5)
[2024-03-20] MEDS: guaiFENesin 600 MG TABLET PO SCH ×2 (04:04→10:22)
[2024-03-20 06:01] LABS: BASOPHILS % (AUTO) 0.1 %; EOSINOPHILS % (AUTO) 0.3 %; HCT - HEMATOCRIT 31.6 % (42.0-52.0); HGB - HEMOGLOBIN 9.7 g/dL (14.0-18.0); LYMPHOCYTES # (AUTO) 0.3 10^3/uL (1.5-3.5); LYMPHOCYTES % (AUTO) 2.3 %; MEAN CORPUSCULAR HEMOGLOBIN 29.4 pg (27.0-31.0); MEAN CORPUSCULAR HGB CONC 30.7 g/dL (32.0-36.0); MEAN CORPUSCULAR VOLUME 95.8 fL (80.0-94.0); MEAN PLATELET VOLUME 9.9 fL (7.4-11.4); MONOCYTES # (AUTO) 1.5 10^3/uL (0.0-1.0); MONOCYTES % (AUTO) 10.7 %; NEUTROPHILS # (AUTO) 12.1 10^3/uL (1.5-6.6); PLT - PLATELET COUNT 242 10^3/uL (130-450); WHITE BLOOD COUNT 14.1 x10^3/uL (4.8-10.8)
[2024-03-20 06:20] LABS: BUN - BLOOD UREA NITROGEN 34 mg/dL (6-20); CALCIUM 8.9 mg/dL (8.5-10.3); CARBON DIOXIDE - CO2 26 mmol/L (21-32); CHLORIDE 99 mmol/L (101-111); CREATININE 1.3 mg/dL (0.6-1.3); GFR - MDRD 52 (>89); GLUCOSE 177 mg/dL (74-104); IRON < 10 ug/dL (50-212); POTASSIUM 4.6 mmol/L (3.5-4.5); SODIUM 132 mmol/L (135-145); TOTAL IRON BINDING CAPACITY 132 ug/dL (250-450); TRANSFERRIN 94 mg/dL (203-362)
[2024-03-20 06:59] LABS: THYROID STIMULATING HORMONE 0.91 uIU/mL (0.34-5.60)
--- NOTE | 2024-03-20 07:55 | PROVIDER PROGRESS NOTE ---
Subjective - Prog Note Date Prog Note Date: 03/20/24 Prog Note Time: 07:54 - Subjective Subjective: No acute events overnight though the patient continues to be hypoxic and complaining of right-sided pleuritic chest pain. He has also been coughing and bringing up phlegm though he denies any hemoptysis. Remains afebrile and denies any vomiting, abdominal pain. Does report feeling diaphoretic and unwell in general. Current Medications - Current Medications Current Medications: Acetaminophen (Acetaminophen 325 Mg Tablet) 650 mg PO Q6H PRN PRN Reason: Pain 1 to 4, or Fever Last Admin: 03/18/24 21:48 Dose: 650 mg Albuterol (Albuterol Neb 2.5 Mg/3 Ml) 2.5 mg INH RTQ4H PRN PRN Reason: Wheezing Ascorbic Acid (Ascorbic Acid 500 Mg Tablet) 500 mg PO DAILY [facility] Last Admin: 03/19/24 07:50 Dose: 500 mg Atorvastatin Calcium (Atorvastatin 10 Mg Tablet) 5 mg PO QPM [facility] Last Admin: 03/19/24 20:18 Dose: 5 mg Ferrous Sulfate (Ferrous Sulfate 325 Mg Tablet) 325 mg PO DAILY [facility] Last Admin: 03/19/24 07:50 Dose: 325 mg Furosemide (Furosemide 20 Mg/2 Ml Vial) 40 mg IVP DAILY [facility] Guaifenesin (Guaifenesin 600 Mg Tablet) 600 mg PO BID [facility] Last Admin: 03/20/24 04:04 Dose: 600 mg Hydromorphone HCl (Hydromorphone 2 Mg/Ml Vial) 1 mg IVP Q4HR PRN PRN Reason: Severe Pain (Level 7-10) Ceftriaxone Sodium 2 gm/ (Sodium Chloride) 100 mls @ 200 mls/hr IV DAILY [facility] Stop: 03/23/24 09:29 Last Infusion: 03/19/24 13:47 Dose: Infused Azithromycin 500 mg/ Sodium (Chloride) 250 mls @ 250 mls/hr IV DAILY [facility] Stop: 03/21/24 09:59 Last Infusion: 03/19/24 15:12 Dose: Infused Ipratropium [place] (Ipratropium 0.2 Mg/Ml Neb) 0.5 mg INH RTQ6H [facility] Last Admin: 03/20/24 07:22 Dose: 0.5 mg Lactobacillus Rhamnosus (Lactobacillus Rhamnosus Gg Capsule) 1 cap PO DAILY [facility] Last Admin: 03/19/24 07:50 Dose: 1 cap Magnesium Oxide (Magnesium Oxide 400 Mg Tablet) 400 mg PO DAILY [facility] Last Admin: 03/19/24 07:50 Dose: 400 mg Multivitamins/Minerals (Multivitamin W/Minerals Tablet) 1 tab PO DAILYWM [facility] Last Admin: 03/19/24 07:50 Dose: 1 tab Ondansetron HCl (Ondansetron 4 Mg/2 Ml Vial) 4 mg IVP Q6HR PRN PRN Reason: Nausea / Vomiting Oxycodone HCl (Oxycodone 5 Mg Tablet) 5 mg PO Q4HR PRN PRN Reason: Moderate Pain (Level 4-6) Last Admin: 03/18/24 08:30 Dose: 5 mg Pantoprazole Sodium (Pantoprazole 40 Mg Vial) 40 mg IVP BID [facility] Last Admin: 03/19/24 20:19 Dose: 40 mg Polyethylene Glycol (Polyethylene Glycol 3350 17 Gm Packet) 17 gm PO DAILY [facility] Sodium Chloride (Sodium Chloride Flush 0.9% 10 Ml Syringe) 10 ml IVP PRN PRN PRN Reason: NEEDED PER PROVIDER ORDERS Last Admin: 03/19/24 13:06 Dose: 10 ml Sodium Chloride (Sodium Chloride Flush 0.9% 10 Ml Syringe) 10 ml IVP 0100,0900,1700 [facility] Last Admin: 03/20/24 00:46 Dose: 10 ml Objective - Vital Signs/Intake & Output Reviewed Vital Signs: Yes Vital Signs: Vital Signs x48h Temp Pulse Pulse Resp BP Pulse Ox O2 Flow Rate 03/20/24 07:23 105 H 18 3.5 03/20/24 05:09 37.2 C 115 H 22 182/83 H 91 L 5 Intake & Output: Intake & Output 03/17/24 03/18/24 03/19/24 03/20/24 23:59 23:59 23:59 23:59 Intake Total 1290 3300 1240 920 Output Total 830 1350 1050 225 Balance 460 1950 190 695 - Objective General Appearance: positive: Other (Alert and in mild to moderate respiratory distress. Appears acutely ill.) Eyes Bilateral: positive: Normal inspection, PERRL, EOMI ENT: positive: ENT inspection nml, No signs of dehydration Neck: positive: Nml inspection, Thyroid nml, Trachea midline Respiratory: positive: Other (Mild to moderate respiratory distress. Diminished air movement on right side with inspiratory crackles. Left lung with better air movement and occasional basilar crackles.) Cardiovascular: positive: No gallop, Tachycardia, JVD present, Systolic murmur (soft 2/6 systolic murmur at RUSB) Abdomen: positive: Non-tender, No organomegaly, Nml bowel sounds, No distention Skin: positive: Color nml, Warm, Diaphoresis Extremities: positive: Pedal edema (1+ edema) Neurologic/Psychiatric: positive: Oriented x3, CN's nml (2-12), Motor nml - Lab Results Fish Bones: 03/20/24 05:39 03/20/24 05:39 Other Labs: Lab Results x24hrs 03/20/24 03/20/24 03/19/24 Range/Units 05:39 05:39 14:14 WBC 14.1 H (4.8-10.8) x10^3/uL RBC 3.30 L (4.70-6.10) 10^6/uL Hgb 9.7 L (14.0-18.0) g/dL Hct 31.6 L (42.0-52.0) % MCV 95.8 H (80.0-94.0) fL MCH 29.4 (27.0-31.0) pg MCHC 30.7 L (32.0-36.0) g/dL RDW 15.0 (12.0-15.0) % Plt Count 242 (130-450) 10^3/uL MPV 9.9 (7.4-11.4) fL Neut # (Auto) 12.1 H (1.5-6.6) 10^3/uL Lymph # (Auto) 0.3 L (1.5-3.5) 10^3/uL [place] # (Auto) 1.5 H (0.0-1.0) 10^3/uL Eos # (Auto) 0.0 (0.0-0.7) 10^3/uL Baso # (Auto) 0.0 (0.0-0.1) 10^3/uL Absolute Nucleated RBC 0.00 x10^3/uL Nucleated RBC % 0.0 /100WBC Sodium 132 L (135-145) mmol/L Potassium 4.6 H (3.5-4.5) mmol/L Chloride 99 L (101-111) mmol/L Carbon Dioxide 26 (21-32) mmol/L Anion Gap 7.0 (6-13) BUN 34 H (6-20) mg/dL Creatinine 1.3 (0.6-1.3) mg/dL Estimated GFR (MDRD) 52 L (>89) Glucose 177 H (74-104) mg/dL Calcium 8.9 (8.5-10.3) mg/dL Magnesium (1.7-2.3) mg/dL Iron < 10 L (50-212) ug/dL TIBC 132 L (250-450) ug/dL % Saturation TNP Transferrin 94 L (203-362) mg/dL Troponin I High Sens 25.9 H* (2.3-19.7) ng/L B-Natriuretic Peptide (5-100) pg/mL Vitamin B12 552 (180-914) pg/mL Folate 10.4 (5.90 - >24.8) ng/mL TSH 0.91 (0.34-5.60) uIU/mL SARS-CoV-2 (PCR) 03/19/24 03/19/24 03/19/24 Range/Units 14:14 12:45 07:58 WBC (4.8-10.8) x10^3/uL RBC (4.70-6.10) 10^6/uL Hgb (14.0-18.0) g/dL Hct (42.0-52.0) % MCV (80.0-94.0) fL MCH (27.0-31.0) pg MCHC (32.0-36.0) g/dL RDW (12.0-15.0) % Plt Count (130-450) 10^3/uL MPV (7.4-11.4) fL Neut # (Auto) (1.5-6.6) 10^3/uL Lymph # (Auto) (1.5-3.5) 10^3/uL [place] # (Auto) (0.0-1.0) 10^3/uL Eos # (Auto) (0.0-0.7) 10^3/uL Baso # (Auto) (0.0-0.1) 10^3/uL Absolute Nucleated RBC x10^3/uL Nucleated RBC % /100WBC Sodium (135-145) mmol/L Potassium 4.8 H (3.5-4.5) mmol/L Chloride (101-111) mmol/L Carbon Dioxide (21-32) mmol/L Anion Gap (6-13) BUN (6-20) mg/dL Creatinine (0.6-1.3) mg/dL Estimated GFR (MDRD) (>89) Glucose (74-104) mg/dL Calcium (8.5-10.3) mg/dL Magnesium 2.1 (1.7-2.3) mg/dL Iron (50-212) ug/dL TIBC (250-450) ug/dL % Saturation Transferrin (203-362) mg/dL Troponin I High Sens (2.3-19.7) ng/L B-Natriuretic Peptide 147 H (5-100) pg/mL Vitamin B12 (180-914) pg/mL Folate (5.90 - >24.8) ng/mL TSH (0.34-5.60) uIU/mL SARS-CoV-2 (PCR) NOT DETECTED 03/19/24 Range/Units 07:58 WBC (4.8-10.8) x10^3/uL RBC (4.70-6.10) 10^6/uL Hgb (14.0-18.0) g/dL Hct (42.0-52.0) % MCV (80.0-94.0) fL MCH (27.0-31.0) pg MCHC (32.0-36.0) g/dL RDW (12.0-15.0) % Plt Count (130-450) 10^3/uL MPV (7.4-11.4) fL Neut # (Auto) (1.5-6.6) 10^3/uL Lymph # (Auto) (1.5-3.5) 10^3/uL [place] # (Auto) (0.0-1.0) 10^3/uL Eos # (Auto) (0.0-0.7) 10^3/uL Baso # (Auto) (0.0-0.1) 10^3/uL Absolute Nucleated RBC x10^3/uL Nucleated RBC % /100WBC Sodium (135-145) mmol/L Potassium (3.5-4.5) mmol/L Chloride (101-111) mmol/L Carbon Dioxide (21-32) mmol/L Anion Gap (6-13) BUN (6-20) mg/dL Creatinine (0.6-1.3) mg/dL Estimated GFR (MDRD) (>89) Glucose (74-104) mg/dL Calcium (8.5-10.3) mg/dL Magnesium (1.7-2.3) mg/dL Iron (50-212) ug/dL TIBC (250-450) ug/dL % Saturation Transferrin (203-362) mg/dL Troponin I High Sens 27.1 H* (2.3-19.7) ng/L B-Natriuretic Peptide (5-100) pg/mL Vitamin B12 (180-914) pg/mL Folate (5.90 - >24.8) ng/mL TSH (0.34-5.60) uIU/mL SARS-CoV-2 (PCR) - Diagnostic Imaging Diagnostic Imaging Results: positive: Final report reviewed Diagnostic Imaging Comments: Chest CTA (03/16/24): - No aortic dissection. No pulmonary embolism. - Large left and moderate right pleural effusions are increased. CXR (03/19/24): - Interval worsening of right lung aeration with significant increase in right- sided pleural effusion with right lung atelectasis. - Small residual left pleural effusion with left basilar infiltrate/atelectasis. - No pneumothorax. ABX Reporting Has patient been on IV antibiotics over the past 48 hours?: Yes Sepsis Event Note (H) - Evaluation Current Stage of Sepsis: Ruled out Assessment/Plan - Problem List (1) Respiratory failure with hypoxia Impression: His acute respiratory failure with hypoxia is likely secondary to bilateral pleural effusions as well as community-acquired pneumonia. He remains hypoxic which is likely due to his pneumonia and worsening right-sided effusion. -Treat his pneumonia and pleural effusions as noted below. -Continue supplemental oxygen to maintain saturations greater than 90%. -Placed on 40 mg IV Lasix given concerns of some fluid overload component. Qualifiers: Chronicity: acute Qualified Code(s): J96.01 - Acute respiratory failure with hypoxia (2) Bilateral pleural effusion Impression: Unclear etiology though could be parapneumonic versus CHF related though his recent echocardiogram was relatively unremarkable. Preliminary fluid studies from his left pleural fluid shows pleural fluid protein 4.6 and fluid LDH of 111, with a pH of 7.6. -s/p thoracentesis on 03/18/2024 with 1 L removed from the left chest. -Given ongoing hypoxia and large right-sided effusion noted on chest x-ray, will plan for right-sided thoracentesis tomorrow with IR. -Continue IV Lasix 40 mg daily. (3) Acute on chronic anemia Impression: Currently he has a macrocytic anemia and he presented with a hemoglobin of 6.7. He underwent PRBC transfusion with 1 unit and had improvement in his hemoglobin which has remained stable. -His FOBT was positive and his iron studies indicate iron deficiency. He likely has a slow GI process causing iron deficiency anemia though he is not acutely bleeding at this time. -Continue daily CBC. -Will place on IV Protonix 40 mg twice daily. -Start iron supplements. -He is currently not stable for EGD however he should have this performed as an outpatient, with consideration for colonoscopy as well. (4) Chest pain Impression: Appears to be consistent with pleurodynia from his pleural effusions and likely underlying pneumonia. -EKG shows no evidence of pericarditis. -Repeat chest x-ray yesterday showed no evidence of pneumothorax or other complication from left-sided thoracentesis. -CTA chest on admission was negative for pulmonary embolism or aortic pathology. -Troponins have been minimally elevated around 27 which is likely demand ischemia with due to his other medical issues and not indicative of a primary acute coronary syndrome. Qualifiers: Chest pain type: chest pain on breathing Qualified Code(s): R07.1 - Chest pain on breathing; R07.81 - Pleurodynia (5) Community acquired pneumonia Impression: His initial imaging appeared more consistent with pleural effusion and atelectasis however repeat imaging after thoracentesis appeared to show bilateral infiltrates consistent with pneumonia which coincided with an increase in his white blood cell count 18. -Initiated on IV ceftriaxone and azithromycin on 03/19/2024. -Blood and sputum cultures pending. (6) Acute kidney injury Impression: He had evidence of mild acute kidney injury on presentation with creatinine 1.4. -Creatinine is currently stable but will need to monitor closely in the setting of IV diuresis and acute illness. -Avoid unnecessary nephrotoxins.
[2024-03-20] MEDS: polyethylene glycoL 3350 17 GM PACKET PO SCH (08:17)
[2024-03-20] MEDS: FUROSEMIDE 20 MG/2 ML VIAL IVP SCH (08:17)
[2024-03-20] MEDS: SENNA 8.6 MG TABLET PO SCH (16:22)
[2024-03-20] MEDS: amLODIPine 5 MG TABLET PO SCH (16:22)
[2024-03-20] MEDS: DOCUSATE SODIUM 250 MG CAPSULE PO SCH (16:23)
[2024-03-21] MEDS: ZINC OXIDE 12% OINT 57 GM TUBE TOP PRN (03:05)
[2024-03-21 05:39] LABS: BASOPHILS % (AUTO) 0.1 %; EOSINOPHILS % (AUTO) 0.9 %; HGB - HEMOGLOBIN 9.3 g/dL (14.0-18.0); LYMPHOCYTES % (AUTO) 1.6 %; MEAN CORPUSCULAR HEMOGLOBIN 30.6 pg (27.0-31.0); MEAN CORPUSCULAR HGB CONC 32.1 g/dL (32.0-36.0); MEAN CORPUSCULAR VOLUME 95.4 fL (80.0-94.0); MEAN PLATELET VOLUME 9.3 fL (7.4-11.4); NEUTROPHILS % (AUTO) 85.9 %; PLT - PLATELET COUNT 250 10^3/uL (130-450); RED BLOOD COUNT 3.04 10^6/uL (4.70-6.10); WHITE BLOOD COUNT 14.8 x10^3/uL (4.8-10.8)
[2024-03-21 05:59] LABS: CREATININE 1.1 mg/dL (0.6-1.3); PHOSPHORUS 3.2 mg/dL (2.5-5.0); POTASSIUM 4.4 mmol/L (3.5-4.5)
[2024-03-21 06:16] LABS: INR 1.4 (0.8-1.2); PT - PROTHROMBIN TIME 14.7 secs (9.9-12.6)
[2024-03-21 06:48] LABS: ABNORMAL LYMPHS % (MANUAL) 0 %; BAND NEUTROPHILS % (MANUAL) 0 %
[2024-03-21 07:13] LABS: LYMPHOCYTES # (MANUAL) 0.4 10^3/uL (1.5-3.5); LYMPHOCYTES % (MANUAL) 3 %; MONOCYTES # (MANUAL) 1.2 10^3/uL (0.0-1.0); NEUTROPHILS # (MANUAL) 13.2 10^3/uL (1.5-6.6)
[2024-03-21 07:14] LABS: DIFFERENTIAL COMMENT MANUAL DIFFERENTIAL; PLATELET ESTIMATE, MANUAL NORMAL (130-450,000) (NORMAL); PLATELET MORPHOLOGY NORMAL APPEARANCE (NORMAL); RBC MORPHOLOGY (MULTIPLE) NORMAL APPEARANCE (NORMAL); WBC MORPHOLOGY (MULTIPLE) NORMAL APPEARANCE (NORMAL)
--- NOTE | 2024-03-21 07:20 | PROVIDER PROGRESS NOTE ---
Subjective - Prog Note Date Prog Note Date: 03/21/24 Prog Note Time: 07:20 - Subjective Subjective: No acute worsening overnight however the patient does continue to complain of generalized body pain and right-sided pleuritic chest pain. He also intermit tently has respiratory rates into the 20-25 range. Remains on 4 to 5 L of oxygen to maintain appropriate saturations. Has been afebrile. The patient denies any vomiting, diarrhea, hemoptysis. Still bringing up phlegm however not quite as much as the past couple days. Current Medications - Current Medications Current Medications: Acetaminophen (Acetaminophen 325 Mg Tablet) 650 mg PO Q6H PRN PRN Reason: Pain 1 to 4, or Fever Last Admin: 03/18/24 21:48 Dose: 650 mg Albuterol (Albuterol Neb 2.5 Mg/3 Ml) 2.5 mg INH RTQ4H PRN PRN Reason: Wheezing Amlodipine Besylate (Amlodipine 5 Mg Tablet) 5 mg PO DAILY PENDING SALE TO [facility] Last Admin: 03/20/24 16:22 Dose: 5 mg Ascorbic Acid (Ascorbic Acid 500 Mg Tablet) 500 mg PO DAILY PENDING SALE TO [facility] Last Admin: 03/20/24 08:06 Dose: 500 mg Atorvastatin Calcium (Atorvastatin 10 Mg Tablet) 5 mg PO QPM PENDING SALE TO [facility] Last Admin: 03/20/24 21:37 Dose: 5 mg Benzonatate (Benzonatate 100 Mg Capsule) 200 mg PO TID PRN PRN Reason: Cough Docusate Sodium (Docusate Sodium 250 Mg Capsule) 250 - 500 mg PO DAILY PENDING SALE TO [facility] Last Admin: 03/20/24 16:23 Dose: 500 mg Ferrous Sulfate (Ferrous Sulfate 325 Mg Tablet) 325 mg PO DAILY PENDING SALE TO [facility] Last Admin: 03/20/24 08:05 Dose: 325 mg Furosemide (Furosemide 20 Mg/2 Ml Vial) 40 mg IVP DAILY PENDING SALE TO [facility] Last Admin: 03/20/24 08:17 Dose: 40 mg Guaifenesin (Guaifenesin 600 Mg Tablet) 600 mg PO BID PENDING SALE TO [facility] Last Admin: 03/20/24 21:37 Dose: 600 mg Hydromorphone HCl (Hydromorphone 2 Mg/Ml Vial) 1 mg IVP Q4HR PRN PRN Reason: Severe Pain (Level 7-10) Ceftriaxone Sodium 2 gm/ (Sodium Chloride) 100 mls @ 200 mls/hr IV DAILY PENDING SALE TO [facility] Stop: 03/23/24 09:29 Last Infusion: 03/20/24 09:00 Dose: Infused Azithromycin 500 mg/ Sodium (Chloride) 250 mls @ 250 mls/hr IV DAILY PENDING SALE TO [facility] Stop: 03/21/24 09:59 Last Infusion: 03/20/24 10:23 Dose: Infused Ipratropium Shedd (Ipratropium 0.2 Mg/Ml Neb) 0.5 mg INH RTQ6H PENDING SALE TO [facility] Last Admin: 03/21/24 03:27 Dose: 0.5 mg Lactobacillus Rhamnosus (Lactobacillus Rhamnosus Gg Capsule) 1 cap PO DAILY PENDING SALE TO [facility] Last Admin: 03/20/24 08:04 Dose: 1 cap Magnesium Oxide (Magnesium Oxide 400 Mg Tablet) 400 mg PO DAILY PENDING SALE TO [facility] Last Admin: 03/20/24 08:05 Dose: 400 mg Multi-Ingredient Ointment (Zinc Oxide 12% Oint 57 Gm Tube) 1 applic TOP PRN PRN PRN Reason: Skin Care Last Admin: 03/21/24 03:05 Dose: 1 applic Multivitamins/Minerals (Multivitamin W/Minerals Tablet) 1 tab PO DAILYWM PENDING SALE TO [facility] Last Admin: 03/20/24 08:06 Dose: 1 tab Ondansetron HCl (Ondansetron 4 Mg/2 Ml Vial) 4 mg IVP Q6HR PRN PRN Reason: Nausea / Vomiting Oxycodone HCl (Oxycodone 5 Mg Tablet) 5 mg PO Q4HR PRN PRN Reason: Moderate Pain (Level 4-6) Last Admin: 03/21/24 03:15 Dose: 5 mg Pantoprazole Sodium (Pantoprazole 40 Mg Vial) 40 mg IVP BID PENDING SALE TO [facility] Last Admin: 03/20/24 21:37 Dose: 40 mg Polyethylene Glycol (Polyethylene Glycol 3350 17 Gm Packet) 17 gm PO DAILY PENDING SALE TO [facility] Last Admin: 03/20/24 08:17 Dose: 17 gm Senna (Senna 8.6 Mg Tablet) 8.6 - 17.2 mg PO DAILY PENDING SALE TO [facility] Last Admin: 03/20/24 16:22 Dose: 17.2 mg Sodium Chloride (Sodium Chloride Flush 0.9% 10 Ml Syringe) 10 ml IVP PRN PRN PRN Reason: NEEDED PER PROVIDER ORDERS Last Admin: 03/20/24 21:37 Dose: 10 ml Sodium Chloride (Sodium Chloride Flush 0.9% 10 Ml Syringe) 10 ml IVP 0100,0900,1700 PENDING SALE TO [facility] Last Admin: 03/20/24 21:37 Dose: 10 ml Objective - Vital Signs/Intake & Output Reviewed Vital Signs: Yes Vital Signs: Vital Signs x48h Temp Pulse Pulse Resp BP BP Pulse Ox 03/21/24 05:55 98 03/21/24 03:28 95 17 03/21/24 03:22 37.1 C 94 22 146/61 H 94 03/20/24 23:51 36.7 C 94 20 127/70 96 O2 Flow Rate 03/21/24 05:55 5 03/21/24 03:28 5 03/21/24 03:22 5 03/20/24 23:51 5 Intake & Output: Intake & Output 03/18/24 03/19/24 03/20/24 03/21/24 23:59 23:59 23:59 23:59 Intake Total 3300 1240 1330 Output Total 1350 1050 1525 300 Balance 1950 190 -195 -300 - Objective General Appearance: positive: Other (Alert and oriented. Mild respiratory distre ss, though better than yesterday. Appears acutely ill and older than stated age.) Eyes Bilateral: positive: Normal inspection, PERRL, EOMI ENT: positive: ENT inspection nml, No signs of dehydration Neck: positive: Nml inspection, Thyroid nml, No JVD, Trachea midline Respiratory: positive: Other (Mild to moderate respiratory distress. Diminished air movement on right side with bronchial breath sounds and inspiratory crackles. Left lung with better air movement but still with occasional basilar inspiratory crackles. No wheezing or rhonchi.) Cardiovascular: positive: No gallop, Tachycardia, Systolic murmur (soft 2/6 systolic murmur at RUSB) Abdomen: positive: Non-tender, No organomegaly, Nml bowel sounds, No distention Skin: positive: Color nml, No rash, Warm, Diaphoresis Extremities: positive: Non-tender, Pedal edema (1+) Neurologic/Psychiatric: positive: Oriented x3, CN's nml (2-12), Motor nml - Lab Results Fish Bones: 03/21/24 05:20 03/21/24 05:20 Other Labs: Lab Results x24hrs 03/21/24 03/21/24 03/21/24 Range/Units 05:20 05:20 05:20 WBC (4.8-10.8) x10^3/uL RBC (4.70-6.10) 10^6/uL Hgb (14.0-18.0) g/dL Hct (42.0-52.0) % MCV (80.0-94.0) fL MCH (27.0-31.0) pg MCHC (32.0-36.0) g/dL RDW (12.0-15.0) % Plt Count (130-450) 10^3/uL MPV (7.4-11.4) fL Neut # (Auto) Lymph # (Auto) [place] # (Auto) Eos # (Auto) Baso # (Auto) Absolute Nucleated RBC Total Counted Band Neuts % (Manual) (0 - 10) % Abnorm Lymph % (Manual) % Nucleated RBC % Neutrophils # (Manual) (1.5-6.6) 10^3/uL Lymphocytes # (Manual) (1.5-3.5) 10^3/uL Monocytes # (Manual) (0.0-1.0) 10^3/uL Eosinophils # (Manual) (0-0.7) 10^3/uL Basophils # (Manual) (0-0.1) 10^3/uL Differential Comment WBC Morphology (NORMAL) Platelet Estimate (NORMAL) Platelet Morphology (NORMAL) RBC Morph Micro Appear (NORMAL) PT 14.7 H (9.9-12.6) secs INR 1.4 H (0.8-1.2) Sodium 136 (135-145) mmol/L Potassium 4.4 (3.5-4.5) mmol/L Chloride 101 (101-111) mmol/L Carbon Dioxide 30 (21-32) mmol/L Anion Gap 5.0 L (6-13) BUN 30 H (6-20) mg/dL Creatinine 1.1 (0.6-1.3) mg/dL Estimated GFR (MDRD) 63 L (>89) Glucose 122 H (74-104) mg/dL Calcium 9.0 (8.5-10.3) mg/dL Phosphorus 3.2 (2.5-5.0) mg/dL Magnesium 2.0 (1.7-2.3) mg/dL Procalcitonin Immunoas 4.18 H* (<0.5) ng/mL 05/20/ Range/Units 05:20 WBC 14.8 H (4.8-10.8) x10^3/uL RBC 3.04 L (4.70-6.10) 10^6/uL Hgb 9.3 L (14.0-18.0) g/dL Hct 29.0 L (42.0-52.0) % MCV 95.4 H (80.0-94.0) fL MCH 30.6 (27.0-31.0) pg MCHC 32.1 (32.0-36.0) g/dL RDW 15.0 (12.0-15.0) % Plt Count 250 (130-450) 10^3/uL MPV 9.3 (7.4-11.4) fL Neut # (Auto) Not Reportable Lymph # (Auto) Not Reportable [place] # (Auto) Not Reportable Eos # (Auto) Not Reportable Baso # (Auto) Not Reportable Absolute Nucleated RBC Not Reportable Total Counted 100 Band Neuts % (Manual) 0 (0 - 10) % Abnorm Lymph % (Manual) 0 % Nucleated RBC % Not Reportable Neutrophils # (Manual) 13.2 H (1.5-6.6) 10^3/uL Lymphocytes # (Manual) 0.4 L (1.5-3.5) 10^3/uL Monocytes # (Manual) 1.2 H (0.0-1.0) 10^3/uL Eosinophils # (Manual) 0.0 (0-0.7) 10^3/uL Basophils # (Manual) 0.0 (0-0.1) 10^3/uL Differential Comment MANUAL DIFFERENTIAL WBC Morphology NORMAL APPEARANCE (NORMAL) Platelet Estimate NORMAL (130-450,000) (NORMAL) Platelet Morphology NORMAL APPEARANCE (NORMAL) RBC Morph Micro Appear NORMAL APPEARANCE (NORMAL) PT (9.9-12.6) secs INR (0.8-1.2) Sodium (135-145) mmol/L Potassium (3.5-4.5) mmol/L Chloride (101-111) mmol/L Carbon Dioxide (21-32) mmol/L Anion Gap (6-13) BUN (6-20) mg/dL Creatinine (0.6-1.3) mg/dL Estimated GFR (MDRD) (>89) Glucose (74-104) mg/dL Calcium (8.5-10.3) mg/dL Phosphorus (2.5-5.0) mg/dL Magnesium (1.7-2.3) mg/dL Procalcitonin Immunoas (<0.5) ng/mL - Diagnostic Imaging Diagnostic Imaging Results: positive: Final report reviewed Diagnostic Imaging Comments: Chest CTA (03/16/24) -No aortic dissection. No pulmonary embolism. -Large left and moderate right pleural effusions are increased. CXR (03/19/24) -Interval worsening of right lung aeration with significant increase in right- sided pleural effusion with right lung atelectasis. -Small residual left pleural effusion with left basilar infiltrate/atelectasis. -No pneumothorax. ABX Reporting Has patient been on IV antibiotics over the past 48 hours?: Yes Sepsis Event Note (H) - Evaluation Current Stage of Sepsis: Ruled out Assessment/Plan - Problem List (1) Respiratory failure with hypoxia Impression: His acute respiratory failure with hypoxia is likely secondary to bilateral pleural effusions as well as bilateral pneumonia. He remains hypoxic which is likely due to his pneumonia and worsening right-sided effusion as his hypoxia did not improve with left-sided thoracentesis. -Treat his pneumonia and pleural effusions as noted below. -Continue supplemental oxygen to maintain saturations greater than 90%. -Continue IV Lasix 40 mg that was started several days ago however he does not have significant fluid overload on exam. Qualifiers: Chronicity: acute Qualified Code(s): J96.01 - Acute respiratory failure with hypoxia (2) Bilateral pleural effusion Impression: He has had bilateral pleural effusions since earlier this year along with persi stent right-sided pleuritic chest pain since November. Etiology of his effusions are unclear but currently could have a parapneumonic versus CHF correlation, though his recent echocardiogram was relatively unremarkable for heart failure issues. -s/p left sided thoracentesis on 03/18/2024 with 1 L removed. -Preliminary fluid studies from his left pleural fluid shows pleural fluid protein of 4.6 and fluid LDH of 111 along with a pH of 7.6 and negative fluid cultures. -Given ongoing hypoxia and large right-sided effusion noted on chest x-ray, will plan for right-sided thoracentesis today. -Continue IV Lasix 40 mg daily. -Will also check SHEN, rheumatoid factor and anti-CCP antibodies, along with right pleural fluid glucose level, to evaluate for rheumatologic conditions causing effusion and pleurisy. (3) Acute on chronic anemia Impression: Currently has a macrocytic anemia and he presented with a hemoglobin of 6.7 receiving 1 PRBC transfusion. His hemoglobin improvement has remained stable during his hospitalization though he has remained off of pharmacologic DVT prophylaxis. -His FOBT was positive and his iron studies indicate iron deficiency. It is likely that he has a slow GI process causing iron deficiency anemia though there is been no evidence of acute bleeding or melena at this time. -CT scans of his abdomen showed no concerning findings for the cause of his anemia. -Continue daily CBC. -Continue IV Protonix 40 mg twice daily. Given no evidence for ulcer disease may consider switching to oral in the next day or 2. -Continue iron supplements. -He is currently not stable for EGD however he should have this performed as an outpatient with consideration for colonoscopy as well. (4) Chest pain Impression: His right-sided pleuritic chest pain appears consistent with pleurodynia from his pleural effusion. He has been having this since November of this year without a clear cause. Currently may be exacerbated by underlying pneumonia. -EKG shows no evidence of pericarditis. -No evidence of postthoracentesis complication from his thoracentesis on 03/18/2024. -CTA chest on admission was negative for pulmonary embolism or aortic pathology. Also did not show any evidence of pleural nodularity or pathology. -Troponins have been minimally elevated in the mid 20s however this likely repre sents demand ischemia due to his multiple other medical issues and is not indicative of a primary acute coronary syndrome. -Will perform right-sided thoracentesis as noted above to evaluate for different pathology. Qualifiers: Chest pain type: chest pain on breathing Qualified Code(s): R07.1 - Chest pain on breathing; R07.81 - Pleurodynia (5) Bilateral pneumonia Impression: His initial imaging on presentation seemed to appear more consistent with pleural effusion and atelectasis, however he had persistent leukocytosis that worsened and repeat imaging after left-sided thoracentesis appeared to show patchy infiltrates bilaterally consistent with pneumonia. -Initiated on IV ceftriaxone and azithromycin on 03/19/2024. -Blood cultures have been no growth to date. -Sputum culture is contaminated though is growing gram-positive cocci. -Given ongoing leukocytosis and recent hospitalization will place on IV vancomycin. (6) Acute kidney injury Impression: He had evidence for mild acute kidney injury on presentation with creatinine 1.4 which is improved to 1.1 as of today. -Continue daily CHEM panels and monitor closely given ongoing diuresis and acute illness. -Avoid unnecessary nephrotoxins.
[2024-03-21] MEDS: MORPHINE 2 MG/ML CARPUJECT IVP ONE (09:17)
[2024-03-21 09:40] LABS: RHEUMATOID FACTOR NEGATIVE (Negative)
[2024-03-21] MEDS: BENZONATATE 100 MG CAPSULE PO PRN (10:57)
--- NOTE | 2024-03-21 12:50 | Ultrasound Report ---
PROCEDURE: Thoracentesis Puncture INDICATIONS: Large right pleural effusion TECHNIQUE: The indications, alternatives, benefits, risks, and complications of the procedure were explained to the patient. Written informed consent was obtained and placed in the chart. The chest was examined sonographically, and an appropriate site was chosen for thoracentesis. The skin was prepared and devante ped in the usual sterile fashion, and 1% lidocaine was infiltrated from the skin down through the ple ural surface. A 19-gauge catheter-covered needle was then introduced into the pleural space, the cat heter was advanced and the needle was withdrawn, and thereafter pleural fluid was aspirated. The cat heter was then removed and a dressing was applied. COMPARISON: 03/19/2024 FINDINGS: Access site: Right hemithorax. Needle: One-Step centesis catheter with introducer needle. Fluid volume and description: Cloudy yellow, 400 cc, appearance was loculated on ultrasound Fluid sent for diagnostic testing: Yes Medications: 1% lidocaine for local anaesthesia. Complications: None; post-procedural chest radiograph is pending to assess for pneumothorax. IMPRESSION: Successful ultrasound-guided bedside thoracentesis. 400 cc of cloudy yellow fluid was as pirated. Appearance is loculated on ultrasound. Reviewed by: Benoit Smith MD on 03/21/2024 12:49 PM PDT Approved by: Benoit Smith MD on 03/21/2024 12:49 PM PDT Station ID: [id number]
[2024-03-21] MEDS: VANCOMYCIN INJ 1.25 GM in SODIUM CHLORIDE 0.9% 250 ML IV SCH (13:05)
[2024-03-21 13:19] LABS: BF CLARITY CLOUDY; BF SOURCE PLEURAL; CC,BF RBC 11000 /mm^3; CC,BF WBC 17875 /mm^3
[2024-03-21 13:20] LABS: BF COLOR YELLOW
--- NOTE | 2024-03-21 13:47 | PHARMACY PROGRESS NOTE ---
- Therapy Status Vancomycin regimen day #: 1 Therapy status: Awaiting steady state Basis for treatment: Empirical Treatment indication: HCAP Trough goal: AUC 400-600 Concurrent antibiotics: PREV AZITH (03/19-03/21 AND CTX 03/19-CURRENT (ENDS 03/23) - ERIC Risk Risk level for Acute Kidney Injury: Moderate Acute Kidney Injury risk factors: Duration >7 days, Goal trough >15 - Monitoring and Recommendation Clinical response to treatment: Lab Results 03/16/24 21:37 BUN 41 H Creatinine 1.1 Estimated GFR (MDRD) 63 L Cultures 03/16/24 22:27 Stool Occult Blood - Final Areas for additional monitoring: IV to PO when appropriate, Therapy de-escalati on based on culture results, Acute Kidney Injury Pharmacy recommendation: Continue current regime (1250 MG DAILY TO TARGET AUC ~460)
[2024-03-21 14:07] LABS: LYMPHOCYTES %,BODY FLUID 18 %; NEUTROPHILS %, BF 82 %
--- NOTE | 2024-03-21 17:54 | XRAY Report ---
PROCEDURE: Post Thoracentesis 1V CXR INDICATIONS: Post thoracentesis x-ray, thora on the right today TECHNIQUE: One view of the chest was acquired. COMPARISON: None. FINDINGS: Surgical changes and devices: Thoracolumbar fixation rods are present. Lungs and pleura: Mild bilateral pleural effusions. No pneumothorax. Mediastinum: Mediastinal contours appear normal. Heart size is enlarged. Bones and chest wall: No suspicious bony lesions. Overlying soft tissues appear unremarkable. IMPRESSION: Bilateral effusions without pneumothorax. Reviewed by: Mira Montoya MD on 03/21/2024 5:53 PM PDT Approved by: Mira Montoya MD on 03/21/2024 5:53 PM PDT Station ID: [id number]
[2024-03-21] MEDS: guaiFENesin 100 MG/5 ML UDC PO SCH (21:03)
[2024-03-22 05:45] LABS: BASOPHILS % (AUTO) 0.2 %; EOSINOPHILS # (AUTO) 0.3 10^3/uL (0.0-0.7); EOSINOPHILS % (AUTO) 2.7 %; HCT - HEMATOCRIT 29.5 % (42.0-52.0); HGB - HEMOGLOBIN 9.1 g/dL (14.0-18.0); LYMPHOCYTES # (AUTO) 0.5 10^3/uL (1.5-3.5); LYMPHOCYTES % (AUTO) 4.2 %; MEAN CORPUSCULAR HEMOGLOBIN 30.1 pg (27.0-31.0); MEAN CORPUSCULAR HGB CONC 30.8 g/dL (32.0-36.0); MEAN CORPUSCULAR VOLUME 97.7 fL (80.0-94.0); MEAN PLATELET VOLUME 10.4 fL (7.4-11.4); MONOCYTES # (AUTO) 1.2 10^3/uL (0.0-1.0); MONOCYTES % (AUTO) 10.3 %; NEUTROPHILS # (AUTO) 9.8 10^3/uL (1.5-6.6); NEUTROPHILS % (AUTO) 82.1 %; PLT - PLATELET COUNT 244 10^3/uL (130-450); RED BLOOD COUNT 3.02 10^6/uL (4.70-6.10); RED CELL DISTRIBUTION WIDTH 15.4 % (12.0-15.0); WHITE BLOOD COUNT 11.9 x10^3/uL (4.8-10.8)
[2024-03-22 05:56] LABS: ALBUMIN 2.8 g/dL (3.2-5.5); ALBUMIN/GLOBULIN RATIO 0.8 (1.0-2.2); BILIRUBIN,TOTAL 0.2 mg/dL (0.2-1.0); CALCIUM 9.3 mg/dL (8.5-10.3); CREATININE 1.3 mg/dL (0.6-1.3); CRP - C-REACTIVE PROTEIN 18.1 mg/dL (<0.5); POTASSIUM 4.1 mmol/L (3.5-4.5); TOTAL PROTEIN 6.2 g/dL (6.4-8.9)
[2024-03-22 08:19] LABS: pH BODY FLUID 6.8 (Not Estab.)
[2024-03-22 19:07] LABS: GLUCOSE BODY FLUID <2 mg/dL (.); LD BODY FLUID 1816 IU/L (.); PROTEIN BODY FLUID 3.5 g/dL (.)
--- NOTE | 2024-03-22 19:24 | PROVIDER PROGRESS NOTE ---
Subjective - Prog Note Date Prog Note Date: 03/22/24 Prog Note Time: 19:33 - Subjective Pt reports feeling: No change Subjective: couging, short of breath. pleuritic pain. Current Medications - Current Medications Current Medications: Active Medications Acetaminophen (Acetaminophen 325 Mg Tablet) 650 mg PO Q6H PRN PRN Reason: Pain 1 to 4, or Fever Last Admin: 03/22/24 06:07 Dose: 650 mg Albuterol (Albuterol Neb 2.5 Mg/3 Ml) 2.5 mg INH RTQ4H PRN PRN Reason: Wheezing Amlodipine Besylate (Amlodipine 5 Mg Tablet) 5 mg PO DAILY [facility] Last Admin: 03/22/24 08:46 Dose: 5 mg Ascorbic Acid (Ascorbic Acid 500 Mg Tablet) 500 mg PO DAILY [facility] Last Admin: 03/22/24 08:46 Dose: 500 mg Atorvastatin Calcium (Atorvastatin 10 Mg Tablet) 5 mg PO QPM [facility] Last Admin: 03/21/24 21:03 Dose: 5 mg Benzonatate (Benzonatate 100 Mg Capsule) 200 mg PO TID PRN PRN Reason: Cough Last Admin: 03/22/24 17:56 Dose: 200 mg Docusate Sodium (Docusate Sodium 250 Mg Capsule) 250 - 500 mg PO DAILY [facility] Last Admin: 03/22/24 08:46 Dose: 250 mg Ferrous Sulfate (Ferrous Sulfate 325 Mg Tablet) 325 mg PO DAILY [facility] Last Admin: 03/22/24 08:46 Dose: 325 mg Furosemide (Furosemide 20 Mg/2 Ml Vial) 40 mg IVP DAILY [facility] Last Admin: 03/22/24 08:47 Dose: 40 mg Guaifenesin (Guaifenesin 100 Mg/5 Ml Udc) 600 mg PO BID [facility] Last Admin: 03/22/24 08:57 Dose: 600 mg Hydromorphone HCl (Hydromorphone 2 Mg/Ml Vial) 1 mg IVP Q4HR PRN PRN Reason: Severe Pain (Level 7-10) Ceftriaxone Sodium 2 gm/ (Sodium Chloride) 100 mls @ 200 mls/hr IV DAILY [facility] Stop: 03/23/24 09:29 Last Infusion: 03/22/24 17:52 Dose: Infused Vancomycin HCl 1.25 gm/ Sodium (Chloride) 250 mls @ 166.667 mls/hr IV DAILY@1300 [facility] Last Infusion: 03/22/24 17:52 Dose: Infused Ipratropium [place] (Ipratropium 0.2 Mg/Ml Neb) 0.5 mg INH RTQ6H [facility] Last Admin: 03/22/24 19:08 Dose: 0.5 mg Lactobacillus Rhamnosus (Lactobacillus Rhamnosus Gg Capsule) 1 cap PO DAILY [facility] Last Admin: 03/22/24 08:46 Dose: 1 cap Magnesium Oxide (Magnesium Oxide 400 Mg Tablet) 400 mg PO DAILY [facility] Last Admin: 03/22/24 08:46 Dose: 400 mg Multi-Ingredient Ointment (Zinc Oxide 12% Oint 57 Gm Tube) 1 applic TOP PRN PRN PRN Reason: Skin Care Last Admin: 03/22/24 06:05 Dose: 1 applic Multivitamins/Minerals (Multivitamin W/Minerals Tablet) 1 tab PO DAILYWM [facility] Last Admin: 03/22/24 08:46 Dose: 1 tab Ondansetron HCl (Ondansetron 4 Mg/2 Ml Vial) 4 mg IVP Q6HR PRN PRN Reason: Nausea / Vomiting Oxycodone HCl (Oxycodone 5 Mg Tablet) 5 mg PO Q4HR PRN PRN Reason: Moderate Pain (Level 4-6) Last Admin: 03/22/24 00:36 Dose: 5 mg Pantoprazole Sodium (Pantoprazole 40 Mg Vial) 40 mg IVP BID [facility] Last Admin: 03/22/24 09:02 Dose: 40 mg Polyethylene Glycol (Polyethylene Glycol 3350 17 Gm Packet) 17 gm PO DAILY [facility] Last Admin: 03/22/24 08:46 Dose: 17 gm Senna (Senna 8.6 Mg Tablet) 8.6 - 17.2 mg PO DAILY [facility] Last Admin: 03/22/24 08:46 Dose: 8.6 mg Sodium Chloride (Sodium Chloride Flush 0.9% 10 Ml Syringe) 10 ml IVP PRN PRN PRN Reason: NEEDED PER PROVIDER ORDERS Last Admin: 03/20/24 21:37 Dose: 10 ml Sodium Chloride (Sodium Chloride Flush 0.9% 10 Ml Syringe) 10 ml IVP 0100,0900,1700 [facility] Last Admin: 03/22/24 09:03 Dose: 10 ml Simvastatin 10 mg PO QPM 11/05/14 Acetaminophen [Tylenol] 650 mg PO Q8H PRN 04/27/15 Multivit-Min/Iron/Folic Acid/K [Multi-Day Plus Minerals Tablet] 1 tab PO DAILY 08/14/20 Vit A/Vit C/Vit E/Zinc/Copper [Preservision Areds Softgel] 1 cap PO BID 08/14/20 Ferrous Sulfate [Feosol] 325 mg PO DAILY 11/29/23 Magnesium Oxide [Mag Ox] 400 mg PO DAILY 11/29/23 Albuterol Sulfate [Proair Respiclick] 2 puffs INH Q6H PRN 03/17/24 Aspirin Chewable [[place] Aspirin] 81 mg PO DAILY 03/17/24 Losartan/Hydrochlorothiazide [Hyzaar 100-25 Tablet] 1 tab PO DAILY 03/17/24 Spironolactone [Aldactone] 25 mg PO DAILY 03/17/24 Tiotropium [place] [Spiriva Respimat] 1 inh INH DAILY 03/17/24 Torsemide 10 mg PO DAILY 03/17/24 Objective - Vital Signs/Intake & Output Reviewed Vital Signs: Yes Vital Signs: Vital Signs x48h Temp Pulse Pulse Resp BP Pulse Ox O2 Flow Rate 03/22/24 19:10 106 H 28 H 4 03/22/24 16:04 37.1 C 104 H 24 156/80 H 92 4 03/22/24 13:35 88 26 H 4 03/22/24 11:29 37.0 C 97 20 135/66 H 94 5 Intake & Output: Intake & Output 03/19/24 03/20/24 03/21/24 03/22/24 23:59 23:59 23:59 23:59 Intake Total 1240 6593 849 0245 Output Total 1050 1525 1475 1800 Balance 445 [phone] - Objective General Appearance: positive: Alert, Mild distress (gets easy tachypnea with speaking to me after 3 sentences) Eyes Bilateral: positive: PERRL, EOMI ENT: positive: No signs of dehydration Neck: positive: Thyroid nml, No JVD. negative: Stiff neck Respiratory: positive: Wheezes, Rhonchi, Other (constant phlemy rhonchi with intermittent cough that he swallows sputum) Cardiovascular: positive: Regular rate & rhythm Abdomen: positive: Non-tender, No organomegaly, Nml bowel sounds, No distention Skin: positive: Warm, Dry Extremities: positive: Full ROM, No pedal edema Neurologic/Psychiatric: positive: Oriented x3, CN's nml (2-12), Motor nml (but he has generalized weakness and needs help to sit up) - Lab Results Fish Bones: 03/22/24 05:24 03/22/24 05:24 Other Labs: Lab Results x24hrs 03/22/24 03/22/24 03/22/24 Range/Units 05:24 05:24 05:24 WBC 11.9 H (4.8-10.8) x10^3/uL RBC 3.02 L (4.70-6.10) 10^6/uL Hgb 9.1 L (14.0-18.0) g/dL Hct 29.5 L (42.0-52.0) % MCV 97.7 H (80.0-94.0) fL MCH 30.1 (27.0-31.0) pg MCHC 30.8 L (32.0-36.0) g/dL RDW 15.4 H (12.0-15.0) % Plt Count 244 (130-450) 10^3/uL MPV 10.4 (7.4-11.4) fL Neut # (Auto) 9.8 H (1.5-6.6) 10^3/uL Lymph # (Auto) 0.5 L (1.5-3.5) 10^3/uL Ballard # (Auto) 1.2 H (0.0-1.0) 10^3/uL Eos # (Auto) 0.3 (0.0-0.7) 10^3/uL Baso # (Auto) 0.0 (0.0-0.1) 10^3/uL Absolute Nucleated RBC 0.00 x10^3/uL Nucleated RBC % 0.0 /100WBC ESR > 140 H (0-20) mm/Hr Sodium 138 (135-145) mmol/L Potassium 4.1 (3.5-4.5) mmol/L Chloride 101 (101-111) mmol/L Carbon Dioxide 30 (21-32) mmol/L Anion Gap 7.0 (6-13) BUN 32 H (6-20) mg/dL Creatinine 1.3 (0.6-1.3) mg/dL Estimated GFR (MDRD) 52 L (>89) Glucose 92 (74-104) mg/dL Calcium 9.3 (8.5-10.3) mg/dL Total Bilirubin 0.2 (0.2-1.0) mg/dL AST 19 (10-42) IU/L ALT 12 (10-60) IU/L Alkaline Phosphatase 93 (42-121) IU/L C-Reactive Protein 18.1 H (<0.5) mg/dL Total Protein 6.2 L (6.4-8.9) g/dL Albumin 2.8 L (3.2-5.5) g/dL Globulin 3.4 (2.1-4.2) g/dL Albumin/Globulin Ratio 0.8 L (1.0-2.2) Fluid pH (Not Estab.) Fluid Glucose (.) mg/dL Fluid Total Protein (.) g/dL Fluid LDH (.) IU/L 03/21/24 Range/Units 12:10 WBC (4.8-10.8) x10^3/uL RBC (4.70-6.10) 10^6/uL Hgb (14.0-18.0) g/dL Hct (42.0-52.0) % MCV (80.0-94.0) fL MCH (27.0-31.0) pg MCHC (32.0-36.0) g/dL RDW (12.0-15.0) % Plt Count (130-450) 10^3/uL MPV (7.4-11.4) fL Neut # (Auto) (1.5-6.6) 10^3/uL Lymph # (Auto) (1.5-3.5) 10^3/uL Ballard # (Auto) (0.0-1.0) 10^3/uL Eos # (Auto) (0.0-0.7) 10^3/uL Baso # (Auto) (0.0-0.1) 10^3/uL Absolute Nucleated RBC x10^3/uL Nucleated RBC % /100WBC ESR (0-20) mm/Hr Sodium (135-145) mmol/L Potassium (3.5-4.5) mmol/L Chloride (101-111) mmol/L Carbon Dioxide (21-32) mmol/L Anion Gap (6-13) BUN (6-20) mg/dL Creatinine (0.6-1.3) mg/dL Estimated GFR (MDRD) (>89) Glucose (74-104) mg/dL Calcium (8.5-10.3) mg/dL Total Bilirubin (0.2-1.0) mg/dL AST (10-42) IU/L ALT (10-60) IU/L Alkaline Phosphatase (42-121) IU/L C-Reactive Protein (<0.5) mg/dL Total Protein (6.4-8.9) g/dL Albumin (3.2-5.5) g/dL Globulin (2.1-4.2) g/dL Albumin/Globulin Ratio (1.0-2.2) Fluid pH 6.8 (Not Estab.) Fluid Glucose <2 (.) mg/dL Fluid Total Protein 3.5 (.) g/dL Fluid LDH 1816 (.) IU/L ABX Reporting Has patient been on IV antibiotics over the past 48 hours?: Yes Sepsis Event Note (H) - Evaluation Current Stage of Sepsis: Ruled out Assessment/Plan - Problem List (1) Respiratory failure with hypoxia Impression: His acute respiratory failure with hypoxia is likely secondary to bilateral pleural effusions as well as bilateral pneumonia. He remains hypoxic which is likely due to his pneumonia and worsening right-sided effusion as his hypoxia did not improve with left-sided thoracentesis. -Treat his pneumonia and pleural effusions as noted below. -Continue supplemental oxygen to maintain saturations greater than 90%. -Continue IV Lasix 40 mg that was started several days ago however he does not have significant fluid overload on exam. - Patient has asked for transfer to higher level of care. There was [place]communication [place] [facility] [place] [facility] this morning. This morning, when the receiving hospital called to accept him with a bed, the [facility] informed [facility] that the patient had been transferred and was no longer here. I had to recall and resubmit the request for transfer. We are now again awaiting for a bed. Qualifiers: Chronicity: acute Qualified Code(s): J96.01 - Acute respiratory failure with hypoxia (2) Bilateral pleural effusion Impression: He has had bilateral pleural effusions since earlier this year along with persistent right-sided pleuritic chest pain since November. Etiology of his effusions are unclear but currently could have a parapneumonic versus CHF correlation, though his recent echocardiogram was relatively unremarkable for heart failure issues. -s/p left sided thoracentesis on 03/18/2024 with 1 L removed. fluid culture negative for infection or bacteria -Preliminary fluid studies from his left pleural fluid shows pleural fluid protein of 4.6 and fluid LDH of 111 along with a pH of 7.6 and negative fluid cultures. -Given ongoing hypoxia and large right-sided effusion noted on chest x-ray, right-sided thoracentesis done 03/21. fluid culture negative for infection or bacteria -Continue IV Lasix 40 mg daily. -Will also check SHEN, and anti-CCP antibodies, along with right pleural fluid glucose level, to evaluate for rheumatologic conditions causing effusion and p leurisy. So far C-reactive protein is 18 and rheumatoid factor negative. (3) Acute on chronic anemia Impression: Currently has a macrocytic anemia and he presented with a hemoglobin of 6.7 receiving 1 PRBC transfusion. His hemoglobin improvement has remained stable during his hospitalization though he has remained off of pharmacologic DVT prophylaxis. -His FOBT was positive and his iron studies indicate iron deficiency. It is likely that he has a slow GI process causing iron deficiency anemia though there is been no evidence of acute bleeding or melena at this time. -CT scans of his abdomen showed no concerning findings for the cause of his anemia. -Continue daily CBC. He continues to drift down slowly. 9.7>>9.3>> 9.1 today -Continue IV Protonix 40 mg twice daily. Given no evidence for ulcer disease may consider switching to oral in the next day or 2. -Continue iron supplements. -He is currently not stable for EGD however he should have this performed as an outpatient with consideration for colonoscopy as well. (4) Chest pain Impression: His right-sided pleuritic chest pain appears consistent with pleurodynia from his pleural effusion. He has been having this since November of this year withou t a clear cause. Currently may be exacerbated by underlying pneumonia. -EKG shows no evidence of pericarditis. -No evidence of postthoracentesis complication from his thoracentesis on 03/18/2024. -CTA chest on admission was negative for pulmonary embolism or aortic pathology. Also did not show any evidence of pleural nodularity or pathology. -Troponins have been minimally elevated in the mid 20s however this likely represents demand ischemia due to his multiple other medical issues and is not i ndicative of a primary acute coronary syndrome. Qualifiers: Chest pain type: chest pain on breathing Qualified Code(s): R07.1 - Chest pain on breathing; R07.81 - Pleurodynia (5) Bilateral pneumonia Impression: His initial imaging on presentation seemed to appear more consistent with pleural effusion and atelectasis, however he had persistent leukocytosis that worsened and repeat imaging after left-sided thoracentesis appeared to show patchy infiltrates bilaterally consistent with pneumonia. although the CAT scan does not show it, the ultrasound seems to show his effusion is loculated -Initiated on IV ceftriaxone and azithromycin on 03/19/2024. -Blood cultures have been no growth to date. -Sputum culture is contaminated though is growing gram-positive cocci. -Given ongoing leukocytosis and recent hospitalization he is on IV vancomycin. (6) Acute kidney injury Impression: He had evidence for mild acute kidney injury on presentation with creatinine 1.4 which had improved to 1.1 as of 03/21 but -Continue daily CHEM panels and monitor closely given ongoing diuresis and acute illness. -Avoid unnecessary nephrotoxins. .
[2024-03-23] MEDS: IPRATROPIUM 0.2 MG/ML NEB INH SCH (07:42)
--- NOTE | 2024-03-23 10:39 | PROVIDER PROGRESS NOTE ---
Subjective - Prog Note Date Prog Note Date: 03/23/24 Prog Note Time: 10:37 - Subjective Pt reports feeling: No change Subjective: he still feels fatigued, sob with speaking, no appetite. pleuritic cp the same but when I ask about he cough and phlegm, he reports that that is better Current Medications - Current Medications Current Medications: Active Medications Acetaminophen (Acetaminophen 325 Mg Tablet) 650 mg PO Q6H PRN PRN Reason: Pain 1 to 4, or Fever Last Admin: 03/22/24 20:41 Dose: 650 mg Albuterol (Albuterol Neb 2.5 Mg/3 Ml) 2.5 mg INH RTQ4H PRN PRN Reason: Wheezing Amlodipine Besylate (Amlodipine 5 Mg Tablet) 5 mg PO DAILY [facility] Last Admin: 03/23/24 08:18 Dose: 5 mg Ascorbic Acid (Ascorbic Acid 500 Mg Tablet) 500 mg PO DAILY [facility] Last Admin: 03/23/24 08:18 Dose: 500 mg Atorvastatin Calcium (Atorvastatin 10 Mg Tablet) 5 mg PO QPM [facility] Last Admin: 03/22/24 20:42 Dose: 5 mg Benzonatate (Benzonatate 100 Mg Capsule) 200 mg PO TID PRN PRN Reason: Cough Last Admin: 03/22/24 17:56 Dose: 200 mg Docusate Sodium (Docusate Sodium 250 Mg Capsule) 250 - 500 mg PO DAILY [facility] Last Admin: 03/23/24 08:18 Dose: 250 mg Ferrous Sulfate (Ferrous Sulfate 325 Mg Tablet) 325 mg PO DAILY [facility] Last Admin: 03/23/24 08:18 Dose: 325 mg Furosemide (Furosemide 20 Mg/2 Ml Vial) 40 mg IVP DAILY [facility] Last Admin: 03/23/24 08:19 Dose: 40 mg Guaifenesin (Guaifenesin 100 Mg/5 Ml Udc) 600 mg PO BID [facility] Last Admin: 03/23/24 08:17 Dose: 600 mg Hydromorphone HCl (Hydromorphone 2 Mg/Ml Vial) 1 mg IVP Q4HR PRN PRN Reason: Severe Pain (Level 7-10) Vancomycin HCl 1.25 gm/ Sodium (Chloride) 250 mls @ 166.667 mls/hr IV DAILY@1300 [facility] Last Infusion: 03/22/24 17:52 Dose: Infused Ipratropium [place] (Ipratropium 0.2 Mg/Ml Neb) 0.5 mg INH RTQID [facility] Last Admin: 03/23/24 07:42 Dose: 0.5 mg Lactobacillus Rhamnosus (Lactobacillus Rhamnosus Gg Capsule) 1 cap PO DAILY [facility] Last Admin: 03/23/24 08:18 Dose: 1 cap Magnesium Oxide (Magnesium Oxide 400 Mg Tablet) 400 mg PO DAILY [facility] Last Admin: 03/23/24 08:18 Dose: 400 mg Multi-Ingredient Ointment (Zinc Oxide 12% Oint 57 Gm Tube) 1 applic TOP PRN PRN PRN Reason: Skin Care Last Admin: 03/23/24 00:35 Dose: 1 applic Multivitamins/Minerals (Multivitamin W/Minerals Tablet) 1 tab PO DAILYWM [facility] Last Admin: 03/23/24 08:18 Dose: 1 tab Ondansetron HCl (Ondansetron 4 Mg/2 Ml Vial) 4 mg IVP Q6HR PRN PRN Reason: Nausea / Vomiting Oxycodone HCl (Oxycodone 5 Mg Tablet) 5 mg PO Q4HR PRN PRN Reason: Moderate Pain (Level 4-6) Last Admin: 03/23/24 08:17 Dose: 5 mg Pantoprazole Sodium (Pantoprazole 40 Mg Vial) 40 mg IVP BID [facility] Last Admin: 03/23/24 08:19 Dose: 40 mg Polyethylene Glycol (Polyethylene Glycol 3350 17 Gm Packet) 17 gm PO DAILY [facility] Last Admin: 03/23/24 08:18 Dose: 17 gm Senna (Senna 8.6 Mg Tablet) 8.6 - 17.2 mg PO DAILY [facility] Last Admin: 03/23/24 08:18 Dose: 8.6 mg Sodium Chloride (Sodium Chloride Flush 0.9% 10 Ml Syringe) 10 ml IVP PRN PRN PRN Reason: NEEDED PER PROVIDER ORDERS Last Admin: 03/20/24 21:37 Dose: 10 ml Sodium Chloride (Sodium Chloride Flush 0.9% 10 Ml Syringe) 10 ml IVP 010 0,0900,1700 [facility] Last Admin: 03/23/24 08:19 Dose: 10 ml Simvastatin 10 mg PO QPM 11/05/14 Acetaminophen [Tylenol] 650 mg PO Q8H PRN 04/27/15 Multivit-Min/Iron/Folic Acid/K [Multi-Day Plus Minerals Tablet] 1 tab PO DAILY 08/14/20 Vit A/Vit C/Vit E/Zinc/Copper [Preservision Areds Softgel] 1 cap PO BID 08/14/20 Ferrous Sulfate [Feosol] 325 mg PO DAILY 11/29/23 Magnesium Oxide [Mag Ox] 400 mg PO DAILY 11/29/23 Albuterol Sulfate [Proair Respiclick] 2 puffs INH Q6H PRN 03/17/24 Aspirin Chewable [[place] Aspirin] 81 mg PO DAILY 03/17/24 Losartan/Hydrochlorothiazide [Hyzaar 100-25 Tablet] 1 tab PO DAILY 03/17/24 Spironolactone [Aldactone] 25 mg PO DAILY 03/17/24 Tiotropium [place] [Spiriva Respimat] 1 inh INH DAILY 03/17/24 Torsemide 10 mg PO DAILY 03/17/24 Objective - Vital Signs/Intake & Output Reviewed Vital Signs: Yes Vital Signs: Vital Signs x48h Temp Pulse Pulse Resp BP BP Pulse Ox 03/23/24 07:52 37.0 C 84 20 168/83 H 94 03/23/24 07:43 91 24 03/23/24 04:36 36.7 C 86 100 H 149/65 H 99 O2 Flow Rate 03/23/24 07:52 5 03/23/24 07:43 5 03/23/24 04:36 4 Intake & Output: Intake & Output 03/20/24 03/21/24 03/22/24 03/23/24 23:59 23:59 23:59 23:59 Intake Total 9820 843 6415 545 Output Total 1525 1475 1820 1275 Balance -195 -875 -354 -730 - Objective General Appearance: positive: No acute distress, Alert (thin, disheveled, elderly man with ellis and glasses), Other (he feels the same as yesterday: sob, severe fatigue, pleuritic cp but I am noticing less cough and much much less gurgling) Eyes Bilateral: positive: PERRL, EOMI ENT: positive: No signs of dehydration Neck: positive: No JVD. negative: Stiff neck Respiratory: positive: Wheezes (at the very very end of exhalation but not w every breath). negative: Rhonchi (yesterday he was gurgling w inhalation and exhalation, today none.) Cardiovascular: positive: Irregularly irregular, Tachycardia (consistent on the and to 110-118, less so and today has been in the 80s), Systolic murmur Abdomen: positive: Non-tender, No organomegaly, Nml bowel sounds, No distention Skin: positive: Warm, Dry Extremities: positive: Full ROM, Pedal edema Neurologic/Psychiatric: positive: CN's nml (2-12), Motor nml (with no focal deficits but very weak, needs assist just to sit up), Disoriented to time - Lab Results Fish Bones: 03/22/24 05:24 03/22/24 05:24 Other Labs: Lab Results x24hrs 03/21/24 Range/Units 12:10 Fluid Glucose <2 (.) mg/dL Fluid Total Protein 3.5 (.) g/dL Fluid LDH 1816 (.) IU/L ABX Reporting Has patient been on IV antibiotics over the past 48 hours?: Yes Sepsis Event Note (H) - Evaluation Current Stage of Sepsis: Ruled out Assessment/Plan - Problem List (1) Respiratory failure with hypoxia Impression: His acute respiratory failure with hypoxia is likely secondary to bilateral pleural effusions as well as bilateral pneumonia. He remains hypoxic which is likely due to his pneumonia and worsening right-sided effusion as his hypoxia did not improve with left-sided thoracentesis. -Treat his pneumonia and pleural effusions/loculations as noted below. -Continue supplemental oxygen to maintain saturations greater than 90%. -Continue IV Lasix 40 mg that was started several days ago however he does not have significant fluid overload on exam and BNP has been 80-148 with last checks. Overall his I/O has been negative 2153 since the . He is drinking 890-1100 a day. Creat stable with this. - Patient has asked for transfer to higher level of care. There was some miscommunication between the [facility] and [facility] 03/22/24. When the receiving hospital called to accept him with a bed, the [facility] informed [facility] that the patient had been transferred and was no longer here. I had to recall and resubmit the request for transfer that afternoon. We are now again awaiting for a bed. I called again this morning and he is on the list, they will let us know. -Will ask RN to get out of bed to chair if possible Qualifiers: Chronicity: acute Qualified Code(s): J96.01 - Acute respiratory failure with hypoxia (2) Bilateral pleural effusion Impression: He has had bilateral pleural effusions since earlier this year along with pers istent right-sided pleuritic chest pain since November. Etiology of his effusions are unclear but currently could have a parapneumonic versus CHF correlation, though his recent echocardiogram was relatively unremarkable for heart failure issues. -s/p left sided thoracentesis on 03/18/2024 with 1 L removed. fluid culture negative for infection w bacteria. the US done w that procedures suggests that the effusions are now loculated. -Preliminary fluid studies from his left pleural fluid shows pleural fluid protein of 4.6 and fluid LDH of 111 along with a pH of 7.6 and negative fluid cultures. -Given ongoing hypoxia and large right-sided effusion noted on chest x-ray, right-sided thoracentesis done 03/21. fluid culture negative for infection w bacteria -Continue IV Lasix 40 mg daily. -Will also check SHEN, and anti-CCP antibodies, along with right pleural fluid glucose level, to evaluate for rheumatologic conditions causing effusion and pleurisy. Those have been sent and are pending. So far C-reactive protein is 18 and rheumatoid factor negative. (3) Acute on chronic anemia Impression: Currently has a macrocytic anemia and he presented with a hemoglobin of 6.7 receiving 1 PRBC transfusion. His hemoglobin improvement has remained stable during his hospitalization though he has remained off of pharmacologic DVT prophylaxis. -His FOBT was positive and his iron studies indicate iron deficiency. It is likely that he has a slow GI process causing iron deficiency anemia though there is been no evidence of acute bleeding or melena at this time. -CT scans of his abdomen showed no concerning findings for the cause of his anemia. -Continue daily CBC. He continues to drift down slowly. 9.7>>9.3>> 9.1 on 03/22. No lab for today. -Continue IV Protonix 40 mg twice daily. Given no evidence for ulcer disease, I switched to oral the evening of 03/22. -Continue iron supplements. -He is currently not stable for EGD however he should have this performed as an outpatient with consideration for colonoscopy as well. (4) Chest pain Impression: His right-sided pleuritic chest pain appears consistent with pleurodynia from his pleural effusion. He has been having this since November of this year without a clear cause. Currently may be exacerbated by underlying pneumonia. -EKG shows no evidence of pericarditis. -No evidence of postthoracentesis complication from his thoracentesis on 03/18/2024. -CTA chest on admission was negative for pulmonary embolism or aortic pathology. Also did not show any evidence of pleural nodularity or pathology. -Troponins have been minimally elevated in the mid 20s however this likely represents demand ischemia due to his multiple other medical issues and is not indicative of a primary acute coronary syndrome. Qualifiers: Chest pain type: chest pain on breathing Qualified Code(s): R07.1 - Chest pain on breathing; R07.81 - Pleurodynia (5) Bilateral pneumonia Impression: His initial imaging on presentation seemed to appear more consistent with pleural effusion and atelectasis, however he had persistent leukocytosis that worsened and repeat imaging after left-sided thoracentesis appeared to show patchy infiltrates bilaterally consistent with pneumonia. although the CAT scan does not show it, the ultrasound seems to show his effusion is loculated -Initiated on IV ceftriaxone and azithromycin on 03/19/2024. -Blood cultures have been no growth to date. -Sputum culture is contaminated though is growing gram-positive cocci. -Given ongoing leukocytosis and recent hospitalization he is on IV vancomycin since 03/21 as well and I will check trough level tomorrow. . (6) Acute kidney injury Impression: He had evidence for mild acute kidney injury on presentation with creatinine 1.4 which had improved to 1.1 as of 03/21 but has been 1.3 since then. -Continue daily CHEM panels and monitor closely given ongoing diuresis and acute illness. -Avoid unnecessary nephrotoxins. .
[2024-03-23] MEDS ORDERED: ONDANSETRON ODT 4 MG TABLET TL PRN (10:46)
[2024-03-23 12:10] LABS: CYCLIC CITRULLINATED PEP IGG/A 3 units (0-19)
[2024-03-23 14:09] LABS: ANTI-DNA (DS) AB QN <1 IU/mL (0-9); CENTROMERE B ANTIBODIES <0.2 AI (0.0-0.9); CHROMATIN ANTIBODIES <0.2 AI (0.0-0.9); JO-1 AB <0.2 AI (0.0-0.9); RIBOSOMAL P ANTIBODIES <0.2 AI (0.0-0.9); RNP ANTIBODIES <0.2 AI (0.0-0.9); SCLERODERMA-70 ANTIBODIES <0.2 AI (0.0-0.9); SJOGREN'S ANTI-SS-B <0.2 AI (0.0-0.9); SMITH ANTIBODIES <0.2 AI (0.0-0.9); SMITH/RNP ANTIBODIES <0.2 AI (0.0-0.9)
[2024-03-23] MEDS: ALBUTEROL NEB 2.5 MG/3 ML INH PRN (19:17)
[2024-03-23] MEDS: HYDROmorphone 2 MG/ML VIAL IVP PRN (19:34)
[2024-03-23] MEDS: PANTOPRAZOLE 40 MG TABLET PO SCH (21:12)
[2024-03-24 05:35] LABS: BASOPHILS # (AUTO) 0.1 10^3/uL (0.0-0.1); BASOPHILS % (AUTO) 0.3 %; EOSINOPHILS # (AUTO) 0.2 10^3/uL (0.0-0.7); EOSINOPHILS % (AUTO) 1.4 %; HGB - HEMOGLOBIN 9.1 g/dL (14.0-18.0); LYMPHOCYTES # (AUTO) 0.5 10^3/uL (1.5-3.5); LYMPHOCYTES % (AUTO) 3.3 %; MEAN CORPUSCULAR HEMOGLOBIN 29.3 pg (27.0-31.0); MEAN CORPUSCULAR HGB CONC 30.3 g/dL (32.0-36.0); MEAN CORPUSCULAR VOLUME 96.5 fL (80.0-94.0); MEAN PLATELET VOLUME 9.2 fL (7.4-11.4); MONOCYTES # (AUTO) 1.4 10^3/uL (0.0-1.0); NEUTROPHILS # (AUTO) 13.2 10^3/uL (1.5-6.6); NEUTROPHILS % (AUTO) 84.2 %; PLT - PLATELET COUNT 363 10^3/uL (130-450); RED BLOOD COUNT 3.11 10^6/uL (4.70-6.10); RED CELL DISTRIBUTION WIDTH 15.3 % (12.0-15.0); WHITE BLOOD COUNT 15.6 x10^3/uL (4.8-10.8)
[2024-03-24 05:51] LABS: CALCIUM 9.1 mg/dL (8.5-10.3); POTASSIUM 3.3 mmol/L (3.5-4.5)
[2024-03-24 08:25] LABS: BASOPHILS # (AUTO) 0.1 10^3/uL (0.0-0.1); BASOPHILS % (AUTO) 0.3 %; EOSINOPHILS # (AUTO) 0.1 10^3/uL (0.0-0.7); EOSINOPHILS % (AUTO) 0.7 %; HCT - HEMATOCRIT 30.6 % (42.0-52.0); HGB - HEMOGLOBIN 9.5 g/dL (14.0-18.0); LYMPHOCYTES # (AUTO) 0.4 10^3/uL (1.5-3.5); LYMPHOCYTES % (AUTO) 2.2 %; MEAN CORPUSCULAR VOLUME 96.5 fL (80.0-94.0); MEAN PLATELET VOLUME 8.9 fL (7.4-11.4); MONOCYTES % (AUTO) 6.1 %; NEUTROPHILS # (AUTO) 14.6 10^3/uL (1.5-6.6); NEUTROPHILS % (AUTO) 88.3 %; PLT - PLATELET COUNT 360 10^3/uL (130-450); RED BLOOD COUNT 3.17 10^6/uL (4.70-6.10); RED CELL DISTRIBUTION WIDTH 15.4 % (12.0-15.0); WHITE BLOOD COUNT 16.5 x10^3/uL (4.8-10.8)
[2024-03-24 08:39] LABS: CALCIUM 9.2 mg/dL (8.5-10.3); CREATININE 1.1 mg/dL (0.6-1.3); MAGNESIUM 1.8 mg/dL (1.7-2.3); POTASSIUM 3.5 mmol/L (3.5-4.5)
[2024-03-24 08:50] VITALS: O2SAT 92
[2024-03-24] MEDS ORDERED: HYDROmorphone 1 MG/ML CARPUJECT IVP PRN (09:10)
--- NOTE | 2024-03-24 12:16 | Discharge Plan ---
Discharge Plan Problem Reviewed?: Yes Disposition: 02 Transfer Acute Care Hosp Condition: Fair No Smoking: If you smoke, Please STOP! Call for help.
--- NOTE | 2024-03-24 12:32 | Discharge Plan ---
Discharge Plan Problem Reviewed?: Yes Disposition: 02 Transfer Acute Care Hosp Condition: Fair No Smoking: If you smoke, Please STOP! Call for help.
--- NOTE | 2024-03-24 12:33 | DISCHARGE SUMMARY ---
Discharge Summary Admit Date: 03/17/24 Discharge Date: 03/24/24 Discharging Provider: Lina Larios PA-C Primary Care Provider: Ronnell Foreman Code Status: Do Not Attempt Resuscitation Condition at Discharge: Fair Discharge Disposition: 02 Transfer Acute Care Hosp Discharge Facility Name: [facility] - DIAGNOSES Admission Diagnoses: 1. Acute hypoxic respiratory failure The patient presented to the emergency room with hypoxic respiratory failure due to his bilateral pleural effusions which are recurrent. It was also felt that he had bilateral pneumonia. Currently he remains hypoxic.. He has been receiving broad-spectrum IV antibiotics with IV vancomycin, 2 g of IV ceftriaxone and 5 mg of IV Zithromax daily. He is being diuresed with IV Lasix daily as well. 2. Bilateral pleural effusion He has had worsening bilateral pleural effusion since earlier this year. He has had persistent pleuritic chest pain since November. He has an exudative effusion that could be parapneumonic. He has had an echocardiogram which was unremarkable for heart failure. He is status post left-sided thoracentesis on 03/18/2024. He had 1 L of fluid removed. Fluid culture was negative for bacteria. The ultrasound that was performed with that procedure suggest that the effusions are now loculated. He has been receiving 40 mg of IV Lasix daily. SHEN, anti-CCP antibodies were ordered and were negative. Rheumatoid factor was negative. Procalcitonin is elevated at 4.18. He is being transferred to [place] for further definitive treatment of his pleural effusions. He may require VATS procedure. 3. Bilateral pneumonia He has been receiving IV vancomycin, IV Rocephin and IV Zithromax during this hospitalization. Blood cultures were negative to date. Sputum culture was contaminated but did grow gram-positive cocci. White blood cell count continues to rise and currently is 16.5 4. Acute kidney injury Improving 5. Hypertension He has been receiving amlodipine 5 mg daily and has been diuresed with IV Lasix 6. Hyperlipidemia He is on atorvastatin 5 mg daily 7. Anemia; iron deficiency Continue ferrous sulfate 325 mg daily 8. Elevated troponin; likely nonischemic myocardial injury This is likely due to his respiratory failure and pneumonia. It was not felt that this was due to a cardiac source. Echocardiogram was unremarkable 9. Hyponatremia Mild 10. Hyperkalemia Resolved 11. Sarcopenia with ambulatory dysfunction Patient is significantly debilitated and weak. He has had a significant functional decline over the past several months. He will need extensive work with physical therapy and Occupational Therapy once his respiratory status improves - HPI History of Present Illness: From the admission H&P: Pt with worsening R sided chest pain over the past week. he does report some occasional sob but is otherwise able to function, until today, when the pain became so bad that he came to hospital. denies any known trauma. no fevers or chills. he has been prescribed oxycodone but was trying to avoid taking it and tried to manage his symptoms with tylenol only. reports dark colored stools but feels this is because of his iron supplementation. he has been developing fluid in his lungs and is waiting for outpatient thoracentesis to be done. takes asa daily but no other blood thinners. no falls. no ams. denies brbpr. no hematuria. - HOSPITAL COURSE Hospital Course: The patient was admitted to the hospital. He was found to have worsening respiratory failure and pneumonia. He had recurrent bilateral pleural effusions. The patient underwent a left thoracentesis on 03/18/2024 and a right thoracentesis on 03/21/2024. The patient has been having issues with recurrent pleural effusions since November of this year. Imaging now reveals that his effusions are loculated. He will be transferred to [facility] today in stable condition for further workup and definitive treatment of his bilateral pleural effusions. On the day of discharge the patient is awake and alert and oriented. He is having worsening cough and congestion. He remains on broad- spectrum IV antibiotics and IV Lasix. He is stable for transfer to a higher level of care and will be transferred to [place] later on this afternoon. - ALLERGIES Allergies/Adverse Reactions: Allergies Allergy/AdvReac Type Severity Reaction Status Date / Time lisinopril Allergy Unknown Verified 03/16/24 21:14 Penicillins Allergy Itching Verified 03/16/24 21:14 - MEDICATIONS Home Medications: Ambulatory Orders Medication Instructions Recorded Confirmed Simvastatin 10 mg PO QPM 11/05/14 03/16/24 Acetaminophen [Tylenol] 650 mg PO Q8H PRN 04/27/15 03/17/24 Multivit-Min/Iron/Folic Acid/K 1 tab PO DAILY 08/14/20 03/16/24 [Multi-Day Plus Minerals Tablet] Vit A/Vit C/Vit E/Zinc/Copper 1 cap PO BID 10/13/20 05/15/24 [Preservision Areds Softgel] Ferrous Sulfate [Feosol] 325 mg PO DAILY 11/29/23 03/16/24 Magnesium Oxide [Mag Ox] 400 mg PO DAILY 11/29/23 03/16/24 oxyCODONE [Roxicodone] 5 mg PO Q4HR PRN 7 Days #5 tab 01/11/24 03/16/24 Albuterol Sulfate [Proair 2 puffs INH Q6H PRN 03/17/24 03/17/24 Respiclick] Aspirin Chewable [[place] 81 mg PO DAILY 03/17/24 03/17/24 Aspirin] Losartan/Hydrochlorothiazide 1 tab PO DAILY 03/17/24 03/17/24 [Hyzaar 100-25 Tablet] Spironolactone [Aldactone] 25 mg PO DAILY 03/17/24 03/17/24 Tiotropium [place] [Spiriva 1 inh INH DAILY 03/17/24 03/17/24 Respimat] Torsemide 10 mg PO DAILY 03/17/24 03/17/24 - PHYSICAL EXAM AT DISCHARGE General Appearance: positive: Mild distress (Frequently coughing) Eyes Bilateral: positive: Normal inspection ENT: positive: ENT inspection nml Neck: positive: Nml inspection Respiratory: positive: Other (The patient is diminished in the lower bases bilaterally with significant coarse rhonchi bilaterally) Cardiovascular: positive: Regular rate & rhythm Peripheral Pulses: positive: 2+ Abdomen: positive: Non-tender, No organomegaly, Nml bowel sounds Skin: positive: Color nml, Warm, Dry Extremities: positive: Non-tender, Full ROM Neurologic/Psychiatric: positive: Oriented x3, CN's nml (2-12) - LABS Result Diagrams: 03/24/24 08:16 03/24/24 08:16 - SEPSIS Current Stage of Sepsis: Ruled out - QUALITY (Female Hip Fx Only) Was patient sent home on osteoporosis medication?: No - FOLLOW UP Follow Up: [facility] will arrange appropriate follow-up - TIME SPENT Time Spent in Discharge (Minutes): 45
[2024-03-24 12:40] VITALS: BP 158/75
[2024-03-25 06:48] LABS: PATHOLOGIST SLIDE COMMENTS SEE SEPARATE REPORT
== END 2024-03-24 15:10 | disposition short-term general hospital (02) | DRG 186 ==
LOC: EDUNIT# → ED 21:06 → ICU 03-17 04:01 → MS2 03-18 16:45
PROVIDERS: ADMIT Student in an Organized Health Care Education/Training Program; ATTEND Physician Assistant
PROC: 30233N1 Transfusion of Nonautologous Red Blood Cells into Peripheral Vein, Percutaneous Approach (ICD-10-PCS; 2024-03-17)
PROC: 0W9B3ZZ Drainage of Left Pleural Cavity, Percutaneous Approach (ICD-10-PCS; principal; 2024-03-18)
PROC: 0W993ZZ Drainage of Right Pleural Cavity, Percutaneous Approach (ICD-10-PCS; 2024-03-21)
DX: J90 Pleural effusion, not elsewhere classified (principal); J18.9 Pneumonia, unspecified organism; J96.01 Acute respiratory failure with hypoxia; D64.9 Anemia, unspecified; N17.9 Acute kidney failure, unspecified; E87.1 Hypo-osmolality and hyponatremia; E78.00 Pure hypercholesterolemia, unspecified; N40.1 Benign prostatic hyperplasia with lower urinary tract symptoms; N39.498 Other specified urinary incontinence; R14.0 Abdominal distension (gaseous); K92.1 Melena; D62 Acute posthemorrhagic anemia; I10 Essential (primary) hypertension; E78.5 Hyperlipidemia, unspecified; D50.9 Iron deficiency anemia, unspecified; R79.89 Other specified abnormal findings of blood chemistry; E87.5 Hyperkalemia; M62.84 Sarcopenia; Z79.82 Long term (current) use of aspirin; Z87.891 Personal history of nicotine dependence; Z66 Do not resuscitate
CPT/HCPCS: 32555; 36415; 71045; 71275; 74174; 80048; 80053; 80061; 82272; 82607; 82746; 82945; 83036; 83540; 83615; 83690; 83735; 83880; 83986; 84100; 84132; 84145; 84157; 84443; 84466; 84484; 85014; 85018; 85025; 85610; 85651; 86140; 86200; 86225; 86235; 86430; 86850; 86900; 86901; 86920; 87040; 87070; 87075; 87150; 87205; 87635; 89051; 93005; 94640; 96374; 96375; 96376; 99285; A9270; J1170; J3370; P9016; Q9967; 83721

== ENCOUNTER 2024-06-02 12:20 | Outpatient (CLI) | payer MEDICARE ==
[2024-06-02 12:54] LABS: BASOPHILS # (AUTO) 0.1 10^3/uL (0.0-0.1); BASOPHILS % (AUTO) 0.8 %; EOSINOPHILS # (AUTO) 0.4 10^3/uL (0.0-0.7); EOSINOPHILS % (AUTO) 6.4 %; HCT - HEMATOCRIT 34.2 % (42.0-52.0); HGB - HEMOGLOBIN 10.6 g/dL (14.0-18.0); LYMPHOCYTES # (AUTO) 0.8 10^3/uL (1.5-3.5); LYMPHOCYTES % (AUTO) 12.2 %; MEAN CORPUSCULAR HEMOGLOBIN 28.6 pg (27.0-31.0); MEAN CORPUSCULAR VOLUME 92.2 fL (80.0-94.0); MEAN PLATELET VOLUME 9.5 fL (7.4-11.4); MONOCYTES # (AUTO) 0.6 10^3/uL (0.0-1.0); MONOCYTES % (AUTO) 10.2 %; NEUTROPHILS # (AUTO) 4.4 10^3/uL (1.5-6.6); NEUTROPHILS % (AUTO) 70.1 %; PLT - PLATELET COUNT 205 10^3/uL (130-450); RED BLOOD COUNT 3.71 10^6/uL (4.70-6.10); RED CELL DISTRIBUTION WIDTH 15.9 % (12.0-15.0); WHITE BLOOD COUNT 6.3 x10^3/uL (4.8-10.8)
[2024-06-02 13:31] LABS: ALBUMIN/GLOBULIN RATIO 1.4 (1.0-2.2); BILIRUBIN,TOTAL 0.3 mg/dL (0.2-1.0); CALCIUM 9.5 mg/dL (8.5-10.3); CREATININE 0.9 mg/dL (0.6-1.3); POTASSIUM 4.1 mmol/L (3.5-4.5); TOTAL PROTEIN 6.8 g/dL (6.4-8.9)
[2024-06-02 13:41] LABS: THYROID STIMULATING HORMONE 0.9 uIU/mL (0.34-5.60)
== END 2024-06-02 12:21 | disposition home or self-care (01) ==
LOC: LAB 12:20
PROVIDERS: ATTEND Internal Medicine
DX: I10 Essential (primary) hypertension (principal); D50.9 Iron deficiency anemia, unspecified; I48.0 Paroxysmal atrial fibrillation
CPT/HCPCS: 36415; 80053; 82728; 83540; 84443; 84466; 85025

== ENCOUNTER 2024-06-02 12:27 | Outpatient (CLI) | payer MEDICARE ==
--- NOTE | 2024-06-02 16:48 | XRAY Report ---
PROCEDURE: Chest 2V INDICATIONS: PYOTHORAX WO FISTULA TECHNIQUE: 2 views of the chest were acquired. COMPARISON: 03/21/2024, 03/19/2024. FINDINGS: Surgical changes and devices: Surgical fusion of the lower thoracic spine. Cardiac recorded. Lungs and pleura: Small, loculated left-sided pleural effusion and trace right pleural effusion. The se are decreased from prior. Mediastinum: Mediastinal contours appear normal. Heart size is normal. Bones and chest wall: No suspicious bony lesions. Overlying soft tissues appear unremarkable. IMPRESSION: Small, loculated left-sided pleural effusion and trace right pleural effusion. These are decreased fr om prior. Reviewed by: Cristo Latham MD on 06/02/2024 4:47 PM PDT Approved by: Cristo Latham MD on 06/02/2024 4:47 PM PDT Station ID: [id number]
== END 2024-06-02 12:28 | disposition home or self-care (01) ==
LOC: DI 12:27
PROVIDERS: ATTEND Internal Medicine
DX: J86.9 Pyothorax without fistula (principal); J90 Pleural effusion, not elsewhere classified

== ENCOUNTER 2024-06-02 18:15 | Outpatient (CLI) | payer MEDICARE | END 2024-06-02 23:59 | disposition critical access hospital (66) | LOC: EMS 18:15 | DX: R51.9 Headache, unspecified (principal); R41.89 Other symptoms and signs involving cognitive functions and awareness | CPT/HCPCS: A0425; A0429 ==